=== PATIENT | male | born 1945 | race African-American/Black ===

== ENCOUNTER 2019-04-29 16:38 | Emergency (ER) | payer OTHER ==
--- OUTSIDE RECORDS SUMMARY | 2019-04-29 16:41 | XMS REPORT ---
:1945 Author Organization [facility] Address [address] [place] [address] Care Team Providers Name Role Phone Unavailable Unavailable Unavailable Problems This patient has no known problems. Allergies, Adverse Reactions, Alerts This patient has no known allergies or adverse reactions. Medications This patient has no known medications.
[2019-04-29] MEDS ORDERED: METHYLPREDNISOLONE 125 MG INJ ONE (18:37)
[2019-04-29] MEDS ORDERED: LEVALBUTEROL 1.25 MG/3 ML NEB ONE (18:38)
[2019-04-29 18:41] LABS: Absolute Lymphocytes (CBC) 0.5 K/uL (0.7-4.9); Basophils % 4.2 % (0-1.3); Eosinophils % 0.2 % (0-4.4); Hematocrit 36.2 % (39.6-49.0); Lymphocytes % 7.2 % (15.3-44.8); MPV 7.3 fL (7.6-11.3); Monocytes % 8.3 % (3.3-12.3); RBC Red Blood Cell Count 4.08 M/uL (4.33-5.43)
[2019-04-29 18:48] LABS: Protime INR 1.36
[2019-04-29 19:01] LABS: ALT/SGPT 26 U/L (12-78); AST/SGOT 27 U/L (15-37); Albumin 2.4 g/dL (3.4-5.0); Alkaline Phosphatase 89 U/L (45-117); BUN Blood Urea Nitrogen 10 mg/dL (7-18); Bicarbonate 27 mmol/L (21-32); Bilirubin Direct 0.8 mg/dL (0-0.2); Bilirubin Total 1.4 mg/dL (0.2-1.0); Glucose Level 116 mg/dL (74-106); Magnesium 2.4 mg/dL (1.8-2.4); NT PRO-BNP 225 pg/mL (<125); Potassium 3.3 mmol/L (3.5-5.1); Protein, Total 7.8 g/dL (6.4-8.2); Sodium Level 133 mmol/L (136-145); Troponin (Emerg Dept Use Only) < 0.02 ng/mL (0.0-0.045)
--- NOTE | 2019-04-29 19:04 | RAD REPORT ---
EXAM DESCRIPTION: RAD - Chest Single View - 04/29/2019 6:52 pm CLINICAL HISTORY: DYSPNEA Chest pain. COMPARISON: <Comparisons> FINDINGS: Portable technique limits examination quality. Opacification of the inferior aspect of the right hemithorax is noted likely combination of right low er lobe collapse and consolidation. Mild shift of the cardiomediastinal structures to the right is se en. The left lung is emphysematous. Cardiac size is likely normal.CT chest followup is recommended.
[2019-04-29] MEDS ORDERED: NA CHLORIDE 0.9% 2,000 ML ONE (19:20)
[2019-04-29] MEDS ORDERED: Levofloxacin 750mg IV 750 MG/150 ML BAG IV ONE (19:20)
--- NOTE | 2019-04-29 19:47 | RAD REPORT ---
EXAM DESCRIPTION: CT - Thorax W/ Con CLINICAL HISTORY: Chest pain abnormal xray COMPARISON: No comparisons FINDINGS: A large irregular right hilar mass is present with mediastinal invasion measuring approxim ately 6.3 x 6.7 cm. Large bulky masses in the mediastinum are present more superiorly, including the pretracheal space measuring 5.0 x 4.3 cm, AP window region measuring 4.0 x 3.2 cm, anterior prevascul ar space measuring 4.1 x 2.7 cm. There is complete occlusion of the right lower lobe bronchus with ma rked atelectasis and consolidation seen within the right lower lobe. Postobstructive pneumonia findin gs are also present in the right middle lobe and anterior right upper lobe. A pulmonary embolism is n ot present. Small right pleural effusion is present. 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 Irregular low-density mass is seen in the liver abutting the inferior vena cava measuring 2.6 x 2.6 c m, likely metastatic. Mild thickening of both adrenal glands is present. No lytic or blastic bone lesion. All CT scans are performed using dose optimization technique as appropriate and may include automated exposure control or mA/KV adjustment according to patient size. IMPRESSION: A very large right hilar malignant mass is present with mediastinal invasion.There is si gnificant atelectasis/ collapse of the right lower lobe and postobstructive consolidation. Large bulky masses in the mediastinum likely related to metastatic adenopathy. 2.6 cm mass the liver suspected to be metastatic in origin.
[2019-04-29 19:56] LABS: Urine Blood NEGATIVE (NEG); Urine Glucose TRACE (NEG); Urine Protein 3+ (NEG); Urine Specific Gravity 1.025 (1.005-1.030); Urine pH 5.5 (5.0-7.0)
[2019-04-29] MEDS ORDERED: PIPER/TAZO/NS 3.375gm 3.375 GM/100 ML BAG ONE (20:56)
--- NOTE | 2019-04-29 21:33 | EDPHYS ---
Physician Documentation [facility] Name: Uziel Islas Age: 73 yrs Sex: Male : 1945 Arrival Date: 04/29/2019 Time: 16:42 Bed 5 Private MD: Gerald Burt ED Physician Tejinder Eugene HPI: 04/29 19:19 This 73 yrs old Black Male presents to ER via Ambulatory with complaints of Cough, jr8 Weakness. 19:19 The patient or guardian reports cough, that is intermittent, described as mild, with no jr8 sputum. Onset: The symptoms/episode began/occurred gradually, 3 week(s) ago, and became worse and became persistent. Severity of symptoms: At their worst the symptoms were moderate, in the emergency department the symptoms are unchanged. Modifying factors: The symptoms are alleviated by nothing, the symptoms are aggravated by exertion. Associated signs and symptoms: Pertinent positives: diarrhea, general weakness. The patient has not experienced similar symptoms in the past. The patient has not recently seen a physician. Historical: - Allergies: 17:01 No Known Allergies; bp - Home Meds: 17: Unable to obtain [Active]; bp - PMHx: 17:01 Cancer; Glaucoma; bp - Immunization history:: Adult Immunizations up to date. - Social history:: Smoking status: Patient uses tobacco products, smokes two packs cigarettes per day. - Ebola Screening: : No symptoms or risks identified at this time. ROS: 19:19 Eyes: Negative for injury, pain, redness, and discharge, ENT: Negative for injury, jr8 pain, and discharge, Neck: Negative for injury, pain, and swelling, Cardiovascular: Negative for chest pain, palpitations, and edema, Abdomen/GI: Negative for abdominal pain, nausea, vomiting, diarrhea, and constipation, Back: Negative for injury and pain, MS/Extremity: Negative for injury and deformity, Skin: Negative for injury, rash, and discoloration, Neuro: Negative for headache, weakness, numbness, tingling, and seizure. 19:19 Constitutional: Positive for fatigue, malaise. 19:19 Respiratory: Positive for cough, dyspnea on exertion, shortness of breath, Negative for sputum production, wheezing. Exam: 19:19 Eyes: Pupils equal round and reactive to light, extra-ocular motions intact. Lids and jr8 lashes normal. Conjunctiva and sclera are non-icteric and not injected. Cornea within normal limits. Periorbital areas with no swelling, redness, or edema. ENT: Nares patent. No nasal discharge, no septal abnormalities noted. Tympanic membranes are normal and external auditory canals are clear. Oropharynx with no redness, swelling, or masses, exudates, or evidence of obstruction, uvula midline. Mucous membranes moist. Neck: Trachea midline, no thyromegaly or masses palpated, and no cervical lymphadenopathy. Supple, full range of motion without nuchal rigidity, or vertebral point tenderness. No Meningismus. Cardiovascular: Regular rate and rhythm with a normal S1 and S2. No gallops, murmurs, or rubs. Normal PMI, no JVD. No pulse deficits. Abdomen/GI: Soft, non-tender, with normal bowel sounds. No distension or tympany. No guarding or rebound. No evidence of tenderness throughout. Back: No spinal tenderness. No costovertebral tenderness. Full range of motion. Skin: Warm, dry with normal turgor. Normal color with no rashes, no lesions, and no evidence of cellulitis. MS/ Extremity: Pulses equal, no cyanosis. Neurovascular intact. Full, normal range of motion. Neuro: Awake and alert, GCS 15, oriented to person, place, time, and situation. Cranial nerves II-XII grossly intact. Motor strength 5/5 in all extremities. Sensory grossly intact. Cerebellar exam normal. Normal gait. 19:19 Respiratory: the patient does not display signs of respiratory distress, Respirations: normal, symetrical, no use of accessory muscles, no grunting, no evidence of nasal flaring, no prolonged exhalations, no pursed lip breathing, no retractions, no shallow respirations, no splinting, no tachypnea, Breath sounds: decreased breath sounds, that are moderate, are heard in the right posterior middle lobe and right posterior lower lobe, rhonchi, that are mild, are heard diffusely. Vital Signs: 17:01 BP 159 / 64; Pulse 120; Resp 20; Temp 97.9; Pulse Ox 93% on R/A; Weight 58.97 kg; bp Height 5 ft. 4 in. (162.56 cm); 18:20 BP 160 / 77; Pulse 122; Resp 23; Pulse Ox 94% on R/A; tw2 19:15 BP 135 / 69; Pulse 129; Resp 26; Pulse Ox 95% on R/A; lp1 20:15 BP 136 / 63; Pulse 109; Resp 26; Pulse Ox 94% on R/A; lp1 20:40 BP 159 / 79; Pulse 124; Resp 28; Pulse Ox 97% on R/A; Pain 0/10; lp1 21:00 BP 140 / 78; Pulse 108; Resp 23; Pulse Ox 96% on R/A; lp1 21:30 BP 141 / 77; Pulse 122; Resp 21; Temp 98.7(O); Pulse Ox 97% on 2 lpm NC; lp1 17:01 Body Mass Index 22.31 (58.97 kg, 162.56 cm) bp MDM: 18:01 Patient medically screened. jr8 21:31 Data reviewed: vital signs, nurses notes, lab test result(s), EKG, radiologic studies, [facility] CT scan, plain films. Data interpreted: Pulse oximetry: on room air is 97 %. Interpretation: normal. Counseling: I had a detailed discussion with the patient and/or guardian regarding: the historical points, exam findings, and any diagnostic results supporting the discharge/admit diagnosis, lab results, radiology results, the need to transfer to another facility, for higher level of care, [facility] does not immediately have the required specialist. ED course: Dr. Purcell and Ismael consulted and accepted patient to [facility] for ICU management . 04/29 18:17 Order name: Basic Metabolic Panel; Complete Time: 19:15 04/29 18:17 Order name: CBC with Diff; Complete Time: 18:50 04/29 18:17 Order name: LFT's; Complete Time: 19:15 04/29 18:17 Order name: Magnesium; Complete Time: 19:15 04/29 18:17 Order name: NT PRO-BNP; Complete Time: 19:15 04/29 18:17 Order name: PT-INR; Complete Time: 18:53 04/29 18:17 Order name: Troponin (emerg Dept Use Only); Complete Time: 19:15 04/29 18:17 Order name: XRAY Chest (1 view); Complete Time: 19:15 04/29 18:17 Order name: Blood Culture Adult (2) [facility] 04/29 18:17 Order name: Procalcitonin; Complete Time: 19:28 [facility] 04/29 18:39 Order name: Urine Dipstick--Ancillary (enter results); Complete Time: 20:05 bd 04/29 18:45 Order name: Lactate; Complete Time: 19:50 [facility] 04/29 19:14 Order name: CT Chest W/ Con; Complete Time: 19:50 [facility] 04/29 21:55 Order name: Lactate Sepsis 2 HR Follow-up; Complete Time: 21:55 EDMS 04/29 18:17 Order name: EKG; Complete Time: 18:20 [facility] 04/29 18:17 Order name: Cardiac monitoring; Complete Time: 19:24 [facility] 04/29 18:17 Order name: EKG - Nurse/Tech; Complete Time: 19:24 [facility] 04/29 18:17 Order name: IV Saline Lock; Complete Time: 19:24 [facility] 04/29 18:17 Order name: Labs collected and sent; Complete Time: 19:24 04/29 18:17 Order name: O2 Per Protocol; Complete Time: 19:24 04/29 18:17 Order name: O2 Sat Monitoring; Complete Time: 19:24 Administered Medications: 18:32 Drug: Xopenex 1.25 mg Route: Inhalation; 19:03 Drug: SOLU-Medrol 125 mg Route: IVP; Site: right forearm; tw2 19:11 Follow up: Response: No adverse reaction tw2 19:10 Drug: NS 0.9% (30 ml/kg) 30 ml/kg Route: IV; Rate: bolus; Site: right forearm; tw2 21:00 Follow up: IV Status: Completed infusion; IV Intake: 2000ml lp1 19:10 Drug: LevaQUIN 750 mg Volume: 150 ml; Route: IVPB; Infused Over: 90 mins; Site: right tw2 forearm; 20:50 Follow up: IV Status: Completed infusion; IV Intake: 150ml lp1 20:50 Drug: Zosyn 3.375 grams Route: IVPB; Infused Over: 60 mins; Site: right forearm; lp1 21:20 Follow up: IV Status: Completed infusion; IV Intake: 100ml lp1 Disposition: 04/29/19 21:[address] [facility]. Diagnosis are Sepsis, Pneumonia due to other specified bacteria, Abnormal findings on diagnostic imaging of lung, Malignant neoplasm of bronchus and lung. - Reason for transfer: Higher level of care. - Accepting physician is Dr. Purcell. - Condition is Fair. - Problem is new. - Symptoms have improved. Signatures: Dispatcher [employer] EDMS Eleanor Fulton, RN RN Pushpa Bansal RN RN lp1 Tony Rios PA PA jr8 Neema Ortiz RN RN tw2 Lazarus Amin RN RN bp Corrections: (The following items were deleted from the chart) 23:12 21:32 04/29/2019 21:[address] [facility]. Diagnosis is lp1 Sepsis; Pneumonia due to other specified bacteria; Abnormal findings on diagnostic imaging of lung; Malignant neoplasm of bronchus and lung. Reason for transfer: Higher level of care. Accepting physician is Dr. Purcell. Condition is Fair. Problem is new. Symptoms have improved. jr8
--- NOTE | 2019-04-29 21:33 | ER ---
Nurse's Notes [facility] Name: Uziel Islas Age: 73 yrs Sex: Male : 1945 Arrival Date: 04/29/2019 Time: 16:42 Bed 5 Private MD: Gerald Burt Diagnosis: Sepsis;Pneumonia due to other specified bacteria;Abnormal findings on diagnostic imaging of lung;Malignant neoplasm of bronchus and lung Presentation: 04/29 16:59 Presenting complaint: Patient states: COUGH x3 WK. Transition of care: patient was not bp received from another setting of care. Onset of symptoms is unknown. Risk Assessment: Do you want to hurt yourself or someone else? Patient reports no desire to harm self or others. Initial Sepsis Screen: Does the patient meet any 2 criteria? HR > 90 bpm. No. Patient's initial sepsis screen is negative. Does the patient have a suspected source of infection? No. Patient's initial sepsis screen is negative. Care prior to arrival: None. 16:59 Method Of Arrival: Ambulatory bp 16:59 Acuity: SRINIVAS 4 bp 18:20 Acuity: SRINIVAS 2 tw2 Triage Assessment: 17:01 General: Appears in no apparent distress. comfortable, unkempt, Behavior is bp cooperative, appropriate for age, anxious. Pain: Denies pain. GI: No signs and/or symptoms were reported involving the gastrointestinal system. Historical: - Allergies: 17:01 No Known Allergies; bp - Home Meds: 17:01 Unable to obtain [Active]; bp - PMHx: 17:01 Cancer; Glaucoma; bp - Immunization history:: Adult Immunizations up to date. - Social history:: Smoking status: Patient uses tobacco products, smokes two packs cigarettes per day. - Ebola Screening: : No symptoms or risks identified at this time. Screenin:37 Abuse screen: Denies threats or abuse. Nutritional screening: No deficits noted. tw2 Tuberculosis screening: No symptoms or risk factors identified. Fall Risk Secondary diagnosis (15 points) impaired mobility. Assessment: 18:10 General: Appears in no apparent distress. unkempt, Behavior is calm, cooperative, tw2 appropriate for age. Pain: Denies pain. Neuro: Level of Consciousness is awake, alert, obeys commands, Oriented to person, place, time, situation. Cardiovascular: Heart tones S1 S2 Patient's skin is warm and dry. Respiratory: Reports cough that is non-productive. GI: Abdomen is flat, Bowel sounds present X 4 quads. : No signs and/or symptoms were reported regarding the genitourinary system. EENT: No signs and/or symptoms were reported regarding the EENT system. Derm: No signs and/or symptoms reported regarding the dermatologic system. Musculoskeletal: Range of motion: intact in all extremities. 19:23 Reassessment: Patient appears in no apparent distress at this time. Neuro: Level of lp1 Consciousness is awake, obeys commands, Oriented to person, place, situation. Cardiovascular: Patient's skin is warm and dry. Respiratory: Reports cough that is Airway is patent Respiratory effort is even, shallow, Respiratory pattern is symmetrical, Breath sounds are diminished bilaterally. Derm: Skin is fragile, is thin, Skin is dry, Skin is normal. 20:30 Reassessment: Patient appears in no apparent distress at this time. No changes from 1 previously documented assessment. Patient resting, eyes closed, respirations shallow. 20:44 Reassessment: Provider at bedside to discuss results with patient and daughter; Aware [facility] of pending transfer. 21:26 Reassessment: O2 at 90% on RA while sleeping; O2 via NC at 2L applied to patient. lp1 21:58 Reassessment: Report given to MATTY Drew for patient to transfer to [place] [address] [address] Bed 19. Vital Signs: 17:01 BP 159 / 64; Pulse 120; Resp 20; Temp 97.9; Pulse Ox 93% on R/A; Weight 58.97 kg; bp Height 5 ft. 4 in. (162.56 cm); 18:20 BP 160 / 77; Pulse 122; Resp 23; Pulse Ox 94% on R/A; tw2 19:15 BP 135 / 69; Pulse 129; Resp 26; Pulse Ox 95% on R/A; lp1 20:15 BP 136 / 63; Pulse 109; Resp 26; Pulse Ox 94% on R/A; lp1 20:40 BP 159 / 79; Pulse 124; Resp 28; Pulse Ox 97% on R/A; Pain 0/10; lp1 21:00 BP 140 / 78; Pulse 108; Resp 23; Pulse Ox 96% on R/A; lp1 21:30 BP 141 / 77; Pulse 122; Resp 21; Temp 98.7(O); Pulse Ox 97% on 2 lpm NC; lp1 17:01 Body Mass Index 22.31 (58.97 kg, 162.56 cm) bp ED Course: 16:42 Patient arrived in ED. mr 16:43 Gerald Burt is Private Physician. mr 17:00 Triage completed. bp 17:01 Arm band placed on. bp 18:01 Tony Rios PA is PHCP. jr8 18:01 Tejinder Eugene MD is Attending Physician. jr8 18:01 Placed in gown. Bed in low position. Side rails up X2. Adult w/ patient. Cardiac tw2 monitor on. Pulse ox on. NIBP on. 18:02 Neema Ortiz RN is Primary Nurse. tw2 18:32 Missed attempt(s): 20 gauge in right antecubital area. ch 18:36 Missed attempt(s): 22 gauge in left antecubital area. 1st set blood culture and green tw2 top sent to lab.. 18:52 XRAY Chest (1 view) In Process Unspecified. EDMS 19:01 Inserted saline lock: 22 gauge in right forearm, using aseptic technique. Blood ss collected. 19:01 Second set of blood cultures drawn by ct. ss 19:10 Report given to MATTY Barrow. tw2 19:34 Notified Nurse Practitioner and/or Physician Manager [employer] of a critical lab result(s), lp1 Lactate 2.2. 19:38 CT Chest W/ Con In Process Unspecified. EDMS 20:46 No provider procedures requiring assistance completed. lp1 21:00 Inserted saline lock: 22 gauge in left forearm, using aseptic technique. Blood lp1 collected. 22:30 Patient transferred, IV remains in place. lp1 Administered Medications: 18:32 Drug: Xopenex 1.25 mg Route: Inhalation; ch 19:03 Drug: SOLU-Medrol 125 mg Route: IVP; Site: right forearm; tw2 19:11 Follow up: Response: No adverse reaction tw2 19:10 Drug: NS 0.9% (30 ml/kg) 30 ml/kg Route: IV; Rate: bolus; Site: right forearm; tw2 21:00 Follow up: IV Status: Completed infusion; IV Intake: 2000ml lp1 19:10 Drug: LevaQUIN 750 mg Volume: 150 ml; Route: IVPB; Infused Over: 90 mins; Site: right tw2 forearm; 20:50 Follow up: IV Status: Completed infusion; IV Intake: 150ml lp1 20:50 Drug: Zosyn 3.375 grams Route: IVPB; Infused Over: 60 mins; Site: right forearm; lp1 21:20 Follow up: IV Status: Completed infusion; IV Intake: 100ml lp1 Intake: 20:50 IV: 150ml; Total: 150ml. lp1 21:00 IV: 2000ml; Total: 2150ml. lp1 21:20 IV: 100ml; Total: 2250ml. lp1 Outcome: 21:32 ER care complete, transfer ordered by . duran 22:30 [facility]red by [facility] to [facility], Transfer form completed. lp1 X-rays sent w/ patient. 22:30 Condition: stable 22:30 Instructed on the need for transfer. 22:35 Patient left the ED. lp1 Signatures: Dispatcher [employer] EDMS Eleanor Fulton, RN RN Melyssa Barger Shelby, RN RN ss Pushpa Bansal RN RN lp1 Tony Rios PA PA jr8 Neema Ortiz RN RN tw2 Lazarus Amin, RN RN bp Corrections: (The following items were deleted from the chart) 18:20 18:02 Acuity: SRINIVAS 3 tw2 tw2 23:13 23:12 Patient left the ED. lp1 lp1
--- NOTE | 2019-04-30 12:11 | EKG ---
Test Date: 2019-04-29 Test Time: 18:18:46 Outside [employer]: ANTOINETTE MEASUREMENT RESULTS: Intervals: Rate: 122 [place]: 112 QRSD: 122 QT: 324 QTc: 461 [place]: P: 3 [place]: 112 QRS: -52 T: 33 INTERPRETIVE STATEMENTS: Sinus tachycardia Left axis deviation Right bundle branch block Abnormal ECG No previous ECG available for comparison Electronically Signed On 04-30-19 12:10:22 CDT by Kirt Rosario
== END 2019-04-29 23:12 | disposition short-term general hospital (02) ==
LOC: ER 16:38
DX: A41.9 Sepsis, unspecified organism (principal); J15.8 Pneumonia due to other specified bacteria; C34.90 Malignant neoplasm of unspecified part of unspecified bronchus or lung; R91.8 Other nonspecific abnormal finding of lung field; F17.210 Nicotine dependence, cigarettes, uncomplicated
CPT/HCPCS: 96365; 96367; 96368; 93005; 87040 ×2; 85025; 80048; 36415; 83735; 85610; 80076; 83605 ×2; 81003; 84484; 84145; 83880; 71260; 71045; 96375; 99285; Q9967; J2543; J7030; J2930

== ENCOUNTER 2019-07-07 17:04 | Observation (INO) | payer OTHER ==
--- OUTSIDE RECORDS SUMMARY | 2019-07-07 17:07 | XMS REPORT | Clinical Summary ---
:1945 Author Organization [facility] Address [address] [place] [address] Care Team Providers Name Role Phone Pcp, No Primary Care Provider Unavailable Allergies No Known Allergies Medications Medication Sig Dispensed Refills Start Date End Date Status formoterol Take 2 mLs (20 120 mL 0 05/07/2019 Active (PERFOROMIST) 20 mcg total) by mcg/2 mL nebulization 2 nebulizer (two) times solution daily. budesonide Take 2 mLs (0.5 120 mL 0 05/07/2019 Active (PULMICORT) 0.5 mg total) by mg/2 mL nebulizer nebulization 2 solution (two) times daily. folic acid Take 1 tablet (1 30 tablet 0 05/08/2019 Active (FOLVITE) 1 MG mg total) by tablet mouth daily. ipratropium-albut Take 3 mLs by 270 mL 0 05/07/2019 Active daren (DUO-NEB) nebulization 0.5 mg-3 mg(2.5 every 6 (six) mg base)/3 mL hours as needed nebulizer for Wheezing. solution metoprolol Take 0.5 tablets 30 tablet 0 05/07/2019 Active (LOPRESSOR) 25 MG (12.5 mg total) tablet by mouth 2 (two) times daily. tamsulosin Take 1 capsule 90 capsule 0 06/26/2019 Active (FLOMAX) 0.4 mg (0.4 mg total) by Cap 24 hr capsule mouth daily. sodium chloride 1 Take 2 tablets (2 120 tablet 0 06/25/2019 Active gram tablet g total) by mouth 9 2 (two) times daily for 30 days. finasteride Take 1 tablet (5 90 tablet 0 06/25/2019 Active (PROSCAR) 5 mg mg total) by 0 tablet mouth daily. furosemide Take 1 tablet (40 90 tablet 0 06/26/2019 Active (LASIX) 40 MG mg total) by 0 tablet mouth daily. aspirin-sod Take 325 mg by 0 Discontinued bicarb-citric mouth every 6 9 acid (six) hours as (MILO-SELTZER) needed. 324 mg TbEFIndications: dyspepsia allopurinol Take 1 tablet 30 tablet 0 05/08/2019 Discontinued (ZYLOPRIM) 300 MG (300 mg total) by 9 tablet mouth daily. furosemide Take 1 tablet (40 90 tablet 0 06/25/2019 Discontinued (LASIX) 40 MG mg total) by 9 tablet mouth daily. ondansetron Take 1 tablet (4 30 tablet 0 06/25/2019 (ZOFRAN) 4 MG mg total) by 9 tablet mouth 2 (two) times daily as needed for Nausea for up to 7 days. Active Problems Problem Noted Date Acute hyponatremia 06/20/2019 Failure to thrive in adult 06/19/2019 Small cell lung cancer in adult 05/04/2019 Pneumonia 04/30/2019 Encounters Date Type Specialty Care Team Description 06/26/2019 Orders Only Internal Tj Salazar MD Medicine 06/19/2019 - Hospital Oncology Kiran Rees, Failure to thrive in adult (Primary Dx); 06/25/2019 Encounter Non-intractable vomiting with nausea, unspecified vomiting type; Nancy Richter Weakness; PMD Jamila Wheezing; Tj Salazar MD Confusion; Nick Howardophashlie Weight loss; MD Kwadwo Small cell lung cancer in adult (HCC); Liver metastases (HCC); Acute hyponatremia; Urinary retention 06/19/2019 Travel 05/01/2019 Surgery Jarrod Carroll, BRONCHOSCOPY,ENDOBRONC HIAL ULTRASOUND (EBUS) TRANSTRACH/ TRANSBRONCH SAMPLING 05/01/2019 Anesthesia Event Greta Barnes CRNA 04/30/2019 Travel 04/29/2019 - Hospital Oncology Jazzy Persaud, Small cell lung cancer in adult (HCC) (Primary Dx); 05/07/2019 Encounter MD Valente Postobstructive pneumonia; Adriana Dorantes MD Lung mass; Trinity Sorensen Collapse of right lung MD Deirdre 04/29/2019 Telephone Critical Care Jazzy Persaud Transfer Medicine MD Valente 04/29/2019 Telephone Critical Care Jazzy Persaud transfer Medicine MD Valente after 07/06/2018 Immunizations Name Dates Previously Given Next Due Pneumococcal Conjugate (Prevnar) 13-Valent 05/02/2019 Social History Tobacco Use Types Packs/Day Years Used Date Former Smoker Cigarettes 1 12 Quit: 04/23/2019 Smokeless Tobacco: Never Used Sex Assigned at Date Recorded Not on file Job Start Date Occupation Industry Not on file Not on file Not on file Travel History Travel Start Travel End No recent travel history available. Last Filed Vital Signs Vital Sign Reading Time Taken Blood Pressure 136/62 06/25/2019 3:00 PM CDT Pulse 107 06/25/2019 3:00 PM CDT Temperature 36.8 C (98.3 F) 06/25/2019 3:00 PM CDT Respiratory Rate 18 06/25/2019 3:00 PM CDT Oxygen Saturation 98% 06/25/2019 3:00 PM CDT Inhaled Oxygen Concentration - - Weight 56.9 kg (125 lb 8 oz) 06/22/2019 5:00 PM CDT Height 162.6 cm (5' 4") 06/22/2019 5:00 PM CDT Body Mass Index 21.54 06/22/2019 5:00 PM CDT Plan of Treatment Not on file Procedures Procedure Name Priority Date/Time Associated Comments Diagnosis RHYTHM STRIP - SCAN 06/27/2019 11:00 AM CDT BASIC METABOLIC PANEL Routine 06/25/2019 8:16 Results for this (7) AM CDT procedure are in the results section. SODIUM Routine 06/25/2019 12:21 Results for this AM CDT procedure are in the results section. SODIUM Routine 06/24/2019 6:04 Results for this PM CDT procedure are in the results section. CBC W/PLT COUNT & AUTO Routine 06/24/2019 11:12 Results for this DIFFERENTIAL AM CDT procedure are in the results section. CBC W/PLT COUNT & AUTO Routine 06/24/2019 11:12 Results for this DIFFERENTIAL AM CDT procedure are in the results section. COMPREHENSIVE METABOLIC Routine 06/24/2019 11:12 Results for this PANEL AM CDT procedure are in the results section. SODIUM Routine 06/24/2019 6:02 Results for this AM CDT procedure are in the results section. SODIUM Routine 06/24/2019 1:34 Results for this AM CDT procedure are in the results section. SODIUM Routine 2019 6:39 Results for this PM CDT procedure are in the results section. SODIUM Routine 2019 12:28 Results for this PM CDT procedure are in the results section. URIC ACID Routine 2019 5:38 Results for this AM CDT procedure are in the results section. COMPREHENSIVE METABOLIC Routine 2019 5:38 Results for this PANEL AM CDT procedure are in the results section. SODIUM Routine 2019 1:05 Results for this AM CDT procedure are in the results section. MAGNESIUM Routine 06/22/2019 8:44 Results for this PM CDT procedure are in the results section. SODIUM Routine 06/22/2019 8:44 Results for this PM CDT procedure are in the results section. SODIUM Routine 06/22/2019 6:06 Results for this PM CDT procedure are in the results section. SODIUM Routine 06/22/2019 12:21 Results for this PM CDT procedure are in the results section. CBC W/PLT COUNT & AUTO Routine 06/22/2019 5:18 Results for this DIFFERENTIAL AM CDT procedure are in the results section. CBC W/PLT COUNT & AUTO Routine 06/22/2019 5:18 Results for this DIFFERENTIAL AM CDT procedure are in the results section. BASIC METABOLIC PANEL Routine 06/22/2019 5:18 Results for this (7) AM CDT procedure are in the results section. CT ABDOMEN/PELVIS WITH Routine 06/22/2019 3:26 Results for this IV CONTRAST AM CDT procedure are in the results section. CT CHEST WITH IV Routine 06/22/2019 3:26 Results for this CONTRAST AM CDT procedure are in the results section. MR BRAIN WITHOUT & WITH Routine 06/21/2019 9:36 Results for this IV CONTRAST PM CDT procedure are in the results section. SODIUM Timed 06/21/2019 10:30 Results for this AM CDT procedure are in the results section. URIC ACID, RANDOM URINE Routine 06/21/2019 4:00 Results for this AM CDT procedure are in the results section. CBC W/PLT COUNT & AUTO Routine 06/21/2019 3:58 Results for this DIFFERENTIAL AM CDT procedure are in the results section. CORTISOL Timed 06/21/2019 3:58 Results for this AM CDT procedure are in the results section. TSH Routine 06/21/2019 3:58 Results for this AM CDT procedure are in the results section. CBC W/PLT COUNT & AUTO Routine 06/21/2019 3:58 Results for this DIFFERENTIAL AM CDT procedure are in the results section. BASIC METABOLIC PANEL Routine 06/21/2019 3:58 Results for this (7) AM CDT procedure are in the results section. TROPONIN I STAT 06/21/2019 3:58 Results for this AM CDT procedure are in the results section. SODIUM Timed 06/20/2019 9:36 Results for this PM CDT procedure are in the results section. URIC ACID Routine 06/20/2019 9:36 Results for this PM CDT procedure are in the results section. OSMOLALITY, URINE Routine 06/20/2019 2:49 Results for this PM CDT procedure are in the results section. CREATININE, RANDOM URINE Routine 06/20/2019 2:49 Results for this PM CDT procedure are in the results section. POTASSIUM, RANDOM URINE Routine 06/20/2019 2:49 Results for this PM CDT procedure are in the results section. SODIUM, RANDOM URINE Routine 06/20/2019 2:49 Results for this PM CDT procedure are in the results section. BASIC METABOLIC PANEL STAT 06/20/2019 2:30 Results for this (7) PM CDT procedure are in the results section. OSMOLALITY, SERUM Routine 06/20/2019 2:30 Results for this PM CDT procedure are in the results section. TROPONIN I Routine 06/20/2019 2:30 Results for this PM CDT procedure are in the results section. CBC W/PLT COUNT & AUTO Routine 06/20/2019 4:54 Results for this DIFFERENTIAL AM CDT procedure are in the results section. CBC W/PLT COUNT & AUTO Routine 06/20/2019 4:54 Results for this DIFFERENTIAL AM CDT procedure are in the results section. BASIC METABOLIC PANEL Routine 06/20/2019 4:54 Results for this (7) AM CDT procedure are in the results section. TROPONIN I Routine 06/20/2019 4:54 Results for this AM CDT procedure are in the results section. POCT-GLUCOSE METER Routine 06/20/2019 12:16 Results for this AM CDT procedure are in the results section. CBC W/PLT COUNT & AUTO STAT 06/19/2019 8:23 Results for this DIFFERENTIAL PM CDT procedure are in the results section. URINALYSIS MICROSCOPIC Routine 06/19/2019 8:23 Results for this PM CDT procedure are in the results section. URINALYSIS WITH STAT 06/19/2019 8:23 Results for this MICROSCOPIC IF INDICATED PM CDT procedure are in the results section. LIPASE STAT 06/19/2019 8:23 Results for this PM CDT procedure are in the results section. HEPATIC FUNCTION PANEL STAT 06/19/2019 8:23 Results for this PM CDT procedure are in the results section. BASIC METABOLIC PANEL STAT 06/19/2019 8:23 Results for this (7) PM CDT procedure are in the results section. PT/APTT STAT 06/19/2019 8:23 Results for this PM CDT procedure are in the results section. CBC W/PLT COUNT & AUTO STAT 06/19/2019 8:23 Results for this DIFFERENTIAL PM CDT procedure are in the results section. CT BRAIN WITHOUT IV STAT 06/19/2019 7:15 Results for this CONTRAST PM CDT procedure are in the results section. ED ECG INTERPRETATION Routine 06/19/2019 6:44 Results for this PM CDT procedure are in the results section. RHYTHM STRIP - SCAN 05/08/2019 10:33 AM CDT REPORT OF PROCEDURE - 05/08/2019 10:33 ENDOSCOPY SCAN AM CDT BASIC METABOLIC PANEL Routine 05/07/2019 5:07 Results for this (7) AM CDT procedure are in the results section. URIC ACID Routine 05/07/2019 5:07 Results for this AM CDT procedure are in the results section. PHOSPHORUS Routine 05/07/2019 5:07 Results for this AM CDT procedure are in the results section. HEPATIC FUNCTION PANEL Routine 05/07/2019 5:07 Results for this AM CDT procedure are in the results section. MAGNESIUM Routine 05/07/2019 5:07 Results for this AM CDT procedure are in the results section. CBC (HEMOGRAM ONLY) Routine 05/07/2019 5:07 Results for this AM CDT procedure are in the results section. URIC ACID Routine 05/06/2019 10:42 Results for this PM CDT procedure are in the results section. PHOSPHORUS Routine 05/06/2019 10:42 Results for this PM CDT procedure are in the results section. BASIC METABOLIC PANEL Routine 05/06/2019 10:42 Results for this (7) PM CDT procedure are in the results section. XR CHEST 1 VIEW Routine 05/06/2019 1:43 Results for this PORTABLE/BEDSIDE PM CDT procedure are in the results section. BASIC METABOLIC PANEL Routine 05/06/2019 12:45 Results for this (7) PM CDT procedure are in the results section. URIC ACID Routine 05/06/2019 12:45 Results for this PM CDT procedure are in the results section. PHOSPHORUS Routine 05/06/2019 12:45 Results for this PM CDT procedure are in the results section. HEPATIC FUNCTION PANEL Routine 05/06/2019 4:13 Results for this AM CDT procedure are in the results section. MAGNESIUM Routine 05/06/2019 4:13 Results for this AM CDT procedure are in the results section. CBC (HEMOGRAM ONLY) Routine 05/06/2019 4:13 Results for this AM CDT procedure are in the results section. BASIC METABOLIC PANEL Routine 05/06/2019 4:13 Results for this (7) AM CDT procedure are in the results section. URIC ACID Routine 05/06/2019 4:13 Results for this AM CDT procedure are in the results section. PHOSPHORUS Routine 05/06/2019 4:13 Results for this AM CDT procedure are in the results section. BASIC METABOLIC PANEL Routine 05/05/2019 9:32 Results for this (7) PM CDT procedure are in the results section. URIC ACID Routine 05/05/2019 9:32 Results for this PM CDT procedure are in the results section. PHOSPHORUS Routine 05/05/2019 9:32 Results for this PM CDT procedure are in the results section. BASIC METABOLIC PANEL Routine 05/05/2019 1:05 Results for this (7) PM CDT procedure are in the results section. URIC ACID Routine 05/05/2019 1:05 Results for this PM CDT procedure are in the results section. PHOSPHORUS Routine 05/05/2019 1:05 Results for this PM CDT procedure are in the results section. HEPATIC FUNCTION PANEL Routine 05/05/2019 4:24 Results for this AM CDT procedure are in the results section. MAGNESIUM Routine 05/05/2019 4:24 Results for this AM CDT procedure are in the results section. CBC (HEMOGRAM ONLY) Routine 05/05/2019 4:24 Results for this AM CDT procedure are in the results section. BASIC METABOLIC PANEL Routine 05/05/2019 4:24 Results for this (7) AM CDT procedure are in the results section. URIC ACID Routine 05/05/2019 4:24 Results for this AM CDT procedure are in the results section. PHOSPHORUS Routine 05/05/2019 4:24 Results for this AM CDT procedure are in the results section. BASIC METABOLIC PANEL Routine 05/04/2019 5:45 Results for this (7) PM CDT procedure are in the results section. URIC ACID Routine 05/04/2019 5:45 Results for this PM CDT procedure are in the results section. PHOSPHORUS Routine 05/04/2019 5:45 Results for this PM CDT procedure are in the results section. (MANUAL DIFFERENTIAL) Routine 05/04/2019 5:19 Results for this AM CDT procedure are in the results section. HEPATIC FUNCTION PANEL Routine 05/04/2019 5:19 Results for this AM CDT procedure are in the results section. MAGNESIUM Routine 05/04/2019 5:19 Results for this AM CDT procedure are in the results section. BASIC METABOLIC PANEL Routine 05/04/2019 5:19 Results for this (7) AM CDT procedure are in the results section. CBC (HEMOGRAM ONLY) Routine 05/04/2019 5:19 Results for this AM CDT procedure are in the results section. MR BRAIN WITHOUT & WITH KATIA 05/03/2019 9:46 Results for this IV CONTRAST PM CDT procedure are in the results section. NM BONE SCAN WHOLE BODY Routine 05/03/2019 4:15 Results for this PM CDT procedure are in the results section. MAGNESIUM Routine 05/03/2019 5:41 Results for this AM CDT procedure are in the results section. BASIC METABOLIC PANEL Routine 05/03/2019 5:41 Results for this (7) AM CDT procedure are in the results section. CBC (HEMOGRAM ONLY) Routine 05/03/2019 5:41 Results for this AM CDT procedure are in the results section. CT CHEST WITH IV Routine 05/02/2019 9:27 Results for this CONTRAST PM CDT procedure are in the results section. CT ABDOMEN/PELVIS WITH Routine 05/02/2019 9:27 Results for this IV CONTRAST PM CDT procedure are in the results section. TRANSFUSION SERVICE 05/02/2019 6:00 REPORT - SCAN PM CDT MAGNESIUM Routine 05/02/2019 5:35 Results for this AM CDT procedure are in the results section. BASIC METABOLIC PANEL Routine 05/02/2019 5:35 Results for this (7) AM CDT procedure are in the results section. CBC (HEMOGRAM ONLY) Routine 05/02/2019 5:35 Results for this AM CDT procedure are in the results section. PHOSPHORUS Routine 05/02/2019 5:35 Results for this AM CDT procedure are in the results section. REPORT OF PROCEDURE - 05/01/2019 3:48 ENDOSCOPY URL PM CDT FLOW CYTOMETRY Routine 05/01/2019 3:35 Results for this REQUISITION PM CDT procedure are in the results section. FLOW CYTOMETRY Routine 05/01/2019 3:35 Results for this PM CDT procedure are in the results section. EBUS FNA REQUEST Routine 05/01/2019 3:23 Results for this PM CDT procedure are in the results section. FINE NEEDLE ASPIRATE BY AP Routine 05/01/2019 3:23 Results for this EBUS PM CDT procedure are in the results section. EBUS FNA REQUEST Routine 05/01/2019 3:09 Results for this PM CDT procedure are in the results section. FINE NEEDLE ASPIRATE BY AP Routine 05/01/2019 3:09 Results for this EBUS PM CDT procedure are in the results section. AFB CULTURE + SMEAR Routine 05/01/2019 2:58 Results for this PM CDT procedure are in the results section. SURGICALLY OBTAINED Routine 05/01/2019 2:58 Results for this CULTURE + GRAM STAIN PM CDT procedure are in the results section. FUNGUS CULTURE + SMEAR Routine 05/01/2019 2:58 Results for this PM CDT procedure are in the results section. CYTOLOGY REQUEST Routine 05/01/2019 2:58 Results for this PM CDT procedure are in the results section. SPIN/CONCENTRATION Routine 05/01/2019 2:58 Results for this CHARGE PM CDT procedure are in the results section. CYTOLOGY AP Routine 05/01/2019 2:58 Results for this PM CDT procedure are in the results section. EBUS FNA REQUEST Routine 05/01/2019 2:57 Results for this PM CDT procedure are in the results section. EBUS FNA REQUEST Routine 05/01/2019 2:57 Results for this PM CDT procedure are in the results section. FINE NEEDLE ASPIRATE BY AP Routine 05/01/2019 2:57 Results for this EBUS PM CDT procedure are in the results section. FINE NEEDLE ASPIRATE BY AP Routine 05/01/2019 2:57 Results for this EBUS PM CDT procedure are in the results section. BRONCHOSCOPY,ASPIRATION 05/01/2019 2:15 Lung mass TRACHEOBRONCHIAL TREE PM CDT Case Notes 3 HRS Special Needs (RIGID KIT/ JET VENT, CRYO, APC, STENT CART) BRONCHOSCOPY,ENDOBRONCHIAL ULTRASOUND (EBUS) 05/01/2019 2:15 PM CDT Lung mass TRANSTRACH/ TRANSBRONCH SAMPLING Case Notes 3 HRS Special Needs (RIGID KIT/ JET VENT, CRYO, APC, STENT CART) ABORH, MANUAL STAT 05/01/2019 9:04 AM CDT ABORH, MANUAL Routine 05/01/2019 8:20 AM CDT TYPE AND SCREEN, AUTOMATED Routine 05/01/2019 8:20 AM CDT APTT STAT 05/01/2019 8:20 AM CDT MAGNESIUM Routine 05/01/2019 4:59 AM CDT BASIC METABOLIC PANEL (7) Routine 05/01/2019 4:59 AM CDT CBC (HEMOGRAM ONLY) Routine 05/01/2019 4:59 AM CDT PHOSPHORUS Routine 05/01/2019 4:59 AM CDT LACTATE DEHYDROGENASE (LDH) Routine 05/01/2019 4:59 AM CDT PROTHROMBIN TIME/INR Routine 05/01/2019 4:59 AM CDT VITAMIN B12 AND FOLATE Routine 05/01/2019 4:59 AM CDT IRON, TIBC, % SAT. (WITHOUT Routine 05/01/2019 4:59 AM CDT Results for this FERRITIN) procedure are in the results section. FERRITIN Routine 05/01/2019 4:59 AM CDT SPUTUM CULTURE + GRAM STAIN Routine 04/30/2019 3:46 AM CDT BLOOD CULTURE Routine 04/30/2019 3:45 AM CDT (CELLAVISION MANUAL DIFF) Routine 04/30/2019 3:13 AM CDT CBC W/PLT COUNT & AUTO Routine 04/30/2019 3:13 AM CDT Results for this DIFFERENTIAL procedure are in the results section. PROTHROMBIN TIME/INR Routine 04/30/2019 3:13 AM CDT HEMOGLOBIN A1C Routine 04/30/2019 3:13 AM CDT BASIC METABOLIC PANEL (7) Routine 04/30/2019 3:13 AM CDT CBC W/PLT COUNT & AUTO Routine 04/30/2019 3:13 AM CDT Results for this DIFFERENTIAL procedure are in the results section. BLOOD CULTURE Routine 04/30/2019 3:13 AM CDT after 07/06/2018 Results RHYTHM STRIP - SCAN (06/27/2019 11:00 AM CDT)Only the most recent of2 resultswithin the time period is included. Narrative Performed At Basic Metabolic Panel (06/25/2019 8:16 AM CDT)Only the most recent of19 resultswithin the time period is included. Sodium 129 (L) 136 - 145 meq/L [facility] Potassium 4.1 3.5 - 5.1 meq/L [facility] Chloride 96 (L) 98 - 107 meq/L [facility] CO2 26 22 - 29 meq/L [facility] BUN 12 7 - 21 mg/dL [facility] Creatinine 0.73 0.57 - 1.25 mg/dL [facility] Glucose 118 (H) 70 - 105 mg/dL [facility] Calcium 8.8 8.4 - 10.2 mg/dL [facility] EGFR 128Comment: ESTIMATED GFR IS mL/min/1.73 sq m [facility] NOT ACCURATE [facility] CLEARANCE IN PREDICTING GLOMERULAR FILTRATION RATE. ESTIMATED GFR IS NOT APPLICABLE FOR DIALYSIS PATIENTS. Specimen Blood Performing Organization Address City/State/Zipcode Phone Number [facility] [address], [place] [id number] CENTER Sodium (06/25/2019 12:21 AM CDT)Only the most recent of12 resultswithin the time period is included. Sodium 128 (L) 136 - 145 meq/L [facility] Specimen Blood Performing Organization Address City/[facility]/Zipcode Phone Number [address] [phone] [place] CBC with platelet count + automated diff (06/24/2019 11:12 AM CDT)Only the most recent of6 resultswithin the time period is included. WBC 9.6 3.5 - 10.5 K/L [facility] RBC 3.75 (L) 4.63 - 6.08 M/L [facility] Hemoglobin 11.0 (L) 13.7 - 17.5 GM/DL [facility] Hematocrit 32.3 (L) 40.1 - 51.0 % [facility] MCV 86.1 79.0 - 92.2 fL [facility] MCH 29.3 25.7 - 32.2 pg [facility] MCHC 34.1 32.3 - 36.5 GM/DL [facility] RDW 17.4 (H) 11.6 - 14.4 % [facility] Platelets 281 150 - 450 K/CU MM [facility] MPV 8.8 (L) 9.4 - 12.4 fL [facility] nRBC 0 0 - 0 /100 WBC [facility] % Neutros 86 % [facility] % Lymphs 8 % [facility] % Monos 5 % [facility] % Eos 0 % [facility] % Baso 0 % [facility] # Neutros 8.25 (H) 1.78 - 5.38 K/L [facility] # Lymphs 0.76 (L) 1.32 - 3.57 K/L [facility] # Monos 0.46 0.30 - 0.82 K/L [facility] # Eos 0.00 (L) 0.04 - 0.54 K/L [facility] # Baso 0.00 (L) 0.01 - 0.08 K/L [facility] Immature Granulocytes-Relative 1 0 - 1 % [facility] Specimen Blood Performing Organization Address City/State/Zipcode Phone Number [facility] [address] [place] [address] CENTER Comprehensive metabolic panel (06/24/2019 11:12 AM CDT)Only the most recent of2 resultswithin the time period is included. Protein, Total 6.8 6.0 - 8.3 gm/dL [facility] Albumin 3.9 3.5 - 5.0 g/dL [facility] Alkaline Phosphatase 56 40 - 150 U/L [facility] Total Bilirubin 0.5 0.2 - 1.2 mg/dL [facility] Sodium 126 (L) 136 - 145 meq/L [facility] Potassium 3.7 3.5 - 5.1 meq/L [facility] Chloride 92 (L) 98 - 107 meq/L [facility] CO2 26 22 - 29 meq/L [facility] BUN 10 7 - 21 mg/dL [facility] Creatinine 0.79 0.57 - 1.25 mg/dL [facility] Glucose 167 (H) 70 - 105 mg/dL [facility] Calcium 8.7 8.4 - 10.2 mg/dL [facility] AST 16 5 - 34 U/L [facility] ALT 22 6 - 55 U/L [facility] EGFR 117Comment: ESTIMATED mL/min/1.73 sq m [facility] GFR IS NOT ACCURATE [facility] CREATININE CLEARANCE IN PREDICTING GLOMERULAR FILTRATION RATE. ESTIMATED GFR IS NOT APPLICABLE FOR DIALYSIS PATIENTS. Specimen Blood Performing Organization Address City/[facility]/Zipcode Phone Number [address] [phone] [place] Uric acid (2019 5:38 AM CDT)Only the most recent of10 resultswithin the time period is included. Uric Acid 2.0 (L) 2.6 - 7.2 mg/dL [facility] Specimen Blood Performing Organization Address City/[facility] Phone Number [address] [phone] C[facility] Magnesium (06/22/2019 8:44 PM CDT)Only the most recent of8 resultswithin the time period is included. Magnesium 1.8 1.6 - 2.6 mg/dL [facility] Specimen Blood Performing Organization Address [facility] Cent[facility] Phone Number [address] [address] abdomen/pelvis with IV contrast (06/22/2019 3:26 AM CDT)Only the most recent of2 resultswithin the time period is included. Specimen Narrative Performed At FINAL REPORT [facility] CT Chest, abdomen, and pelvis with contrast History: Lung cancer follow-up Comparison: 05/02/2019 Technique: serial axial imaging was performed following up to 100cc of non ionic iodinated intravenous contrast as per departmental protocol.Multiplanar images are reconstructed and reviewed when indicated. This CT examination is performed using one or more of the following dose reduction techniques: Automated exposure control, adjustment of the mA and /or kV according to patient size, and/or use of iterative reconstruction technique. Findings: The previous right hilar mass and extensive right hilar and bilateral mediastinal lymphadenopathy demonstrate a slight decrease in size. The right hilar mass currently measures 6.8 x 4.7 cm, previously 8.3 x 5.7 cm. The largest conglomerate of lymph nodes anterior to the trachea currently measures 4.4 x 4.4 cm, previously 5.2 x 4.8 cm. There is persistent mild mass effect upon the superior vena cava, which appears unchanged. Interval resolution of previous bilateral pleural effusions. There is significant, but improved mass effect upon the bronchus intermedius, with improved aeration of the right middle and lower lobes. There are persistent tree-in-bud densities which probably relate to postobstructive pneumonia. Mild tree-in-bud opacities are scattered within the left upper and lower lobes. Normal size heart.No pericardial effusion. No thoracic aortic aneurysm or dissection.No central pulmonary arterial filling defect. Unremarkable appearance of pancreas and spleen. Previous mass within the right hepatic lobe has increased in size, currently measuring 3.8 x 3.7 cm, previously 2.7 x 2.6 cm. No new hepatic lesion is seen. The gallbladder is unremarkable. Unremarkable appearance of adrenal glands, kidneys, ureters, and urinary bladder. . No small or large bowel obstruction.No apparent bowel wall thickening.No findings to indicate acute appendicitis. No free fluid or lymphadenopathy. No abdominal aortic aneurysm. No aggressive osseous lesion. Impression: 1. Mild interval decrease in size of bilateral bulky mediastinal lymphadenopathy and right hilar mass. 2. Significant but decreased mass effect upon the bronchus intermedius. Improved aeration of the right middle and lower lobes. 3. Persistent tree-in-bud opacities within the right middle and lower lobes probably represent postobstructive changes/pneumonia. 4. Scattered tree-in-bud opacities within the left upper and lower lobes could relate to recent bronchiolitis or aspiration. 5. Interval increase in size of right hepatic lobe mass, suggesting a mixed response to therapy. Signed: Obinna Lees MD Report Verified Date/Time:06/22/2019 11:09:18 Reading Location: [facility] [id number] Ortho Consult Reading Room Procedure Note Interface, External Ris In - 06/22/2019 11:11 AM CDT FINAL REPORT CT Chest, abdomen, and pelvis with contrast History: Lung cancer follow-up Comparison: 05/02/2019 Technique: serial axial imaging was performed following up to 100cc of non ionic iodinated intravenous contrast as per departmental protocol. Multiplanar images are reconstructed and reviewed when indicated. This CT examination is performed using one or more of the following dose reduction techniques: Automated exposure control, adjustment of the mA and /or kV according to patient size, and/or use of iterative reconstruction technique. Findings: The previous right hilar mass and extensive right hilar and bilateral mediastinal lymphadenopathy demonstrate a slight decrease in size. The right hilar mass currently measures 6.8 x 4.7 cm, previously 8.3 x 5.7 cm. The largest conglomerate of lymph nodes anterior to the trachea currently measures 4.4 x 4.4 cm, previously 5.2 x 4.8 cm. There is persistent mild mass effect upon the superior vena cava, which appears unchanged. Interval resolution of previous bilateral pleural effusions. There is significant, but improved mass effect upon the bronchus intermedius, with improved aeration of the right middle and lower lobes. There are persistent tree-in-bud densities which probably relate to postobstructive pneumonia. Mild tree-in-bud opacities are scattered within the left upper and lower lobes. Normal size heart. No pericardial effusion. No thoracic aortic aneurysm or dissection. No central pulmonary arterial filling defect. Unremarkable appearance of pancreas and spleen. Previous mass within the right hepatic lobe has increased in size, currently measuring 3.8 x 3.7 cm, previously 2.7 x 2.6 cm. No new hepatic lesion is seen. The gallbladder is unremarkable. Unremarkable appearance of adrenal glands, kidneys, ureters, and urinary bladder. . No small or large bowel obstruction. No apparent bowel wall thickening. No findings to indicate acute appendicitis. No free fluid or lymphadenopathy. No abdominal aortic aneurysm. No aggressive osseous lesion. Impression: 1. Mild interval decrease in size of bilateral bulky mediastinal lymphadenopathy and right hilar mass. 2. Significant but decreased mass effect upon the bronchus intermedius. Improved aeration of the right middle and lower lobes. 3. Persistent tree-in-bud opacities within the right middle and lower lobes probably represent postobstructive changes/pneumonia. 4. Scattered tree-in-bud opacities within the left upper and lower lobes could relate to recent bronchiolitis or aspiration. 5. Interval increase in size of right hepatic lobe mass, suggesting a mixed response to therapy. Signed: Obinna Lees MD Report Verified Date/Time: 06/22/2019 11:09:18 Reading Location: [facility] B1 [id number] Ortho Consult Reading Room Performing Organization Address City/State/Zipcode Phone Number [facility] [place] chest with IV contrast (06/22/2019 3:26 AM CDT)Only the most recent of2 resultswithin the time period is included. Specimen Narrative Performed At FINAL REPORT [facility] [place] [facility] Chest, abdomen, and pelvis with contrast History: Lung cancer follow-up Comparison: 05/02/2019 Technique: serial axial imaging was performed following up to 100cc of non ionic iodinated intravenous contrast as per departmental protocol.Multiplanar images are reconstructed and reviewed when indicated. This CT examination is performed using one or more of the following dose reduction techniques: Automated exposure control, adjustment of the mA and /or kV according to patient size, and/or use of iterative reconstruction technique. Findings: The previous right hilar mass and extensive right hilar and bilateral mediastinal lymphadenopathy demonstrate a slight decrease in size. The right hilar mass currently measures 6.8 x 4.7 cm, previously 8.3 x 5.7 cm. The largest conglomerate of lymph nodes anterior to the trachea currently measures 4.4 x 4.4 cm, previously 5.2 x 4.8 cm. There is persistent mild mass effect upon the superior vena cava, which appears unchanged. Interval resolution of previous bilateral pleural effusions. There is significant, but improved mass effect upon the bronchus intermedius, with improved aeration of the right middle and lower lobes. There are persistent tree-in-bud densities which probably relate to postobstructive pneumonia. Mild tree-in-bud opacities are scattered within the left upper and lower lobes. Normal size heart.No pericardial effusion. No thoracic aortic aneurysm or dissection.No central pulmonary arterial filling defect. Unremarkable appearance of pancreas and spleen. Previous mass within the right hepatic lobe has increased in size, currently measuring 3.8 x 3.7 cm, previously 2.7 x 2.6 cm. No new hepatic lesion is seen. The gallbladder is unremarkable. Unremarkable appearance of adrenal glands, kidneys, ureters, and urinary bladder. . No small or large bowel obstruction.No apparent bowel wall thickening.No findings to indicate acute appendicitis. No free fluid or lymphadenopathy. No abdominal aortic aneurysm. No aggressive osseous lesion. Impression: 1. Mild interval decrease in size of bilateral bulky mediastinal lymphadenopathy and right hilar mass. 2. Significant but decreased mass effect upon the bronchus intermedius. Improved aeration of the right middle and lower lobes. 3. Persistent tree-in-bud opacities within the right middle and lower lobes probably represent postobstructive changes/pneumonia. 4. Scattered tree-in-bud opacities within the left upper and lower lobes could relate to recent bronchiolitis or aspiration. 5. Interval increase in size of right hepatic lobe mass, suggesting a mixed response to therapy. Signed: Obinna Lees MD Report Verified Date/Time:06/22/2019 11:09:18 Reading Location: [place] [id number] [facility] Consult Reading Room Procedure Note Interface, External Ris In - 06/22/2019 11:11 AM CDT FINAL REPORT CT Chest, abdomen, and pelvis with contrast History: Lung cancer follow-up Comparison: 05/02/2019 Technique: serial axial imaging was performed following up to 100cc of non ionic iodinated intravenous contrast as per departmental protocol. Multiplanar images are reconstructed and reviewed when indicated. This CT examination is performed using one or more of the following dose reduction techniques: Automated exposure control, adjustment of the mA and /or kV according to patient size, and/or use of iterative reconstruction technique. Findings: The previous right hilar mass and extensive right hilar and bilateral mediastinal lymphadenopathy demonstrate a slight decrease in size. The right hilar mass currently measures 6.8 x 4.7 cm, previously 8.3 x 5.7 cm. The largest conglomerate of lymph nodes anterior to the trachea currently measures 4.4 x 4.4 cm, previously 5.2 x 4.8 cm. There is persistent mild mass effect upon the superior vena cava, which appears unchanged. Interval resolution of previous bilateral pleural effusions. There is significant, but improved mass effect upon the bronchus intermedius, with improved aeration of the right middle and lower lobes. There are persistent tree-in-bud densities which probably relate to postobstructive pneumonia. Mild tree-in-bud opacities are scattered within the left upper and lower lobes. Normal size heart. No pericardial effusion. No thoracic aortic aneurysm or dissection. No central pulmonary arterial filling defect. Unremarkable appearance of pancreas and spleen. Previous mass within the right hepatic lobe has increased in size, currently measuring 3.8 x 3.7 cm, previously 2.7 x 2.6 cm. No new hepatic lesion is seen. The gallbladder is unremarkable. Unremarkable appearance of adrenal glands, kidneys, ureters, and urinary bladder. . No small or large bowel obstruction. No apparent bowel wall thickening. No findings to indicate acute appendicitis. No free fluid or lymphadenopathy. No abdominal aortic aneurysm. No aggressive osseous lesion. Impression: 1. Mild interval decrease in size of bilateral bulky mediastinal lymphadenopathy and right hilar mass. 2. Significant but decreased mass effect upon the bronchus intermedius. Improved aeration of the right middle and lower lobes. 3. Persistent tree-in-bud opacities within the right middle and lower lobes probably represent postobstructive changes/pneumonia. 4. Scattered tree-in-bud opacities within the left upper and lower lobes could relate to recent bronchiolitis or aspiration. 5. Interval increase in size of right hepatic lobe mass, suggesting a mixed response to therapy. Signed: Obinna Lees MD Report Verified Date/Time: 06/22/2019 11:09:18 Reading Location: [facility] B1 [id number] [facility] Consult Reading Room Performing Organization Address City/State/Zipcode Phone Number [facility] [place] MR brain without & with IV contrast (06/21/2019 9:36 PM CDT)Only the most recent of2 resultswithin the time period is included. Specimen Narrative Performed At FINAL REPORT [facility] [place] MRI brain with and without contrast Comparison:Brain MRI 05/03/2019. Reason for exam: reevaluate brain mets Technique: Multiplanar MR imaging of the brain was provided [id number] IV gadolinium administration using T1, T2, FLAIR, FFE, diffusion weighted sequences, and ADC map imaging. Findings: There is mild generalized parenchymal atrophy. There is no intracranial mass, mass effect, extra-axial collection, hydrocephalus or herniation.There is no abnormal enhancement. Again seen are multiple punctate FLAIR hyperintensities in the bilateral periventricular and subcortical white matter without mass effect which likely represent white matter microvascular ischemic changes.There is no restricted diffusion to suggest an acute infarct. There is no abnormality on susceptibility sequences to suggest hemorrhage or hemosiderin deposition. The skull base flow-voids are seen in keeping with their patency. The visualized paranasal sinuses and mastoid air cells are clear. There are bilateral lens replacements. The sella and parasellar regions are unremarkable. The craniocervical junction is normal. Impressions: No evidence of intracranial metastases. Signed: Serena Barillas MD Report Verified Date/Time:06/22/2019 03:45:55 Procedure Note Interface, External Ris In - 06/22/2019 3:48 AM CDT FINAL REPORT MRI brain with and without contrast Comparison: Brain MRI 05/03/2019. Reason for exam: reevaluate brain mets Technique: Multiplanar MR imaging of the brain was provided [id number] IV gadolinium administration using T1, T2, FLAIR, FFE, diffusion weighted sequences, and ADC map imaging. Findings: There is mild generalized parenchymal atrophy. There is no intracranial mass, mass effect, extra-axial collection, hydrocephalus or herniation. There is no abnormal enhancement. Again seen are multiple punctate FLAIR hyperintensities in the bilateral periventricular and subcortical white matter without mass effect which likely represent white matter microvascular ischemic changes. There is no restricted diffusion to suggest an acute infarct. There is no abnormality on susceptibility sequences to suggest hemorrhage or hemosiderin deposition. The skull base flow-voids are seen in keeping with their patency. The visualized paranasal sinuses and mastoid air cells are clear. There are bilateral lens replacements. The sella and parasellar regions are unremarkable. The craniocervical junction is normal. Impressions: No evidence of intracranial metastases. Signed: Serena Barillas MD Report Verified Date/Time: 06/22/2019 03:45:55 Performing Organization Address City/[facility] Phone Number [facility] Uric acid, random urine (06/21/2019 4:00 AM CDT) Uric Acid, Urine 11.9 mg/dL [facility] Specimen Urine Narrative Performed At Reference Range: No Normals [facility] Performing Organization Address [facility] Cent[facility]ode Phone Number [address] [address] CENTER Cortisol (06/21/2019 3:58 AM CDT) Cortisol, Total 9.3 3.7 - 19.4 ug/dL [facility] Specimen Blood Performing Organization Address [facility] Phone Number [address] [address] [phone] [place] Troponin I (06/21/2019 3:58 AM CDT)Only the most recent of3 resultswithin the time period is included. Troponin I <0.01 0.00 - 0.03 ng/mL [facility] Specimen Blood Narrative Performed At Troponin I (TnI) levels must be interpreted [facility] in the context of the presenting symptoms and the clinical findings. Elevated TnI levels indicate myocardial damage, but are not specific for ischemic heart disease. Elevated TnI levels are seen in patients with other cardiac conditions (including myocarditis and congestive heart failure), and slight TnI elevations occur in patients with other conditions, including sepsis, renal failure, acidosis, acute neurological disease, and persistent tachyarrhythmia. Performing Organization Address [facility] Phone Number [address] [address] C[place] TSH (06/21/2019 3:58 AM CDT) TSH 1.67 0.35 - 4.94 uIU/mL [facility] Specimen Blood Performing Organization Address City/State/[facility] Phone Number [address] [address] [phone] [place] Sodium, random urine (06/20/2019 2:49 PM CDT) Sodium Urine 188 meq/L [facility] Specimen Urine Narrative Performed At Reference Range: No Normals [facility] Performing Organization Address [facility] Phone Number [address] [address] [place] Potassium, random urine (06/20/2019 2:49 PM CDT) Potassium Urine 44.8 meq/L [facility] Specimen Urine Narrative Performed At Reference Range: No Normals [facility] Performing Organization Address [facility] Phone Number [address] [address] [phone] [place] Osmolality, urine (06/20/2019 2:49 PM CDT) Osmolality, Ur 631 40-1,400 mOsm/kg [facility] Specimen Urine Performing Organization Address [facility] Phone Number [address] [address] [phone] [place] Creatinine, random urine (06/20/2019 2:49 PM CDT) Creatinine, Ur 67.1 mg/dL [facility] Specimen Urine Narrative Performed At Reference Range: No Normals [facility] Performing Organization Address City/[facility] Phone Number [address] [address] CENTER Osmolality, serum (06/20/2019 2:30 PM CDT) Osmolality Serum 255 (L) 275 - 295 mOsm/kg [facility] Specimen Blood Performing Organization Address [facility] Phone Number [address] [place] [address] [phone] [place] POC-Glucose meter (06/20/2019 12:16 AM CDT) POC-Glucose Meter 103Comment: TESTED AT 70 - 110 mg/dL [facility] [address] [place] [id number] Specimen Blood Performing Organization Address [facility] Phone Number [address] [address] [phone] [place] Urinalysis Microscopic Only (06/19/2019 8:23 PM CDT) RBC, UA 0 /HPF [facility] WBC, UA <1 /HPF [facility] Mucus Occasional [facility] Specimen Urine Performing Organization Address [facility] Phone Number [address] [address] [place] Urinalysis with Microscopic If Indicated (06/19/2019 8:23 PM CDT) Color, UA Yellow [facility] Clarity, UA Clear [facility] Specific [place], UA 1.018 1.001 - 1.035 [facility] pH, UA 7.0 5.0 - 8.0 [facility] Protein, UA 10 mg/dL (A) Negative [facility] Glucose, UA Negative Negative [facility] Ketones, UA Negative Negative [facility] Bilirubin, UA Negative Negative [facility] Blood, UA Negative Negative [facility] Nitrite, UA Negative Negative [facility] Leukocytes, UA Negative Negative [facility] Urobilinogen, UA 3.0 (H) 0.2 - 1.0 mg/dL [facility] Specimen Source [facility] Specimen Urine Performing Organization Address City/[facility] Phone Number [address] [address] C[place] PT/aPTT (06/19/2019 8:23 PM CDT) Protime 13.1 11.9 - 14.2 seconds [facility] INR 1.0 <=5.9 [facility] PTT 35.6 22.5 - 36.0 seconds [facility] Specimen Blood Narrative Performed At Effective 04/10/2019: PT Reference Range [facility] Change New: 11.9-14.2Previous: 11.7-14.7 RECOMMENDED COUMADIN/WARFARIN INR THERAPY RANGES STANDARD DOSE: 2.0-3.0Includes: PROPHYLAXIS for venous thrombosis, systemic embolization; TREATMENT for venous thrombosis and/or pulmonary embolus. HIGH RISK: Target INR is 2.5-3.5 for patients wiht mechanical heart valves. Performing Organization Address City/[facility] Phone Number [address] [address] C[place] Lipase (06/19/2019 8:23 PM CDT) Lipase 38 8 - 78 U/L [facility] Specimen Blood Performing Organization Address [facility] Phone Number [address] [address] [place] Hepatic function panel (06/19/2019 8:23 PM CDT)Only the most recent of5 resultswithin the time period is included. Protein, Total 7.2 6.0 - 8.3 gm/dL [facility] Albumin 4.0 3.5 - 5.0 g/dL [facility] Total Bilirubin 0.5 0.2 - 1.2 mg/dL [facility] Bilirubin, Direct 0.2 0.1 - 0.5 mg/dL [facility] Alkaline Phosphatase 75 40 - 150 U/L [facility] AST 21 5 - 34 U/L [facility] ALT 19 6 - 55 U/L [facility] Specimen Blood Performing Organization Address City/State/Zipcode Phone Number [facility] [address] [place] [address] brain without IV contrast (06/19/2019 7:15 PM CDT) Specimen Narrative Performed At FINAL REPORT [employer] [facility] CT, BRAIN, WITHOUT CONTRAST CLINICAL INDICATION:Confusion/delirium, altered LOC, unexplained COMPARISON: None TECHNIQUE:Noncontrast axial CT imaging of the brain and skull. DOSE REDUCTION: Dose modulation, iterative reconstruction, and/or weight-based adjustment of the mA/kV was utilized to reduce the radiation dose to as low as reasonably achievable. FINDINGS: No intracranial hemorrhage, midline shift or mass effect. Midline structures are normally developed. Mild chronic microvascular ischemic changes of the periventricular and subcortical white matter are present. No hydrocephalus. Orbits are within normal limits. No obstructive paranasal sinus disease. IMPRESSION: No acute intracranial findings If there is persistent clinical concern for intracranial pathology, MR examination is recommended for further characterization. Signed: Aminta Montenegro MD Report Verified Date/Time:06/19/2019 20:01:57 Reading Location: [address] Neuro Reading Room Procedure Note Interface, External Ris In - 06/19/2019 8:04 PM CDT FINAL REPORT CT, BRAIN, WITHOUT CONTRAST CLINICAL INDICATION: Confusion/delirium, altered LOC, unexplained COMPARISON: None TECHNIQUE: Noncontrast axial CT imaging of the brain and skull. DOSE REDUCTION: Dose modulation, iterative reconstruction, and/or weight-based adjustment of the mA/kV was utilized to reduce the radiation dose to as low as reasonably achievable. FINDINGS: No intracranial hemorrhage, midline shift or mass effect. Midline structures are normally developed. Mild chronic microvascular ischemic changes of the periventricular and subcortical white matter are present. No hydrocephalus. Orbits are within normal limits. No obstructive paranasal sinus disease. IMPRESSION: No acute intracranial findings If there is persistent clinical concern for intracranial pathology, MR examination is recommended for further characterization. Signed: Aminta Montenegro MD Report Verified Date/Time: 06/19/2019 20:01:57 Reading Location: [facility] C013V Neuro Reading Room Performing Organization Address City/State/Zipcode Phone Number GE RIS ECG/EKG Interpretation (06/19/2019 6:44 PM CDT) Narrative Performed At Kiran Rees MD 06/20/20198:21 AM ECG/EKG Interpretation Date/Time: 06/19/2019 10:00 PM Performed by: Kiran Rees MD Authorized by: Nancy Richter MD The ECG was interpreted by ED physician. The ECG is interpreted as sinus tachycardia. Heart rate is 101 BPM. Patient tolerance: Patient tolerated the procedure well with no immediate complications Comments: Sinus tachycardia on monitor EKG-SCANNED (05/08/2019 10:33 AM CDT) Narrative Performed At CBC (Hemogram only) (05/07/2019 5:07 AM CDT)Only the most recent of7 resultswithin the time period is included. WBC 5.0 3.5 - 10.5 K/L [facility] RBC 3.42 (L) 4.63 - 6.08 M/L [facility] Hemoglobin 9.8 (L) 13.7 - 17.5 GM/DL [facility] Hematocrit 29.8 (L) 40.1 - 51.0 % [facility] MCV 87.1 79.0 - 92.2 fL [facility] MCH 28.7 25.7 - 32.2 pg [facility] MCHC 32.9 32.3 - 36.5 GM/DL [facility] RDW 16.6 (H) 11.6 - 14.4 % [facility] Platelets 559 (H) 150 - 450 K/CU MM [facility] MPV 8.9 (L) 9.4 - 12.4 fL [facility] nRBC 0 0 - 0 /100 WBC [facility] Specimen Blood Performing Organization Address City/State/Zipcode Phone Number [facility] [address], [place] [phone] CENTER Phosphorus (05/07/2019 5:07 AM CDT)Only the most recent of10 resultswithin the time period is included. Phosphorus 3.4 2.3 - 4.7 mg/dL [facility] Specimen Blood Performing Organization Address [facility]/Zipcode Phone Number [address] [phone] CENTER XR chest 1 view portable / bedside (05/06/2019 1:43 PM CDT) Specimen Narrative Performed At FINAL REPORT [employer] CLINICAL HISTORY: sob TECHNIQUE: 1 view of the chest. COMPARISON: None IMPRESSION: There is a large right pleural effusion with underlying lung consolidation. The left lung is free of infiltrates or effusions. The cardiomediastinal silhouette is magnified by technique. Signed: Nehemias Mcclain MD Report Verified Date/Time:05/06/2019 15:04:11 Reading Location: [facility] C0[facility] Consult Reading Room Procedure Note Interface, External Ris In - 05/06/2019 3:06 PM CDT FINAL REPORT CLINICAL HISTORY: sob TECHNIQUE: 1 view of the chest. COMPARISON: None IMPRESSION: There is a large right pleural effusion with underlying lung consolidation. The left lung is free of infiltrates or effusions. The cardiomediastinal silhouette is magnified by technique. Signed: Nehemias Mcclain MD Report Verified Date/Time: 05/06/2019 15:04:11 Reading Location: [facility] C013 Consult Reading Room Performing Organization Address City/State/Zipcode Phone Number GE RIS Manual Differential (05/04/2019 5:19 AM CDT) % Neutros (manual) 80 % [facility] % Lymphs (manual) 8 % [facility] % Monos (manual) 7 % [facility] % Eos (manual) 3 % [facility] % Myelo (manual) 1 (H) 0 - 0 % [facility] % Bands (manual) 1 0 - 10 % [facility] # Neutros (manual) 8.80 (H) 1.80 - 8.00 K/L [facility] # Lymphs (manual) 0.88 (L) 1.48 - 4.50 K/L [facility] # Monos (manual) 0.77 0.00 - 1.30 K/L [facility] # Eos (manual) 0.33 0.00 - 0.50 K/L [facility] # Bands (manual) 0.1 0.0 - 0.8 K/L [facility] # Myelo (manual) 0.11 (H) 0.00 - 0.00 K/L [facility] Total Counted 100 [facility] Bands plus Segmented 8.91 [facility] Neutrophils [facility] WBC Morphology Normal [facility] Platelet Morphology Normal [facility] Polychromasia 1+ few [facility] Specimen Blood Performing Organization Address City/State/Zipcode Phone Number [facility] [address] [place] [address] [phone] CENTER NM bone scan whole body (05/03/2019 4:15 PM CDT) Specimen Narrative Performed At FINAL REPORT GE RIS PROCEDURE: BONE SCAN, WHOLE BODY CPT CODE:24846 INDICATION:Right lung mass PROTOCOL:20.1 mCi of Tc-99m MDP was injected intravenously. Whole body and selected spot images were obtained approximately 3 hours later. FINDINGS: There is mild increase in activity in the shoulders, sternoclavicular joints, right first costosternal junction, right costovertebral junction of T8, wrists, hips, knees, and feet. Distribution within the spine is otherwise mildly irregular. There is mild increase in activity in the right mid thorax posteriorly. IMPRESSION: 1.No evidence of osseous metastatic disease. 2.Findings within the right hemithorax may suggest hyperemia associated with inflammatory/reactive pleural changes. Additional degenerative changes of the spine and peripheral joints. Images for comparison/correlation were chest, abdomen, and pelvis CT from 05/02/2019. Signed: Jarad Galvez MD Report Verified Date/Time:05/03/2019 17:54:51 Reading Location: [address] [employer] Reading Room Procedure Note Interface, External Ris In - 05/03/2019 5:57 PM CDT FINAL REPORT PROCEDURE: BONE SCAN, WHOLE BODY CPT CODE: 18944 INDICATION: Right lung mass PROTOCOL: 20.1 mCi of Tc-99m MDP was injected intravenously. Whole body and selected spot images were obtained approximately 3 hours later. FINDINGS: There is mild increase in activity in the shoulders, sternoclavicular joints, right first costosternal junction, right costovertebral junction of T8, wrists, hips, knees, and feet. Distribution within the spine is otherwise mildly irregular. There is mild increase in activity in the right mid thorax posteriorly. IMPRESSION: 1.No evidence of osseous metastatic disease. 2.Findings within the right hemithorax may suggest hyperemia associated with inflammatory/reactive pleural changes. Additional degenerative changes of the spine and peripheral joints. Images for comparison/correlation were chest, abdomen, and pelvis CT from 05/02/2019. Signed: Jarad Galvez MD Report Verified Date/Time: 05/03/2019 17:54:51 Reading Location: [address] [employer] Reading Room Performing Organization Address City/State/Zipcode Phone Number [facility] TRANSFUSION SERVICE REPORT - SCAN (05/02/2019 6:00 PM CDT) Narrative Performed At REPORT OF PROCEDURE - ENDOSCOPY URL (05/01/2019 3:48 PM CDT) Narrative Performed At Flow Cytometry Requisition (05/01/2019 3:35 PM CDT) Flow Cytometry See Separate Report [facility] Case # [id number] [facility] Specimen EBUS Fine Needle Aspirate Performing Organization Address City/State/Zipcode Phone Number [facility] [address] [place] [address] CENTER Flow Cytometry (05/01/2019 3:35 PM CDT) Case Report Flow Cytometry Report Case: [id number] [facility] Authorizing Provider:Jarrod Carroll MDCollected: 05/01/2019 1535 [facility] Ordering Location: [facility] Received: 05/01/2019 1739 SERVICES Pathologist: Stacey Horowitz MD Specimen:Other Flow Interpretation LYMPH NODE, EBUS FINE NEEDLE ASPIRATION, FLOW CYTOMETRY: [facility] -LIMITED BY REDUCED VIABILITY [facility] -NO MONOTYPIC B CELL POPULATION -NO ABERRANT T CELL POPULATION -SEE COMMENT Flow Interpretation Comment These results require [facility] correlation with the [facility] morphologic and other features for full interpretation. CPT Code(s) 68548 [facility] CLINICAL HISTORY Lung mass with mets [facility] SPECIMEN SOURCE LYMPH NODE, EBUS FINE [facility] NEEDLE ASPIRATION [facility] CELLULAR BIOMARKER ANALYSIS CD8, surface-[place], CD56, [facility] surface-Lambda, CD5, CD19, [facility] CD10, CD3, CD20, CD4, CD45 cKappa, cLambda, CD38, CD138. IMMUNOPHENOTYPIC FINDINGS Specimen Viability: 64.3% Number of Events Acquired: 83293 [facility] The following populations are identified: Lymphocytes: Bright CD45+ lymphocytes comprise 2.1% of total cells. T cells show a CD4:CD8 ratio of 1.9 and normal expression of the perry T cell antigens CD3 and CD5. B cells are polytypic with a kappa:lambda ratio of 1.7 Myeloid/monocytic populations: It is difficult to enumerate granulocytes and monocytes by CD45 and light scatter characteristics, due to nonspecific staining. Plasma cells: Less than 0.1% CD138 positive plasma cells are noted The remaining events analyzed represent nonviable cells, non-hematolymphoid cells, and debris. DISCLAIMER These tests were developed and their performance characteristics determined by [facility]. They have not been cleared or approved by the U.S. Food and Drug Administration. The FDA [facility] has determined that such clearance or approval is not necessary. It should not be regarded as investigational or for research. This laboratory is certified under the Clinical Laboratory Improvement Nella [facility] ndments of 1988 ("CLIA") as qualified to perform high-complexity clinical testing. Specimen Other Performing Organization Address City/[facility]/Zipcode Phone Number [address] [address] [place] EBUS FNA REQUEST (05/01/2019 3:23 PM CDT)Only the most recent of4 resultswithin the time period is included. Cytology See Separate Report [facility] Specimen EBUS Fine Needle Aspirate - Lymph Node, Subcarinal, Station 7 Performing Organization Address City/[facility]/Zipcode Phone Number [address] [address] [place] Fine Needle Aspiration by EBUS (05/01/2019 3:23 PM CDT)Only the most recent of4 resultswithin the time period is included. Case Report Medical Cytology Report Case: [id number] [facility] Authorizing Provider:Jarrod Carroll MDCollected: 05/01/2019 1523 [facility] Ordering Location: [facility] Received: 05/01/2019 1617 SERVICES Pathologist: Onel Kidd MD Specimen:Lymph Node, Subcarinal, Station 7 DIAGNOSIS LYMPH NODE, SUBCARINAL, STATION 7 EBUS FNA BY CLINICIAN (CYTOSPINS AND CELL BLOCK OF ASPIRATE): [facility] - SMALL CELL CARCINOMA [facility] Signing Pathologist Direct Phone Line: [phone] COMMENT Please see case [id number] for [facility] immunophenotypic evaluation. [facility] CPT Code(s) 03292, 80421 [facility] CLINICAL DATA Right hilar mass, [facility] lymphadenopathy, history of [facility] bladder cancer SPECIMEN SOURCE LYMPH NODE, SUBCARINAL, STATION [facility] 7 EBUS FNA [facility] GROSS DESCRIPTION 35 mls in cytorich red; 2 cytospins, cell block [facility] Collected: [id number] [facility] Received: [id number] SPECIAL STUDIES The interpretation of this case included the use of immunohistochemistry or special stains. [facility] Control Slides Examined: In-house known positive controls were evaluated along with the test tissue. These control slides run alongside of the patients sample show appropriate staining. Internal posit ana and negative controls when available are evaluated Immunohistochemistry technical testing was performed at [facility], Pathology Laboratory where it was developed and its performance characteristics were determined. It has not be en cleared or approved by the U.S. Food and Drug Administration. The FDA has determined that such clearance or approval is not necessary. The test is used for clinical purposes. It should not be regarde d as investigational or for research. This laboratory is certified under the Clinical Laboratory Improvement Amendments of 1988 (CLIA-88) as qualified to perform high complexity clinical laboratory testing. Gross assessment was [facility] performed at [place], [facility] Pathology, [address] [place] [address], Technical component was [facility] performed at [place], [facility] Pathology, [address] [place] [address], Professional component [facility] was performed at [place], [facility] Pathology, [address] [place] [address], Specimen EBUS Fine Needle Aspirate - Lymph Node, Subcarinal, Station 7 Narrative Performed At Performing Organization Address City/State/Zipcode Phone Number [address] [address] [phone] CENTER AFB culture + smear (05/01/2019 2:58 PM CDT) Result No acid-fast bacilli isolated in [facility] 42 days CENTER [employer] Smear No acid fast bacilli seen [facility] Specimen Bronch Washing Performing Organization Address City/State/Zipcode Phone Number [address] [address] [place] Surgically obtained culture + gram stain (05/01/2019 2:58 PM CDT) Result 1+ Streptococcus mitis (A) [facility] Gram Stain Result 2+ WBCs [facility] Gram Stain Result No organisms seen [facility] Specimen Bronch Washing Narrative Performed At <1+ Normal respiratory corinne present [facility] Performing Organization Address City/[facility]/Zipcode Phone Number [address] [address] [place] Fungus culture + smear (05/01/2019 2:58 PM CDT) Result No fungus isolated in 28 days [facility] Fungus Smear No fungi seen [facility] Specimen Bronch Washing Performing Organization Address City/State/Zipcode Phone Number [address] [address] [phone] CENTER CYTOLOGY REQUEST (05/01/2019 2:58 PM CDT) Cytology See Separate Report [facility] Specimen Bronch Washing Performing Organization Address City/State/Zipcode Phone Number [address] [address] CENTER SPIN/CONCENTRATION CHARGE (05/01/2019 2:58 PM CDT) Concentration charged Done [facility] Specimen Bronch Washing Performing Organization Address City/State/Zipcode Phone Number [address] [address] [phone] [place] Cytology (05/01/2019 2:58 PM CDT) Case Report Medical Cytology Report Case: [id number] [facility] Authorizing Provider:Jarrod Carroll MDCollected: 05/01/2019 1458 [facility] Ordering Location: [facility] Received: 05/01/2019 1620 SERVICES Pathologist: Onel Kidd MD Specimen:Lung, Right Lower Lobe, bronch washing DIAGNOSIS RIGHT LOWER LOBE LUNG BRONCH WASHING (CYTOSPINS): [facility] - NEGATIVE FOR MALIGNANCY [facility] LIMITED BY OBSCURING ACUTE INFLAMMATION REACTIVE BRONCHIAL EPITHELIAL CELLS PRESENT Signing Pathologist Direct Phone Line: [phone] COMMENT Please see cases [id number], [facility] [id number], [id number], 1544, and [facility] 1545 CPT Code(s) 66872 [facility] CLINICAL DATA Right hilar mass, [facility] lymphadenopathy, history [facility] of bladder cancer SPECIMEN SOURCE RIGHT LOWER LOBE LUNG [facility] BRONCH WASHING [facility] GROSS DESCRIPTION 5 mls cloudy thick white fluid; [address] [facility] Collected: [id number] [facility] Received: [id number] STATEMENT OF ADEQUACY Satisfactory [facility] Gross assessment was [facility] performed at [place], Department of [facility] Pathology, [address] [place] [address], Technical component was [facility] performed at [place], Department of [facility] Pathology, [address] [place] [address], Professional component was [facility] performed at [place], Department of [facility] Pathology, [address] [place] [address], Specimen Bronch Washing Narrative Performed At Performing Organization Address [facility] Centercode Phone Number [address] [address] CENTER [place], manual (05/01/2019 9:04 AM CDT)Only the most recent of2 resultswithin the time period is included. ABO Grouping B [facility] Rh Factor POS [facility] Specimen Blood Performing Organization Address [facility] Centercode Phone Number [address] [phone] Type and screen, automated (05/01/2019 8:20 AM CDT) Ab Scrn NEGATIVE [facility] Specimen Blood Performing Organization Address [facility] Center[facility] Phone Number [address] [address] aPTT (05/01/2019 8:20 AM CDT) PTT 35.2 22.5 - 36.0 seconds [facility] Specimen Blood Performing Organization Address [facility] Centerco[facility] Phone Number [address] [address] CENTER Vitamin B12 and Folate (05/01/2019 4:59 AM CDT) Vitamin B12 >2000 (H) 213 - 816 pg/mL [facility] Folate 2.4 (L) >=7.0 ng/mL [facility] Specimen Blood Performing Organization Address [facility] Centerco[facility] Phone Number [address] [address] [phone] CENTER Iron, TIBC, % sat. (without ferritin) (05/01/2019 4:59 AM CDT) Iron 29.0 (L) 40.0 - 160.0 ug/dL [facility] TIBC 158 (L) 250 - 450 ug/dL [facility] Iron % Saturation 18 (L) 20 - 55 % [facility] Specimen Blood Performing Organization Address [facility] Centercode Phone Number [address] [address] [phone] CENTER Prothrombin time/INR (05/01/2019 4:59 AM CDT)Only the most recent of2 resultswithin the time period is included. Protime 15.1 (H) 11.9 - 14.2 seconds [facility] INR 1.3 <=5.9 [facility] Specimen Blood Narrative Performed At Effective 04/10/2019: PT Reference Range [facility] Change New: 11.9-14.2Previous: 11.7-14.7 RECOMMENDED COUMADIN/WARFARIN INR THERAPY RANGES STANDARD DOSE: 2.0-3.0Includes: PROPHYLAXIS for venous thrombosis, systemic embolization; TREATMENT for venous thrombosis and/or pulmonary embolus. HIGH RISK: Target INR is 2.5-3.5 for patients wiht mechanical heart valves. Performing Organization Address [facility] Center[facility] Phone Number [address] [address] [phone] CENTER Lactate dehydrogenase (LDH) (05/01/2019 4:59 AM CDT) LDH 242 (H) 125 - 220 U/L [facility] Specimen Blood Performing Organization Address City/[facility]/Zipcode Phone Number [address] [address] CENTER Ferritin (05/01/2019 4:59 AM CDT) Ferritin 2,915 (H) 5 - 275 ng/mL [facility] Specimen Blood Performing Organization Address City/[facility]/Zipcode Phone Number [address] [phone] [place] Sputum Culture + Gram Stain (04/30/2019 3:46 AM CDT) Result 4+ Normal respiratory corinne [facility] Gram Stain Result 1+ WBCs [facility] Gram Stain Result 0-5 epithelial cells [facility] Gram Stain Result 3+ gram negative rods [facility] Gram Stain Result 1+ gram positive cocci in [facility] Specimen Sputum - Expectorated Performing Organization Address City/[facility]/Zipcode Phone Number [address] [phone] [place] Blood Culture - Routine (Right Venipuncture) (04/30/2019 3:45 AM CDT)Only the most recent of2 resultswithin the time period is included. Result No growth in 5 days [facility] Specimen Blood Performing Organization Address City/[facility]/Zipcode Phone Number [facility] [address] [place] [address] [phone] [place] Manual Differential (04/30/2019 3:13 AM CDT) % Neutros 89 % [facility] % Lymphs 6 % [facility] % Monos 4 % [facility] % Bands 1 0 - 10 % [facility] # Neutros 5.34 1.78 - 5.38 K/ul [facility] # Lymphs 0.36 (L) 1.32 - 3.57 K/ul [facility] # Monos 0.24 (L) 0.30 - 0.82 K/uL [facility] # Bands 0.06 0.00 - 0.80 K/uL [facility] Total Counted 100 [facility] WBC Morphology Normal [facility] Clumped Platelet Present [facility] Giant Platelet Present [facility] Polychromasia 1+ few [facility] Anisocytosis 1+ few [facility] Macrocytes 1+ few [facility] Schistocytes 1+ few [facility] Jay Cells 1+ few [facility] Platelet Conc Adequate [facility] Specimen Blood Narrative Performed At Received comment: [facility] User comments: Slide comments: Performing Organization Address City/State/Zipcode Phone Number [facility] [address] [place] [address] CENTER Hemoglobin A1c (04/30/2019 3:13 AM CDT) Hemoglobin A1C 5.9 4.3 - 6.1 % [facility] Specimen Blood Performing Organization Address City/State/Zipcode Phone Number [facility] [address] [place] [address] [phone] CENTER after 07/06/2018 Insurance Payer Benefit Plan / Group Subscriber ID Type Phone Address [employer] - MEDICARE UNITED MED[employer]ARE HMO xxxxxxxxx MGD CARE [address] ([place]) [address] [place] [phone] Advance Directives For more information, please contact:[address] [phone] Code Status Date Activated Date Inactivated Comments Full Code 06/19/2019 9:59 PM 06/25/2019 8:11 PM This code status was determined by: Patient Full Code 04/30/2019 12:40 AM 05/07/2019 7:30 PM This code status was determined by: Patient
--- OUTSIDE RECORDS SUMMARY | 2019-07-07 17:09 | XMS REPORT ---
:1945 [facility] Address [address] [place] [address] Care Team Providers Name Role Phone RIKI SEE Unavailable Unavailable FRANCISCA DONOVAN Unavailable Unavailable Payers Payer Name Policy Type Policy Number Effective Date Expiration Date Problems This patient has no known problems. Allergies, Adverse Reactions, Alerts Allergy Allergy Status Severity Reaction(s) Onset Inactive Treating Comments Name Type Date Date Clinician No Known DA Active U 2019-05 00:00:0 0 Medications This patient has no known medications. Encounters Start End Encounter Admission Attending Care Care Encounter Date/Time Date/Time Type Type Clinicians Facility Department ID 2019-06-06 2019-06-06 Outpatient [facility] 13:27:00 13:27:00 Results Test Description Test Time Test Comments Text Results Atomic Results Result Comments BASIC METABOLIC PANEL 2019-06-25 09:25:00 Test Item Value Reference Range Comments SODIUM (BEAKER) (test 129 meq/L 136-145 qfjy=859) POTASSIUM (BEAKER) (test 4.1 meq/L 3.5-5.1 ndcv=526) CHLORIDE (BEAKER) (test 96 meq/L 98-107 obxq=234) CO2 (BEAKER) (test 26 meq/L 22-29 nkrn=956) BLOOD UREA NITROGEN 12 mg/dL 7-21 (BEAKER) (test zvmp=787) CREATININE (BEAKER) (test 0.73 mg/dL 0.57-1.25 blqb=382) GLUCOSE RANDOM (BEAKER) 118 mg/dL 70-105 (test shvp=454) CALCIUM (BEAKER) (test 8.8 mg/dL 8.4-10.2 dpmy=668) EGFR (BEAKER) (test 128 mL/min/1.73 sq m ESTIMATED GFR IS NOT hfcv=5249) ACCURATE CREATININE CLEARANCE IN PREDICTING GLOMERULAR FILTRATION RATE. ESTIMATED GFR IS NOT APPLICABLE FOR DIALYSIS PATIENTS. [id number] 00:43:00 Test Item Value Reference Range Comments SODIUM (BEAKER) (test ubsg=103) 128 meq/L 136-145 [id number] 18:29:00 Test Item Value Reference Range Comments SODIUM (BEAKER) (test mgog=588) 128 meq/L 136-145 COMPREHENSIVE METABOLIC [id number] 12:40:00 Test Item Value Reference Range Comments TOTAL PROTEIN (BEAKER) 6.8 gm/dL 6.0-8.3 (test dlhj=129) ALBUMIN (BEAKER) (test 3.9 g/dL 3.5-5.0 gaph=1676) ALKALINE PHOSPHATASE 56 U/L 40-150 (BEAKER) (test odus=224) BILIRUBIN TOTAL (BEAKER) 0.5 mg/dL 0.2-1.2 (test wkas=537) SODIUM (BEAKER) (test 126 meq/L 136-145 fhnz=674) POTASSIUM (BEAKER) (test 3.7 meq/L 3.5-5.1 chiy=190) CHLORIDE (BEAKER) (test 92 meq/L 98-107 bvua=010) CO2 (BEAKER) (test 26 meq/L 22-29 qjjf=439) BLOOD UREA NITROGEN 10 mg/dL 7-21 (BEAKER) (test kbde=316) CREATININE (BEAKER) (test 0.79 mg/dL 0.57-1.25 mcfi=170) GLUCOSE RANDOM (BEAKER) 167 mg/dL 70-105 (test ruor=878) CALCIUM (BEAKER) (test 8.7 mg/dL 8.4-10.2 jytp=350) AST (SGOT) (BEAKER) (test 16 U/L 5-34 spsk=797) ALT (SGPT) (BEAKER) (test 22 U/L 6-55 sjds=248) EGFR (BEAKER) (test 117 mL/min/1.73 sq ESTIMATED GFR IS NOT gqid=0045) m ACCURATE CREATININE CLEARANCE IN PREDICTING GLOMERULAR FILTRATION RATE. ESTIMATED GFR IS NOT APPLICABLE FOR DIALYSIS PATIENTS. CBC W/PLT COUNT & AUTO [id number] 12:21:00 Test Item Value Reference Range Comments WHITE BLOOD CELL COUNT (BEAKER) (test xkxu=827) 9.6 K/ L 3.5-10.5 RED BLOOD CELL COUNT (BEAKER) (test lwvc=502) 3.75 M/ L 4.63-6.08 HEMOGLOBIN (BEAKER) (test zfzi=256) 11.0 GM/DL 13.7-17.5 HEMATOCRIT (BEAKER) (test cpcm=731) 32.3 % 40.1-51.0 MEAN CORPUSCULAR VOLUME (BEAKER) (test tdrp=107) 86.1 fL 79.0-92.2 MEAN CORPUSCULAR HEMOGLOBIN (BEAKER) (test 29.3 pg 25.7-32.2 cyzc=645) MEAN CORPUSCULAR HEMOGLOBIN CONC (BEAKER) (test 34.1 GM/DL 32.3-36.5 ktmi=226) RED CELL DISTRIBUTION WIDTH (BEAKER) (test 17.4 % 11.6-14.4 uurw=334) PLATELET COUNT (BEAKER) (test dpig=389) 281 K/CU MM 150-450 MEAN PLATELET VOLUME (BEAKER) (test vzjh=096) 8.8 fL 9.4-12.4 NUCLEATED RED BLOOD CELLS (BEAKER) (test 0 /100 WBC 0-0 ochv=480) NEUTROPHILS RELATIVE PERCENT (BEAKER) (test 86 % ubkz=916) LYMPHOCYTES RELATIVE PERCENT (BEAKER) (test 8 % ebks=458) MONOCYTES RELATIVE PERCENT (BEAKER) (test 5 % xhcc=790) EOSINOPHILS RELATIVE PERCENT (BEAKER) (test 0 % qjzb=743) BASOPHILS RELATIVE PERCENT (BEAKER) (test 0 % wddg=207) NEUTROPHILS ABSOLUTE COUNT (BEAKER) (test 8.25 K/ L 1.78-5.38 tdpx=373) LYMPHOCYTES ABSOLUTE COUNT (BEAKER) (test 0.76 K/ L 1.32-3.57 bfbh=455) MONOCYTES ABSOLUTE COUNT (BEAKER) (test 0.46 K/ L 0.30-0.82 djvo=389) EOSINOPHILS ABSOLUTE COUNT (BEAKER) (test 0.00 K/ L 0.04-0.54 dwkk=233) BASOPHILS ABSOLUTE COUNT (BEAKER) (test 0.00 K/ L 0.01-0.08 jqub=179) IMMATURE GRANULOCYTES-RELATIVE PERCENT (BEAKER) 1 % 0-1 (test jnbu=6848) [id number] 07:29:00 Test Item Value Reference Range Comments SODIUM (BEAKER) (test bepj=757) 128 meq/L 136-145 [id number] 01:59:00 Test Item Value Reference Range Comments SODIUM (BEAKER) (test vumj=922) 123 meq/L 136-145 [id number] 18:55:00 Test Item Value Reference Range Comments SODIUM (BEAKER) (test llcv=840) 125 meq/L 136-145 [id number] 12:56:00 Test Item Value Reference Range Comments SODIUM (BEAKER) (test rnva=171) 124 meq/L 136-145 URIC [id number] 07:14:00 Test Item Value Reference Range Comments URIC ACID (BEAKER) (test khia=984) 2.0 mg/dL 2.6-7.2 COMPREHENSIVE METABOLIC [id number] 07:14:00 Test Item Value Reference Range Comments TOTAL PROTEIN (BEAKER) 6.8 gm/dL 6.0-8.3 (test xuku=553) ALBUMIN (BEAKER) (test 3.8 g/dL 3.5-5.0 xzpm=4524) ALKALINE PHOSPHATASE 57 U/L 40-150 (BEAKER) (test fhie=490) BILIRUBIN TOTAL (BEAKER) 0.4 mg/dL 0.2-1.2 (test hqwl=075) SODIUM (BEAKER) (test 121 meq/L 136-145 tybj=930) POTASSIUM (BEAKER) (test 4.3 meq/L 3.5-5.1 lqcz=648) CHLORIDE (BEAKER) (test 93 meq/L 98-107 uhqh=727) CO2 (BEAKER) (test 20 meq/L 22-29 qbwd=747) BLOOD UREA NITROGEN 6 mg/dL 7-21 (BEAKER) (test xvvs=305) CREATININE (BEAKER) (test 0.73 mg/dL 0.57-1.25 mdyo=373) GLUCOSE RANDOM (BEAKER) 138 mg/dL 70-105 (test ylmb=656) CALCIUM (BEAKER) (test 8.7 mg/dL 8.4-10.2 mnxh=991) AST (SGOT) (BEAKER) (test 22 U/L 5-34 ktqv=098) ALT (SGPT) (BEAKER) (test 20 U/L 6-55 tqvi=586) EGFR (BEAKER) (test 128 mL/min/1.73 sq ESTIMATED GFR IS NOT njav=1957) m ACCURATE CREATININE CLEARANCE IN PREDICTING GLOMERULAR FILTRATION RATE. ESTIMATED GFR IS NOT APPLICABLE FOR DIALYSIS PATIENTS. [id number] 01:25:00 Test Item Value Reference Range Comments SODIUM (BEAKER) (test xvyv=377) 121 meq/L 136-145 [id number] 21:13:00 Test Item Value Reference Range Comments MAGNESIUM (BEAKER) (test gskd=151) 1.8 mg/dL 1.6-2.6 [id number] 21:13:00 Test Item Value Reference Range Comments SODIUM (BEAKER) (test gzmq=101) 122 meq/L 136-145 [id number] 18:27:00 Test Item Value Reference Range Comments SODIUM (BEAKER) (test lrlr=134) 121 meq/L 136-145 [id number] 13:03:00 Test Item Value Reference Range Comments SODIUM (BEAKER) (test vwwo=569) 120 meq/L 136-145 CT, CHEST, WITH [id number] 11:09:00FINAL REPORT CT Chest, abdomen, and pelvis with contrast History: Lung cancerfollow-up Comparison: 05/02/2019 Technique: serial axial imaging was [...] size, and/or use of iterative reconstruction technique. Findings:The previous right hilar mass and extensive right [...] bilateral pleural effusions. There is significant, but improvedmass effect upon the bronchus intermedius, with improved aeration of the right middle and lower lobes. There are persistent tree-in-bud densities which probably relate to postobstructive pneumonia. Mild tree-in-bud opacities are scattered within the left upper and lower lobes. Normal size heart. Nopericardial effusion. No thoracic aortic aneurysm or dissection. [...] bilateral bulky mediastinal lymphadenopathy and right hilar mass.2. Significant but decreased mass effect upon the bronchus intermedius. Improved aeration of the right middle and lower lobes.3. Persistent tree-in-bud opacities within the right middle and lower lobes probably represent postobstructive changes/pneumonia.4. Scattered tree-in-bud opacities within the left upper and lower lobes could relate to recent bronchiolitis or aspiration.5. Interval increase in size of right hepatic lobe mass, suggesting a mixed response to therapy. Signed: Obinna Lees MDReport Verified Date/Time: 06/22/2019 11:09:18 Reading Location: [facility] C0X [facility] Consult Reading Room CT, [id number] 11:09:00FINAL REPORT CT Chest, abdomen, and pelvis with contrast History: Lung cancerfollow-up Comparison: 05/02/2019 Technique: serial axial imaging was [...] size, and/or use of iterative reconstruction technique. Findings:The previous right hilar mass and extensive right [...] bilateral pleural effusions. There is significant, but improvedmass effect upon the bronchus intermedius, with improved aeration of the right middle and lower lobes. There are persistent tree -in-bud densities which probably relate to postobstructive pneumonia. Mild tree- in-bud opacities are scattered within the left upper and lower lobes. Normal size heart. Nopericardial effusion. No thoracic aortic aneurysm or dissection. [...] bilateral bulky mediastinal lymphadenopathy and right hilar mass.2. Significant but decreased mass effect upon the bronchus intermedius. Improved aeration of the right middle and lower lobes.3. Persistent tree-in-bud opacities within the right middle and lower lobes probably represent postobstructive changes/pneumonia.4. Scattered tree-in-bud opacities within the left upper and lower lobes could relate to recent bronchiolitis or aspiration.5. Interval increase in size of right hepatic lobe mass, suggesting a mixed response to therapy. Signed: [facility] Verified Date/Time: 06/22/2019 11:09:18 Reading Location: [facility] B1 [id number] Ortho Consult Reading Room BASIC METABOLIC [id number] 08:37 :00 Test Item Value Reference Range Comments SODIUM (BEAKER) (test 118 meq/L 136-145 wxio=808) POTASSIUM (BEAKER) (test 4.2 meq/L 3.5-5.1 wcjq=892) CHLORIDE (BEAKER) (test 90 meq/L 98-107 zvwc=015) CO2 (BEAKER) (test 22 meq/L 22-29 jwlf=039) BLOOD UREA NITROGEN 6 mg/dL 7-21 (BEAKER) (test jidk=851) CREATININE (BEAKER) (test 0.62 mg/dL 0.57-1.25 kdma=683) GLUCOSE RANDOM (BEAKER) 94 mg/dL 70-105 (test eeja=279) CALCIUM (BEAKER) (test 8.6 mg/dL 8.4-10.2 owrc=879) EGFR (BEAKER) (test 155 mL/min/1.73 sq m ESTIMATED GFR IS NOT bhhe=2393) ACCURATE CREATININE CLEARANCE IN PREDICTING GLOMERULAR FILTRATION RATE. ESTIMATED GFR IS NOT APPLICABLE FOR DIALYSIS PATIENTS. CBC W/PLT COUNT & AUTO [id number] 05:50:00 Test Item Value Reference Range Comments WHITE BLOOD CELL COUNT (BEAKER) (test usra=023) 7.1 K/ L 3.5-10.5 RED BLOOD CELL COUNT (BEAKER) (test vnin=167) 3.77 M/ L 4.63-6.08 HEMOGLOBIN (BEAKER) (test bryr=984) 11.0 GM/DL 13.7-17.5 HEMATOCRIT (BEAKER) (test mmqj=852) 31.3 % 40.1-51.0 MEAN CORPUSCULAR VOLUME (BEAKER) (test vvrm=471) 83.0 fL 79.0-92.2 MEAN CORPUSCULAR HEMOGLOBIN (BEAKER) (test 29.2 pg 25.7-32.2 abma=221) MEAN CORPUSCULAR HEMOGLOBIN CONC (BEAKER) (test 35.1 GM/DL 32.3-36.5 zyku=082) RED CELL DISTRIBUTION WIDTH (BEAKER) (test 17.1 % 11.6-14.4 aajv=872) PLATELET COUNT (BEAKER) (test shux=152) 254 K/CU MM 150-450 MEAN PLATELET VOLUME (BEAKER) (test ivvp=651) 8.4 fL 9.4-12.4 NUCLEATED RED BLOOD CELLS (BEAKER) (test 0 /100 WBC 0-0 ksun=521) NEUTROPHILS RELATIVE PERCENT (BEAKER) (test 51 % gcki=989) LYMPHOCYTES RELATIVE PERCENT (BEAKER) (test 30 % augu=677) MONOCYTES RELATIVE PERCENT (BEAKER) (test 12 % lyhv=983) EOSINOPHILS RELATIVE PERCENT (BEAKER) (test 5 % cvur=254) BASOPHILS RELATIVE PERCENT (BEAKER) (test 1 % cvxu=459) NEUTROPHILS ABSOLUTE COUNT (BEAKER) (test 3.66 K/ L 1.78-5.38 ekqj=525) LYMPHOCYTES ABSOLUTE COUNT (BEAKER) (test 2.11 K/ L 1.32-3.57 xofs=534) MONOCYTES ABSOLUTE COUNT (BEAKER) (test 0.87 K/ L 0.30-0.82 rarm=233) EOSINOPHILS ABSOLUTE COUNT (BEAKER) (test 0.36 K/ L 0.04-0.54 itnn=083) BASOPHILS ABSOLUTE COUNT (BEAKER) (test 0.06 K/ L 0.01-0.08 pdgo=190) IMMATURE GRANULOCYTES-RELATIVE PERCENT (BEAKER) 1 % 0-1 (test jnpx=4607) MR, BRAIN, [id number] 03:45:00FINAL REPORT MRI brain with and without contrast Comparison: Brain MRI 05/03/2019. Reason for exam: reevaluate brain mets Technique: Multiplanar MR imaging of the brain was provided [id number] IV gadolinium administration using T1, T2, FLAIR, FFE, diffusion weighted sequences,and ADC map imaging. Findings:There is mild generalized parenchymal atrophy. There is no intracranial mass, mass effect, extra-axial collection, hydrocephalus or herniation. There is no abnormal enhancement. Again seen are multiple punctate FLAIR hyperintensities in the bilateral periventricular and subcortical white matter without mass effect which likely represent white matter microvascular ischemic changes. There is no restricted diffusion to suggest an acute infarct. There is no abnormality onsusceptibility sequences to suggest hemorrhage or hemosiderin deposition. The skull base flow-voids are seen in keeping with their patency. The visualized paranasal sinuses and mastoid air cells are clear. There are bilateral lens replacements. The sella and parasellar regions are unremarkable. Thecraniocervical junction is normal. Impressions: No evidence of intracranial metastases. Signed: Serena Barillas MDReport Verified Date/Time: 06/22/2019 03:45 :55 [id number] 10:48:00 Test Item Value Reference Range Comments SODIUM (BEAKER) (test vphc=791) 121 meq/L 136-145 URIC ACID, RANDOM [id number] 07:30:00 Test Item Value Reference Range Comments URIC ACID, URINE (BEAKER) (test opuh=8201) 11.9 mg/dL Reference Range: No [id number] 05:02:00 Test Item Value Reference Range Comments CORTISOL, TOTAL (BEAKER) (test vupb=4470) 9.3 ug/dL 3.7-19.4 [id number] 05:01:00 Test Item Value Reference Range Comments THYROID STIMULATING HORMONE (BEAKER) (test 1.67 uIU/mL 0.35-4.94 ypnm=520) BASIC METABOLIC [id number] 04:51:00 Test Item Value Reference Range Comments SODIUM (BEAKER) (test 119 meq/L 136-145 aiqs=428) POTASSIUM (BEAKER) (test 4.5 meq/L 3.5-5.1 Specimen slightly guek=675) hemolyzed CHLORIDE (BEAKER) (test 92 meq/L 98-107 gygq=879) CO2 (BEAKER) (test 22 meq/L 22-29 fwnl=781) BLOOD UREA NITROGEN 7 mg/dL 7-21 (BEAKER) (test qpro=609) CREATININE (BEAKER) (test 0.64 mg/dL 0.57-1.25 Specimen slightly wgyv=688) hemolyzed GLUCOSE RANDOM (BEAKER) 96 mg/dL 70-105 (test jtug=865) CALCIUM (BEAKER) (test 8.3 mg/dL 8.4-10.2 bwyu=977) EGFR (BEAKER) (test 149 mL/min/1.73 sq m ESTIMATED GFR IS NOT ooss=9364) ACCURATE CREATININE CLEARANCE IN PREDICTING GLOMERULAR FILTRATION RATE. ESTIMATED GFR IS NOT APPLICABLE FOR DIALYSIS PATIENTS. TROPONIN [id number] 04:47:00 Test Item Value Reference Range Comments TROPONIN I (BEAKER) (test zuhw=868) < ng/mL 0.00-0.03 Troponin I (TnI) levels must be interpreted in the context of the presenting symptoms and the clinical findings. Elevated TnI levels indicate myocardial damage, but are not specific for ischemic heart disease. Elevated TnI levels are seen in patients with other cardiac conditions (including myocarditis and congestive heart failure), and slight TnI elevations occur in patients with other conditions, including sepsis, renal failure, acidosis, acute neurological disease, and persistent tachyarrhythmia.CBC W/PLT COUNT & AUTO [id number] 04:14:00 Test Item Value Reference Range Comments WHITE BLOOD CELL COUNT (BEAKER) (test mvrf=704) 7.8 K/ L 3.5-10.5 RED BLOOD CELL COUNT (BEAKER) (test gpbl=136) 3.64 M/ L 4.63-6.08 HEMOGLOBIN (BEAKER) (test ygvj=305) 10.6 GM/DL 13.7-17.5 HEMATOCRIT (BEAKER) (test zbdz=128) 30.7 % 40.1-51.0 MEAN CORPUSCULAR VOLUME (BEAKER) (test moys=232) 84.3 fL 79.0-92.2 MEAN CORPUSCULAR HEMOGLOBIN (BEAKER) (test 29.1 pg 25.7-32.2 tkkx=695) MEAN CORPUSCULAR HEMOGLOBIN CONC (BEAKER) (test 34.5 GM/DL 32.3-36.5 vcdo=261) RED CELL DISTRIBUTION WIDTH (BEAKER) (test 17.0 % 11.6-14.4 dssn=773) PLATELET COUNT (BEAKER) (test rzke=743) 254 K/CU MM 150-450 MEAN PLATELET VOLUME (BEAKER) (test lail=637) 8.3 fL 9.4-12.4 NUCLEATED RED BLOOD CELLS (BEAKER) (test 0 /100 WBC 0-0 yjrx=336) NEUTROPHILS RELATIVE PERCENT (BEAKER) (test 49 % gpfd=794) LYMPHOCYTES RELATIVE PERCENT (BEAKER) (test 30 % zjmq=116) MONOCYTES RELATIVE PERCENT (BEAKER) (test 13 % yswe=202) EOSINOPHILS RELATIVE PERCENT (BEAKER) (test 6 % bwxc=024) BASOPHILS RELATIVE PERCENT (BEAKER) (test 1 % dgmw=346) NEUTROPHILS ABSOLUTE COUNT (BEAKER) (test 3.85 K/ L 1.78-5.38 bvwc=376) LYMPHOCYTES ABSOLUTE COUNT (BEAKER) (test 2.34 K/ L 1.32-3.57 fcai=945) MONOCYTES ABSOLUTE COUNT (BEAKER) (test 0.99 K/ L 0.30-0.82 dspi=490) EOSINOPHILS ABSOLUTE COUNT (BEAKER) (test 0.47 K/ L 0.04-0.54 vywg=366) BASOPHILS ABSOLUTE COUNT (BEAKER) (test 0.08 K/ L 0.01-0.08 emcr=085) IMMATURE GRANULOCYTES-RELATIVE PERCENT (BEAKER) 1 % 0-1 (test sybv=4313) [id number] 22:30:00 Test Item Value Reference Range Comments SODIUM (BEAKER) (test xpoi=207) 118 meq/L 136-145 URIC [id number] 22:30:00 Test Item Value Reference Range Comments URIC ACID (BEAKER) (test ejws=805) 1.7 mg/dL 2.6-7.2 CREATININE, RANDOM [id number] 19:14:00 Test Item Value Reference Range Comments CREATININE URINE (BEAKER) (test zjkq=724) 67.1 mg/dL Reference Range: No NormalsPOTASSIUM, RANDOM [id number] 19:14:00 Test Item Value Reference Range Comments POTASSIUM URINE (BEAKER) (test leoq=121) 44.8 meq/L Reference Range: No NormalsSODIUM, RANDOM [id number] 19:14:00 Test Item Value Reference Range Comments SODIUM URINE (BEAKER) (test lqhd=487) 188 meq/L Reference Range: No NormalsOSMOLALITY, [id number] 15:23:00 Test Item Value Reference Range Comments OSMOLALITY URINE (BEAKER) (test fysv=541) 631 mOsm/kg 40-1,400 OSMOLALITY, [id number] 15:23:00 Test Item Value Reference Range Comments OSMOLALITY, SERUM (BEAKER) (test pmgx=559) 255 mOsm/kg 275-295 BASIC METABOLIC [id number] 15:17:00 Test Item Value Reference Range Comments SODIUM (BEAKER) (test 123 meq/L 136-145 ehoq=947) POTASSIUM (BEAKER) (test 4.4 meq/L 3.5-5.1 klpr=110) CHLORIDE (BEAKER) (test 94 meq/L 98-107 vskj=144) CO2 (BEAKER) (test 23 meq/L 22-29 ccby=488) BLOOD UREA NITROGEN 9 mg/dL 7-21 (BEAKER) (test kptc=363) CREATININE (BEAKER) (test 0.72 mg/dL 0.57-1.25 ftuy=250) GLUCOSE RANDOM (BEAKER) 106 mg/dL 70-105 (test zlqq=884) CALCIUM (BEAKER) (test 8.3 mg/dL 8.4-10.2 mnam=175) EGFR (BEAKER) (test 130 mL/min/1.73 sq m ESTIMATED GFR IS NOT wcbt=3569) ACCURATE CREATININE CLEARANCE IN PREDICTING GLOMERULAR FILTRATION RATE. ESTIMATED GFR IS NOT APPLICABLE FOR DIALYSIS PATIENTS. TROPONIN [id number] 15:07:00 Test Item Value Reference Range Comments TROPONIN I (BEAKER) (test bdqa=322) < ng/mL 0.00-0.03 Troponin I (TnI) levels must be interpreted in the context of the presenting symptoms and the clinical findings. Elevated TnI levels indicate myocardial damage, but are not specific for ischemic heart disease. Elevated TnI levels are seen in patients with other cardiac conditions (including myocarditis and congestive heart failure), and slight TnI elevations occur in patients with other conditions, including sepsis, renal failure, acidosis, acute neurological disease, and persistent tachyarrhythmia.BASIC METABOLIC [id number] 07:18:00 Test Item Value Reference Range Comments SODIUM (BEAKER) (test 123 meq/L 136-145 ttkk=888) POTASSIUM (BEAKER) (test 5.0 meq/L 3.5-5.1 tjqv=816) CHLORIDE (BEAKER) (test 94 meq/L 98-107 fbam=417) CO2 (BEAKER) (test 24 meq/L 22-29 lezu=280) BLOOD UREA NITROGEN 9 mg/dL 7-21 (BEAKER) (test narx=205) CREATININE (BEAKER) (test 0.70 mg/dL 0.57-1.25 sfuh=495) GLUCOSE RANDOM (BEAKER) 94 mg/dL 70-105 (test xeec=455) CALCIUM (BEAKER) (test 8.4 mg/dL 8.4-10.2 yvhx=178) EGFR (BEAKER) (test 134 mL/min/1.73 sq m ESTIMATED GFR IS NOT bpgv=4947) ACCURATE CREATININE CLEARANCE IN PREDICTING GLOMERULAR FILTRATION RATE. ESTIMATED GFR IS NOT APPLICABLE FOR DIALYSIS PATIENTS. CBC W/PLT COUNT & AUTO [id number] 06:29:00 Test Item Value Reference Range Comments WHITE BLOOD CELL COUNT (BEAKER) (test mzeh=515) 6.3 K/ L 3.5-10.5 RED BLOOD CELL COUNT (BEAKER) (test cmht=267) 3.69 M/ L 4.63-6.08 HEMOGLOBIN (BEAKER) (test zsjm=715) 10.8 GM/DL 13.7-17.5 HEMATOCRIT (BEAKER) (test iggl=801) 31.6 % 40.1-51.0 MEAN CORPUSCULAR VOLUME (BEAKER) (test cmum=710) 85.6 fL 79.0-92.2 MEAN CORPUSCULAR HEMOGLOBIN (BEAKER) (test 29.3 pg 25.7-32.2 wkzj=262) MEAN CORPUSCULAR HEMOGLOBIN CONC (BEAKER) (test 34.2 GM/DL 32.3-36.5 wccm=412) RED CELL DISTRIBUTION WIDTH (BEAKER) (test 17.7 % 11.6-14.4 ljvo=636) PLATELET COUNT (BEAKER) (test nosj=358) 276 K/CU MM 150-450 MEAN PLATELET VOLUME (BEAKER) (test hqgz=574) 8.6 fL 9.4-12.4 NUCLEATED RED BLOOD CELLS (BEAKER) (test 0 /100 WBC 0-0 ouyz=175) NEUTROPHILS RELATIVE PERCENT (BEAKER) (test 48 % lnhm=911) LYMPHOCYTES RELATIVE PERCENT (BEAKER) (test 29 % oobj=781) MONOCYTES RELATIVE PERCENT (BEAKER) (test 16 % bvfq=978) EOSINOPHILS RELATIVE PERCENT (BEAKER) (test 5 % txhf=149) BASOPHILS RELATIVE PERCENT (BEAKER) (test 1 % nqtf=810) NEUTROPHILS ABSOLUTE COUNT (BEAKER) (test 3.04 K/ L 1.78-5.38 sldy=799) LYMPHOCYTES ABSOLUTE COUNT (BEAKER) (test 1.84 K/ L 1.32-3.57 qqbm=020) MONOCYTES ABSOLUTE COUNT (BEAKER) (test 1.00 K/ L 0.30-0.82 pwkc=728) EOSINOPHILS ABSOLUTE COUNT (BEAKER) (test 0.32 K/ L 0.04-0.54 ayjf=501) BASOPHILS ABSOLUTE COUNT (BEAKER) (test 0.06 K/ L 0.01-0.08 yjam=035) IMMATURE GRANULOCYTES-RELATIVE PERCENT (BEAKER) 1 % 0-1 (test tqtn=5200) TROPONIN [id number] 06:16:00 Test Item Value Reference Range Comments TROPONIN I (BEAKER) (test egfp=630) < ng/mL 0.00-0.03 Troponin I (TnI) levels must be interpreted in the context of the presenting symptoms and the clinical findings. Elevated TnI levels indicate myocardial damage, but are not specific for ischemic heart disease. Elevated TnI levels are seen in patients with other cardiac conditions (including myocarditis and congestive heart failure), and slight TnI elevations occur in patients with other conditions, including sepsis, renal failure, acidosis, acute neurological disease, and persistent tachyarrhythmia.POCT-GLUCOSE [id number] 00:24:00 Test Item Value Reference Range Comments POC-GLUCOSE METER (BEAKER) 103 mg/dL 70-110 TESTED AT [facility] [address] [place] [address] (test bdep=0409) [facility] [address] [id number] 21:16:00 Test Item Value Reference Range Comments LIPASE (BEAKER) (test rpec=531) 38 U/L 8-78 BASIC METABOLIC [id number] 21:16:00 Test Item Value Reference Range Comments SODIUM (BEAKER) (test 121 meq/L 136-145 fpmc=199) POTASSIUM (BEAKER) (test 4.5 meq/L 3.5-5.1 sgho=361) CHLORIDE (BEAKER) (test 90 meq/L 98-107 whcd=407) CO2 (BEAKER) (test 24 meq/L 22-29 qnff=228) BLOOD UREA NITROGEN 11 mg/dL 7-21 (BEAKER) (test tmfk=951) CREATININE (BEAKER) (test 0.72 mg/dL 0.57-1.25 cqvd=066) GLUCOSE RANDOM (BEAKER) 99 mg/dL 70-105 (test njwn=664) CALCIUM (BEAKER) (test 9.1 mg/dL 8.4-10.2 atny=245) EGFR (BEAKER) (test 130 mL/min/1.73 sq m ESTIMATED GFR IS NOT omdy=3813) ACCURATE CREATININE CLEARANCE IN PREDICTING GLOMERULAR FILTRATION RATE. ESTIMATED GFR IS NOT APPLICABLE FOR DIALYSIS PATIENTS. HEPATIC FUNCTION [id number] 21:16:00 Test Item Value Reference Range Comments TOTAL PROTEIN (BEAKER) (test bfgk=402) 7.2 gm/dL 6.0-8.3 ALBUMIN (BEAKER) (test yexe=0788) 4.0 g/dL 3.5-5.0 BILIRUBIN TOTAL (BEAKER) (test zede=509) 0.5 mg/dL 0.2-1.2 BILIRUBIN DIRECT (BEAKER) (test dadx=062) 0.2 mg/dL 0.1-0.5 ALKALINE PHOSPHATASE (BEAKER) (test urym=374) 75 U/L 40-150 AST (SGOT) (BEAKER) (test obru=216) 21 U/L 5-34 ALT (SGPT) (BEAKER) (test cswd=009) 19 U/L 6-55 [id number] 21:13:00 Test Item Value Reference Range Comments PROTIME (BEAKER) (test bgjl=076) 13.1 seconds 11.9-14.2 INR (BEAKER) (test gunf=370) 1.0 <=5.9 PARTIAL THROMBOPLASTIN TIME (BEAKER) (test 35.6 seconds 22.5-36.0 ctsy=116) Effective 04/10/2019: PT Reference Range ChangeNew: 11.9-14.2 Previous: 11.7- 14.7RECOMMENDED COUMADIN/WARFARIN INR THERAPY RANGESSTANDARD DOSE: 2.0-3.0 Includes: PROPHYLAXIS for venous thrombosis, systemic embolization; TREATMENT for venous thrombosis and/or pulmonary embolus.HIGH RISK: Target INR is2.5-3.5 for patients wiht mechanical heart valves.URINALYSIS [id number] 21:07 :00 Test Item Value Reference Range Comments RBC UA (BEAKER) (test fimw=083) 0 /HPF WBC UA (BEAKER) (test mgte=180) < /HPF MUCUS (BEAKER) (test qqvv=6638) Occasional URINALYSIS WITH MICROSCOPIC IF [id number] 21:07:00 Test Item Value Reference Range Comments COLOR (BEAKER) (test zrzy=100) Yellow CLARITY (BEAKER) (test igdp=684) Clear SPECIFIC GRAVITY UA (BEAKER) (test oicb=621) 1.018 1.001-1.035 PH UA (BEAKER) (test iuot=316) 7.0 5.0-8.0 PROTEIN UA (BEAKER) (test zauv=399) 10 mg/dL Negative GLUCOSE UA (BEAKER) (test xwag=861) Negative Negative KETONES UA (BEAKER) (test lyqx=865) Negative Negative BILIRUBIN UA (BEAKER) (test xpqm=046) Negative Negative BLOOD UA (BEAKER) (test engu=227) Negative Negative NITRITE UA (BEAKER) (test jzpc=546) Negative Negative LEUKOCYTE ESTERASE UA (BEAKER) (test bqvw=720) Negative Negative UROBILINOGEN UA (BEAKER) (test nzro=774) 3.0 mg/dL 0.2-1.0 SOURCE(BEAKER) (test lsuu=1265) CBC W/PLT COUNT & AUTO [id number] 20:54:00 Test Item Value Reference Range Comments WHITE BLOOD CELL COUNT (BEAKER) (test fpvm=502) 7.8 K/ L 3.5-10.5 RED BLOOD CELL COUNT (BEAKER) (test ehlo=204) 3.99 M/ L 4.63-6.08 HEMOGLOBIN (BEAKER) (test lqsg=183) 11.7 GM/DL 13.7-17.5 HEMATOCRIT (BEAKER) (test bncx=348) 34.2 % 40.1-51.0 MEAN CORPUSCULAR VOLUME (BEAKER) (test xstl=013) 85.7 fL 79.0-92.2 MEAN CORPUSCULAR HEMOGLOBIN (BEAKER) (test 29.3 pg 25.7-32.2 pyrp=697) MEAN CORPUSCULAR HEMOGLOBIN CONC (BEAKER) (test 34.2 GM/DL 32.3-36.5 yqgq=705) RED CELL DISTRIBUTION WIDTH (BEAKER) (test 17.6 % 11.6-14.4 ujez=233) PLATELET COUNT (BEAKER) (test dfqt=778) 270 K/CU MM 150-450 MEAN PLATELET VOLUME (BEAKER) (test odvw=348) 8.7 fL 9.4-12.4 NUCLEATED RED BLOOD CELLS (BEAKER) (test 0 /100 WBC 0-0 zqbo=779) NEUTROPHILS RELATIVE PERCENT (BEAKER) (test 51 % polc=950) LYMPHOCYTES RELATIVE PERCENT (BEAKER) (test 28 % uaxq=191) MONOCYTES RELATIVE PERCENT (BEAKER) (test 14 % wuvi=783) EOSINOPHILS RELATIVE PERCENT (BEAKER) (test 5 % wfma=026) BASOPHILS RELATIVE PERCENT (BEAKER) (test 1 % poeq=274) NEUTROPHILS ABSOLUTE COUNT (BEAKER) (test 3.99 K/ L 1.78-5.38 zltp=303) LYMPHOCYTES ABSOLUTE COUNT (BEAKER) (test 2.20 K/ L 1.32-3.57 glus=966) MONOCYTES ABSOLUTE COUNT (BEAKER) (test 1.08 K/ L 0.30-0.82 haop=758) EOSINOPHILS ABSOLUTE COUNT (BEAKER) (test 0.36 K/ L 0.04-0.54 wbwt=930) BASOPHILS ABSOLUTE COUNT (BEAKER) (test 0.08 K/ L 0.01-0.08 njdi=627) IMMATURE GRANULOCYTES-RELATIVE PERCENT (BEAKER) 1 % 0-1 (test xqfc=9902) CT, BRAIN, WITHOUT [id number] 20:01:00FINAL REPORT CT, BRAIN, WITHOUT CONTRAST CLINICAL INDICATION: Confusion/delirium, altered LOC, unexplained COMPARISON: None TECHNIQUE: Noncontrast axial CT imaging of the brainand skull. DOSE REDUCTION: Dose modulation, iterative reconstruction, and/or weight-based adjustment of the mA/kV was utilized to reduce the radiation dose to as low as reasonably achievable. FINDINGS:No intracranial hemorrhage, midline shift or mass effect. Midline structures are normally developed.Mild chronic microvascular ischemic changes of the periventricular and subcortical white matter are present. No hydrocephalus. Orbits are within normal limits. No obstructive paranasal sinus disease. IMPRESSION: No acute intracranial findings If there is persistent clinical concern for intracranial pathology, MR examination is recommended for further characterization. Signed: Aminta Montenegro MDReport Verified Date/Time: 2018 20:01:57 Reading Location: [facility] C013 Neuro Reading Room AFB CULTURE + [id number] 09:12:00 Test Item Value Reference Range Comments CULTURE (BEAKER) (test No acid-fast bacilli isolated rpqa=2044) in 42 days AFB SMEAR (BEAKER) (test No acid fast bacilli seen rugq=476) - SP FLUORO GUID CTRL ACC [id number] 11:31:00 Name: TIRSO CA [facility] L[facility]aro : 1945 Age/S: 73 / M [address] Unit #: [id number] Loc: [place] [address] Phys: Cathy Sellers MD Acct: [id number] Dis Date: Status : REG [facility] PHONE #: [phone] Exam Date: 06/06/2019 1100 FAX #: Reason: PORT PLACEMENT EXAMS: CPT: [id number] SP FLUORO GUID CTRL ACC DEV 20501 Fluoro Time: 0:45 DAP (Gy m2): 0.27 Air Kerma ( mGy): 1 EXAMINATION: PORT CATHETER PLACEMENT. LOCATION: S 17. HISTORY: Lung cancer. SEDATION: Under physician supervision, Versed and Fentanyl were administered intravenously for moderate sedation. Pulse oximetry, heart rate, and BP were continuously monitored by an independent trained observerpresent. The physician spent 30 minutes of face to face sedation time with the patient. RADIATION DOSE: Total reference air kerma 1.0 mGy. ANTIBIOTICS: None. Not indicated. CONTRAST: None. TECHNIQUE: The risks, benefits, and alternatives were discussed and informed consent was obtained. Prior to beginning the procedure, Concord Protocol was used to confirm the patient's identity and planned procedure. Maximum sterile barriers including cap, mask, hand hygiene, sterile gloves, sterile gown, large sterile drape and cutaneous antisepsis were used. The skin over the right internal jugularvein was sterilely prepped, draped, and infiltrated with lidocaine. Prior to theprocedure, the target vessel was evaluated by ultrasound. An image of the patent vessel was recorded and saved to PACS. After sterile prep, this vessel was accessed with a micropuncture needle using real-time ultrasound guidance. A guidewire and catheter were then passed centrally using fluoroscopic guidance. The intravascular length from the access site to the right atrium was assessed. After infiltrating the skin in the subclavicular region with lidocaine, a short transverse incision was made and the pocket for the port reservoir was formed by blunt dissection. The catheter was tunneled to the access site , cut to the appropriate length, and inserted through a peel-away sheath. The catheter was flushed and the access needle was removed. The deep tissues were approximated using 4-0 Monocryl and the superficial incision closed using Dermabond. The incision in the PAGE 1 Signed Report (CONTINUED) Name: TIRSO CA [place] : 1945 Age/S: 73 / M [address] Unit #: [id number] Loc: [place] [address] Phys: Tatiana Sellers Acct: [id number] Dis Date: Status: REG [facility] PHONE #: [phone] Exam Date: 06/06/2019 1100 FAX #: Reason: PORT PLACEMENT EXAMS: CPT: [id number] SP FLUORO GUID CTRL ACC DEV 97235 Fluoro Time: 0:45 DAP (Gy m2): 0.27 Air Kerma (mGy): 1 <Continued> lower neck was closed in a similar fashion. ESTIMATED BLOOD LOSS: Less than 30 milliliters. COMPLICATIONS: None. DISCHARGEDTO: Outpatient recovery then home. FINDINGS: Ultrasound demonstrates a patent right internal jugular vein. The final fluoroscopic image demonstrates the catheter with its tip at the cavoatrial junction. No complications are seen. IMPRESSION: Successful chest wall port catheter placement. PLAN: The catheter is ready for immediate use. When treatment is completed, removal can be scheduled by calling Interventional Radiology. at 1131 Reported and signed by: Raoul Moran M.D. CC: Raoul Moran MD;Cathy Sellers MD; Gerald Burt MD PAGE 2 Signed Report Name:TIRSO CA [place] : 1945 Age/S: 73 / M [address] Unit #: [id number] Loc: [place] [address] Phys: Cathy Sellers MD Acct: [id number] Dis Date: Status: REG [facility] PHONE #: [phone] Exam Date: 06/06/2019 1100 FAX #: Reason: PORT PLACEMENT EXAMS: CPT: [id number] SP FLUORO GUID CTRL ACC DEV 73151 Fluoro Time: 0:45 DAP(Gy m2): 0.27 Air Kerma (mGy): 1 <Continued> Technologist: Manav Flores, RT(R) Trnscb Date/Time: 06/06/2019 (1131) [id number] Orig Print D/T: S: 06/06/2019 (7987) PAGE 3 Signed Report- SP FLUORO GUID CTRL ACC [id number] 11:31:00 Name: TIRSO CA : 1945 Age/S: 73 / M [address] Unit #: [id number] Loc: [place] [address] Phys: Cathy Sellers MD Acct: [id number] Dis Date: Status: REG [facility] PHONE #: [phone] Exam Date: 06/06/2019 1100 FAX #: Reason: PORT PLACEMENT EXAMS: CPT: [id number] SP FLUORO GUID CTRL ACC DEV 34343 Fluoro Time: 0:45 DAP (Gy m2): 0.27 Air Kerma (mGy): 1 EXAMINATION: PORT CATHETER PLACEMENT. LOCATION: S 17. HISTORY: Lung cancer. SEDATION: Under physician supervision, Versed and Fentanyl were administered intravenously for moderate sedation. Pulse oximetry, heart rate, and BP were continuously monitored by an independent trained observerpresent. The physician spent 30 minutes of face to face sedation time with the patient. RADIATION DOSE: Total reference air kerma 1.0 mGy. ANTIBIOTICS: None. Not indicated. CONTRAST: None. TECHNIQUE: The risks, benefits, and alternatives were discussed and informed consent was obtained. Prior to beginning the procedure, Concord Protocol was used to confirm the patient's identity and planned procedure. Maximum sterile barriers including cap, mask, hand hygiene, sterile gloves, sterile gown, large sterile drape and cutaneous antisepsis were used. The skin over the right internal jugularvein was sterilely prepped, draped, and infiltrated with lidocaine. Prior to theprocedure, the target vessel was evaluated by ultrasound. An image of the patent vessel was recorded and saved to PACS. After sterile prep, this vessel was accessed with a micropuncture needle using real-time ultrasound guidance. A guidewire and catheter were then passed centrally using fluoroscopic guidance. The intravascular length from the access site to the right atrium was assessed. After infiltrating the skin in the subclavicular region with lidocaine, a short transverse incision was made and the pocket for the port reservoir was formed by blunt dissection. The catheter was tunneled to the access site, cut to the appropriate length, and inserted through a peel-away sheath. The catheter was flushed and the access needle was removed. The deep tissues were approximated using 4-0 Monocryl and the superficial incision closed using Dermabond. The incision in the PAGE 1 Signed Report (CONTINUED) Name: TIRSO CA : 1945 Age/S: 73 / M [address] [facility] Unit #: [id number] Loc: [place] [address] Phys: Tatiana Sellers Acct: [id number] Dis Date: Status: REG [facility] PHONE # : [phone] Exam Date: 06/06/2019 1100 FAX #: Reason: PORT PLACEMENT EXAMS: CPT: [id number] SP FLUORO GUID CTRL ACC DEV 98337 Fluoro Time: 0:45 DAP (Gy m2): 0.27 Air Kerma (mGy) : 1 <Continued> lower neck was closed in a similar fashion. ESTIMATED BLOOD LOSS: Less than 30 milliliters. COMPLICATIONS: None. DISCHARGEDTO: Outpatient recovery then home. FINDINGS: Ultrasound demonstrates a patent right internal jugular vein. The final fluoroscopic image demonstrates the catheter with its tip at the cavoatrial junction. No complications are seen. IMPRESSION: Successful chest wall port catheter placement. PLAN: The catheter is ready for immediate use. When treatment is completed, removal can be scheduled by calling Interventional Radiology. at 1131 Reported and signed by: Raoul Moran M.D. CC: Raoul Moran MD;Cathy Sellers MD; Gerald Burt MD PAGE 2 Signed Report Name:TIRSO CA [place] : 1945 Age/S: 73 / M [address] Unit #: [id number] Loc: [place] [address] Phys: Cathy Slelers MD Acct: [id number] Dis Date: Status: REG [facility] PHONE #: [phone] Exam Date: 06/06/2019 1100 FAX #: Reason: PORT PLACEMENT EXAMS: CPT: [id number] SP FLUORO GUID CTRL ACC DEV 53031 Fluoro Time: 0:45 DAP(Gy m2): 0.27 Air Kerma (mGy): 1 <Continued&gt ; Technologist: Manav Flores, RT(R) Trnscb Date/Time : 06/06/2019 (1131) t.PR7 Orig Print D/T: S: 2018 (113) PAGE 3 Signed Report- SP FLUORO GUID CTRL ACC [id number] 11:31:00 Name: TIRSO CA [place] : 1945 Age/S: 73 / M [address] Unit #: [id number] Loc: [place] [address] Phys: Cathy Sellers MD Acct: [id number] Dis Date: Status: REG [facility] PHONE #: [phone] Exam Date: 06/06/2019 1100 FAX #: Reason: PORT PLACEMENT EXAMS: CPT: [id number] SP FLUORO GUID CTRL ACC DEV 35300 Fluoro Time: 0:45 DAP (Gy m2): 0.27 Air Kerma ( mGy): 1 EXAMINATION: PORT CATHETER PLACEMENT. LOCATION: S 17. HISTORY: Lung cancer. SEDATION: Under physician supervision, Versed and Fentanyl were administered intravenously for moderate sedation. Pulse oximetry, heart rate, and BP were continuously monitored by an independent trained observerpresent. The physician spent 30 minutes of face to face sedation time with the patient. RADIATION DOSE: Total reference air kerma 1.0 mGy. ANTIBIOTICS: None. Not indicated. CONTRAST: None. TECHNIQUE: The risks, benefits, and alternatives were discussed and informed consent was obtained. Prior to beginning the procedure, Concord Protocol was used to confirm the patient's identity and planned procedure. Maximum sterile barriers including cap, mask, hand hygiene, sterile gloves, sterile gown, large sterile drape and cutaneous antisepsis were used. The skin over the right internal jugularvein was sterilely prepped, draped, and infiltrated with lidocaine. Prior to theprocedure, the target vessel was evaluated by ultrasound. An image of the patent vessel was recorded and saved to PACS. After sterile prep, this vessel was accessed with a micropuncture needle using real-time ultrasound guidance. A guidewire and catheter were then passed centrally using fluoroscopic guidance. The intravascular length from the access site to the right atrium was assessed. After infiltrating the skin in the subclavicular region with lidocaine, a short transverse incision was made and the pocket for the port reservoir was formed by blunt dissection. The catheter was tunneled to the access site , cut to the appropriate length, and inserted through a peel-away sheath. The catheter was flushed and the access needle was removed. The deep tissues were approximated using 4-0 Monocryl and the superficial incision closed using Dermabond. The incision in the PAGE 1 Signed Report (CONTINUED) Name: TIRSO CA [facility] : 1945 Age/S: 73 / M [address] Unit #: [id number] Loc: [place] [address] Phys: MarloTatiana Acct: [id number] Dis Date: Status: [facility] PHONE #: [phone] Exam Date: 06/06/2019 1100 FAX #: Reason: PORT PLACEMENT EXAMS: CPT: [id number] SP FLUORO GUID CTRL ACC DEV 45284 Fluoro Time: 0:45 DAP (Gy m2): 0.27 Air Kerma (mGy): 1 <Continued> lower neck was closed in a similar fashion. ESTIMATED BLOOD LOSS: Less than 30 milliliters. COMPLICATIONS: None. DISCHARGEDTO: Outpatient recovery then home. FINDINGS: Ultrasound demonstrates a patent right internal jugular vein. The final fluoroscopic image demonstrates the catheter with its tip at the cavoatrial junction. No complications are seen. IMPRESSION: Successful chest wall port catheter placement. PLAN: The catheter is ready for immediate use. When treatment is completed, removal can be scheduled by calling Interventional Radiology. at 1131 Reported and signed by: Raoul Moran M.D. CC: Raoul Moran MD;Cathy Sellers MD; Gerald Burt MD PAGE 2 Signed Report Name:TIRSO CA : 1945 Age/S: 73 / M [address] [address] Unit #: [id number] Loc: [place] [address] Phys: Cathy Sellers MD Acct: [id number] Dis Date: Status: REG SD PHONE #: [phone] Exam Date: 06/06/2019 1100 FAX #: Reason: PORT PLACEMENT EXAMS: CPT: [id number] SP FLUORO GUID CTRL ACC DEV 95297 Fluoro Time: 0:45 DAP(Gy m2): 0.27 Air Kerma (mGy): 1 <Continued> Technologist: Manav Flores RT(R) Trnscb Date/Time: 06/06/2019 (1131) [email or web address].[email or web address] Orig Print D/T: S: 06/06/2019 (1135) PAGE 3 Signed ReportCBC W/AUTO [id number] 10:15:00 Test Item Value Reference Range Comments WHITE BLOOD CELL (test 7.9 K/mm3 3.5-11.0 code=WBC) RED BLOOD CELL (test code=RBC) 4.31 M/mm3 4.70-6.10 HEMOGLOBIN (test code=HGB) 12.4 G/DL 12.3-15.9 HEMATOCRIT (test code=HCT) 37.5 % 35.8-46.7 MEAN CELL VOLUME (test 87.0 Fl 86.3-98.9 code=MCV) MEAN CELL HGB (test code=MCH) 28.8 pg 28.9-34.4 MEAN CELL HGB CONCETRATION 33.1 G/DL 32.1-34.5 (test code=MCHC) RED CELL DISTRIBUTION WIDTH 18.2 SD 11.5-14.5 (test code=RDW) PLATELET COUNT (test code=PLT) 354.0 K/mm3 150-450 MEAN PLATELET VOLUME (test 8.10 fL 7.0-9.6 code=MPV) NEUTROPHIL % (test code=NT%) 55.6 % 40-76 LYMPHOCYTE % (test code=LY%) 32.4 % 20.5-51.1 MONOCYTE % (test code=MO%) 9.7 % 1.7-9.3 EOSINOPHIL % (test code=EO%) 1.7 % 0.0-6.0 BASOPHIL % (test code=BA%) 0.6 % 0.0-2.0 NEUTROPHIL # (test code=NT#) 4.37 K/mm3 1.8-7.6 LYMPHOCYTE # (test code=LY#) 2.5 K/mm3 0.6-3.0 MONOCYTE # (test code=MO#) 0.8 K/mm3 0.2-1.5 EOSINOPHIL # (test code=EO#) 0.1 K/mm3 0.0-0.4 BASOPHIL # (test code=BA#) 0.1 K/mm3 0.0-0.2 MANUAL DIFF REQUIRED (test NO DIFF/SCN CRITERIA SLIDE REVIEW CONSISTANT code=MDIFF) WITH AUTO DIFFERENTIAL. PROTHROMBIN [id number] 09:27:00 Test Item Value Reference Range Comments PT PATIENT (test code=PTP) 11.9 SECONDS 9.3-12.9 INTERNATIONAL NORMAL RATIO (test code=INR) 1.03 INR Unit 0.8-1.2 THROMBOPLASTIN TIME [id number] 09:27:00 Test Item Value Reference Range Comments THROMBOPLASTIN TIME PARTIAL (test code=PTT) 33.2 SECONDS 26-35 CBC W/AUTO [id number] 09:20:00 Test Item Value Reference Range Comments WHITE BLOOD CELL (test code=WBC) 7.9 K/mm3 3.5-11.0 RED BLOOD CELL (test code=RBC) 4.31 M/mm3 4.70-6.10 HEMOGLOBIN (test code=HGB) 12.4 G/DL 12.3-15.9 HEMATOCRIT (test code=HCT) 37.5 % 35.8-46.7 MEAN CELL VOLUME (test code=MCV) 87.0 Fl 86.3-98.9 MEAN CELL HGB (test code=MCH) 28.8 pg 28.9-34.4 MEAN CELL HGB CONCETRATION (test code=MCHC) 33.1 G/DL 32.1-34.5 RED CELL DISTRIBUTION WIDTH (test code=RDW) 18.2 SD 11.5-14.5 PLATELET COUNT (test code=PLT) 354.0 K/mm3 150-450 MEAN PLATELET VOLUME (test code=MPV) 8.10 fL 7.0-9.6 NEUTROPHIL % (test code=NT%) % 40-76 LYMPHOCYTE % (test code=LY%) % 20.5-51.1 MONOCYTE % (test code=MO%) % 1.7-9.3 EOSINOPHIL % (test code=EO%) % 0.0-6.0 BASOPHIL % (test code=BA%) % 0.0-2.0 NEUTROPHIL # (test code=NT#) K/mm3 1.8-7.6 LYMPHOCYTE # (test code=LY#) K/mm3 0.6-3.0 MONOCYTE # (test code=MO#) K/mm3 0.2-1.5 EOSINOPHIL # (test code=EO#) K/mm3 0.0-0.4 BASOPHIL # (test code=BA#) K/mm3 0.0-0.2 MANUAL DIFF REQUIRED (test code=MDIFF) DIFF/SCN CRITERIA FUNGUS CULTURE + [id number] 16:11:00 Test Item Value Reference Range Comments CULTURE (BEAKER) (test No fungus isolated in 28 days yfpq=4383) FUNGUS SMEAR (BEAKER) (test No fungi seen dvtw=0674) URIC [id number] 07:08:00 Test Item Value Reference Range Comments URIC ACID (BEAKER) (test cyyl=689) 1.4 mg/dL 2.6-7.2 [id number] 06:48:00 Test Item Value Reference Range Comments MAGNESIUM (BEAKER) (test gdcd=250) 1.8 mg/dL 1.6-2.6 [id number] 06:48:00 Test Item Value Reference Range Comments PHOSPHORUS (BEAKER) (test lyhc=784) 3.4 mg/dL 2.3-4.7 BASIC METABOLIC [id number] 06:48:00 Test Item Value Reference Range Comments SODIUM (BEAKER) (test 135 meq/L 136-145 fkxl=239) POTASSIUM (BEAKER) (test 4.7 meq/L 3.5-5.1 hreb=825) CHLORIDE (BEAKER) (test 105 meq/L 98-107 tsme=560) CO2 (BEAKER) (test 24 meq/L 22-29 uyoh=592) BLOOD UREA NITROGEN 9 mg/dL 7-21 (BEAKER) (test pzkf=947) CREATININE (BEAKER) (test 0.61 mg/dL 0.57-1.25 yljr=165) GLUCOSE RANDOM (BEAKER) 100 mg/dL 70-105 (test gask=286) CALCIUM (BEAKER) (test 8.3 mg/dL 8.4-10.2 vtan=458) EGFR (BEAKER) (test 157 mL/min/1.73 sq m ESTIMATED GFR IS NOT ypwi=2858) ACCURATE CREATININE CLEARANCE IN PREDICTING GLOMERULAR FILTRATION RATE. ESTIMATED GFR IS NOT APPLICABLE FOR DIALYSIS PATIENTS. HEPATIC FUNCTION [id number] 06:48:00 Test Item Value Reference Range Comments TOTAL PROTEIN (BEAKER) (test xlxc=772) 5.6 gm/dL 6.0-8.3 ALBUMIN (BEAKER) (test hhlv=0483) 3.0 g/dL 3.5-5.0 BILIRUBIN TOTAL (BEAKER) (test piaw=378) 0.5 mg/dL 0.2-1.2 BILIRUBIN DIRECT (BEAKER) (test yplm=608) 0.3 mg/dL 0.1-0.5 ALKALINE PHOSPHATASE (BEAKER) (test mhmu=035) 54 U/L 40-150 AST (SGOT) (BEAKER) (test xxid=488) 31 U/L 5-34 ALT (SGPT) (BEAKER) (test hqzz=838) 50 U/L 6-55 CBC (HEMOGRAM ONLY)[id number] 06:05:00 Test Item Value Reference Range Comments WHITE BLOOD CELL COUNT (BEAKER) (test assb=879) 5.0 K/ L 3.5-10.5 RED BLOOD CELL COUNT (BEAKER) (test jnxh=897) 3.42 M/ L 4.63-6.08 HEMOGLOBIN (BEAKER) (test xchy=804) 9.8 GM/DL 13.7-17.5 HEMATOCRIT (BEAKER) (test coaw=140) 29.8 % 40.1-51.0 MEAN CORPUSCULAR VOLUME (BEAKER) (test prdz=228) 87.1 fL 79.0-92.2 MEAN CORPUSCULAR HEMOGLOBIN (BEAKER) (test 28.7 pg 25.7-32.2 edxg=396) MEAN CORPUSCULAR HEMOGLOBIN CONC (BEAKER) (test 32.9 GM/DL 32.3-36.5 mydq=222) RED CELL DISTRIBUTION WIDTH (BEAKER) (test 16.6 % 11.6-14.4 hqsb=132) PLATELET COUNT (BEAKER) (test rhmu=371) 559 K/CU MM 150-450 MEAN PLATELET VOLUME (BEAKER) (test dips=651) 8.9 fL 9.4-12.4 NUCLEATED RED BLOOD CELLS (BEAKER) (test 0 /100 WBC 0-0 tkfd=497) URIC [id number] 03:27:00 Test Item Value Reference Range Comments URIC ACID (BEAKER) (test 1.2 mg/dL 2.6-7.2 Specimen slightly hemolyzed oigq=217) [id number] 03:19:00 Test Item Value Reference Range Comments PHOSPHORUS (BEAKER) (test 3.0 mg/dL 2.3-4.7 Specimen slightly hemolyzed djfv=636) BASIC METABOLIC [id number] 03:19:00 Test Item Value Reference Range Comments SODIUM (BEAKER) (test 133 meq/L 136-145 tpvm=390) POTASSIUM (BEAKER) (test 5.0 meq/L 3.5-5.1 Specimen slightly wlou=586) hemolyzed CHLORIDE (BEAKER) (test 104 meq/L 98-107 vbhk=146) CO2 (BEAKER) (test 21 meq/L 22-29 swqj=800) BLOOD UREA NITROGEN 10 mg/dL 7-21 (BEAKER) (test fbcv=813) CREATININE (BEAKER) (test 0.65 mg/dL 0.57-1.25 Specimen slightly jqyq=349) hemolyzed GLUCOSE RANDOM (BEAKER) 126 mg/dL 70-105 (test ptwn=040) CALCIUM (BEAKER) (test 8.0 mg/dL 8.4-10.2 piyi=341) EGFR (BEAKER) (test 146 mL/min/1.73 sq m ESTIMATED GFR IS NOT mpvq=9653) ACCURATE CREATININE CLEARANCE IN PREDICTING GLOMERULAR FILTRATION RATE. ESTIMATED GFR IS NOT APPLICABLE FOR DIALYSIS PATIENTS. RAD, CHEST, 1 VIEW, NON [id number] 15:04:00Reason for exam:->sobShould this be performed at the bedside?->YesFINAL REPORT CLINICAL HISTORY: sob TECHNIQUE: 1 view of the chest. COMPARISON: None IMPRESSION: There is a large right pleural effusion with underlying lung consolidation. The left lung is free of infiltrates or effusions. The cardiomediastinal silhouette is magnified by technique. Signed: Nehemias Mcclain MDReport Verified Date/Time: 05/06/2019 15:04:11 Reading Location: [address] Consult Reading Room Electronically signed by: NEHEMIAS MCCLAIN M.D. on 03:04 PMURIC [id number] 13:52:00 Test Item Value Reference Range Comments URIC ACID (BEAKER) (test jgog=970) 1.2 mg/dL 2.6-7.2 [id number] 13:30:00 Test Item Value Reference Range Comments PHOSPHORUS (BEAKER) (test mbjf=786) 2.4 mg/dL 2.3-4.7 BASIC METABOLIC [id number] 13:30:00 Test Item Value Reference Range Comments SODIUM (BEAKER) (test 131 meq/L 136-145 jdqj=308) POTASSIUM (BEAKER) (test 4.3 meq/L 3.5-5.1 yzoq=444) CHLORIDE (BEAKER) (test 101 meq/L 98-107 blan=447) CO2 (BEAKER) (test 23 meq/L 22-29 sapn=507) BLOOD UREA NITROGEN 8 mg/dL 7-21 (BEAKER) (test htqy=864) CREATININE (BEAKER) (test 0.61 mg/dL 0.57-1.25 imsp=532) GLUCOSE RANDOM (BEAKER) 102 mg/dL 70-105 (test cgyh=999) CALCIUM (BEAKER) (test 8.1 mg/dL 8.4-10.2 pczp=617) EGFR (BEAKER) (test 157 mL/min/1.73 sq m ESTIMATED GFR IS NOT spfo=3919) ACCURATE CREATININE CLEARANCE IN PREDICTING GLOMERULAR FILTRATION RATE. ESTIMATED GFR IS NOT APPLICABLE FOR DIALYSIS PATIENTS. CBC (HEMOGRAM ONLY)2019-05-06 06:31:00 Test Item Value Reference Range Comments WHITE BLOOD CELL COUNT (BEAKER) (test irix=333) 9.1 K/ L 3.5-10.5 RED BLOOD CELL COUNT (BEAKER) (test nvhr=901) 3.54 M/ L 4.63-6.08 HEMOGLOBIN (BEAKER) (test ynzl=730) 10.2 GM/DL 13.7-17.5 HEMATOCRIT (BEAKER) (test ypvu=829) 31.2 % 40.1-51.0 MEAN CORPUSCULAR VOLUME (BEAKER) (test imaj=145) 88.1 fL 79.0-92.2 MEAN CORPUSCULAR HEMOGLOBIN (BEAKER) (test 28.8 pg 25.7-32.2 albz=932) MEAN CORPUSCULAR HEMOGLOBIN CONC (BEAKER) (test 32.7 GM/DL 32.3-36.5 fflo=768) RED CELL DISTRIBUTION WIDTH (BEAKER) (test 16.9 % 11.6-14.4 hjas=384) PLATELET COUNT (BEAKER) (test bfjl=594) 587 K/CU MM 150-450 MEAN PLATELET VOLUME (BEAKER) (test pdci=921) 8.8 fL 9.4-12.4 NUCLEATED RED BLOOD CELLS (BEAKER) (test 0 /100 WBC 0-0 ulii=171) URIC [id number] 05:51:00 Test Item Value Reference Range Comments URIC ACID (BEAKER) (test ifox=157) 1.3 mg/dL 2.6-7.2 [id number] 05:50:00 Test Item Value Reference Range Comments MAGNESIUM (BEAKER) (test pxob=660) 1.8 mg/dL 1.6-2.6 [id number] 05:50:00 Test Item Value Reference Range Comments PHOSPHORUS (BEAKER) (test chgt=374) 2.7 mg/dL 2.3-4.7 BASIC METABOLIC [id number] 05:50:00 Test Item Value Reference Range Comments SODIUM (BEAKER) (test 132 meq/L 136-145 zxht=973) POTASSIUM (BEAKER) (test 4.7 meq/L 3.5-5.1 dmez=836) CHLORIDE (BEAKER) (test 102 meq/L 98-107 losu=139) CO2 (BEAKER) (test 23 meq/L 22-29 qzfc=544) BLOOD UREA NITROGEN 8 mg/dL 7-21 (BEAKER) (test klhh=791) CREATININE (BEAKER) (test 0.62 mg/dL 0.57-1.25 mckd=377) GLUCOSE RANDOM (BEAKER) 115 mg/dL 70-105 (test vfnf=443) CALCIUM (BEAKER) (test 8.2 mg/dL 8.4-10.2 inla=375) EGFR (BEAKER) (test 155 mL/min/1.73 sq m ESTIMATED GFR IS NOT vfyf=0136) ACCURATE CREATININE CLEARANCE IN PREDICTING GLOMERULAR FILTRATION RATE. ESTIMATED GFR IS NOT APPLICABLE FOR DIALYSIS PATIENTS. HEPATIC FUNCTION [id number] 05:50:00 Test Item Value Reference Range Comments TOTAL PROTEIN (BEAKER) (test elam=832) 6.1 gm/dL 6.0-8.3 ALBUMIN (BEAKER) (test gboh=7316) 3.1 g/dL 3.5-5.0 BILIRUBIN TOTAL (BEAKER) (test rifj=440) 0.5 mg/dL 0.2-1.2 BILIRUBIN DIRECT (BEAKER) (test qspc=703) 0.2 mg/dL 0.1-0.5 ALKALINE PHOSPHATASE (BEAKER) (test tapt=440) 59 U/L 40-150 AST (SGOT) (BEAKER) (test afbr=730) 23 U/L 5-34 ALT (SGPT) (BEAKER) (test uamz=138) 42 U/L 6-55 URIC [id number] 22:30:00 Test Item Value Reference Range Comments URIC ACID (BEAKER) (test 1.2 mg/dL 2.6-7.2 Specimen slightly hemolyzed yuze=199) BASIC METABOLIC [id number] 22:30:00 Test Item Value Reference Range Comments SODIUM (BEAKER) (test 131 meq/L 136-145 sozl=525) POTASSIUM (BEAKER) (test 4.4 meq/L 3.5-5.1 Specimen slightly xmih=660) hemolyzed CHLORIDE (BEAKER) (test 101 meq/L 98-107 klfa=903) CO2 (BEAKER) (test 21 meq/L 22-29 hhro=139) BLOOD UREA NITROGEN 9 mg/dL 7-21 (BEAKER) (test sxdl=742) CREATININE (BEAKER) (test 0.64 mg/dL 0.57-1.25 Specimen slightly verd=976) hemolyzed GLUCOSE RANDOM (BEAKER) 140 mg/dL 70-105 (test kisv=552) CALCIUM (BEAKER) (test 7.9 mg/dL 8.4-10.2 mfgl=137) EGFR (BEAKER) (test 149 mL/min/1.73 sq m ESTIMATED GFR IS NOT erve=2116) ACCURATE CREATININE CLEARANCE IN PREDICTING GLOMERULAR FILTRATION RATE. ESTIMATED GFR IS NOT APPLICABLE FOR DIALYSIS PATIENTS. [id number] 22:29:00 Test Item Value Reference Range Comments PHOSPHORUS (BEAKER) (test 2.2 mg/dL 2.3-4.7 Specimen slightly hemolyzed awqi=788) URIC [id number] 13:53:00 Test Item Value Reference Range Comments URIC ACID (BEAKER) (test hwvz=545) 1.3 mg/dL 2.6-7.2 [id number] 13:43:00 Test Item Value Reference Range Comments PHOSPHORUS (BEAKER) (test dqmg=697) 2.1 mg/dL 2.3-4.7 BASIC METABOLIC [id number] 13:43:00 Test Item Value Reference Range Comments SODIUM (BEAKER) (test 136 meq/L 136-145 cyrx=622) POTASSIUM (BEAKER) (test 4.5 meq/L 3.5-5.1 coeg=337) CHLORIDE (BEAKER) (test 103 meq/L 98-107 dnkx=210) CO2 (BEAKER) (test 23 meq/L 22-29 fepl=403) BLOOD UREA NITROGEN 9 mg/dL 7-21 (BEAKER) (test xdja=598) CREATININE (BEAKER) (test 0.66 mg/dL 0.57-1.25 cwhg=115) GLUCOSE RANDOM (BEAKER) 132 mg/dL 70-105 (test ddkp=083) CALCIUM (BEAKER) (test 8.8 mg/dL 8.4-10.2 igfl=817) EGFR (BEAKER) (test 144 mL/min/1.73 sq m ESTIMATED GFR IS NOT hpti=2723) ACCURATE CREATININE CLEARANCE IN PREDICTING GLOMERULAR FILTRATION RATE. ESTIMATED GFR IS NOT APPLICABLE FOR DIALYSIS PATIENTS. SURGICALLY OBTAINED CULTURE + GRAM [id number] 13:00:00 Test Item Value Reference Range Comments CULTURE (BEAKER) (test 1+ Streptococcus mitis hkxr=1904) GRAM STAIN RESULT (BEAKER) 2+ WBCs (test jepe=1146) GRAM STAIN RESULT (BEAKER) No organisms seen (test ftpn=367283) <1+ Normal respiratory corinne presentBLOOD [id number] 08:00:00 Test Item Value Reference Range Comments CULTURE (BEAKER) (test pzfr=1257) No growth in 5 days BLOOD [id number] 08:00:00 Test Item Value Reference Range Comments CULTURE (BEAKER) (test wjiz=1486) No growth in 5 days URIC [id number] 05:58:00 Test Item Value Reference Range Comments URIC ACID (BEAKER) (test iqwi=356) 1.4 mg/dL 2.6-7.2 [id number] 05:44:00 Test Item Value Reference Range Comments MAGNESIUM (BEAKER) (test esua=667) 1.8 mg/dL 1.6-2.6 [id number] 05:44:00 Test Item Value Reference Range Comments PHOSPHORUS (BEAKER) (test diwc=909) 3.0 mg/dL 2.3-4.7 BASIC METABOLIC [id number] 05:44:00 Test Item Value Reference Range Comments SODIUM (BEAKER) (test 134 meq/L 136-145 yrwx=662) POTASSIUM (BEAKER) (test 4.5 meq/L 3.5-5.1 ypzh=082) CHLORIDE (BEAKER) (test 103 meq/L 98-107 uulz=511) CO2 (BEAKER) (test 23 meq/L 22-29 hboz=566) BLOOD UREA NITROGEN 6 mg/dL 7-21 (BEAKER) (test iqtn=907) CREATININE (BEAKER) (test 0.59 mg/dL 0.57-1.25 wlog=167) GLUCOSE RANDOM (BEAKER) 125 mg/dL 70-105 (test ooag=945) CALCIUM (BEAKER) (test 8.2 mg/dL 8.4-10.2 ihsr=565) EGFR (BEAKER) (test 164 mL/min/1.73 sq m ESTIMATED GFR IS NOT wmon=0756) ACCURATE CREATININE CLEARANCE IN PREDICTING GLOMERULAR FILTRATION RATE. ESTIMATED GFR IS NOT APPLICABLE FOR DIALYSIS PATIENTS. HEPATIC FUNCTION [id number] 05:44:00 Test Item Value Reference Range Comments TOTAL PROTEIN (BEAKER) (test lbdm=580) 6.0 gm/dL 6.0-8.3 ALBUMIN (BEAKER) (test ewsw=0692) 2.9 g/dL 3.5-5.0 BILIRUBIN TOTAL (BEAKER) (test xuym=935) 0.5 mg/dL 0.2-1.2 BILIRUBIN DIRECT (BEAKER) (test gumx=364) 0.3 mg/dL 0.1-0.5 ALKALINE PHOSPHATASE (BEAKER) (test olqy=204) 63 U/L 40-150 AST (SGOT) (BEAKER) (test kybc=302) 22 U/L 5-34 ALT (SGPT) (BEAKER) (test bwls=300) 43 U/L 6-55 CBC (HEMOGRAM ONLY)2019-05-05 05:16:00 Test Item Value Reference Range Comments WHITE BLOOD CELL COUNT (BEAKER) (test vlfc=093) 10.4 K/ L 3.5-10.5 RED BLOOD CELL COUNT (BEAKER) (test timn=480) 3.56 M/ L 4.63-6.08 HEMOGLOBIN (BEAKER) (test vtyz=494) 10.3 GM/DL 13.7-17.5 HEMATOCRIT (BEAKER) (test ufrs=111) 30.8 % 40.1-51.0 MEAN CORPUSCULAR VOLUME (BEAKER) (test ujpf=584) 86.5 fL 79.0-92.2 MEAN CORPUSCULAR HEMOGLOBIN (BEAKER) (test 28.9 pg 25.7-32.2 duzx=298) MEAN CORPUSCULAR HEMOGLOBIN CONC (BEAKER) (test 33.4 GM/DL 32.3-36.5 skhi=056) RED CELL DISTRIBUTION WIDTH (BEAKER) (test 16.5 % 11.6-14.4 hidj=351) PLATELET COUNT (BEAKER) (test ldqh=112) 546 K/CU MM 150-450 MEAN PLATELET VOLUME (BEAKER) (test sefd=980) 8.9 fL 9.4-12.4 NUCLEATED RED BLOOD CELLS (BEAKER) (test 0 /100 WBC 0-0 muas=553) URIC [id number] 18:20:00 Test Item Value Reference Range Comments URIC ACID (BEAKER) (test 1.2 mg/dL 2.6-7.2 Specimen slightly hemolyzed pfgd=133) [id number] 18:18:00 Test Item Value Reference Range Comments PHOSPHORUS (BEAKER) (test 2.4 mg/dL 2.3-4.7 Specimen slightly hemolyzed eqlv=610) BASIC METABOLIC [id number] 18:18:00 Test Item Value Reference Range Comments SODIUM (BEAKER) (test 130 meq/L 136-145 nbwo=255) POTASSIUM (BEAKER) (test 3.4 meq/L 3.5-5.1 Specimen slightly ohis=034) hemolyzed CHLORIDE (BEAKER) (test 99 meq/L 98-107 kggi=415) CO2 (BEAKER) (test 23 meq/L 22-29 xnlu=014) BLOOD UREA NITROGEN 5 mg/dL 7-21 (BEAKER) (test dqag=081) CREATININE (BEAKER) (test 0.62 mg/dL 0.57-1.25 Specimen slightly fewd=570) hemolyzed GLUCOSE RANDOM (BEAKER) 139 mg/dL 70-105 (test dbrg=820) CALCIUM (BEAKER) (test 8.1 mg/dL 8.4-10.2 xsky=636) EGFR (BEAKER) (test 155 mL/min/1.73 sq m ESTIMATED GFR IS NOT ipff=7421) ACCURATE CREATININE CLEARANCE IN PREDICTING GLOMERULAR FILTRATION RATE. ESTIMATED GFR IS NOT APPLICABLE FOR DIALYSIS PATIENTS. (MANUAL DIFFERENTIAL)2019-05-04 13:32:00 Test Item Value Reference Range Comments NEUTROPHILS - REL (DIFF) (BEAKER) (test zfrg=5717) 80 % LYMPHOCYTES - REL (DIFF) (BEAKER) (test ejpl=0324) 8 % MONOCYTES - REL (DIFF) (BEAKER) (test tvuj=9849) 7 % EOSINOPHILS - REL (DIFF) (BEAKER) (test fdys=9877) 3 % MYELOCYTES-REL (DIFF) (BEAKER) (test htfq=3708) 1 % 0-0 BANDS - REL (DIFF) (BEAKER) (test bcaa=0213) 1 % 0-10 NEUTROPHILS - ABS (DIFF) (BEAKER) (test fzfc=6092) 8.80 K/ L 1.80-8.00 LYMPHOCYTES - ABS (DIFF) (BEAKER) (test bgsz=4218) 0.88 K/ L 1.48-4.50 MONOCYTES - ABS (DIFF) (BEAKER) (test exlb=4057) 0.77 K/ L 0.00-1.30 EOSINOPHILS - ABS (DIFF) (BEAKER) (test wgnn=9900) 0.33 K/ L 0.00-0.50 BANDS-ABS (DIFF) (BEAKER) (test pzzn=4736) 0.1 K/ L 0.0-0.8 MYELOCYTES-ABS (DIFF) (BEAKER) (test jktp=6488) 0.11 K/ L 0.00-0.00 TOTAL COUNTED (BEAKER) (test cxcn=5633) 100 BANDS + SEGMENTED NEUTROPHILS (BEAKER) (test 8.91 gasy=3312) WBC MORPHOLOGY (BEAKER) (test kpmo=448) Normal PLT MORPHOLOGY (BEAKER) (test nqxl=124) Normal POLYCHROMATOPHILLIC RBCS(BEAKER) (test qbaf=267) 1+ few [id number] 06:58:00 Test Item Value Reference Range Comments MAGNESIUM (BEAKER) (test wiaa=106) 1.9 mg/dL 1.6-2.6 BASIC METABOLIC [id number] 06:58:00 Test Item Value Reference Range Comments SODIUM (BEAKER) (test 137 meq/L 136-145 sbku=663) POTASSIUM (BEAKER) (test 4.1 meq/L 3.5-5.1 slnw=677) CHLORIDE (BEAKER) (test 102 meq/L 98-107 eznj=795) CO2 (BEAKER) (test 28 meq/L 22-29 bslk=178) BLOOD UREA NITROGEN 5 mg/dL 7-21 (BEAKER) (test tmwe=993) CREATININE (BEAKER) (test 0.62 mg/dL 0.57-1.25 vric=823) GLUCOSE RANDOM (BEAKER) 82 mg/dL 70-105 (test ljjf=669) CALCIUM (BEAKER) (test 8.6 mg/dL 8.4-10.2 yclt=332) EGFR (BEAKER) (test 155 mL/min/1.73 sq m ESTIMATED GFR IS NOT jqdr=3734) ACCURATE CREATININE CLEARANCE IN PREDICTING GLOMERULAR FILTRATION RATE. ESTIMATED GFR IS NOT APPLICABLE FOR DIALYSIS PATIENTS. HEPATIC FUNCTION [id number] 06:58:00 Test Item Value Reference Range Comments TOTAL PROTEIN (BEAKER) (test durr=854) 6.1 gm/dL 6.0-8.3 ALBUMIN (BEAKER) (test ydzy=4545) 2.9 g/dL 3.5-5.0 BILIRUBIN TOTAL (BEAKER) (test huyz=337) 0.4 mg/dL 0.2-1.2 BILIRUBIN DIRECT (BEAKER) (test lbkj=555) 0.3 mg/dL 0.1-0.5 ALKALINE PHOSPHATASE (BEAKER) (test yrty=283) 67 U/L 40-150 AST (SGOT) (BEAKER) (test omuw=625) 32 U/L 5-34 ALT (SGPT) (BEAKER) (test ayml=250) 53 U/L 6-55 CBC (HEMOGRAM ONLY)2019-05-04 06:47:00 Test Item Value Reference Range Comments WHITE BLOOD CELL COUNT (BEAKER) (test lchi=004) 11.0 K/ L 3.5-10.5 RED BLOOD CELL COUNT (BEAKER) (test scdu=263) 3.74 M/ L 4.63-6.08 HEMOGLOBIN (BEAKER) (test jzok=695) 10.9 GM/DL 13.7-17.5 HEMATOCRIT (BEAKER) (test mioo=503) 33.4 % 40.1-51.0 MEAN CORPUSCULAR VOLUME (BEAKER) (test yfhc=143) 89.3 fL 79.0-92.2 MEAN CORPUSCULAR HEMOGLOBIN (BEAKER) (test 29.1 pg 25.7-32.2 cfdd=203) MEAN CORPUSCULAR HEMOGLOBIN CONC (BEAKER) (test 32.6 GM/DL 32.3-36.5 abcj=151) RED CELL DISTRIBUTION WIDTH (BEAKER) (test 16.8 % 11.6-14.4 szsr=503) PLATELET COUNT (BEAKER) (test fueq=859) 566 K/CU MM 150-450 MEAN PLATELET VOLUME (BEAKER) (test obvv=236) 8.9 fL 9.4-12.4 NUCLEATED RED BLOOD CELLS (BEAKER) (test 1 /100 WBC 0-0 zlve=015) MR, BRAIN, [id number] 00:59:00FINAL REPORT MRI Brain with and without contrast Clinical History: Neoplasm: chest, lung, recurrence, 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 Comparisons: None Findings:There is no evidence of acute infarct or hemorrhage. Multiple bilateral T2 and FLAIRhyperintense white matter foci likely represent chronic white matter microvascular disease. Mild generalized parenchymal volume loss with commensurate enlargement of CSF spaces and ventricles. No midline shift or mass effect. There is no abnormal intracranial enhancement or mass. There are no extra-axial fluid collections. The craniocervical junction is preserved. The major intracranial flow- voidsappear patent. Polypoid mucosal thickening in the left maxillary sinus. Middle ears and mastoid aircells are clear. Intraorbital contents are unremarkable. No aggressive osseous or soft tissue lesions identified. IMPRESSION: No evidence of acute infarct, hemorrhage, hydrocephalus, or mass. No abnormal intracranial enhancement. Signed: Oleg Izaguirre Verified Date/Time: 05/04/2019 00:59:51 BONE AND/OR JOINT IMAGING, WHOLE [id number] 17:54:00FINAL REPORT PROCEDURE: BONE SCAN, WHOLE BODY CPT CODE: 75920 INDICATION: Right lung mass PROTOCOL: 20.1 mCi of Tc-99m MDP was injected intravenously. Wholebody and selected spot images were obtained approximately 3 hours later. FINDINGS: There is mild increase in activity in the shoulders, sternoclavicular joints, right first costosternal junction, rightcostovertebral junction of T8, wrists, hips, knees, and feet. Distribution within the spine is otherwise mildly irregular. There is mild increase in activity in the right mid thorax posteriorly. IMPRESSION: 1.No evidence of osseous metastatic disease.2.Findings within the right hemithorax may suggest hyperemia associated with inflammatory/reactive pleural changes.Additional degenerative changes ofthe spine and peripheral joints. Images for comparison/correlation were chest, abdomen, and pelvisCT from 05/02/2019. Signed: Jarad Galvez Verified Date/Time: 05/03/2019 17:54:51 Reading Location: [address] [address] [facility] Reading Room FINE NEEDLE ASPIRATE BY [id number] 14:55:00Medical Cytology Report Case: [id number] Authorizing Provider: Jarrod Carroll MD Collected: 05/01/2019 1523 Ordering Location: [facility] Received: 1617 SERVICES Pathologist: Onel Kidd MD Specimen: Lymph Node, Subcarinal, Station 7 LYMPH NODE, SUBCARINAL, STATION 7 EBUS FNA BY CLINICIAN (CYTOSPINS AND CELL BLOCK OF ASPIRATE): - SMALL CELL CARCINOMA Signing Pathologist Direct Phone Line: [phone] signed by Onel Kidd MD on 05/03/2019 at 2:55 PMPlease see case [id number] for immunophenotypic evaluation. 68452, 56249Eqpiq hilar mass, lymphadenopathy, history of bladder cancerLYMPH NODE, SUBCARINAL, STATION 7 EBUS FNA35 mls in cytorich red; 2 cytospins, cell blockCollected: [id number]: [id number] interpretation of this case included the use of immunohistochemistry or special stains.Control Slides Examined: In-house known positive controls were evaluated along with the test tissue. These control slides run alongside of the patients sample show appropriate staining. Internal positive and negative controls when available are evaluated Immunohistochemistry technical testing was performed at [facility], Pathology Laboratory where it was developed and its performance characteristics were determined. It has not been cleared or approved by the U.S. Food and Drug Administration. The FDA has determined that such clearance or approval is not necessary. The test is used for clinical purposes. It shouldnot be regarded as investigational or for research. This laboratory is certified under the Clinical Laboratory Improvement Amendments of 1988 (CLIA-88 ) as qualified to perform high complexity clinical laboratory testing.[facility], Department of Pathology, [address] [place] [address], [facility], [facility] of [facility], [address] [place] [address], [place] [address], [facility], [facility] of [facility], [address] [place] [address], EUMQ NEEDLE ASPIRATE BY [id number] 14:45: 00Medical Cytology Report Case: [id number] Authorizing Provider: Jarrod Carroll MD Collected : 05/01/2019 1457 Ordering Location: [facility] Received: 05/01/2019 1501 SERVICES Pathologist: Onel Kidd MD Specimen: Lymph Node, Lower Paratracheal, Left, Station 4L LYMPH NODE, LOWERPARATRACHEAL, LEFT, STATION 4L EBUS FNA BY CLINICIAN (DIRECT SMEARS AND CELL BLOCK OF ASPIRATE): - SMALL CELL CARCINOMA (SEE COMMENT) Signing Pathologist Direct Phone Line : [phone] signed by Onel Kidd MD on 05/03/2019 at 2:45 PMPlease see case [id number] for immunophenotypic evaluation. 27877, 92874, 15622Ntrka hilar mass, lymphadenopathy, history of bladder cancerLYMPH NODE, LOWER PARATRACHEAL, LEFT, STATION 4L EBUS FNA35 mls in cytorich red; 2 direct smear slides, cell blockCollected: [id number]: [id number] TUMOR SUSPICIOUS FOR SMALL CELL CARCINOMA (3:16PM, NS)The interpretation of this case included the use of immunohistochemistry or special stains.Control Slides Examined: In-house known positive controls were evaluated along with the test tissue. These control slides run alongside of the patients sample show appropriate staining. Internal positive and negative controls when available are evaluated Immunohistochemistry technical testing was performed at [facility], Pathology Laboratory where it was developed and its performance characteristics were determined. It has not been cleared or approved by the U.S. Food and Drug Administration. The FDA has determined that such clearance or approval is not necessary. The test is used for clinical purposes. It should not be regarded as investigational or for research. This laboratory is certified under the Clinical Laboratory Improvement Amendments of 1988 (CLIA-88) as qualified to perform high complexity clinical laboratory testing.[facility], Department of Pathology, [address] [place] [address], [facility]Ar[facility], [facility] of [facility], [address] [place] [address], Tel RAr[facility], Department of Pathology, [address] [place] [address], ORKT NEEDLE ASPIRATE BY [id number] 14:44:00Medical Cytology Report Case: [id number] Authorizing Provider: Jarrod Carroll MD Collected: 05/01/2019 1457 Ordering Location: [facility] Received: 05/01/2019 1501 SERVICES Pathologist: Onel Kidd MD Specimen: Lymph Node, Lower Paratracheal, Right, Station 4R LYMPH NODE, LOWERPARATRACHEAL, RIGHT, STATION 4R EBUS FNA BY CLINICIAN (DIRECT SMEARS AND CELL BLOCK OF ASPIRATE):- SMALL CELL CARCINOMA (SEE COMMENT) Signing Pathologist Direct Phone Line: [phone] signed by Onel Kidd MD on 05/03/2019 at 2:44 PMPreliminary result electronically signed byOnel Kidd MD on 05/03/2019 at 8: 27 AMSmears show tumor cells with abundant necrosis. The tumor cells show scant cytoplasm, powdery chromatin, abundant apoptotic bodies, and scattered mitotic figures. Immunostains performed on cell block sections show tumor cells to be positive for CAM5.2, synaptophysin, CD56, and TTF1, while predominantly negative for chromogranin, CD45 and p40. Ki67 labeling index is approximately 60 -70%. Taken together, the findings are most supportive of a diagnosis of small cell carcinoma. Please see cases [id number], [id number], 1543, 1544, and 1545 for further evaluation.97443,56124, 63189, 27387, 61003 X 6, 83323Hdncw hilar mass, lymphadenopathy, history of bladder cancerLYMPH NODE, LOWER PARATRACHEAL, RIGHT , STATION 4R EBUS FNA40 mls in cytorich red; 6 direct smear slides,cell blockCollected: [id number]: [id number] TUMOR SUSPICIOUS FOR SMALL CELL CARCINOMA (3:16PM, NS)The interpretation of this case included the use of immunohistochemistry or special stains.Please see the immunohistochemistry results in the COMMENT section. Control Slides Examined: In-house known positive controls were evaluated along with the test tissue. These control slides run alongside of the patients sample show appropriate staining. Internal positive and negative controls when available are evaluated Immunohistochemistry technical testing was performed at [facility], Pathology Laboratory where it was developed and its performance characteristics were determined. It has not been cleared or approved by the U.S. Food and Drug Administration. The FDA has determined that such clearance or approval is not necessary. The test is used for clinical purposes. It should not be regarded as investigational or for research. This laboratory is certified under the ClinicalLaboratory Improvement Amendments of 1988 (CLIA-88) as qualified to perform high complexity clinicallaboratory testing.[facility], Department of Pathology, [address] [place] [address], [facility]wq[facility], Department of Pathology, [address] [place] [address], [facility]npwnwArrowhead [facility], Department of Pathology, [address] [place] [address], GWLZHO CULTURE + GRAM [id number] 12:08:00 Test Item Value Reference Range Comments CULTURE (BEAKER) (test 4+ Normal respiratory corinne ugmh=3495) present GRAM STAIN RESULT (BEAKER) 1+ WBCs (test ascr=6643) GRAM STAIN RESULT (BEAKER) 0-5 epithelial cells (test vcch=59195) GRAM STAIN RESULT (BEAKER) 3+ gram negative rods (test fflw=82530) GRAM STAIN RESULT (BEAKER) 1+ gram positive cocci in pairs (test rhjy=056165) FINE NEEDLE ASPIRATE BY [id number] 10:07:00Medical Cytology Report Case: [id number] Authorizing Provider: Jarrod Carroll MD Collected: 05/01/2019 9968 Ordering Location: [facility] Received: 1619 SERVICES Pathologist: Onel Kidd MD Specimen: Lymph Node, Interlobar, Left, Station 11L LYMPH NODE, INTERLOBAR, LEFT, STATION 11L EBUS FNA BY CLINICIAN (CYTOSPINS AND CELL BLOCK OF ASPIRATE): - SATISFACTORY FOR EVALUATION - NEGATIVE FOR METASTATIC MALIGNANT CELLS - EVIDENCE OF LYMPH NODE SAMPLING (MACROPHAGES WITH ANTHRACOTIC PIGMENTS AND SCANT LYMPHOID TISSUE PRESENT) Signing Pathologist Direct Phone Line: [phone] signed by Onel Kidd MD on 05/03/2019 at 10:07 AMPlease see cases [id number], [id number], 1541, 1543, and [id number], 61481Fckvl hilar mass, lymphadenopathy, history of bladder cancerLYMPH NODE, INTERLOBAR, LEFT, STATION 11L EBUS FNA35 mls in cytorich red; 2 cytospins, cell blockCollected: [id number]: [id number] interpretation of this case included the use of immunohistochemistry or special stains.Control Slides Examined: In-house known positive controls were evaluated along with the test tissue. These control slides run alongside of the patients sample show appropriate staining. Internal positive and negative controls when available are evaluated Immunohistochemistry technical testing was performed at [facility], Pathology Laboratory where it was developed and its performance characteristics were determined. It has not been cleared or approved by the U.S. Food and Drug Administration. The FDA has determined that such clearance or approval is not necessary. The test is used for clinical purposes. It should not be regarded as investigational or for research. This laboratory is certified under the Clinical Laboratory ImprovementAmendments of 1988 (CLIA-88) as qualified to perform high complexity clinical laboratory testing.[facility], Department of Pathology, [address] [place] [address], [facility]qsajsArrowhead [facility], Department of Pathology, [address] [place] [address], Tel IAr[facility], Department of Pathology, [address] [place] [address], [id number] 10:03:00Medical Cytology Report Case: [id number] Authorizing Provider: Jarrod Carroll MD Collected: 05/01/2019 8678 Ordering Location: [facility] Received: 05/01/2019 1620 SERVICES Pathologist: Onel Kidd MD Specimen: Lung, Right Lower Lobe, bronch washing RIGHT LOWER LOBE LUNG BRONCH WASHING (CYTOSPINS): - NEGATIVE FOR MALIGNANCY LIMITED BY OBSCURING ACUTE INFLAMMATION REACTIVE BRONCHIAL EPITHELIAL CELLS PRESENT Signing Pathologist Direct Phone Line: Please see cases [id number], [id number], [id number], 1544, and [id number] hilar mass, lymphadenopathy, history of bladder cancerRIGHT LOWER LOBE LUNG BRONCH WASHING5 mls cloudy thick white fluid; 4 cytospinsCollected: [id number]: [id number] [facility], Department of Pathology, [address] [place] [id number], [facility], Department of Pathology, [address] [place] [id number] , [facility], Department of Pathology, [address] [place] [id number], [id number] 06: 54:00 Test Item Value Reference Range Comments MAGNESIUM (BEAKER) (test mcxq=839) 1.9 mg/dL 1.6-2.6 BASIC METABOLIC [id number] 06:54:00 Test Item Value Reference Range Comments SODIUM (BEAKER) (test 135 meq/L 136-145 xyps=060) POTASSIUM (BEAKER) (test 3.5 meq/L 3.5-5.1 yudl=580) CHLORIDE (BEAKER) (test 101 meq/L 98-107 rzmz=752) CO2 (BEAKER) (test 26 meq/L 22-29 grkx=859) BLOOD UREA NITROGEN 5 mg/dL 7-21 (BEAKER) (test shil=987) CREATININE (BEAKER) (test 0.62 mg/dL 0.57-1.25 dkpz=158) GLUCOSE RANDOM (BEAKER) 87 mg/dL 70-105 (test umqh=587) CALCIUM (BEAKER) (test 8.5 mg/dL 8.4-10.2 fxkl=450) EGFR (BEAKER) (test 155 mL/min/1.73 sq m ESTIMATED GFR IS NOT gwur=7063) ACCURATE CREATININE CLEARANCE IN PREDICTING GLOMERULAR FILTRATION RATE. ESTIMATED GFR IS NOT APPLICABLE FOR DIALYSIS PATIENTS. CBC (HEMOGRAM ONLY)2019-05-03 06:38:00 Test Item Value Reference Range Comments WHITE BLOOD CELL COUNT (BEAKER) (test dsze=381) 12.1 K/ L 3.5-10.5 RED BLOOD CELL COUNT (BEAKER) (test xjxh=945) 3.49 M/ L 4.63-6.08 HEMOGLOBIN (BEAKER) (test eyxs=014) 10.1 GM/DL 13.7-17.5 HEMATOCRIT (BEAKER) (test rvmy=499) 30.5 % 40.1-51.0 MEAN CORPUSCULAR VOLUME (BEAKER) (test ysmb=432) 87.4 fL 79.0-92.2 MEAN CORPUSCULAR HEMOGLOBIN (BEAKER) (test 28.9 pg 25.7-32.2 myov=452) MEAN CORPUSCULAR HEMOGLOBIN CONC (BEAKER) (test 33.1 GM/DL 32.3-36.5 yonv=665) RED CELL DISTRIBUTION WIDTH (BEAKER) (test 16.5 % 11.6-14.4 drmb=662) PLATELET COUNT (BEAKER) (test avzs=104) 510 K/CU MM 150-450 MEAN PLATELET VOLUME (BEAKER) (test vdya=076) 8.8 fL 9.4-12.4 NUCLEATED RED BLOOD CELLS (BEAKER) (test 0 /100 WBC 0-0 gofw=103) CT, [id number] 22:44:00FINAL REPORT CT of the Chest, abdomen and pelvis dated 05/02/2019 COMPARISON:April 29, 2019 Clinical information: Neoplasm: abdomen, metastatic, recurrence, 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 This exam was performed according to our departmental dose-optimization program, which includes automated exposure control, adjustment of the mA and/or kV according to patient size and/or use of interactive reconstruction technique. Adenopathy is seen in the bilateral supraclavicular region. The largest supraclavicular lymph node measures 2.4 x 3.1 cm. Extensive adenopathy is seen in the prevascular, paratracheal, AP window, and subcarinal mediastinum. The largest mediastinal mass/adenopathy measures approximately 5.6 x 8.2 cm in the right perihilar region extending to the subcarinal mediastinum. There is partial encasement of the superior vena cava, right main pulmonary artery, right pulmonary veins, esophagus, trachea and bilateral mainstem bronchi by the mediastinal mass. There is complete obstruction of the right main, upper, mid, and lower lobe bronchi. Heart is normal in size. There is minimal pericardial effusion. Great vessels are unremarkable. Trachea and mainstem bronchi are patent. Consolidation is seen in the right mid and lower lobes. Reticulonodular pulmonary parenchymal disease is seen in the right upper and mid lobe suggestive of post obstructive pneumonia. There is trace left pleural effusion and small to moderate right pleural effusion. Liver and spleen are normal in size. A 2.6 x 2.7 cm hypodense mass is seen in the segment 4 of the liver. Gallbladder is contracted. No gallstone or biliary dilatation is noted. Pancreas and adrenals are unremarkable. Both kidneys are normal in size and functioning with bilateral excretion. No hydronephrosis, hydroureter, or urolithiasis is noted. The opacified small and large bowel are unremarkable. Appendix is normal in caliber. Atherosclerotic calcification is seen in the abdominal aortaand bilateral iliac arteries. Prostate is normal in size. The urinary bladder is contracted. Impression: 1. Extensive adenopathy in the subcutaneous supraclavicular, mediastinum, and right perihilar region.2. Large mass in the right perihilar region extending to the subcarinal mediastinum may represent primary bronchogenic carcinoma or adenopathy.3. Complete obstruction of the right main, upper, mid,and lower lobe bronchi.4. Consolidation in the right mid and lower lobes with reticulonodular disease in the peripheral of the right upper and middle lobe suggestive of pneumonia.5. Hypodense mass in the segment 4 of the liver suspicious for metastatic disease. Signed: Hakeem Genao MDReport Verified Date/Time: 05/02/2019 22:44:33 Reading Location: [facility] [id number] Consult Reading Room Electronicallysigned by: HAKEEM GENAO M.D. on 05/02/2019 10:44 PMCT, CHEST, WITH [id number] 22:44:00FINAL REPORT CT of the Chest, abdomen and pelvis dated 05/02/2019 COMPARISON:April 29, 2019 Clinical information: Neoplasm: abdomen, metastatic, recurrence, suspected/known Comment: Axial images of the chest, abdomen, and pelvis were obtained from thoracic inlet to the pubic symphysis with GI and intravenous contrast. This exam was performed according to our departmental dose-optimization program, which includes automated exposure control, adjustment of the mA and/or kV according to patient size and/or use of interactive reconstruction technique. Adenopathy is seen in the bilateral supraclavicular region. The largest supraclavicular lymph node measures 2.4 x 3.1 cm. Extensive adenopathy is seen in the prevascular, paratracheal, AP window , and subcarinal mediastinum. The largest mediastinal mass/adenopathy measures approximately 5.6 x 8.2 cm in the right perihilar region extending to the subcarinal mediastinum. There is partial encasement of the superior vena cava, right main pulmonary artery, right pulmonary veins, esophagus, trachea and bilateral mainstem bronchi by the mediastinal mass. There is complete obstruction of the right main, upper, mid, and lower lobe bronchi. Heart is normal in size. There is minimal pericardial effusion. Great vessels are unremarkable. Trachea and mainstem bronchi are patent. Consolidation is seen in the right mid and lower lobes. Reticulonodular pulmonary parenchymal disease is seen in the right upper and mid lobe suggestive of post obstructive pneumonia. There is trace left pleural effusion and small to moderate right pleural effusion. Liver and spleen are normal in size. A 2.6 x 2.7 cm hypodense mass is seen in the segment 4 of the liver. Gallbladder is contracted. No gallstone or biliary dilatation is noted. Pancreas and adrenals are unremarkable. Both kidneys are normal in size and functioning with bilateral excretion. No hydronephrosis, hydroureter, or urolithiasis is noted. The opacified small and large bowel are unremarkable. Appendix is normal in caliber. Atherosclerotic calcification is seen in the abdominal aortaand bilateral iliac arteries. Prostate is normal in size. The urinary bladder is contracted. Impression: 1. Extensive adenopathy in the subcutaneous supraclavicular, mediastinum, and right perihilar region.2. Large mass in the right perihilar region extending to the subcarinal mediastinum may represent primary bronchogenic carcinoma or adenopathy.3. Complete obstruction of the right main, upper, mid,and lower lobe bronchi.4. Consolidation in the right mid and lower lobes with reticulonodular disease in the peripheral of the right upper and middle lobe suggestive of pneumonia.5. Hypodense mass in the segment 4 of the liver suspicious for metastatic disease. Signed: Hakeem Genao MDReport Verified Date/Time: 05/02/2019 22:44:33 Reading Location: [facility] [id number] Consult Reading Room Electronicallysigned by: HAKEEM GENAO M.D. on 05/02/2019 10: 44 PMFLOW CYTOMETRY [id number] 18:32:00 Test Item Value Reference Range Comments FLOW CYTOMETRY RESULT POINTER (BEAKER) See Separate Report (test jjzw=3841) FLOW CYTOMETRY AP CASE # (BEAKER) (test [id number] albo=4812) SPIN/CONCENTRATION [id number] 10:42:00 Test Item Value Reference Range Comments CONCENTRATION CHARGED (BEAKER) (test elur=2354) Done FLOW [id number] 10:08:00Flow Cytometry Report Case: [id number] Authorizing Provider: Jarrod Carroll MD Collected: 05/01/2019 1535 Ordering Location: [facility] PER[facility] Received: 2018 1739 SERVICES Pathologist: Stacey Horowitz MD Specimen: Other LYMPH NODE, EBUS FINE NEEDLE ASPIRATION, FLOW CYTOMETRY:-LIMITED BY REDUCED VIABILITY-NO MONOTYPIC B CELL POPULATION-NO ABERRANT T CELL POPULATION-SEE COMMENT These results require correlation with the morphologic and other features for full interpretation. 35159Zine mass with metsLYMPH NODE, EBUS FINE NEEDLE ASPIRATIONCD8, surface- [place], CD56,surface-Lambda, CD5, CD19, CD10, CD3, CD20, CD4, CD45 cKappa, cLambda, CD38, CD138.Specimen Viability: 64.3% Number of Events Acquired: 00151 The following populations are identified: Lymphocytes: Bright [...] analyzed represent nonviable cells, non-hematolymphoid cells, and debris.These tests were developed and their performance characteristics determined by [facility]. They have not been cleared or approved by the U.S. Food andDrug Administration. The FDA has determined that such clearance or approval is not necessary. It should not be regarded as investigational or for research. This laboratory is certified under the Clinical Laboratory Improvement Amendments of 1988 ("CLIA") as qualified to perform high-complexity clinical testing.BASIC METABOLIC [id number] 06:59:00 Test Item Value Reference Range Comments SODIUM (BEAKER) (test 138 meq/L 136-145 sxgf=237) POTASSIUM (BEAKER) (test 3.2 meq/L 3.5-5.1 qdva=931) CHLORIDE (BEAKER) (test 107 meq/L 98-107 axqh=264) CO2 (BEAKER) (test 22 meq/L 22-29 vflm=447) BLOOD UREA NITROGEN 10 mg/dL 7-21 (BEAKER) (test xsxx=720) CREATININE (BEAKER) (test 0.61 mg/dL 0.57-1.25 ffxp=410) GLUCOSE RANDOM (BEAKER) 119 mg/dL 70-105 (test bjav=325) CALCIUM (BEAKER) (test 7.7 mg/dL 8.4-10.2 sset=669) EGFR (BEAKER) (test 157 mL/min/1.73 sq m ESTIMATED GFR IS NOT iwqj=1966) ACCURATE CREATININE CLEARANCE IN PREDICTING GLOMERULAR FILTRATION RATE. ESTIMATED GFR IS NOT APPLICABLE FOR DIALYSIS PATIENTS. [id number] 06:26:00 Test Item Value Reference Range Comments PHOSPHORUS (BEAKER) (test uxye=619) 2.4 mg/dL 2.3-4.7 [id number] 06:26:00 Test Item Value Reference Range Comments MAGNESIUM (BEAKER) (test wbye=006) 1.9 mg/dL 1.6-2.6 CBC (HEMOGRAM ONLY)2019-05-02 06:00:00 Test Item Value Reference Range Comments WHITE BLOOD CELL COUNT (BEAKER) (test imgv=217) 10.9 K/ L 3.5-10.5 RED BLOOD CELL COUNT (BEAKER) (test ivuz=064) 3.17 M/ L 4.63-6.08 HEMOGLOBIN (BEAKER) (test pqfk=739) 9.2 GM/DL 13.7-17.5 HEMATOCRIT (BEAKER) (test xixi=451) 27.7 % 40.1-51.0 MEAN CORPUSCULAR VOLUME (BEAKER) (test hqvm=687) 87.4 fL 79.0-92.2 MEAN CORPUSCULAR HEMOGLOBIN (BEAKER) (test 29.0 pg 25.7-32.2 uifx=975) MEAN CORPUSCULAR HEMOGLOBIN CONC (BEAKER) (test 33.2 GM/DL 32.3-36.5 redp=749) RED CELL DISTRIBUTION WIDTH (BEAKER) (test 16.3 % 11.6-14.4 ioaj=078) PLATELET COUNT (BEAKER) (test rfjo=645) 429 K/CU MM 150-450 MEAN PLATELET VOLUME (BEAKER) (test sxje=926) 9.0 fL 9.4-12.4 NUCLEATED RED BLOOD CELLS (BEAKER) (test 0 /100 WBC 0-0 olho=810) EBUS FNA [id number] 18:00:00 Test Item Value Reference Range Comments CYTOLOGY RESULT POINTER (BEAKER) (test See Separate Report nwmb=0147) EBUS FNA [id number] 18:00:00 Test Item Value Reference Range Comments CYTOLOGY RESULT POINTER (BEAKER) (test See Separate Report mbym=9581) CYTOLOGY [id number] 18:00:00 Test Item Value Reference Range Comments CYTOLOGY RESULT POINTER (BEAKER) (test See Separate Report vvta=3613) EBUS FNA [id number] 17:01:00 Test Item Value Reference Range Comments CYTOLOGY RESULT POINTER (BEAKER) (test See Separate Report xgqt=6506) EBUS FNA [id number] 17:01:00 Test Item Value Reference Range Comments CYTOLOGY RESULT POINTER (BEAKER) (test See Separate Report gidg=2152) [id number] 08:43:00 Test Item Value Reference Range Comments PARTIAL THROMBOPLASTIN TIME (BEAKER) (test 35.2 seconds 22.5-36.0 mocb=411) VITAMIN B12 AND [id number] 06:30:00 Test Item Value Reference Range Comments VITAMIN B12 (BEAKER) (test ntay=893) > pg/mL 213-816 FOLATE (BEAKER) (test avkq=937) 2.4 ng/mL >=7.0 [id number] 06:24:00 Test Item Value Reference Range Comments FERRITIN (BEAKER) (test rjtq=726) 2915 ng/mL 5-275 [id number] 05:48:00 Test Item Value Reference Range Comments PHOSPHORUS (BEAKER) (test ovrn=050) 3.0 mg/dL 2.3-4.7 [id number] 05:48:00 Test Item Value Reference Range Comments MAGNESIUM (BEAKER) (test dqkj=098) 2.1 mg/dL 1.6-2.6 BASIC METABOLIC [id number] 05:48:00 Test Item Value Reference Range Comments SODIUM (BEAKER) (test 135 meq/L 136-145 psuo=572) POTASSIUM (BEAKER) (test 3.6 meq/L 3.5-5.1 hvqt=592) CHLORIDE (BEAKER) (test 99 meq/L 98-107 cbsq=647) CO2 (BEAKER) (test 25 meq/L 22-29 omtr=189) BLOOD UREA NITROGEN 12 mg/dL 7-21 (BEAKER) (test jaba=060) CREATININE (BEAKER) (test 0.69 mg/dL 0.57-1.25 vhuz=001) GLUCOSE RANDOM (BEAKER) 112 mg/dL 70-105 (test crpq=873) CALCIUM (BEAKER) (test 8.8 mg/dL 8.4-10.2 kgsp=493) EGFR (BEAKER) (test 137 mL/min/1.73 sq m ESTIMATED GFR IS NOT isnj=5945) ACCURATE CREATININE CLEARANCE IN PREDICTING GLOMERULAR FILTRATION RATE. ESTIMATED GFR IS NOT APPLICABLE FOR DIALYSIS PATIENTS. LACTATE DEHYDROGENASE (LDH)2019-05-01 05:48:00 Test Item Value Reference Range Comments LACTATE DEHYDROGENASE (BEAKER) (test wcgl=207) 242 U/L 125-220 IRON, TIBC, % SAT. (WITHOUT FERRITIN)2019-05-01 05:30:00 Test Item Value Reference Range Comments IRON (BEAKER) (test xcwk=462) 29.0 ug/dL 40.0-160.0 TOTAL IRON BINDING CAPACITY (BEAKER) (test 158 ug/dL 250-450 xyme=734) IRON % SATURATION (2) (BEAKER) (test lvyc=2830) 18 % 20-55 PROTHROMBIN [id number] 05:24:00 Test Item Value Reference Range Comments PROTIME (BEAKER) (test tiss=127) 15.1 seconds 11.9-14.2 INR (BEAKER) (test tblj=993) 1.3 <=5.9 Effective 04/10/2019: PT Reference Range ChangeNew: 11.9-14.2 Previous: 11.7- 14.7RECOMMENDED COUMADIN/WARFARIN INR THERAPY RANGESSTANDARD DOSE: 2.0-3.0 Includes: PROPHYLAXIS for venous thrombosis, systemic embolization; TREATMENT for venous thrombosis and/or pulmonary embolus.HIGH RISK: Target INR is2.5-3.5 for patients wiht mechanical heart valves.CBC (HEMOGRAM ONLY)2019-05-01 05:16:00 Test Item Value Reference Range Comments WHITE BLOOD CELL COUNT (BEAKER) (test tkju=961) 11.6 K/ L 3.5-10.5 RED BLOOD CELL COUNT (BEAKER) (test dfgx=402) 3.72 M/ L 4.63-6.08 HEMOGLOBIN (BEAKER) (test ssbn=495) 10.7 GM/DL 13.7-17.5 HEMATOCRIT (BEAKER) (test purk=579) 32.5 % 40.1-51.0 MEAN CORPUSCULAR VOLUME (BEAKER) (test hojm=253) 87.4 fL 79.0-92.2 MEAN CORPUSCULAR HEMOGLOBIN (BEAKER) (test 28.8 pg 25.7-32.2 zhij=075) MEAN CORPUSCULAR HEMOGLOBIN CONC (BEAKER) (test 32.9 GM/DL 32.3-36.5 ghuh=441) RED CELL DISTRIBUTION WIDTH (BEAKER) (test 15.9 % 11.6-14.4 hlty=614) PLATELET COUNT (BEAKER) (test uhra=174) 438 K/CU MM 150-450 MEAN PLATELET VOLUME (BEAKER) (test xmmo=659) 9.0 fL 9.4-12.4 NUCLEATED RED BLOOD CELLS (BEAKER) (test 0 /100 WBC 0-0 wejv=899) HEMOGLOBIN [id number] 13:16:00 Test Item Value Reference Range Comments HEMOGLOBIN A1C (BEAKER) (test kfwl=812) 5.9 % 4.3-6.1 CBC W/PLT COUNT & AUTO [id number] 08:54:00 Test Item Value Reference Range Comments WHITE BLOOD CELL COUNT (BEAKER) (test wcob=796) 6.0 K/ L 3.5-10.5 RED BLOOD CELL COUNT (BEAKER) (test lqqo=283) 3.54 M/ L 4.63-6.08 HEMOGLOBIN (BEAKER) (test xxrc=942) 10.2 GM/DL 13.7-17.5 HEMATOCRIT (BEAKER) (test jauu=399) 30.6 % 40.1-51.0 MEAN CORPUSCULAR VOLUME (BEAKER) (test lxos=321) 86.4 fL 79.0-92.2 MEAN CORPUSCULAR HEMOGLOBIN (BEAKER) (test 28.8 pg 25.7-32.2 skfr=788) MEAN CORPUSCULAR HEMOGLOBIN CONC (BEAKER) (test 33.3 GM/DL 32.3-36.5 vcvh=370) RED CELL DISTRIBUTION WIDTH (BEAKER) (test 15.7 % 11.6-14.4 adfw=328) PLATELET COUNT (BEAKER) (test mgdj=360) 370 K/CU MM 150-450 MEAN PLATELET VOLUME (BEAKER) (test gmfh=627) 9.0 fL 9.4-12.4 NUCLEATED RED BLOOD CELLS (BEAKER) (test 0 /100 WBC 0-0 cfmv=072) (CELLAVISION MANUAL DIFF)2019-04-30 08:54:00 Test Item Value Reference Range Comments NEUTROPHILS - REL (CELLAVISION)(BEAKER) (test 89 % kfyd=5835) LYMPHOCYTES - REL (CELLAVISION)(BEAKER) (test 6 % izzi=9426) MONOCYTES - REL (CELLAVISION)(BEAKER) (test 4 % jljo=5476) BANDS - REL (CELLAVISION)(BEAKER) (test zmzf=2395) 1 % 0-10 NEUTROPHILS - ABS (CELLAVISION)(BEAKER) (test 5.34 K/ul 1.78-5.38 tvrz=0104) LYMPHOCYTES - ABS (CELLAVISION)(BEAKER) (test 0.36 K/ul 1.32-3.57 opeb=4066) MONOCYTES - ABS (CELLAVISION)(BEAKER) (test 0.24 K/uL 0.30-0.82 clbk=0665) BANDS - ABS (CELLAVISION)(BEAKER) (test kdnn=8314) 0.06 K/uL 0.00-0.80 TOTAL COUNTED (BEAKER) (test zbau=4646) 100 WBC MORPHOLOGY (BEAKER) (test vlah=155) Normal CLUMPED PLATELETS (BEAKER) (test kwgb=731) Present GIANT PLATELETS (BEAKER) (test pfzy=694) Present POLYCHROMATOPHILLIC RBCS(BEAKER) (test pkcy=668) 1+ few ANISOCYTOSIS (BEAKER) (test snqs=238) 1+ few MACROCYTES (BEAKER) (test srru=910) 1+ few SCHISTOCYTES (BEAKER) (test hdlq=500) 1+ few FENG CELLS (BEAKER) (test uouh=332) 1+ few PLATELET CONCENTRATION (CELLAVISION)(BEAKER) (test Adequate piar=7855) Received comment: User comments: Slide comments:BASIC METABOLIC [id number] 04:43:00 Test Item Value Reference Range Comments SODIUM (BEAKER) (test 134 meq/L 136-145 qmfp=643) POTASSIUM (BEAKER) (test 3.6 meq/L 3.5-5.1 ykcj=864) CHLORIDE (BEAKER) (test 100 meq/L 98-107 brxm=199) CO2 (BEAKER) (test 24 meq/L 22-29 xvtf=130) BLOOD UREA NITROGEN 7 mg/dL 7-21 (BEAKER) (test yxnw=790) CREATININE (BEAKER) (test 0.67 mg/dL 0.57-1.25 yrym=011) GLUCOSE RANDOM (BEAKER) 147 mg/dL 70-105 (test syhw=832) CALCIUM (BEAKER) (test 8.7 mg/dL 8.4-10.2 zfiz=649) EGFR (BEAKER) (test 141 mL/min/1.73 sq m ESTIMATED GFR IS NOT ynsa=8865) ACCURATE CREATININE CLEARANCE IN PREDICTING GLOMERULAR FILTRATION RATE. ESTIMATED GFR IS NOT APPLICABLE FOR DIALYSIS PATIENTS. PROTHROMBIN [id number] 04:28:00 Test Item Value Reference Range Comments PROTIME (JONOAKER) (test doca=442) 17.7 seconds 11.9-14.2 INR (JONOAKER) (test huli=086) 1.5 <=5.9 Effective 04/10/2019: PT Reference Range ChangeNew: 11.9-14.2 Previous: 11.7- 14.7RECOMMENDED COUMADIN/WARFARIN INR THERAPY RANGESSTANDARD DOSE: 2.0-3.0 Includes: PROPHYLAXIS for venous thrombosis, systemic embolization; TREATMENT for venous thrombosis and/or pulmonary embolus.HIGH RISK: Target INR is2.5-3.5 for patients wiht mechanical heart valves.
--- OUTSIDE RECORDS SUMMARY | 2019-07-07 17:09 | XMS REPORT | Summary of Care ---
:1945 Author Organization [facility] - [facility] Address [address] [place] [address] Care Team Providers Name Role Phone Tom Lynn MD Primary Care Provider Reason for Referral MRI/CAT Scan (Routine) Status Reason Specialty Diagnoses / Referred By Referred To Procedures Contact Contact New Request Diagnostic Diagnoses Lower abdominal pain Logan Moreno, Radiology Procedures CT ABDOMEN PELVIS W CONTRAST DO [address] [place] [address] [place] [id number] MRI/CAT Scan (Routine) Status Reason Specialty Diagnoses / Referred By Referred To Procedures Contact Contact New Request Diagnostic Diagnoses Lower abdominal pain Logan Moreno, Radiology Procedures CT ABDOMEN PELVIS W CONTRAST DO [address] [place] [address] [address] [place] [address] Reason for Visit Reason Comments Abdominal Pain Auth/Cert Status Reason Specialty Diagnoses / Referred By Referred To Procedures Contact Contact Emergency Medicine [facility] [address] [place] [address] [place] [address] Encounter Details Date Type Department Care Team Description 06/17/2019 Emergency [facility]-Emergency Logan Moreno DO Lower abdominal pain (Primary Dx); Department [address] [place] [address]. History of bladder cancer [address] [place] [address] [address] [place] [address] [place], [place] [id number] Allergies No Known Allergiesdocumented as of this encounter (statuses as of 06/17/2019) Medications Medication Sig Dispensed Refills Start Date End Date Status ondansetron (ZOFRAN) 4 Take 1 tablet by 12 tablet 0 05/30/2019 Active mg tabletIndications: mouth every 8 Non-intractable (eight) hours as vomiting with nausea, needed for unspecified vomiting Nausea and type Vomiting (N/V). traMADol (ULTRAM) 50 Take 1 tablet by 30 tablet 0 06/17/2019 06/27/2019 Active mg tabletIndications: mouth every 6 Lower abdominal pain (six) hours as needed for Pain (scale 7-10) for up to 10 days. ondansetron 4 mg Take 1 tablet by 20 tablet 0 06/17/2019 Active disintegrating mouth every 8 tabletIndications: (eight) hours as Lower abdominal pain needed for Nausea and Vomiting (N/V). documented as of this encounter (statuses as of 06/17/2019) Active Problems Problem Noted Date Surgery, elective 02/20/2018 Bladder tumor 02/02/2018 Overview: Added automatically from request for surgery [id number] documented as of this encounter (statuses as of 06/17/2019) Social History Tobacco Use Types Packs/Day Years Used Date Current Every Day Smoker Sex Assigned at Date Recorded Not on file Job Start Date Occupation Industry Not on file Not on file Not on file Travel History Travel Start Travel End No recent travel history available. documented as of this encounter Last Filed Vital Signs Vital Sign Reading Time Taken Comments Blood Pressure 163/83 06/17/2019 6:00 AM CDT Pulse 90 06/17/2019 6:00 AM CDT Temperature 35.9 C (96.6 F) 06/17/2019 4:10 AM CDT Respiratory Rate 16 06/17/2019 6:00 AM CDT Oxygen Saturation 97% 06/17/2019 6:00 AM CDT Inhaled Oxygen Concentration - - Weight 56.7 kg (125 lb) 06/17/2019 4:10 AM CDT Height 162.6 cm (5' 4") 06/17/2019 4:10 AM CDT Body Mass Index 21.46 06/17/2019 4:10 AM CDT documented in this encounter Discharge Instructions Logan Brock DO - 06/17/2019 DIAGNOSIS Diagnoses that have been ruled out: None Diagnoses that are still under consideration: None Final diagnoses: History of bladder cancer Lower abdominal pain NO LIFE-THREATENING FINDINGS ON TODAY'S EXAM. PROCEDURES IN THE ER TODAY: Orders Placed This Encounter Procedures CT ABDOMEN PELVIS W CONTRAST CBC WITH DIFF COMP. METABOLIC PANEL (79062) LIPASE URINALYSIS CBC WITH DIFFERENTIAL MEDICATIONS ADMINISTERED IN THE ER TODAY AND DISCHARGE MEDICATIONS: Orders Placed This Encounter Medications DISCONTD: dicyclomine (BENTYL) capsule 10 mg ondansetron (ZOFRAN (PF)) injection 4 mg NaCl 0.9% (NS) bolus infusion 500 mL dicyclomine (BENTYL) capsule 10 mg iohexol (OMNIPAQUE 350 BULK-100 mL) injection 120 mL ipratropium-albuterol (DUONEB) 0.5 mg-3 mg(2.5 mg base)/3 mL nebulizer solution 3 mL FOLLOW-UP RECOMMENDATIONS: RECOMMEND FOLLOW-UP WITH A PRIMARY CARE PROVIDER OR SPECIALIST IN 2-5 DAYS, ESPECIALLY IF NO IMPROVEMENT IN SYMPTOMS. MAY FOLLOW-UP WITH A PROVIDER OF YOUR CHOICE, SUCH : 1. A PHYSICIAN OF YOUR CHOICE 2. [facility], . LOCATIONS IN [facility] 3. [facility], [address] [place] [address]; [phone] OR, IF YOU WISH TO FOLLOW-UP WITHIN THE [facility], MAY TRY THESE OPTIONS (CLINIC APPOINTMENTS AVAILABLE ON [id number] BASIS): 1. SCHEDULE AN APPOINTMENT ONLINE AT WWW.[facility] 2. OR CALL THE [facility] ACCESS CENTER AT OR 3. OR CALL YOUR [facility] PHYSICIAN'S OFFICE DIRECTLY IF YOU ARE ALREADY AN ESTABLISHED [facility] PATIENT. RETURN TO ER FOR WORSENING OF SYMPTOMS. AttachmentsThe following attachments cannot be sent through Care Everywhere.Abdominal Pain, Adult (Tajik)documented in this encounter Plan of Treatment Name Type Priority Associated Diagnoses Date/Time CT ABDOMEN PELVIS W IMAGING Routine Lower abdominal pain 06/17/2019 4:53 AM CDT CONTRAST Health Maintenance Due Date Last Done Comments HEPATITIS C (HCV) SCREEN 1945 DTaP,Tdap,and Td Vaccines (1 - Tdap) 1965 COLONOSCOPY 1996 Zoster Recombinant Vaccine (SHINGRIX) (1 of 2) 1996 LUNG CANCER SCREEN: Recommended for age 55-80 with 30 + 2001 pack year history Medicare Wellness Visit 2011 PNEUMOCOCCAL VACCINES 65+ (1 of 2 - PCV13) 2011 INFLUENZA VACCINE 07/14/2019 documented as of this encounter Implants Implanted Type Area Slot Tag Inserter Device Shelf Model / Identifier Expiration Serial / Lot Date Stent Ureteral 4.8fr Shanthi 24cml Ascerta #[id number] - S0 Right: [place] 12/25/2019 [id number] / Implanted: Qty: 1 on 02/20/2018 by Daniel Frank MD at [facility] [employer] 0 / [id number] documented as of this encounter Procedures Procedure Name Priority Date/Time Associated Diagnosis Comments CT ABDOMEN PELVIS W Routine 06/17/2019 4:53 AM CDT Lower abdominal pain CONTRAST Procedure Note - [facility], Radiant Results Inft User - 06/17/2019 5:35 AM CDT * * * * * * * * ORIGINAL REPORT * * * * * * * * EXAM: CT ABDOMEN AND PELVIS WITH CONTRAST HISTORY: Abd pain, acute, generalized COMPARISON: 10/05/2018 DOSE: 163 mGy-cm TECHNIQUE AND FINDINGS: Contiguous axial imaging from the level of the lung bases through the pubic symphysis was performed after the uncomplicated administration of 120 cc of intravenous Omnipaque contrast. Coronal and sagittal reconstructions were obtained. Auto mA and/or iterative reconstruction were used to reduce radiation dose. FINDINGS: LOWER THORAX: Right lower lung bronchiectasis with multifocal nodular opacities and associated ddmb-gl-zche pattern. LIVER: A heterogeneous, predominantly hypoattenuated observation is noted within hepatic segment 8, measuring 3.5 (CC) x 3.4 (TRV) x 3.3 (AP) cm (2:14 and 4:45). GALLBLADDER AND BILIARY TREE: No biliary ductal dilation. No gallbladder wall thickening. PANCREAS: No ductal dilation or masses. SPLEEN: No splenomegaly. ADRENAL GLANDS: No adrenal nodules. KIDNEYS: No hydronephrosis, stones, or masses. PERITONEUM AND RETROPERITONEUM: No free air or fluid. LYMPH NODES: No lymphadenopathy. VESSELS: Multifocal calcified/noncalcified plaques are identified throughout the abdominal aorta and its branches. GI TRACT: No dilation or wall thickening. The appendix is not visualized. PELVIS/BLADDER: Unremarkable. BONES AND SOFT TISSUES: No acute osseous finding. IMPRESSION Heterogeneous, predominantly hypoattenuated observation within hepatic segment 8 measuring 3.5 x 3.4 x 3.3 cm. Differential includes neoplastic versus infectious/inflammatory process. Right lower lung bronchiectasis with multifocal nodular opacities. Infectious etiology is primary concern. CBC WITH DIFFERENTIAL STAT 06/17/2019 4:27 AM Lower abdominal Results for this CDT pain procedure are in the results section. URINALYSIS STAT 06/17/2019 4:27 AM Lower abdominal Results for this CDT pain procedure are in the results section. CBC WITH DIFF Routine 06/17/2019 4:27 AM Lower abdominal Results for this CDT pain procedure are in the results section. COMP. METABOLIC PANEL STAT 06/17/2019 4:26 AM Lower abdominal Results for this (31150) CDT pain procedure are in the results section. LIPASE STAT 06/17/2019 4:26 AM Lower abdominal Results for this CDT pain procedure are in the results section. CONSENT/REFUSAL FOR Routine 06/17/2019 3:59 AM DIAGNOSIS AND CDT TREATMENT documented in this encounter Results CBC WITH DIFFERENTIAL (06/17/2019 4:27 AM CDT) WBC 8.88 4.20 - 10.70 [facility] 10*3/L [facility] RBC 4.15 (L) 4.26 - 5.52 [facility] 10*6/L [facility]ITAL [facility] HGB 12.2 12.2 - 16.4 [facility] g/dL [facility] HCT 35.8 (L) 38.4 - 49.3 % [facility] MCV 86.3 81.7 - 95.6 fL [facility] MCH 29.4 26.1 - 32.7 pg [facility] MCHC 34.1 31.2 - 35.0 [facility] g/dL H[facility]PITAL [facility] RDW-SD 55.4 (H) 38.5 - 51.6 fL [facility] RDW-CV 17.6 (H) 12.1 - 15.4 % [facility] PLT 318 150 - 328 [facility] 10*3/L H[facility]ITAL [facility] MPV 8.9 (L) 9.8 - 13.0 fL [facility] NRBC/100 WBC 0.0 0.0 - 10.0 /100 [facility] NRBC x10^3 <0.01 10*3/L [facility] GRAN MAT (NEUT) % 40.5 % [facility] IMM GRAN % 1.40 % [facility] LYMPH % 40.2 % [facility] MONO % 10.9 % [facility] EOS % 6.0 % [facility] BASO % 1.0 % [facility] GRAN MAT x10^3(ANC) 3.60 1.99 - 6.95 [facility] 10*3/uL [facility]ITAL [facility] IMM GRAN x10^3 0.12 (H) 0.00 - 0.06 [facility] 10*3/uL [facility] LYMPH x10^3 3.57 (H) 1.09 - 3.23 [facility] 10*3/uL [facility]ITAL [facility] MONO x10^3 0.97 0.36 - 1.02 [facility] 10*3/uL H[facility]ITAL [facility] EOS x10^3 0.53 0.06 - 0.53 [facility] 10*3/uL [facility]ITAL [facility] BASO x10^3 0.09 0.01 - 0.09 [facility] 10*3/uL HOSPITAL [facility] Specimen Blood - ARM, RIGHT Performing Organization Address City/State/Zipcode Phone Number [facility] CLIA: [id number], [address] [place] [address] URINALYSIS (06/17/2019 4:27 AM CDT) APPEARANCE Clear Clear [facility] COLOR Yellow Yellow [facility] PH 6.5 4.8 - 8.0 [facility] SP GRAVITY 1.010 1.003 - 1.030 [facility] GLU U QUAL Negative Negative [facility] BLOOD Negative Negative [facility] KETONES Negative Negative [facility] PROTEIN Negative Negative [facility] UROBILIN 0.2 mg/dL 0-1.0 mg/dL [facility] BILIRUBIN Negative Negative [facility] NITRITE Negative Negative [facility] LEUK DOTTY Negative Negative [facility] RBC/HPF 0 0 - 3 HPF [facility] WBC/HPF 0 0 - 5 HPF [facility] BACTERIA Negative Negative [facility] SQ EPITH 1 HPF [facility] Specimen Urine - URINE, CLEAN CATCH Performing Organization Address [facility]/Zipcode Phone Number [facility] CLIA: [id number], [address] [place] [address] LIPASE (06/17/2019 4:26 AM CDT) LIPASE 226 (H) 0 - 220 U/L [facility] Specimen Blood - ARM, RIGHT Performing Organization Address [facility] Phone Number [facility] CLIA: [id number], [address] [place] [address] COMP. METABOLIC PANEL (27919) (06/17/2019 4:26 AM CDT) NA 128 (L) 135 - 145 [facility] mmol/L [facility] K 5.0 3.5 - 5.0 [facility] mmol/L [facility] CL 90 (L) 98 - 108 mmol/L [facility] CO2 TOTAL 24 23 - 31 mmol/L [facility] AGAP 14 2 - 16 [facility] BUN 9 7 - 23 mg/dL [facility] GLUCOSE 135 (H) 70 - 110 mg/dL [facility] CREATININE 0.66 0.60 - 1.25 [facility] mg/dL [facility] TOTAL BILI 0.8 0.1 - 1.1 mg/dL [facility] CALCIUM 9.0 8.6 - 10.6 [facility] mg/dL [facility] T PROTEIN 8.4 (H) 6.3 - 8.2 g/dL [facility] ALBUMIN 4.6 3.5 - 5.0 g/dL [facility] ALK PHOS 79 34 - 122 U/L [facility] ALT(SGPT) 22 9 - 51 U/L [facility] AST(SGOT) 41 (H) 13 - 40 U/L [facility] eGFR Calculation 118.6 mL/min/1.73m2 [facility] (Non-[facility] LAB[facility]ATORY Turk[place]) eGFR Calculation 143.8 mL/min/1.73m2 [facility] LABORATORY Specimen Blood - ARM, RIGHT Narrative Performed At Association of Glomerular Filtration Rate (GFR) [facility] and Staging of Kidney Disease* + + +- + | GFR (mL/min/1.73 m2)| With Kidney Damage|Without Kidney Damage + + +- + |>90| Stage one| Normal + + +- + |60-89|S tage two| Decreased GFR + + +- + |30-59|S tage three| Stage three + + +- + |15-29|S tage four | Stage four + + +- + |<15 (or dialysis)|Stage five | Stage five + + +- + *Each stage assumes the associated GFR level has been in effect for at least three months.Stages 1 to 5, with or without kidney disease, indicate chronic kidney disease. Notes: Determination of stages one and two (with eGFR >59mL/min/1.73 m2) requires estimation of kidney damage for at least three months as defined by structural or functional abnormalities of the kidney, manifested by either: Pathological abnormalities or Markers of kidney damage (including abnormalities in the composition of the blood or urine or abnormalities in imaging tests). Performing Organization Address City/State/Zipcode Phone Number [facility] CLIA: [id number], [address] [place] [address] documented in this encounter Visit Diagnoses Diagnosis Lower abdominal pain - Primary Abdominal pain, other specified site History of bladder cancer Personal history of malignant neoplasm of bladder documented in this encounter Administered Medications Medication Order MAR Action Action Date Dose Rate Site dicyclomine (BENTYL) capsule 10 mg Given 06/17/2019 4:33 AM CDT 10 mg 10 mg, Oral, ONCE, 1 dose, Mon06/17/19 at 0545, Routine dicyclomine (BENTYL) capsule 20 mg Given 06/17/2019 6:04 AM CDT 20 mg 20 mg, Oral, ONCE, 1 dose, Mon06/17/19 at 0700, Routine iohexol (OMNIPAQUE 350 BULK-100 mL) Given 06/17/2019 4:46 AM CDT 120 mL injection 120 mL 120 mL, Intravenous, ONCE, 1 dose, Mon06/17/19 at 0500, Routine ipratropium-albuterol (DUONEB) 0.5 mg-3 mg(2.5 Given 06/17/2019 5:04 AM CDT 3 mL mg base)/3 mL nebulizer solution 3 mL 3 mL, Inhalation, ONCE, 1 dose, Mon06/17/19 at 0600, Routine NaCl 0.9% (NS) bolus infusion 500 New Bag 06/17/2019 4:32 AM CDT 500 mL 999 mL/hr mL at 999 mL/hr, 500 mL, IV Infusion, ONCE, 1 dose, Mon06/17/19 at 0430, STAT ondansetron (ZOFRAN (PF)) injection 4 mg Given 06/17/2019 4:32 AM CDT 4 mg 4 mg, Slow IV Push, ONCE, 1 dose, Mon06/17/19 at 0530, Routine documented in this encounter Insurance Payer Benefit Plan / Subscriber ID Effective Phone Address Type Group Dates [employer] MEDICARE [id number] 2018-Prese Medicare Adv HEALTHCARE COMPLETE nt PPO MEDICARE CHOICE ADVANTAGE documented as of this encounter Advance Directives Name Relationship Healthcare Agent Communication Relationship Noel Mccormick Child Primary healthcare agent
--- OUTSIDE RECORDS SUMMARY | 2019-07-07 17:09 | XMS REPORT | Summary of Care ---
:1945 Author Organization [facility] - [facility] Address [address] [place] [address] Care Team Providers Name Role Phone Tom Lynn MD Primary Care Provider Reason for Visit Reason Comments Abdominal Pain Auth/Cert Status Reason Specialty Diagnoses / Referred By Referred To Procedures Contact Contact Emergency Medicine [facility] [address] [place] [address] Encounter Details Date Type Department Care Team Description 06/18/2019 Emergency [facility]-Emergency Department Kim Chacon, DO [address] [facility] [address] [place] [id number] [place] [id number] Allergies No Known Allergiesdocumented as of this encounter (statuses as of 06/18/2019) Medications Medication Sig Dispensed Refills Start Date [...] as of this encounter (statuses as of 06/18/2019) Active Problems Problem Noted Date Surgery, elective 02/20/2018 Bladder tumor 02/02/2018 Overview: Added automatically from request for surgery [id number] documented as of this encounter (statuses as of 06/18/2019) Social History Tobacco Use Types Packs/Day Years Used Date Current Every Day Smoker Sex Assigned at Date Recorded Not on file Job Start Date Occupation Industry Not on file Not on file Not on file Travel History Travel Start Travel End No recent travel history available. documented as of this encounter Last Filed Vital Signs Vital Sign Reading Time Taken Comments Blood Pressure 137/92 06/18/2019 8:33 AM CDT Pulse 90 06/18/2019 8:33 AM CDT Temperature 36.7 C (98 F) 06/18/2019 8:33 AM CDT Respiratory Rate 14 06/18/2019 8:33 AM CDT Oxygen Saturation 98% 06/18/2019 8:33 AM CDT Inhaled Oxygen Concentration - - Weight 56.7 kg (125 lb) 06/18/2019 8:33 AM CDT Height - - Body Mass Index 21.46 06/17/2019 4:10 AM CDT documented in this encounter Discharge Instructions Kim Robles DO - 06/18/2019DIAGNOSIS 1. Abdominal Pain NO LIFE-THREATENING FINDINGS ON TODAY'S EXAM. PROCEDURES IN THE ER TODAY: None MEDICATIONS ADMINISTERED IN THE ER TODAY: [place] YOUR PRESCRIPTIONS AND [id number] MEDICATION RECOMMENDATIONS: None SPECIAL CARE INSTRUCTIONS: None FOLLOW-UP RECOMMENDATIONS: RECOMMEND FOLLOW-UP WITH A PRIMARY CARE PROVIDER OR SPECIALIST IN 2-5 DAYS, ESPECIALLY IF NO IMPROVEMENT IN SYMPTOMS. TO FOLLOW-UP WITHIN THE [facility] HEALTHCARE SYSTEM, TRY THESE OPTIONS (CLINIC APPOINTMENTS AVAILABLE ON [id number] BASIS): 1. SCHEDULE AN APPOINTMENT ONLINE AT WWW[facility] 2. OR CALL THE [facility] ACCESS CENTER AT OR 3. OR CALL YOUR [facility] PHYSICIAN'S OFFICE DIRECTLY IF YOU ARE ALREADY AN ESTABLISHED [facility] PATIENT. OR, YOU MAY FOLLOW-UP WITH A PROVIDER OF YOUR CHOICE, SUCH : 1. A PHYSICIAN OF YOUR CHOICE 2. [facility], . LOCATIONS IN [facility] 3. [facility], [address], [place]; RETURN TO ER FOR WORSENING OF SYMPTOMS. AttachmentsThe following attachments cannot be sent through Care Everywhere.Bladder Cancer,Understanding (Andorran)documented in this encounter Plan of Treatment Health Maintenance Due Date Last Done Comments [...] of this encounter Implants Implanted Type Area Wood Sawyer Device Shelf Model / Identifier Expiration Serial / Lot Date Stent Ureteral 4.8fr Shanthi 24cml Ascerta #[id number] - [id number] Right: Leonardo 12/25/2019 [id number] / Implanted: Qty: 1 on 02/20/2018 by Daniel Frank MD at [facility] [employer] 0 / [id number] documented as of this encounter Procedures Procedure Name Priority Date/Time Associated Diagnosis Comments NOTICE OF PRIVACY Routine 06/18/2019 8:12 AM CDT PRACTICES CONSENT/REFUSAL FOR Routine 06/18/2019 8:12 AM CDT DIAGNOSIS AND TREATMENT documented in this encounter Results Not on filedocumented in this encounter Administered Medications Medication Order MAR Action Action Date Dose Rate Site HYDROcodone-acetaminophen Given 06/18/2019 8:38 AM CDT 1 tablet (NORCO 5) 5-325 mg tablet 1 tablet 1 tablet, Oral, ONCE, 1 dose, 06/18/19 at 0945, KATIA documented in this encounter Insurance Payer Benefit Plan / Subscriber ID Effective Phone Address Type Group Dates [facility] MEDICARE [id number] 2018-Prese Medicare Adv HEALTHCARE COMPLETE nt PPO MEDICARE CHOICE ADVANTAGE documented as of this encounter Advance Directives Name Relationship Healthcare Agent Communication Relationship Noel Mccormick Child Primary healthcare agent
--- NOTE | 2019-07-07 17:49 | RAD REPORT ---
EXAM DESCRIPTION: RAD - Chest Single View - 07/07/2019 5:39 pm CLINICAL HISTORY: syncope Chest pain. COMPARISON: Chest Single View dated 04/29/2019; Chest Pa And Lat (2 Views) dated 11/03/2017 FINDINGS: Portable technique limits examination quality. The lungs are grossly clear. The heart is normal in size. No displaced fractures. Right-sided venous catheter its tip in the SVC. IMPRESSION: No acute intrathoracic process suspected.
[2019-07-07] MEDS ORDERED: NA CHLORIDE 0.9% 1,000 ML ONE (18:06)
--- NOTE | 2019-07-07 18:08 | RAD REPORT ---
EXAM DESCRIPTION: CT - Head Brain Wo Cont - 07/07/2019 5:59 pm CLINICAL HISTORY: SYNCOPE Headache, drowsiness COMPARISON: No comparisons TECHNIQUE: All CT scans are performed using dose optimization technique as appropriate and may inclu de automated exposure control or mA/KV adjustment according to patient size. FINDINGS: No intracranial hemorrhage, hydrocephalus or extra-axial fluid collection.No areas of brai n edema or evidence of midline shift. The paranasal sinuses and mastoids are clear. The calvarium is intact. IMPRESSION: No acute intracranial abnormality.
[2019-07-07 18:09] LABS: Absolute Lymphocytes (CBC) 1.6 K/uL (0.7-4.9); Basophils % 1.3 % (0-1.3); Hematocrit 35.6 % (39.6-49.0); Lymphocytes % 67.6 % (15.3-44.8); MPV 7.4 fL (7.6-11.3); RBC Red Blood Cell Count 3.96 M/uL (4.33-5.43)
[2019-07-07 18:12] LABS: Protime INR 1.11
[2019-07-07 18:21] LABS: ALT/SGPT 29 U/L (12-78); AST/SGOT 11 U/L (15-37); Albumin 3.5 g/dL (3.4-5.0); Alkaline Phosphatase 72 U/L (45-117); BUN Blood Urea Nitrogen 16 mg/dL (7-18); Bicarbonate 30 mmol/L (21-32); Bilirubin Direct < 0.1 mg/dL (0-0.2); Bilirubin Total 0.4 mg/dL (0.2-1.0); Glucose Level 147 mg/dL (74-106); Magnesium 2.1 mg/dL (1.8-2.4); NT PRO-BNP 66 pg/mL (<125); Potassium 3.1 mmol/L (3.5-5.1); Protein, Total 8.2 g/dL (6.4-8.2); Sodium Level 139 mmol/L (136-145); Troponin (Emerg Dept Use Only) < 0.02 ng/mL (0.0-0.045)
--- NOTE | 2019-07-07 19:03 | RAD REPORT ---
EXAM DESCRIPTION: CT - Chest For Pe Angio - 07/07/2019 6:51 pm CLINICAL HISTORY: Chest pain. syncope COMPARISON: Thorax W/ Con dated 04/29/2019 TECHNIQUE: CT angiogram of the pulmonary arteries was performed with MIP. All CT scans are performed using dose optimization technique as appropriate and may include automated exposure control or mA/KV adjustment according to patient size. FINDINGS: No evidence of pulmonary thromboembolism. No acute aortic finding demonstrated. Aberrant right subclavian artery again noted. There has been significant improvement in the previously noted large mass lesion in the right hilar l ocation with adenopathy in the mediastinum. Mild adenopathy persists in the mediastinum. For example, pretracheal adenopathy previously measured 5.0 x 4.3 cm, currently measures 2.4 x 2.6 cm. Lungs appear clear. No nodule is seen. No infiltrate evident. No significant pericardial or pleural fluid. No concerning bony finding. IMPRESSION: No evidence of pulmonary thromboembolism. 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
[2019-07-07 19:52] LABS: Urine Bacteria 20-50 /HPF (NONE SEEN); Urine Culture Reflex Order REFLEXED; Urine RBC <5 /HPF (NONE SEEN)
[2019-07-07 20:15] LABS: Urine Blood 1+ (NEG); Urine Glucose NEGATIVE (NEG); Urine Protein 1+ (NEG); Urine Specific Gravity 1.015 (1.005-1.030); Urine pH 7.5 (5.0-7.0)
[2019-07-07 20:47] LABS: Anisocytosis 1+; Blood Morphology Comment NOTED (NOT SEEN); Platelet Estimate ADEQ
--- NOTE | 2019-07-07 21:05 | EDPHYS ---
Physician Documentation [facility] Name: Uziel Islas Age: 74 yrs Sex: Male : 1945 Arrival Date: 07/07/2019 Time: 17:04 Bed 23 Private MD: ED Physician Moris Christianson HPI: 07/07 17:38 This 74 yrs old Black Male presents to ER via Wheelchair with complaints of Passed Out jmm Prior To Arrival. 17:38 The patient has experienced syncope. Onset: The symptoms/episode began/occurred jmm acutely, 1 hour(s) ago. Duration: This was a single episode. Associated injury: The patient did not suffer any apparent associated injury. Associated signs and symptoms: Pertinent negatives: chest pain, shortness of breath. This is a 74 year old male with a history of lung ca, that presents to the ED after a syncope episode which occurred 1 hour prior to arrival. Patient denies chest pain, shortness of breath. Family states the patient has complained of urinary pain over the past week. Denies abdominal pain, denies vomiting. . Historical: - Allergies: 17:13 No Known Allergies; bp - PMHx: 17:13 Cancer; Glaucoma; bp - Immunization history:: Adult Immunizations. - Social history:: Smoking status: Patient/guardian denies using tobacco. - Ebola Screening: : No symptoms or risks identified at this time. ROS: 17:38 Constitutional: Negative for fever, chills, and weight loss, Cardiovascular: Negative jmm for chest pain, palpitations, and edema, Respiratory: Negative for shortness of breath, cough, wheezing, and pleuritic chest pain, Abdomen/GI: Negative for abdominal pain, nausea, vomiting, diarrhea, and constipation, Back: Negative for injury and pain. 17:38 : Positive for urinary symptoms. 17:38 Neuro: Positive for 17:38 Neuro: Positive for syncope. Exam: 17:38 Constitutional: This is a well developed, well nourished patient who is awake, alert, jmm and in no acute distress. Head/Face: atraumatic. Eyes: EOMI, no conjunctival erythema appreciated ENT: Moist Mucus Membranes Neck: Trachea midline, Supple Chest/axilla: Normal chest wall appearance and motion. 17:38 Abdomen/GI: Non distended, soft Back: Normal ROM Skin: General appearance color normal MS/ Extremity: Moves all extremities, no obvious deformities appreciated, no edema noted to the lower extremities Neuro: Awake and alert, normal gait Psych: Behavior is normal, Mood is normal, Patient is cooperative and pleasant 17:38 Cardiovascular: Rate: tachycardic, Rhythm: regular, Pulses: no pulse deficits are appreciated. Vital Signs: 17:13 BP 123 / 75; Pulse 116; Resp 14; Temp 97.8; Pulse Ox 100% ; Weight 57.61 kg; bp 19:10 BP 133 / 76; Pulse 89; Resp 15; Pulse Ox 100% on R/A; tr5 20:00 BP 132 / 80; Pulse 96; Resp 14; Pulse Ox 100% on R/A; tr5 21:00 BP 124 / 70; Pulse 101; Resp 17; Pulse Ox 100% on R/A; tr5 22:00 BP 130 / 63; Pulse 102; Temp 97.9(TE); Pulse Ox 100% on R/A; tr5 MDM: 17:24 Patient medically screened. [facility] 21:02 Data reviewed: vital signs, nurses notes. Counseling: I had a detailed discussion with [facility] the patient and/or guardian regarding: the historical points, exam findings, and any diagnostic results supporting the discharge/admit diagnosis, lab results, the need for further work-up and treatment in the hospital. ED course: I discussed the patient with Dr. Pandya whom accepted admission. . 07/07 17:24 Order name: Basic Metabolic Panel; Complete Time: 18:22 [facility] 07/07 17:24 Order name: CBC with Diff; Complete Time: 21:02 [facility] 07/07 17:24 Order name: LFT's; Complete Time: 18:22 [facility] 07/07 17:24 Order name: Magnesium; Complete Time: 18:22 [facility] 07/07 17:24 Order name: NT PRO-BNP; Complete Time: 18:22 [facility] 07/07 17:24 Order name: PT-INR; Complete Time: 18:22 [facility] 07/07 17:24 Order name: Troponin (emerg Dept Use Only); Complete Time: 18:22 [facility] 07/07 17:33 Order name: Blood Culture Adult (2) [facility] 07/07 17:33 Order name: Lactate; Complete Time: 18:40 [facility] 07/07 17:33 Order name: Procalcitonin; Complete Time: 18:36 [facility] 07/07 17:34 Order name: Urine Culture [facility] 07/07 17:35 Order name: Urine Microscopic Only; Complete Time: 20:03 [facility] 07/07 19:33 Order name: Urine Dipstick--Ancillary (enter results); Complete Time: 20:21 [facility] 07/07 20:47 Order name: Manual Differential; Complete Time: 21:02 [facility] 07/07 17:24 Order name: XRAY Chest (1 view); Complete Time: 18:13 [facility] 07/07 17:35 Order name: CT Head Brain wo Cont; Complete Time: 18:18 [facility] 07/07 18:23 Order name: CT Chest For PE Angio; Complete Time: 19:06 [facility] 07/07 21:41 Order name: Thyroid Stimulating Hormone [facility] 07/07 21:41 Order name: Basic Metabolic Panel [facility] 07/07 21:41 Order name: Basic Metabolic Panel [facility] 07/07 21:41 Order name: CBC with Automated Diff [facility] 07/07 21:42 Order name: CBC with Automated Diff [facility] 07/07 21:42 Order name: Magnesium [facility] 07/07 21:42 Order name: Magnesium [facility] 07/07 21:42 Order name: Troponin I [facility] 07/07 21:42 Order name: Troponin I [facility] 07/07 21:42 Order name: Troponin I [facility] 07/07 21:42 Order name: Troponin I [facility] 07/07 21:44 Order name: Urinalysis [facility] 07/07 22:35 Order name: Lactate Sepsis 2 HR Follow-up [facility] 07/07 17:24 Order name: EKG; Complete Time: 17:25 [facility] 07/07 17:24 Order name: Cardiac monitoring; Complete Time: 17:31 [facility] 07/07 17:24 Order name: EKG - Nurse/Tech; Complete Time: 17:31 [facility] 07/07 17:24 Order name: IV Saline Lock; Complete Time: 17:46 [facility] 07/07 17:24 Order name: Labs collected and sent; Complete Time: 17:46 [facility] 07/07 17:24 Order name: O2 Per Protocol; Complete Time: 17:31 [facility] 07/07 17:24 Order name: O2 Sat Monitoring; Complete Time: 17:31 [facility] 07/07 17:24 Order name: Urine Dipstick-Ancillary (obtain specimen); Complete Time: 20:24 [facility] 07/07 21:32 Order name: Social Service Consult [facility] 07/07 21:41 Order name: Physical Therapy Consult [facility] 07/07 21:41 Order name: Heart Healthy [facility] 07/07 21:41 Order name: Echo with Doppler [facility] 07/07 21:45 Order name: Carotid Artery Bilateral [facility] Administered Medications: 18:10 Drug: NS 0.9% 1000 ml Route: IV; Rate: 1 bolus; Site: right antecubital; tr5 22:30 Follow up: Response: No adverse reaction; IV Status: Completed infusion; IV Intake: tr5 1000ml Disposition: 07/07/19 21:04 Hospitalization ordered by Carter Pandya for Observation. Preliminary diagnosis are Syncope and collapse, Urinary tract infection, site not specified, Tachycardia, unspecified, Hypokalemia. - Bed requested for Telemetry/MedSurg (observation). - Status is Observation. tr5 - Condition is Stable. - Problem is new. - Symptoms have improved. UTI on Admission? Yes Addendum: 07/09/2019 08:42 Co-signature as Attending Physician, Moris Christianson MD I agree with the assessment and c rodríguez plan of care. Signatures: Dispatcher [employer] [facility] Moris Christianson MD MD cha Mickail, Joel, PA PA Gail Mar, RN RN Lazarus Worthington, Micah Myers RN, RN RN tr5 Corrections: (The following items were deleted from the chart) 07/07 22:07 21:04 Hospitalization Ordered by Carter Pandya for Observation. Preliminary diagnosis cg is Syncope and collapse; Urinary tract infection, site not specified; Tachycardia, unspecified; Hypokalemia. Bed requested for Telemetry/MedSurg (observation). Status is Observation. Condition is Stable. Problem is new. Symptoms have improved. UTI on Admission? Yes. [facility] 23:02 22:07 07/07/2019 21:04 Hospitalization Ordered by Carter Pandya for Observation. tr5 Preliminary diagnosis is Syncope and collapse; Urinary tract infection, site not specified; Tachycardia, unspecified; Hypokalemia. Bed requested for Telemetry/MedSurg (observation). Status is Observation. Condition is Stable. Problem is new. Symptoms have improved. UTI on Admission? Yes. cg
--- NOTE | 2019-07-07 21:05 | ER ---
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 Transition of care: patient was bp not received from another setting of care. Onset of symptoms was July 07, 2019 at 16:00. Risk Assessment: Do you want to hurt yourself or someone else? Patient reports no desire to harm self or others. Initial Sepsis Screen: Does the patient meet any 2 criteria? HR > 90 bpm. No. Patient's initial sepsis screen is negative. Does the patient have a suspected source of infection? No. Patient's initial sepsis screen is negative. Care prior to arrival: None. 17:12 Method Of Arrival: Wheelchair bp 17:12 Acuity: SRINIVAS 2 bp Triage Assessment: 22:59 General: Behavior is calm. tr5 Historical: - Allergies: 17:13 No Known Allergies; bp - PMHx: 17:13 Cancer; Glaucoma; bp - Immunization history:: Adult Immunizations. - Social history:: Smoking status: Patient/guardian denies using tobacco. - Ebola Screening: : No symptoms or risks identified at this time. Screenin:15 Abuse screen: Denies threats or abuse. Nutritional screening: No deficits noted. tr5 Tuberculosis screening: No symptoms or risk factors identified. Fall Risk None identified. Assessment: 17:15 General: Appears uncomfortable. Pain: Denies pain. Neuro: Level of Consciousness is tr5 awake, alert, Oriented to person, place, time, Marketing Clerk are equal bilaterally Moves all extremities. Neuro: Reports dizziness. Cardiovascular: Heart tones present Capillary refill < 3 seconds. Respiratory: Airway is patent Respiratory effort is even, unlabored, Respiratory pattern is regular, symmetrical. GI: No signs and/or symptoms were reported involving the gastrointestinal system. : Millan in place. EENT: No signs and/or symptoms were reported regarding the EENT system. Derm: Skin is intact, Skin is dry, Skin is normal, Skin temperature is warm. Musculoskeletal: Capillary refill < 3 seconds, Range of motion: intact in all extremities. 18:00 Reassessment: Patient and/or family updated on plan of care and expected duration. Pain tr5 level reassessed. Patient is alert, oriented x 3, equal unlabored respirations, skin warm/dry/pink. 19:00 Reassessment: Patient appears in no apparent distress at this time. No changes from tr5 previously documented assessment. 20:00 Reassessment: Pt laying in bed. Family at bedside. Pt AAOX4. Pt appears to be resting tr5 quietly. 21:00 Reassessment: No changes from previously documented assessment. Patient and/or family tr5 updated on plan of care and expected duration. Pain level reassessed. Patient is alert, oriented x 3, equal unlabored respirations, skin warm/dry/pink. 22:00 Reassessment: Patient and/or family updated on plan of care and expected duration. Pain tr5 level reassessed. Patient is alert, oriented x 3, equal unlabored respirations, skin warm/dry/pink. Vital Signs: 17:13 BP 123 / 75; Pulse 116; Resp 14; Temp 97.8; Pulse Ox 100% ; Weight 57.61 kg; bp 19:10 BP 133 / 76; Pulse 89; Resp 15; Pulse Ox 100% on R/A; tr5 20:00 BP 132 / 80; Pulse 96; Resp 14; Pulse Ox 100% on R/A; tr5 21:00 BP 124 / 70; Pulse 101; Resp 17; Pulse Ox 100% on R/A; tr5 22:00 BP 130 / 63; Pulse 102; Temp 97.9(TE); Pulse Ox 100% on R/A; tr5 ED Course: 17:04 Patient arrived in ED. as 17:13 Triage completed. bp 17:14 Arm band placed on. bp 17:24 Amador Khoury PA is PHCP. macario 17:24 Moris Christianson MD is Attending Physician. jmm 17:30 Micah Taylor, MATTY is Primary Nurse. tr5 17:30 EKG done, by ED staff. tr5 17:34 Placed in gown. Bed in low position. Call light in reach. Side rails up X 1. Side rails jp3 up X2. Warm blanket given. Pillow given. Verbal reassurance given. property assessment monitor on. Pulse ox on. NIBP on. 17:35 Patient maintains SpO2 saturation greater than 95% on room air. jp3 17:40 XRAY Chest (1 view) In Process Unspecified. EDMS 17:40 Inserted saline lock: 20 gauge in right antecubital area, using aseptic technique. tr5 17:40 First set of blood cultures drawn by ED staff. jp3 18:00 CT Head Brain wo Cont In Process Unspecified. EDMS 18:19 Second set of blood cultures drawn by me. jp3 18:48 CT completed. Patient tolerated procedure well. Patient moved back from CT. bq 18:51 CT Chest For PE Angio In Process Unspecified. EDMS 21:03 Carter Pandya is Hospitalizing Provider. macario 22:56 No provider procedures requiring assistance completed. Patient admitted, IV remains in tr5 place. Administered Medications: 18:10 Drug: NS 0.9% 1000 ml Route: IV; Rate: 1 bolus; Site: right antecubital; tr5 22:30 Follow up: Response: No adverse reaction; IV Status: Completed infusion; IV Intake: tr5 1000ml Intake: 22:30 IV: 1000ml; Total: 1000ml. tr5 Outcome: 21:04 Decision to Hospitalize by Provider. macario 22:56 Admitted to Med/surg accompanied by nurse, via stretcher, with chart, Report called to tr5 Reji STARR 22:56 Condition: stable 22:56 Instructed on the need for admit. 23:02 Patient left the ED. tr5 Signatures: Dispatcher [employer] EDMS Amador Khoury PA PA jmm Quilty, Betty bq Martinez, Amelia as Peltier, Brian, RN RN Anirudh Deras jp3 Micah Taylor, RN RN tr5 Corrections: (The following items were deleted from the chart) 19:28 19:10 BP 140 / 90; Pulse 107bpm; Resp 19bpm; Pulse Ox 99% RA; tr5 tr5
--- NOTE | 2019-07-07 21:20 | P.HP ---
Certification for Inpatient Patient admitted to: Observation With expected LOS: <2 Midnights Patient will require the following post-hospital care: Home Health Services Practitioner: I am a practitioner with admitting privileges, knowledge of patient current condition, hospital course, and medical plan of care. Services: Services provided to patient in accordance with Admission requirements found in Title 42 Section 412.3 of the Code of Federal Regulations Patient History Date of Service: 07/08/19 Reason for admission: Syncope History of Present Illness: 74-year-old male with a history of lung cancer, BPH, hyponatremia was brought to the emergency department due to syncopal episode which occurred today. Patient is reported to have passed out and became unresponsive momentarily for a few seconds. Son supported him from falling. The patient reports lightheadedness prior to passing out. He was recently hospitalized for dehydration, reduced oral intake about 2 weeks ago and had a Millan catheter placed and retained for urinary retention. Patient reports suprapubic pain since the catheter was inserted. His last chemotherapy was about 2 weeks ago. In the ED, EKG demonstrates right bundle branch block and non diagnostic for ischemia. Troponin is negative. CTA thorax negative for pulmonary emboli and shows decrease in size of lung mass. BMP unremarkable except hypokalemia. UA suggest the presence of UTI. Patient is placed under observation for further syncopal workup. Allergies No Known Allergies Allergy (Verified 07/07/19 23:08) Home medications list reviewed: Yes - Past Medical/Surgical History Diabetic: No -: Fluid retention -: BPH -: Lung cancer Past Surgical History: Reviewed- Non-Contributory - Family History Family History: Reviewed- Non-Contributory - Family History Mother Notes: glaucoma - Social History Smoking Status: Former smoker Alcohol use: No CD- Drugs: No Place of Residence: Home Review of Systems Other: General: No fever, no malaise. Eyes: No eye discharge, Respiratory: No cough, no shortness of breath. CVS: No chest pain, no palpitation. GI: No abdominal pain, no nausea no vomit, no constipation, no diarrhea. Genitourinary: No hematuria. Musculoskeletal: No joint pains, or joint swelling, no gait instability. Neurology: No headache, no limb weakness, no problem with swallowing. Except as documented, all other systems reviewed and negative. Physical Examination - Physical Exam General: Alert, In no apparent distress, Oriented x3 HEENT: Atraumatic, Normocephalic, PERRLA, Mucous membr. moist/pink Neck: Supple, 2+ carotid pulse no bruit, JVD not distended Respiratory: Clear to auscultation bilaterally, Normal air movement Cardiovascular: No edema, Normal pulses, Regular rate/rhythm, Normal S1 S2, No murmurs Capillary refill: <2 Seconds Gastrointestinal: Normal bowel sounds, Soft and benign, Non-distended, No tenderness Musculoskeletal: No clubbing, No swelling, No erythema, No tenderness Integumentary: No rashes, No erythema, No cyanosis Neurological: Normal strength at 5/5 x4 extr, Cranial nerves 3-12 intact, Normal affect Lymphatics: No axilla or inguinal lymphadenopathy Urinary: Millan catheter - Studies Laboratory Data (last 24 hrs) 07/07/19 17:45: PT 13.0 H, INR 1.11 07/07/19 17:45: WBC 2.3 L, Hgb 11.8 L, Hct 35.6 L, Plt Count 210 07/07/19 17:45: Sodium 139, Potassium 3.1 L, BUN 16, Creatinine 1.05, Glucose 147 H, Magnesium 2.1, Total Bilirubin 0.4, AST 11 L, ALT 29, Alkaline Phosphatase 72 Assessment and Plan - Problems (Diagnosis) (1) Syncope and collapse Current Visit: Yes Status: Acute (2) UTI (urinary tract infection) Current Visit: Yes Status: Acute Qualifiers: Urinary tract infection type: catheter-associated UTI Indwelling urinary catheter type: indwelling urethral catheter Encounter type: initial encounter Qualified Code(s): T83.511A - Infection and inflammatory reaction due to indwelling urethral catheter, initial encounter; N39.0 - Urinary tract infection , site not specified (3) BPH (benign prostatic hyperplasia) Current Visit: Yes Status: Acute (4) Lung cancer Current Visit: Yes Status: Acute - Plan Place under observation in telemetry Syncopal workup with echocardiogram and carotid Doppler. Hold Lasix Start IV hydration with normal saline IV Rocephin for UTI. Follow urine culture Voiding trial during the hospital stay. Continue Flomax and finasteride Monitor BMP and CBC PT and OT Discharge Plan: Home - Advance Directives Does patient have a Living Will: No Does patient have a Durable POA for Healthcare: No - Code Status/Comfort Care Code Status Assessed: Yes Code Status: Full Code
[2019-07-07] MEDS ORDERED: ALBUTEROL 2.5 MG/3 ML NEB SOL NEB PRN (21:34)
[2019-07-07] MEDS ORDERED: ACETAMINOPHEN 500 MG TAB PO PRN (21:34)
[2019-07-07] MEDS ORDERED: ONDANSETRON 4 MG/2 ML VIAL IV PRN (21:34)
[2019-07-07] MEDS ORDERED: POTASSIUM CL SA 10 MEQ TAB PO ONE (21:40)
[2019-07-08] MEDS: NA CHLORIDE 0.9% 1,000 ML IV SCH ×3 (00:23→14:38)
[2019-07-08] MEDS: CEFTRIAXONE/SWI 1gm 1 GM/10 ML SYR IV SCH ×2 (00:24→22:33)
[2019-07-08 04:19] LABS: Absolute Lymphocytes (CBC) 1.3 K/uL (0.7-4.9); Basophils % 1.2 % (0-1.3); Hematocrit 28.6 % (39.6-49.0); Lymphocytes % 65.1 % (15.3-44.8); MPV 6.9 fL (7.6-11.3); RBC Red Blood Cell Count 3.21 M/uL (4.33-5.43)
[2019-07-08 04:32] LABS: BUN Blood Urea Nitrogen 14 mg/dL (7-18); Bicarbonate 29 mmol/L (21-32); Glucose Level 109 mg/dL (74-106); Potassium 4.4 mmol/L (3.5-5.1); Sodium Level 142 mmol/L (136-145)
--- NOTE | 2019-07-08 07:47 | EKG ---
Test Date: 2019-07-07 Test Time: 17:23:51 Credit Collector: FREDDY MEASUREMENT RESULTS: Intervals: Rate: 114 AL: 98 QRSD: 120 QT: 344 QTc: 474 [place]: P: 64 AL: 98 QRS: 64 T: 65 INTERPRETIVE STATEMENTS: Sinus tachycardia with short AL Right bundle branch block Abnormal ECG Compared to ECG 04/29/2019 18:18:46 Short AL interval now present Left-axis deviation no longer present Electronically Signed On 07-08-19 07:46:54 CDT by Kwadwo Carney
[2019-07-08] MEDS ORDERED: ENOXAPARIN 40 MG/0.4 ML SQ SCH (09:00)
--- NOTE | 2019-07-08 11:27 | RAD REPORT ---
EXAM DESCRIPTION: - CP - 07/08/2019 11:16 am CLINICAL HISTORY: Syncope COMPARISON: None. TECHNIQUE: Real-time sonographic evaluation of both carotid systems was performed. Crisostomo scale and Do ppler interrogation were performed with waveform tracing bilaterally. FINDINGS: Normal high resistance waveforms are noted in both external carotid arteries. The common c arotid arteries and internal carotid arteries show normal low resistance waveforms. Right common carotid artery intimal thickening changes are present. Calcified and noncalcified plaqui ng changes are present at the right carotid bulb and near the origin of the internal and external car otid arteries. Left common carotid artery also shows intimal thickening that results in significant l uminal narrowing and elevation of the velocities. Plaquing changes are significant extending into the left ICA. Left carotid bulb plaquing changes are present. Right common carotid peak velocity was 126 cm/second with the maximum ICA velocity of 158 cm/second. A 1.3 ICA/CCA ratio falls within normal range. Left ICA/ CCA ratio is 0.9 which is normal range. However, this is due to an elevated common carotid velocity of 218 cm/second. ICA velocity reached 205 cm/second. Vertebral artery assessment was limited. Velocity values and ratios were recorded and are retained in the patient's imaging records. IMPRESSION: Significant atherosclerotic plaquing and intimal thickening changes are present resultin g in hemodynamically significant stenoses of the left common carotid artery and left internal carotid artery. Right-sided plaquing changes are present but do not cause significant stenosis. No evidence of a hemodynamically significant stenosis.
--- NOTE | 2019-07-08 15:13 | ECHO ---
HEIGHT: 5 ft 4 in WEIGHT: 119 lb 6.4 oz DATE OF STUDY: 07/08/[address]: summer haynes 2-DIMENSIONAL: YES M.MODE: YES DOPPLER: YES COLOR FLOW: YES TDS: YES PORTABLE: NO DEFINITY: NO BUBBLE STUDY: NO DIAGNOSIS: SYNCOPE CARDIAC HISTORY: CATHERIZATION: NO SURGERY: NO PROSTHETIC VALVE: NO PACEMAKER: NO MEASUREMENTS (cm) DIASTOLIC (NORMALS) SYSTOLIC (NORMALS) IVSd 0.7 (0.6-1.2) LA Diam (1.9-4.0) LVEF 65% LVIDd 3.2 (3.5-5.7) LVIDs 2.1 (2.0-3.5) %FS 35% LVPWd 0.6 (0.6-1.2) Ao Diam 2.4 (2.0-3.7) 2 DIMENSIONAL ASSESSMENT: RIGHT ATRIUM: NORMAL LEFT ATRIUM: NORMAL RIGHT VENTRICLE: NORMAL LEFT VENTRICLE: NORMAL TRICUSPID VALVE: NORMAL MITRAL VALVE: NORMAL PULMONIC VALVE: NORMAL AORTIC VALVE: NORMAL PERICARDIAL EFFUSION: NONE AORTIC ROOT: NORMAL LEFT VENTRICULAR WALL MOTION: NORMAL. DOPPLER/COLOR FLOW: IMPAIRED LEFT VENTRICULAR RELAXATION. COMMENTS: NORMAL 2D ECHO. IMPAIRED LEFT VENTRICULAR RELAXATION. TECHNOLOGIST: ANSON DIAZ
--- NOTE | 2019-07-08 15:35 | RAD REPORT ---
EXAM DESCRIPTION: CT - Neck Angio - 07/08/2019 3:18 pm CLINICAL HISTORY: left carotid stenosisabnormal carotid ultrasound study TECHNIQUE: During dynamic enhancement using nonionic IV contrast, axial 2 mm thick images of the nec k were obtained. Sagittal and axial reconstruction images were generated using MIP technique and revi ewed. All CT scans are performed using dose optimization technique as appropriate and may include automated exposure control or mA/KV adjustment according to patient size. COMPARISON: Carotid ultrasound July 08 FINDINGS: No aneurysm or vascular malformation identified. No carotid or vertebral dissection. No aortic arch or great vessel origin abnormality seen. Vertebral artery origins unremarkable as well . No stenosis, vasculitis or other significant vertebral artery finding. Right-sided carotid vasculat ure shows no significant finding. Mid common carotid artery on the left shows approximately 50- 60% s tenosis. This matches the intimal thickening pattern seen at sonography. Internal carotid stenosis is less pronounced on CT angiography compared to ultrasound. Left internal carotid artery stenosis is l ess than 50%. IMPRESSION: Approximately 50-60% stenosis in the midportion left common carotid artery matching the intimal thickening pattern seed on sonography. The left internal carotid artery stenosis seen at sonography is much less evident on CT imaging. CT s tenosis does not exceed 50%.
--- NOTE | 2019-07-09 13:28 | DS ---
Date of service: 07/08/2019 Admitting Diagnoses: 1. Syncope and collapse. 2. Urinary tract infections. 3. Benign prostatic hyperplasia. 4. Lung cancer. Discharge Diagnoses: 1. Syncope and collapse. 2. Urinary tract infection. 3. Benign prostatic hyperplasia. 4. Lung cancer. 5. Left carotid artery disease. Hospital Course: Patient is a 74-year-old male, who was recently discharged from [facility] with hyponatremia and BPH, had a Millan catheter placed for past 2-1/2 weeks, comes in with syncopal episode, which was witnessed. This was thought to be due to dehydration as the patient was on a fluid restriction as well as orthostatic hypotension. The patient's Millan catheter was discontinued on admission. He will undergo a voiding trial. Patient's orthostatic vital signs were positive. Patient did have recent chemotherapy and is neutropenic. Patient's workup for his syncope including carotid artery ultrasound showed left common carotid and internal carotid disease, therefore curbside evaluation by neurologist, Dr. Bernal, I recommended 4-vessel angiogram and possible intervention, therefore transfer work was initiated to [facility]. I spoke with Dr. Ruggiero, with Cardiothoracic Surgery, who accepted the patient to be admitted under hospitalist service at [facility]. I spoke with the hospitalist, who also accepted the patient. patient will be transferred to [facility] pending bed availability for now we will continue treatment for his UTI. Cultures are pending. Physical Examination: General: Awake, alert, oriented, elderly male, in some mild distress. CV: S1, S2. Respiratory: Moving air well bilaterally. Abdomen: Abdomen is soft, nontender, nondistended. Positive bowel sounds. Extremities: No clubbing, cyanosis, or edema. Neurologic: Nonfocal. Total time spent transferring the patient was 41 minutes. SA/MODTereza Voice ID: [id number] Report ID: [id number]
== END 2019-07-08 23:45 | disposition short-term general hospital (02) ==
LOC: ER 17:04 → ERHOLD 21:46 → 2ND 22:35
PROVIDERS: ADMIT Internal Medicine; ATTEND Internal Medicine
DX: R55 Syncope and collapse (principal); I77.89 Other specified disorders of arteries and arterioles; E87.6 Hypokalemia; T83.511A Infection and inflammatory reaction due to indwelling urethral catheter, initial encounter; N39.0 Urinary tract infection, site not specified; N40.0 Benign prostatic hyperplasia without lower urinary tract symptoms; C34.90 Malignant neoplasm of unspecified part of unspecified bronchus or lung; I45.10 Unspecified right bundle-branch block
CPT/HCPCS: 96361; 93005; 93306; 87040 ×2; 87088; 85025 ×2; 87086; 80048 ×2; 36415 ×2; 83735 ×2; 85610; 80076; 83605 ×3; 84443; 87077; 87186; 84484 ×4; 84145; 83880; 70450; 71275; 70498; 71045; 93880; 97112; 97116; 97161; 94640; 94760 ×3; 96360; 99285; Q9967 ×2; J1650; J0696 ×2; J7030 ×3; G0378 ×2; 81003; 81015

== ENCOUNTER 2019-07-31 09:28 | Emergency (ER) | payer OTHER ==
--- OUTSIDE RECORDS SUMMARY | 2019-07-31 09:31 | XMS REPORT | Clinical Summary ---
:1945 Author Organization [facility] Address [address] [place] [address] Care Team Providers Name Role Phone Pcp, [...] by Cap 24 hr capsule mouth daily. finasteride Take 1 tablet (5 90 tablet [...] mg total) by 9 tablet mouth daily. sodium chloride 1 Take 2 tablets (2 120 tablet 0 06/25/2019 Discontinued gram tablet g total) by mouth 9 2 (two) times daily for 30 days. ondansetron Take 1 tablet (4 30 tablet 0 06/25/2019 (ZOFRAN) 4 MG mg total) by 9 tablet mouth 2 (two) times daily as needed for Nausea for up to 7 days. furosemide Take 1 tablet (40 90 tablet 0 06/26/2019 Discontinued (LASIX) 40 MG mg total) by 9 tablet mouth daily. Active Problems Problem Noted Date Syncope and collapse 07/09/2019 Syncope, non cardiac 07/09/2019 Acute hyponatremia 06/20/2019 Failure to thrive in adult 06/19/2019 Small cell lung cancer in adult 05/04/2019 Pneumonia 04/30/2019 Encounters Date Type Specialty Care Team Description 07/09/2019 [facility] Erica Grimm, Syncope, non cardiac - Encounter 07/10/2019 Nancy Richter MD 07/08/2019 Telephone Internal Medicine Erica Grimm, transfer 06/26/2019 Orders Only Internal Medicine Tj Salazar MD 06/19/2019 Hospital Oncology Kiran Rees, Failure to thrive in adult (Primary Dx); - Encounter Non-intractable vomiting with nausea, unspecified vomiting type; 06/25/2019 Nancy Richter Weakness; PMD Jamila Wheezing; Tj Salazar MD Confusion; Nick Howardophashlie Weight loss; MD Kwadwo Small cell lung cancer in adult (HCC); Liver metastases (HCC); Acute hyponatremia; Urinary retention 06/19/2019 Travel 05/01/2019 Surgery Jarrod Carroll, BRONCHOSCOPY,ENDOBRONC MD HIAL ULTRASOUND (EBUS) TRANSTRACH/ TRANSBRONCH SAMPLING 05/01/2019 Anesthesia Event Cameron Gretalorenzo Orellana, APOLLO 04/30/2019 Travel 04/29/2019 Hospital Oncology Jazzy Persaud, Small cell lung cancer in adult (HCC) (Primary Dx); - Encounter MD Valente Postobstructive pneumonia; 05/07/2019 Adriana Dorantes MD Lung mass; Trinity Sorensen Collapse of right lung MD Deirdre 04/29/2019 Telephone Critical Care Jazzy Persaud Transfer Medicine MD Valente 04/29/2019 Telephone Critical Care Jazzy Persaud, transfer Medicine MD Valente after 07/30/2018 Immunizations Name Dates Previously Given Next Due [...] Vital Sign Reading Time Taken Blood Pressure 131/59 07/10/2019 8:00 AM CDT Pulse 97 07/10/2019 8:00 AM CDT Temperature 36.1 C (97 F) 07/10/2019 8:00 AM CDT Respiratory Rate 18 07/10/2019 8:00 AM CDT Oxygen Saturation 100% 07/10/2019 8:00 AM CDT Inhaled Oxygen Concentration - - Weight 56.2 kg (124 lb) 07/09/2019 1:02 AM CDT Height 162.6 cm (5' 4") 06/22/2019 5:00 PM CDT Body Mass Index 21.28 07/09/2019 1:02 AM CDT Plan of Treatment Not on file Procedures Procedure Name Priority Date/Time Associated Comments Diagnosis REPORT OF PROCEDURE 07/11/2019 2:00 PM - ENDOSCOPY SCAN CDT RHYTHM STRIP - SCAN 07/11/2019 2:00 PM CDT PERIPHERAL VASCULAR 07/09/2019 9:22 PM REPORT - SCAN CDT CAROTID DOPPLER Routine 07/09/2019 2:23 PM Results for this BILATERAL CDT procedure are in the results section. ECG 12-LEAD Routine 07/09/2019 12:26 PM CDT Procedure Note - Interface, External Ris In - 07/09/2019 12:34 PM CDT Ventricular Rate 78 BPM Atrial Rate 78 BPM P-R Interval 124 ms QRS Duration 122 ms Q-T Interval 374 ms QTC Calculation(Bazett) 426 ms P [place] 68 degrees R [place] 16 degrees T [place] 45 degrees Normal sinus rhythm Right bundle branch block Abnormal ECG No previous ECGs available ECG 12-LEAD Routine 07/09/2019 12:26 PM Results for this CDT procedure are in the results section. URINALYSIS WITH Routine 07/09/2019 11:33 AM Results for this MICROSCOPIC IF INDICATED CDT procedure are in the results section. BASIC METABOLIC PANEL (7) KATIA 07/09/2019 9:25 AM Results for this CDT procedure are in the results section. (CELLAVISION MANUAL DIFF) Routine 07/09/2019 2:12 AM Results for this CDT procedure are in the results section. CBC W/PLT COUNT & AUTO Routine 07/09/2019 2:12 AM Results for this DIFFERENTIAL CDT procedure are in the results section. COMPREHENSIVE METABOLIC Routine 07/09/2019 2:12 AM Results for this PANEL CDT procedure are in the results section. CBC W/PLT COUNT & AUTO Routine 07/09/2019 2:12 AM Results for this DIFFERENTIAL CDT procedure are in the results section. RHYTHM STRIP - SCAN 06/27/2019 11:00 AM CDT BASIC METABOLIC PANEL (7) Routine 06/25/2019 8:16 AM Results for this CDT procedure are in the results section. SODIUM Routine 06/25/2019 12:21 AM Results for this CDT procedure are in the results section. SODIUM Routine 06/24/2019 6:04 PM Results for this CDT procedure are in the results section. CBC W/PLT COUNT & AUTO Routine 06/24/2019 11:12 AM Results for this DIFFERENTIAL CDT procedure are in the results section. CBC W/PLT COUNT & AUTO Routine 06/24/2019 11:12 AM Results for this DIFFERENTIAL CDT procedure are in the results section. COMPREHENSIVE METABOLIC Routine 06/24/2019 11:12 AM Results for this PANEL CDT procedure are in the results section. SODIUM Routine 06/24/2019 6:02 AM Results for this CDT procedure are in the results section. SODIUM Routine 06/24/2019 1:34 AM Results for this CDT procedure are in the results section. SODIUM Routine 2019 6:39 PM Results for this CDT procedure are in the results section. SODIUM Routine 2019 12:28 PM Results for this CDT procedure are in the results section. URIC ACID Routine 2019 5:38 AM Results for this CDT procedure are in the results section. COMPREHENSIVE METABOLIC Routine 2019 5:38 AM Results for this PANEL CDT procedure are in the results section. SODIUM Routine 2019 1:05 AM Results for this CDT procedure are in the results section. MAGNESIUM Routine 06/22/2019 8:44 PM Results for this CDT procedure are in the results section. SODIUM Routine 06/22/2019 8:44 PM Results for this CDT procedure are in the results section. SODIUM Routine 06/22/2019 6:06 PM Results for this CDT procedure are in the results section. SODIUM Routine 06/22/2019 12:21 PM Results for this CDT procedure are in the results section. CBC W/PLT COUNT & AUTO Routine 06/22/2019 5:18 AM Results for this DIFFERENTIAL CDT procedure are in the results section. CBC W/PLT COUNT & AUTO Routine 06/22/2019 5:18 AM Results for this DIFFERENTIAL CDT procedure are in the results section. BASIC METABOLIC PANEL (7) Routine 06/22/2019 5:18 AM Results for this CDT procedure are in the results section. CT ABDOMEN/PELVIS WITH IV Routine 06/22/2019 3:26 AM Results for this CONTRAST CDT procedure are in the results section. CT CHEST WITH IV CONTRAST Routine 06/22/2019 3:26 AM Results for this CDT procedure are in the results section. MR BRAIN WITH & WITHOUT IV Routine 06/21/2019 9:36 PM Results for this CONTRAST CDT procedure are in the results section. SODIUM Timed 06/21/2019 10:30 AM Results for this CDT procedure are in the results section. URIC ACID, RANDOM URINE Routine 06/21/2019 4:00 AM Results for this CDT procedure are in the results section. CBC W/PLT COUNT & AUTO Routine 06/21/2019 3:58 AM Results for this DIFFERENTIAL CDT procedure are in the results section. CORTISOL Timed 06/21/2019 3:58 AM Results for this CDT procedure are in the results section. TSH Routine 06/21/2019 3:58 AM Results for this CDT procedure are in the results section. CBC W/PLT COUNT & AUTO Routine 06/21/2019 3:58 AM Results for this DIFFERENTIAL CDT procedure are in the results section. BASIC METABOLIC PANEL (7) Routine 06/21/2019 3:58 AM Results for this CDT procedure are in the results section. TROPONIN I STAT 06/21/2019 3:58 AM Results for this CDT procedure are in the results section. SODIUM Timed 06/20/2019 9:36 PM Results for this CDT procedure are in the results section. URIC ACID Routine 06/20/2019 9:36 PM Results for this CDT procedure are in the results section. OSMOLALITY, URINE Routine 06/20/2019 2:49 PM Results for this CDT procedure are in the results section. CREATININE, RANDOM URINE Routine 06/20/2019 2:49 PM Results for this CDT procedure are in the results section. POTASSIUM, RANDOM URINE Routine 06/20/2019 2:49 PM Results for this CDT procedure are in the results section. SODIUM, RANDOM URINE Routine 06/20/2019 2:49 PM Results for this CDT procedure are in the results section. BASIC METABOLIC PANEL (7) STAT 06/20/2019 2:30 PM Results for this CDT procedure are in the results section. OSMOLALITY, SERUM Routine 06/20/2019 2:30 PM Results for this CDT procedure are in the results section. TROPONIN I Routine 06/20/2019 2:30 PM Results for this CDT procedure are in the results section. CBC W/PLT COUNT & AUTO Routine 06/20/2019 4:54 AM Results for this DIFFERENTIAL CDT procedure are in the results section. CBC W/PLT COUNT & AUTO Routine 06/20/2019 4:54 AM Results for this DIFFERENTIAL CDT procedure are in the results section. BASIC METABOLIC PANEL (7) Routine 06/20/2019 4:54 AM Results for this CDT procedure are in the results section. TROPONIN I Routine 06/20/2019 4:54 AM Results for this CDT procedure are in the results section. POCT-GLUCOSE METER Routine 06/20/2019 12:16 AM Results for this CDT procedure are in the results section. CBC W/PLT COUNT & AUTO STAT 06/19/2019 8:23 PM Results for this DIFFERENTIAL CDT procedure are in the results section. URINALYSIS MICROSCOPIC Routine 06/19/2019 8:23 PM Results for this CDT procedure are in the results section. URINALYSIS WITH STAT 06/19/2019 8:23 PM Results for this MICROSCOPIC IF INDICATED CDT procedure are in the results section. LIPASE STAT 06/19/2019 8:23 PM Results for this CDT procedure are in the results section. HEPATIC FUNCTION PANEL STAT 06/19/2019 8:23 PM Results for this CDT procedure are in the results section. BASIC METABOLIC PANEL (7) STAT 06/19/2019 8:23 PM Results for this CDT procedure are in the results section. PT/APTT STAT 06/19/2019 8:23 PM Results for this CDT procedure are in the results section. CBC W/PLT COUNT & AUTO STAT 06/19/2019 8:23 PM Results for this DIFFERENTIAL CDT procedure are in the results section. CT BRAIN WITHOUT IV STAT 06/19/2019 7:15 PM Results for this CONTRAST CDT procedure are in the results section. ED ECG INTERPRETATION Routine 06/19/2019 6:44 PM Results for this CDT procedure are in the results section. RHYTHM STRIP - SCAN 05/08/2019 10:33 AM CDT REPORT OF PROCEDURE - 05/08/2019 10:33 AM ENDOSCOPY SCAN CDT BASIC METABOLIC PANEL (7) Routine 05/07/2019 5:07 AM Results for this CDT procedure are in the results section. URIC ACID Routine 05/07/2019 5:07 AM Results for this CDT procedure are in the results section. PHOSPHORUS Routine 05/07/2019 5:07 AM Results for this CDT procedure are in the results section. HEPATIC FUNCTION PANEL Routine 05/07/2019 5:07 AM Results for this CDT procedure are in the results section. MAGNESIUM Routine 05/07/2019 5:07 AM Results for this CDT procedure are in the results section. CBC (HEMOGRAM ONLY) Routine 05/07/2019 5:07 AM Results for this CDT procedure are in the results section. URIC ACID Routine 05/06/2019 10:42 PM Results for this CDT procedure are in the results section. PHOSPHORUS Routine 05/06/2019 10:42 PM Results for this CDT procedure are in the results section. BASIC METABOLIC PANEL (7) Routine 05/06/2019 10:42 PM Results for this CDT procedure are in the results section. XR CHEST 1 VIEW Routine 05/06/2019 1:43 PM Results for this PORTABLE/BEDSIDE CDT procedure are in the results section. BASIC METABOLIC PANEL (7) Routine 05/06/2019 12:45 PM Results for this CDT procedure are in the results section. URIC ACID Routine 05/06/2019 12:45 PM Results for this CDT procedure are in the results section. PHOSPHORUS Routine 05/06/2019 12:45 PM Results for this CDT procedure are in the results section. HEPATIC FUNCTION PANEL Routine 05/06/2019 4:13 AM Results for this CDT procedure are in the results section. MAGNESIUM Routine 05/06/2019 4:13 AM Results for this CDT procedure are in the results section. CBC (HEMOGRAM ONLY) Routine 05/06/2019 4:13 AM Results for this CDT procedure are in the results section. BASIC METABOLIC PANEL (7) Routine 05/06/2019 4:13 AM Results for this CDT procedure are in the results section. URIC ACID Routine 05/06/2019 4:13 AM Results for this CDT procedure are in the results section. PHOSPHORUS Routine 05/06/2019 4:13 AM Results for this CDT procedure are in the results section. BASIC METABOLIC PANEL (7) Routine 05/05/2019 9:32 PM Results for this CDT procedure are in the results section. URIC ACID Routine 05/05/2019 9:32 PM Results for this CDT procedure are in the results section. PHOSPHORUS Routine 05/05/2019 9:32 PM Results for this CDT procedure are in the results section. BASIC METABOLIC PANEL (7) Routine 05/05/2019 1:05 PM Results for this CDT procedure are in the results section. URIC ACID Routine 05/05/2019 1:05 PM Results for this CDT procedure are in the results section. PHOSPHORUS Routine 05/05/2019 1:05 PM Results for this CDT procedure are in the results section. HEPATIC FUNCTION PANEL Routine 05/05/2019 4:24 AM Results for this CDT procedure are in the results section. MAGNESIUM Routine 05/05/2019 4:24 AM Results for this CDT procedure are in the results section. CBC (HEMOGRAM ONLY) Routine 05/05/2019 4:24 AM Results for this CDT procedure are in the results section. BASIC METABOLIC PANEL (7) Routine 05/05/2019 4:24 AM Results for this CDT procedure are in the results section. URIC ACID Routine 05/05/2019 4:24 AM Results for this CDT procedure are in the results section. PHOSPHORUS Routine 05/05/2019 4:24 AM Results for this CDT procedure are in the results section. BASIC METABOLIC PANEL (7) Routine 05/04/2019 5:45 PM Results for this CDT procedure are in the results section. URIC ACID Routine 05/04/2019 5:45 PM Results for this CDT procedure are in the results section. PHOSPHORUS Routine 05/04/2019 5:45 PM Results for this CDT procedure are in the results section. (MANUAL DIFFERENTIAL) Routine 05/04/2019 5:19 AM Results for this CDT procedure are in the results section. HEPATIC FUNCTION PANEL Routine 05/04/2019 5:19 AM Results for this CDT procedure are in the results section. MAGNESIUM Routine 05/04/2019 5:19 AM Results for this CDT procedure are in the results section. BASIC METABOLIC PANEL (7) Routine 05/04/2019 5:19 AM Results for this CDT procedure are in the results section. CBC (HEMOGRAM ONLY) Routine 05/04/2019 5:19 AM Results for this CDT procedure are in the results section. MR BRAIN WITH & WITHOUT IV KATIA 05/03/2019 9:46 PM Results for this CONTRAST CDT procedure are in the results section. NM BONE SCAN WHOLE BODY Routine 05/03/2019 4:15 PM Results for this CDT procedure are in the results section. MAGNESIUM Routine 05/03/2019 5:41 AM Results for this CDT procedure are in the results section. BASIC METABOLIC PANEL (7) Routine 05/03/2019 5:41 AM Results for this CDT procedure are in the results section. CBC (HEMOGRAM ONLY) Routine 05/03/2019 5:41 AM Results for this CDT procedure are in the results section. CT CHEST WITH IV CONTRAST Routine 05/02/2019 9:27 PM Results for this CDT procedure are in the results section. CT ABDOMEN/PELVIS WITH IV Routine 05/02/2019 9:27 PM Results for this CONTRAST CDT procedure are in the results section. TRANSFUSION SERVICE REPORT 05/02/2019 6:00 PM - SCAN CDT MAGNESIUM Routine 05/02/2019 5:35 AM Results for this CDT procedure are in the results section. BASIC METABOLIC PANEL (7) Routine 05/02/2019 5:35 AM Results for this CDT procedure are in the results section. CBC (HEMOGRAM ONLY) Routine 05/02/2019 5:35 AM Results for this CDT procedure are in the results section. PHOSPHORUS Routine 05/02/2019 5:35 AM Results for this CDT procedure are in the results section. REPORT OF PROCEDURE - 05/01/2019 3:48 PM ENDOSCOPY URL CDT FLOW CYTOMETRY REQUISITION Routine 05/01/2019 3:35 PM Results for this CDT procedure are in the results section. FLOW CYTOMETRY Routine 05/01/2019 3:35 PM Results for this CDT procedure are in the results section. EBUS FNA REQUEST Routine 05/01/2019 3:23 PM Results for this CDT procedure are in the results section. FINE NEEDLE ASPIRATE BY AP Routine 05/01/2019 3:23 PM Results for this EBUS CDT procedure are in the results section. EBUS FNA REQUEST Routine 05/01/2019 3:09 PM Results for this CDT procedure are in the results section. FINE NEEDLE ASPIRATE BY AP Routine 05/01/2019 3:09 PM Results for this EBUS CDT procedure are in the results section. AFB CULTURE + SMEAR Routine 05/01/2019 2:58 PM Results for this CDT procedure are in the results section. SURGICALLY OBTAINED Routine 05/01/2019 2:58 PM Results for this CULTURE + GRAM STAIN CDT procedure are in the results section. FUNGUS CULTURE + SMEAR Routine 05/01/2019 2:58 PM Results for this CDT procedure are in the results section. CYTOLOGY REQUEST Routine 05/01/2019 2:58 PM Results for this CDT procedure are in the results section. SPIN/CONCENTRATION CHARGE Routine 05/01/2019 2:58 PM Results for this CDT procedure are in the results section. CYTOLOGY AP Routine 05/01/2019 2:58 PM Results for this CDT procedure are in the results section. EBUS FNA REQUEST Routine 05/01/2019 2:57 PM Results for this CDT procedure are in the results section. EBUS FNA REQUEST Routine 05/01/2019 2:57 PM Results for this CDT procedure are in the results section. FINE NEEDLE ASPIRATE BY AP Routine 05/01/2019 2:57 PM Results for this EBUS CDT procedure are in the results section. FINE NEEDLE ASPIRATE BY AP Routine 05/01/2019 2:57 PM Results for this EBUS CDT procedure are in the results section. BRONCHOSCOPY,ASPIRATION 05/01/2019 2:15 PM Lung mass TRACHEOBRONCHIAL TREE CDT Case Notes 3 HRS Special Needs [...] CULTURE Routine 04/30/2019 3:13 AM CDT after 07/30/2018 Results EKG-SCANNED (07/11/2019 2:00 PM CDT)Only the most recent of2 resultswithin the time period is included. Narrative Performed At RHYTHM STRIP - SCAN (07/11/2019 2:00 PM CDT)Only the most recent of3 resultswithin the time period is included. Narrative Performed At PERIPHERAL VASCULAR REPORT - SCAN (07/09/2019 9:22 PM CDT) Narrative Performed At Carotid Doppler Bilateral (07/09/2019 2:23 PM CDT) Ejection Fraction [facility] Specimen Impressions Performed At Right Impression [facility] 1. There is <50% diameter reduction (approximately 28% by 2-D measurement) in the internal carotid artery with a peak velocity of 123 cm/sec and heterogeneous plaque. 2. There is non-occluding plaque in the external carotid artery. 3. There is non-occluding plaque in the common carotid artery. 4. The vertebral artery flow is antegrade and normal. 5. The subclavian artery is within normal limits where visualized. Left Impression 1. There is <50% diameter reduction (approximately 28% by 2-D measurement) in the internal carotid artery with a peak velocity of 108 cm/sec and heterogeneous plaque. 2. There is non-occluding plaque in the external carotid artery. 3. There is non-occluding plaque in the common carotid artery and an elevated velocity at mid of 226 cm/sec. 4. The vertebral artery flow is antegrade and normal. 5. The subclavian artery is within normal limits where visualized. Conclusions Summary Carotid duplex scanning and color flow imaging were performed bilaterally. The arteries were adequately visualized. The bilateral internal carotid arteries had <50% hemodynamically insignificant stenosis (approximately 28% by 2-D measurement on the right, approximately 28% by 2-D measurement on the left) with heterogeneous plaque. There was an elevated velocity in the mid common carotid artery. The vertebral artery flow was antegrade and normal bilaterally. The subclavian arteries were patent with normal flow bilaterally where visualized. Signature Velocities are measured in cm/s ; Diameters are measured in cm Carotid Right Measurements + +----+----+-----+ +---- + + !Location !PSV !EDV !Angle!%Stenosis 2D!%Stenosis Doppler!Tortuosity ! + +----+----+-----+ +---- + + !Prox CCA !125 !19.9!60 !! ! ! + +----+----+-----+ +---- + + !Dist CCA !133 !29.5!60 !! ! ! + +----+----+-----+ +---- + + !Prox ICA !121 !12.1!60 !! ! ! + +----+----+-----+ +---- + + !Dist ICA !123 !28.6!60 !! ! ! + +----+----+-----+ +---- + + !Prox ECA !133 !14.7!60 !! ! ! + +----+----+-----+ +---- + + !Vertebral!98.8!25.1!60 !! ! ! + +----+----+-----+ +---- + + !Prox Subclavian!149 !0 !60 !! ! ! + +----+----+-----+ +---- + + - There is antegrade vertebral flow noted on the right side. - Additional Measurements:ICAPSV/CCAPSV 0.92.ICAEDV/CCAEDV 1.44. Carotid Left Measurements + +----+----+-----+ +---- + + !Location !PSV !EDV !Angle!%Stenosis 2D!%Stenosis Doppler!Tortuosity ! + +----+----+-----+ +---- + + !Prox CCA !133 !25.2!60 !! ! ! + +----+----+-----+ +---- + + !Mid CCA!226 !49.4!60 !! ! ! + +----+----+-----+ +---- + + !Dist CCA !167 !27.4!60 !! ! ! + +----+----+-----+ +---- + + !Prox ICA !108 !19.4!60 !! ! ! + +----+----+-----+ +---- + + !Dist ICA !105 !32!60 !! ! ! + +----+----+-----+ +---- + + !Prox ECA !112 !0 !60 !! ! ! + +----+----+-----+ +---- + + !Vertebral!53.4!18.6!60 !! ! ! + +----+----+-----+ +---- + + !Prox Subclavian!137 !0 !60 !! ! ! + +----+----+-----+ +---- + + - There is antegrade vertebral flow noted on the left side. - Additional Measurements:ICAPSV/CCAPSV 0.65.ICAEDV/CCAEDV 1.27. Narrative Performed At [facility] - Carotid Duplex Study [facility] Demographics Patient NameGreg ISLAS of Study 07/09/2019 HAKEEM Age 74 Visit [id number] GenderMale Date of 1945 Referring Nancy Richter,Room Number 1118 Physician Landfill [employer] Technician Viv Unger [facility] Jill Kumar Physician Procedure Type of Study: Cerebral: Carotid, CAROTID DOPPLER, BILATERAL. Indications for Study:Evaluate for carotid stenosis . Patient Status:TODAY. Study Location:Vascular Lab. Technical Quality:Adequate visualization. Risk Factors History of Disease + +----+ + !Diagnosis !Date!Comments ! + +----+ + !History/Risk Factors: !!lung cancer, syncope, htn ! 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 Indications for Study:Evaluate for carotid stenosis . Patient Status:TODAY. Study Location:Vascular Lab. Technical Quality:Adequate visualization. Risk Factors History of Disease + +----+ + !Diagnosis !Date!Comments ! + +----+ + !History/Risk Factors: ! !lung cancer, syncope, htn ! + +----+ + Impressions Right Impression 1. There is <50% diameter reduction (approximately 28% by 2-D measurement) in the internal carotid artery with a peak velocity of 123 cm/sec and heterogeneous plaque. 2. There is non-occluding plaque in the external carotid artery. 3. There is non-occluding plaque in the common carotid artery. 4. The vertebral artery flow is antegrade and normal. 5. The subclavian artery is within normal limits where visualized. Left Impression 1. There is <50% diameter reduction (approximately 28% by 2-D measurement) in the internal carotid artery with a peak velocity of 108 cm/sec and heterogeneous plaque. 2. There is non-occluding plaque in the external carotid artery. 3. There is non-occluding plaque in the common carotid artery and an elevated velocity at mid of 226 cm/sec. 4. The vertebral artery flow is antegrade and normal. 5. The subclavian artery is within normal limits where visualized. Conclusions Summary Carotid duplex scanning and color flow imaging were performed bilaterally. The arteries were adequately visualized. The bilateral internal carotid arteries had <50% hemodynamically insignificant stenosis (approximately 28% by 2-D measurement on the right, approximately 28% by 2-D measurement on the left) with heterogeneous plaque. There was an elevated velocity in the mid common carotid artery. The vertebral artery flow was antegrade and normal bilaterally. The subclavian arteries were patent with normal flow bilaterally where visualized. Signature Velocities are measured in cm/s ; Diameters are measured in cm Carotid Right Measurements + +----+----+-----+ + + + !Location !PSV !EDV !Angle!%Stenosis 2D!%Stenosis Doppler!Tortuosity ! + +----+----+-----+ + + + !Prox CCA !125 !19.9!60 ! ! ! ! + +----+----+-----+ + + + !Dist CCA !133 !29.5!60 ! ! ! ! + +----+----+-----+ + + + !Prox ICA !121 !12.1!60 ! ! ! ! + +----+----+-----+ + + + !Dist ICA !123 !28.6!60 ! ! ! ! + +----+----+-----+ + + + !Prox ECA !133 !14.7!60 ! ! ! ! + +----+----+-----+ + + + !Vertebral !98.8!25.1!60 ! ! ! ! + +----+----+-----+ + + + !Prox Subclavian!149 !0 !60 ! ! ! ! + +----+----+-----+ + + + - There is antegrade vertebral flow noted on the right side. - Additional Measurements:ICAPSV/CCAPSV 0.92.ICAEDV/CCAEDV 1.44. Carotid Left Measurements + +----+----+-----+ + + + !Location !PSV !EDV !Angle!%Stenosis 2D!%Stenosis Doppler!Tortuosity ! + +----+----+-----+ + + + !Prox CCA !133 !25.2!60 ! ! ! ! + +----+----+-----+ + + + !Mid CCA !226 !49.4!60 ! ! ! ! + +----+----+-----+ + + + !Dist CCA !167 !27.4!60 ! ! ! ! + +----+----+-----+ + + + !Prox ICA !108 !19.4!60 ! ! ! ! + +----+----+-----+ + + + !Dist ICA !105 !32 !60 ! ! ! ! + +----+----+-----+ + + + !Prox ECA !112 !0 !60 ! ! ! ! + +----+----+-----+ + + + !Vertebral !53.4!18.6!60 ! ! ! ! + +----+----+-----+ + + + !Prox Subclavian!137 !0 !60 ! ! ! ! + +----+----+-----+ + + + - There is antegrade vertebral flow noted on the left side. - Additional Measurements:ICAPSV/CCAPSV 0.65.ICAEDV/CCAEDV 1.27. Performing Organization Address City/[facility] CenterNovihum Technologiesri Phone Number [facility] MKCKESSON CPACS ECG 12 lead (07/09/2019 12:26 PM CDT) Specimen Narrative Performed At Ventricular Rate 78 BPM GE MUSE Atrial Rate 78 BPM P-R Interval 124 ms QRS Duration 122 ms Q-T Interval 374 ms QTC Calculation(Bazett) 426 ms P [place] 68 degrees R [place] 16 degrees T [place] 45 degrees Normal sinus rhythm Right bundle branch block Abnormal ECG No previous ECGs available Confirmed by MD ALEX, IFEOMA ([id number]) on 07/09/2019 1:13:13 PM Procedure Note Interface, External Ris In - 07/09/2019 1:13 PM CDT Ventricular Rate 78 BPM Atrial Rate 78 BPM P-R Interval 124 ms QRS Duration 122 ms Q-T Interval 374 ms QTC Calculation(Bazett) 426 ms P [place] 68 degrees R [place] 16 degrees T [place] 45 degrees Normal sinus rhythm Right bundle branch block Abnormal ECG No previous ECGs available Confirmed by MD JOHNSON YOCHAI ([id number]) on 07/09/2019 1:13:13 PM Performing Organization Address City/[facility] Phone Number [employer] MUSE Urinalysis with Microscopic If Indicated (07/09/2019 11:33 AM CDT)Only the most recent of2 resultswithin the time period is included. Color, UA Light Yellow [facility] Clarity, UA Clear [facility] Specific [place], UA 1.013 1.001 - 1.035 [facility] pH, UA 7.5 5.0 - 8.0 [facility] Protein, UA Negative Negative [facility] Glucose, UA Negative Negative [facility] Ketones, UA Negative Negative [facility] Bilirubin, UA Negative Negative [facility] Blood, UA Negative Negative [facility] Nitrite, UA Negative Negative [facility] Leukocytes, UA Negative Negative [facility] Urobilinogen, UA 0.2 0.2 - 1.0 mg/dL [facility] Specimen Source [facility] Specimen Urine Performing Organization Address City/State/Zipcode Phone Number [facility] [address] [place] [address] [phone] CENTER Basic Metabolic Panel (07/09/2019 9:25 AM CDT)Only the most recent of20 resultswithin the time period is included. Sodium 136 136 - 145 meq/L [facility] Potassium 3.9 3.5 - 5.1 meq/L [facility] Chloride 106 98 - 107 meq/L [facility] CO2 24 22 - 29 meq/L [facility] BUN 8 7 - 21 mg/dL [facility] Creatinine 0.69 0.57 - 1.25 mg/dL [facility] Glucose 106 (H) 70 - 105 mg/dL [facility] Calcium 8.6 8.4 - 10.2 mg/dL [facility] EGFR 136Comment: ESTIMATED GFR IS mL/min/1.[address] [facility] BCM NOT ACCURATE [facility] CLEARANCE IN PREDICTING GLOMERULAR FILTRATION RATE. ESTIMATED GFR IS NOT APPLICABLE FOR DIALYSIS PATIENTS. Specimen Blood Performing Organization Address City/State/Zipcode Phone Number [facility] [address] [place] [address] CENTER Manual Differential (07/09/2019 2:12 AM CDT)Only the most recent of2 resultswithin the time period is included. % Neutros 10 % [facility] % Lymphs 73 % [facility] % Monos 13 % [facility] % Eos 1 % [facility] % Baso 3 % [facility] # Neutros 0.22 (L) 1.78 - 5.38 K/ul [facility] # Lymphs 1.61 1.32 - 3.57 K/ul [facility] # Monos 0.29 (L) 0.30 - 0.82 K/uL [facility] # Eos 0.02 (L) 0.04 - 0.54 K/uL [facility] # Baso 0.07 0.01 - 0.08 K/uL [facility] Total Counted 100 [facility] nRBC (manual) 1 (H) 0 - 0 /100 WBC [facility] Smudge Cells Present [facility] Giant Platelet Present [facility] Schistocytes 1+ few [facility] Artifact Present [facility] Platelet Conc Adequate [facility] Specimen Blood Narrative Performed At Received comment: [facility] User comments: Slide comments: Performing Organization Address City/[facility]/Zipcode Phone Number [facility] [address] [place] [phone] CENTER CBC with platelet count + automated diff (07/09/2019 2:12 AM CDT)Only the most recent of7 resultswithin the time period is included. WBC 2.2 (L) 3.5 - 10.5 K/L [facility] RBC 3.32 (L) 4.63 - 6.08 M/L [facility] Hemoglobin 9.7 (L) 13.7 - 17.5 GM/DL [facility] Hematocrit 30.4 (L) 40.1 - 51.0 % [facility] MCV 91.6 79.0 - 92.2 fL [facility] MCH 29.2 25.7 - 32.2 pg [facility] MCHC 31.9 (L) 32.3 - 36.5 GM/DL [facility] RDW 17.0 (H) 11.6 - 14.4 % [facility] Platelets 205 150 - 450 K/CU MM [facility] MPV 8.6 (L) 9.4 - 12.4 fL [facility] nRBC 0 0 - 0 /100 WBC [facility] Specimen Blood Performing Organization Address City/State/Zipcode Phone Number [facility] [address] [place] [address] CENTER Comprehensive metabolic panel (07/09/2019 2:12 AM CDT)Only the most recent of3 resultswithin the time period is included. Protein, Total 6.3 6.0 - 8.3 gm/dL [facility] Albumin 3.4 (L) 3.5 - 5.0 g/dL [facility] Alkaline Phosphatase 61 40 - 150 U/L [facility] Total Bilirubin 0.2 0.2 - 1.2 mg/dL [facility] Sodium 137 136 - 145 meq/L [facility] Potassium 4.0 3.5 - 5.1 meq/L [facility] Chloride 106 98 - 107 meq/L [facility] CO2 24 22 - 29 meq/L [facility] BUN 10 7 - 21 mg/dL [facility] Creatinine 0.70 0.57 - 1.25 mg/dL [facility] Glucose 108 (H) 70 - 105 mg/dL [facility] Calcium 8.9 8.4 - 10.2 mg/dL [facility] AST 19 5 - 34 U/L [facility] ALT 22 6 - 55 U/L [facility] EGFR 134Comment: ESTIMATED mL/min/1.73 sq m [facility] GFR IS NOT ACCURATE [facility] CREATININE CLEARANCE IN PREDICTING GLOMERULAR FILTRATION RATE. ESTIMATED GFR IS NOT APPLICABLE FOR DIALYSIS PATIENTS. Specimen Blood Performing Organization Address City/[facility]/Zipcode Phone Number [address] [address] CENTER Sodium (06/25/2019 12:21 AM CDT)Only the most recent of12 resultswithin the time period is included. Sodium 128 (L) 136 - 145 meq/L [facility] Specimen Blood Performing Organization Address City/[facility]/Zipcode Phone Number [address] [address] [phone] CENTER Uric acid (2019 5:38 AM CDT)Only the most recent of10 resultswithin the time period is included. Uric Acid 2.0 (L) 2.6 - 7.2 mg/dL [facility] Specimen Blood Performing Organization Address [facility]/Zipcode Phone Number [address] [address] [phone] CENTER Magnesium (06/22/2019 8:44 PM CDT)Only the most recent of8 resultswithin the time period is included. Magnesium 1.8 1.6 - 2.6 mg/dL [facility] Specimen Blood Performing Organization Address City/State/Zipcode Phone Number [facility] [address] [place] [address] [phone] abdomen/pelvis with IV contrast (06/22/2019 3:26 AM CDT)Only the most recent of2 resultswithin the time period is included. Specimen Narrative Performed At FINAL REPORT [facility] CT Chest, abdomen, and pelvis with contrast [...] MD Report Verified Date/Time:06/22/2019 11:09:18 Reading Location: [facility] C013X Ortho Consult Reading Room Procedure Note [...] Report Verified Date/Time: 06/22/2019 11:09:18 Reading Location: [facility] C[address] [facility] Consult Reading Room Performing Organization Address City/State/Zipcode Phone Number [facility] CT chest with IV contrast (06/22/2019 3:26 AM CDT)Only the most recent of2 resultswithin the time period is included. Specimen Narrative Performed At FINAL REPORT [facility] CT Chest, abdomen, and pelvis with contrast [...] MD Report Verified Date/Time:06/22/2019 11:09:18 Reading Location: [facility] C[address] [facility] Consult Reading Room Procedure Note Interface, External [...] Report Verified Date/Time: 06/22/2019 11:09:18 Reading Location: [facility] C013X Ortho Consult Reading Room Performing Organization Address City/State/Zipcode Phone Number [phone] MR brain without & with IV contrast (06/21/2019 9:36 PM CDT)Only the most recent of2 resultswithin the time period is included. Specimen Narrative Performed At FINAL REPORT [facility] MRI brain with and without contrast Comparison:Brain MRI 05/03/2019. Reason for exam: reevaluate brain mets Technique: Multiplanar MR imaging of the brain was provided [id number] IV gadolinium administration using T1, T2, FLAIR, [...] MR imaging of the brain was provided [id number] IV gadolinium administration using T1, T2, FLAIR, [...] Verified Date/Time: 06/22/2019 03:45:55 Performing Organization Address City/[facility] Phone Number [facility] Uric acid, random urine (06/21/2019 4:00 AM CDT) Uric Acid, Urine 11.9 mg/dL [facility] Specimen Urine Narrative Performed At Reference Range: No Normals [facility] Performing Organization Address City/[facility] Cent[facility]ori Phone Number [address] [address] CENTER Cortisol (06/21/2019 3:58 AM CDT) Cortisol, Total 9.3 3.7 - 19.4 ug/dL [facility] Specimen Blood Performing Organization Address [facility] Phone Number [address] [address] CENTER Troponin I (06/21/2019 3:58 AM CDT)Only the most recent of3 resultswithin the time period is included. Troponin I <0.01 0.00 - 0.03 ng/mL [facility] Specimen Blood Narrative Performed At Troponin I (TnI) levels must be interpreted [facility] in the context of the presenting symptoms [...] disease, and persistent tachyarrhythmia. Performing Organization Address [facility] [place] [address] CENTER TSH (06/21/2019 3:58 AM CDT) TSH 1.67 0.35 - 4.94 uIU/mL [facility] Specimen Blood Performing Organization Address [facility] [address] [place] Sodium, random urine (06/20/2019 2:49 PM CDT) Sodium Urine 188 meq/L [facility] Specimen Urine Narrative Performed At Reference Range: No Normals [facility] Performing Organization Address [facility] [place] [address] [place] Potassium, random urine (06/20/2019 2:49 PM CDT) Potassium Urine 44.8 meq/L [facility] Specimen Urine Narrative Performed At Reference Range: No Normals [facility] Performing Organization Address [facility] Phone Number [address] [address] [place] Osmolality, urine (06/20/2019 2:49 PM CDT) Osmolality, Ur 631 40-1,400 mOsm/kg [facility] Specimen Urine Performing Organization Address [facility] Phone Number [address] [phone] [place] Creatinine, random urine (06/20/2019 2:49 PM CDT) Creatinine, Ur 67.1 mg/dL [facility] Specimen Urine Narrative Performed At Reference Range: No Normals [facility] Performing Organization Address [facility] Centercode Phone Number [address] [address] [place] Osmolality, serum (06/20/2019 2:30 PM CDT) Osmolality Serum 255 (L) 275 - 295 mOsm/kg [facility] Specimen Blood Performing Organization Address [facility]ori Phone Number [address] [address] [phone] [place] POC-Glucose meter (06/20/2019 12:16 AM CDT) POC-Glucose Meter 103Comment: TESTED AT 70 - 110 mg/dL [facility] [address] [place] [phone] Specimen Blood Performing Organization Address [facility] [place] [address] [place] Urinalysis Microscopic Only (06/19/2019 8:23 PM CDT) RBC, UA 0 /HPF [facility] WBC, UA <1 /HPF [facility] Mucus Occasional [facility] Specimen Urine Performing Organization Address [facility] Phone Number [address] [address] [place] PT/aPTT (06/19/2019 8:23 PM CDT) Protime 13.1 11.9 - 14.2 seconds [facility] INR 1.0 <=5.9 [facility] PTT 35.6 22.5 - 36.0 seconds [facility] Specimen Blood Narrative Performed At Effective 04/10/2019: PT Reference Range [facility] Change New: 11.9-14.2Previous: 11.7-14.7 RECOMMENDED COUMADIN/WARFARIN INR THERAPY RANGES STANDARD DOSE: 2.0-3.0Includes: PROPHYLAXIS for venous thrombosis, systemic embolization; TREATMENT for venous thrombosis and/or pulmonary embolus. HIGH RISK: Target INR is 2.5-3.5 for patients wiht mechanical heart valves. Performing Organization Address [facility] Cent[facility]ori Phone Number [address] [address] [phone] CENTER Lipase (06/19/2019 8:23 PM CDT) Lipase 38 8 - 78 U/L [facility] Specimen Blood Performing Organization Address [facility] Phone Number [address] [address] [place] Hepatic function panel (06/19/2019 8:23 PM CDT)Only the most recent of5 resultswithin the time period is included. Protein, Total 7.2 6.0 - 8.3 gm/dL [facility] Albumin 4.0 3.5 - 5.0 g/dL [facility] Total Bilirubin 0.5 0.2 - 1.2 mg/dL [facility] Bilirubin, Direct 0.2 0.1 - 0.5 mg/dL [facility] Alkaline Phosphatase 75 40 - 150 U/L [facility] AST 21 5 - 34 U/L [facility] ALT 19 6 - 55 U/L [facility] Specimen Blood Performing Organization Address [facility]ori Phone Number [address] brain without IV contrast (06/19/2019 7:15 PM CDT) Specimen Narrative Performed At FINAL REPORT [facility] CT, BRAIN, WITHOUT CONTRAST CLINICAL INDICATION:Confusion/delirium, [...] MD Report Verified Date/Time:06/19/2019 20:01:57 Reading Location: [address] Neuro Reading Room Procedure Note Interface, [...] Report Verified Date/Time: 06/19/2019 20:01:57 Reading Location: [address] Neuro Reading Room Performing Organization Address City/State/Zipcode Phone Number [facility] ECG/EKG Interpretation (06/19/2019 6:44 PM CDT) Narrative [...] immediate complications Comments: Sinus tachycardia on monitor CBC (Hemogram only) (05/07/2019 5:07 AM CDT)Only the most recent of7 resultswithin the time period is included. WBC 5.0 3.5 - 10.5 K/L [facility] RBC 3.42 (L) 4.63 - 6.08 M/L [facility] Hemoglobin 9.8 (L) 13.7 - 17.5 GM/DL [facility] Hematocrit 29.8 (L) 40.1 - 51.0 % [facility] MCV 87.1 79.0 - 92.2 fL [facility] MCH 28.7 25.7 - 32.2 pg [facility] MCHC 32.9 32.3 - 36.5 GM/DL [facility] RDW 16.6 (H) 11.6 - 14.4 % [facility] Platelets 559 (H) 150 - 450 K/CU MM [facility] MPV 8.9 (L) 9.4 - 12.4 fL [facility] nRBC 0 0 - 0 /100 WBC [facility] Specimen Blood Performing Organization Address City/[facility]/Zipcode Phone Number [address] [address] CENTER Phosphorus (05/07/2019 5:07 AM CDT)Only the most recent of10 resultswithin the time period is included. Phosphorus 3.4 2.3 - 4.7 mg/dL [facility] Specimen Blood Performing Organization Address City/[facility]/Zipcode Phone Number [address] [place] [address] CENTER XR chest 1 view portable / bedside (05/06/2019 1:43 PM CDT) Specimen Narrative Performed At FINAL REPORT GE RIS CLINICAL HISTORY: sob TECHNIQUE: 1 view of the chest. COMPARISON: None IMPRESSION: There is a large right pleural effusion with underlying lung consolidation. The left lung is free of infiltrates or effusions. The cardiomediastinal silhouette is magnified by technique. Signed: Nehemias Mcclain MD Report Verified Date/Time:05/06/2019 15:04:11 Reading Location: [address] Consult Reading Room Procedure Note Interface, External [...] Report Verified Date/Time: 05/06/2019 15:04:11 Reading Location: [facility] C013 Consult Reading Room Performing Organization Address City/State/Zipcode Phone Number GE RIS Manual Differential (05/04/2019 5:19 AM CDT) % Neutros (manual) 80 % [facility] % Lymphs (manual) 8 % [facility] % Monos (manual) 7 % [facility] % Eos (manual) 3 % [facility] % Myelo (manual) 1 (H) 0 - 0 % [facility] % Bands (manual) 1 0 - 10 % [facility] # Neutros (manual) 8.80 (H) 1.80 - 8.00 K/L [facility] # Lymphs (manual) 0.88 (L) 1.48 - 4.50 K/L [facility] # Monos (manual) 0.77 0.00 - 1.30 K/L [facility] # Eos (manual) 0.33 0.00 - 0.50 K/L [facility] # Bands (manual) 0.1 0.0 - 0.8 K/L [facility] # Myelo (manual) 0.11 (H) 0.00 - 0.00 K/L [facility] Total Counted 100 [facility] Bands plus Segmented 8.91 [facility] Neutrophils [facility] WBC Morphology Normal [facility] Platelet Morphology Normal [facility] Polychromasia 1+ few [facility] Specimen Blood Performing Organization Address City/State/Zipcode Phone Number [facility] [address] [place] [address] CENTER MA bone scan whole body (05/03/2019 4:15 PM CDT) Specimen Narrative Performed At FINAL REPORT [facility] PROCEDURE: BONE SCAN, WHOLE BODY CPT CODE:[id number] INDICATION:Right lung mass PROTOCOL:20.1 mCi of Tc-99m [...] MD Report Verified Date/Time:05/03/2019 17:54:51 Reading Location: [place] [address] [place] [address] Reading Room Procedure Note Interface, External Ris In - 05/03/2019 5:57 PM CDT FINAL REPORT PROCEDURE: BONE SCAN, WHOLE BODY CPT CODE: [id number] INDICATION: Right lung mass PROTOCOL: 20.1 mCi [...] Report Verified Date/Time: 05/03/2019 17:54:51 Reading Location: [address] [place] [address] Reading Room Performing Organization Address City/State/Zipcode Phone Number [facility] TRANSFUSION SERVICE REPORT - SCAN (05/02/2019 6:00 PM CDT) Narrative Performed At REPORT OF PROCEDURE - ENDOSCOPY URL (05/01/2019 3:48 PM CDT) Narrative Performed At Flow Cytometry Requisition (05/01/2019 3:35 PM CDT) Flow Cytometry See Separate Report [facility] Case # [id number] [facility] Specimen EBUS Fine Needle Aspirate Performing Organization Address City/State/Zipcode Phone Number [address] [address] [phone] CENTER Flow Cytometry (05/01/2019 3:35 PM CDT) Case Report Flow Cytometry Report Case: [id number] [facility] Authorizing Provider:Jarrod Carroll MDCollected: 05/01/2019 1535 [facility] Ordering Location: [facility] PERIOPERATIVE Received: 05/01/2019 1739 SERVICES Pathologist: Stacey Horowitz MD Specimen:Other Flow Interpretation LYMPH NODE, EBUS FINE NEEDLE ASPIRATION, FLOW CYTOMETRY: [facility] -LIMITED BY REDUCED VIABILITY [facility] -NO MONOTYPIC B CELL POPULATION -NO ABERRANT T CELL POPULATION -SEE COMMENT Flow Interpretation Comment These results require [facility] correlation with the [facility] morphologic and other features for full interpretation. CPT Code(s) 87506 [facility] CLINICAL HISTORY Lung mass with mets [facility] SPECIMEN SOURCE LYMPH NODE, EBUS FINE [facility] NEEDLE ASPIRATION [facility] CELLULAR BIOMARKER ANALYSIS CD8, surface-Gotham, CD56, [facility] surface-Lambda, CD5, CD19, [facility] CD10, CD3, CD20, CD4, CD45 cKappa, cLambda, CD38, CD138. IMMUNOPHENOTYPIC FINDINGS Specimen Viability: 64.3% Number of Events Acquired: [id number] [facility] The following populations are identified: Lymphocytes: Bright [...] developed and their performance characteristics determined by [facility]. They have not been cleared or approved by the U.S. Food and Drug Administration. The FDA [facility] has determined that such clearance or approval is not necessary. It should not be regarded as investigational or for research. This laboratory is certified under the Clinical Laboratory Improvement Nella [facility] ndments of 1988 ("CLIA") as qualified to perform high-complexity clinical testing. Specimen Other Performing Organization Address City/State/Zipcode Phone Number [facility] [address] [place] [address] [place] EBUS FNA REQUEST (05/01/2019 3:23 PM CDT)Only the most recent of4 resultswithin the time period is included. Cytology See Separate Report [facility] Specimen EBUS Fine Needle Aspirate - Lymph Node, Subcarinal, Station 7 Performing Organization Address City/State/Zipcode Phone Number [facility] [address] [place] [address] [phone] [place] Fine Needle Aspiration by EBUS (05/01/2019 3:23 PM CDT)Only the most recent of4 resultswithin the time period is included. Case Report Medical Cytology Report Case: [id number] [facility] Authorizing Provider:Jarrod Carroll MDCollected: 05/01/2019 [facility]3 [facility] Ordering Location: [facility] PERI[facility] Received: 05/01/2019 1617 SERVICES Pathologist: Onel Kidd MD Specimen:Lymph Node, Subcarinal, Station 7 DIAGNOSIS LYMPH NODE, SUBCARINAL, STATION 7 EBUS FNA BY CLINICIAN (CYTOSPINS AND CELL BLOCK OF ASPIRATE): [facility] - SMALL CELL CARCINOMA [facility] Signing Pathologist Direct Phone Line: [phone] COMMENT Please see case [id number] for [facility] immunophenotypic evaluation. [facility] CPT Code(s) 19886, 69007 [facility] CLINICAL DATA Right hilar mass, [facility] lymphadenopathy, history of [facility] bladder cancer SPECIMEN SOURCE LYMPH NODE, SUBCARINAL, STATION [facility] 7 EBUS FNA [facility] GROSS DESCRIPTION 35 mls in cytorich red; 2 cytospins, cell block [facility] Collected: [id number] [facility] Received: [id number] SPECIAL STUDIES The interpretation of this case included the use of immunohistochemistry or special stains. [facility] Control Slides Examined: In-house known positive controls were evaluated along with the test tissue. These control slides run alongside of the patients sample show appropriate staining. Internal posit ana and negative controls when available are evaluated Immunohistochemistry technical testing was performed at [facility], Pathology Laboratory where it was developed and [...] complexity clinical laboratory testing. Gross assessment was [facility] performed at [place], [facility] Pathology, [address] [place] [address], Technical component was [facility] performed at [place], Department of [facility] Pathology, [address] [place] [address], Professional component [facility] was performed at [place], Department [facility] Pathology, [address] [place] [id number], Specimen EBUS Fine Needle Aspirate - Lymph Node, Subcarinal, Station 7 Narrative Performed At Performing Organization Address City/[facility]/Zipcode Phone Number [address] [phone] [place] [employer] culture + smear (05/01/2019 2:58 PM CDT) Result No acid-fast bacilli isolated in [facility] 42 days [employer] Smear No acid fast bacilli seen [facility] Specimen Bronch Washing Performing Organization Address City/[facility]/Zipcode Phone Number [address] [address] [phone] [place] Surgically obtained culture + gram stain (05/01/2019 2:58 PM CDT) Result 1+ Streptococcus mitis (A) [facility] Gram Stain Result 2+ WBCs [facility] Gram Stain Result No organisms seen [facility] Specimen Bronch Washing Narrative Performed At <1+ Normal respiratory corinne present [facility] Performing Organization Address [facility] Cent[facility] Phone Number [address] [address] [phone] [place] Fungus culture + smear (05/01/2019 2:58 PM CDT) Result No fungus isolated in 28 days [facility] Fungus Smear No fungi seen [facility] Specimen Bronch Washing Performing Organization Address [facility] Centercode Phone Number [address] [address] [phone] [place] CYTOLOGY REQUEST (05/01/2019 2:58 PM CDT) Cytology See Separate Report [facility] Specimen Bronch Washing Performing Organization Address [facility] Cent[facility] Phone Number [address] [phone] [place] SPIN/CONCENTRATION CHARGE (05/01/2019 2:58 PM CDT) Concentration charged Done [facility] Specimen Bronch Washing Performing Organization Address [facility] Cent[facility]ori Phone Number [address] [phone] [place] Cytology (05/01/2019 2:58 PM CDT) Case Report Medical Cytology Report Case: [id number] [facility] Authorizing Provider:Jarrod Carroll MDCollected: 05/01/2019 1458 [facility] Ordering Location: [facility] PERIOPER[facility]IVE Received: 05/01/2019 1620 SERVICES Pathologist: Onel Kidd MD Specimen:Lung, Right Lower Lobe, bronch washing DIAGNOSIS RIGHT LOWER LOBE LUNG BRONCH WASHING (CYTOSPINS): [facility] - NEGATIVE FOR MALIGNANCY [facility] LIMITED BY OBSCURING ACUTE INFLAMMATION REACTIVE BRONCHIAL EPITHELIAL CELLS PRESENT Signing Pathologist Direct Phone Line: [phone] COMMENT Please see cases [id number], [facility] [id number], [id number], [id number], and [facility] 1545 CPT Code(s) 73349 [facility] CLINICAL DATA Right hilar mass, [facility] lymphadenopathy, history [facility] of bladder cancer SPECIMEN SOURCE RIGHT LOWER LOBE LUNG [facility] BRONCH WASHING [facility] GROSS DESCRIPTION 5 mls cloudy thick white fluid; 4 cytospins [facility] Collected: [id number] [facility] Received: [id number] STATEMENT OF ADEQUACY Satisfactory [facility] Gross assessment was [facility] performed at [place], Department of [facility] Pathology, [address] [place] [address], Technical component was [facility] performed at [place], Department of [facility] Pathology, [address] [place] [address], Professional component was [facility] performed at [place], Department of [facility] Pathology, [address] [place] [address], Specimen Bronch Washing Narrative Performed At Performing Organization Address City/[facility] Centercode Phone Number [address] [phone] CENTER [place]H, manual (05/01/2019 9:04 AM CDT)Only the most recent of2 resultswithin the time period is included. ABO Grouping B [facility] Rh Factor POS [facility] Specimen Blood Performing Organization Address City/[facility]/Zipcode Phone Number [address] [phone] Type and screen, automated (05/01/2019 8:20 AM CDT) Ab Scrn NEGATIVE [facility] Specimen Blood Performing Organization Address [facility] Phone Number [address] [phone] aPTT (05/01/2019 8:20 AM CDT) PTT 35.2 22.5 - 36.0 seconds [facility] Specimen Blood Performing Organization Address [facility] Phone Number [address] [address] CENTER Vitamin B12 and Folate (05/01/2019 4:59 AM CDT) Vitamin B12 >2000 (H) 213 - 816 pg/mL [facility] Folate 2.4 (L) >=7.0 ng/mL [facility] Specimen Blood Performing Organization Address [facility]ori Phone Number [address] [address] [phone] CENTER Iron, TIBC, % sat. (without ferritin) (05/01/2019 4:59 AM CDT) Iron 29.0 (L) 40.0 - 160.0 ug/dL [facility] TIBC 158 (L) 250 - 450 ug/dL [facility] Iron % Saturation 18 (L) 20 - 55 % [facility] Specimen Blood Performing Organization Address [facility]ori Phone Number [address] [address] CENTER Prothrombin time/INR (05/01/2019 4:59 AM CDT)Only the most recent of2 resultswithin the time period is included. Protime 15.1 (H) 11.9 - 14.2 seconds [facility] INR 1.3 <=5.9 [facility] Specimen Blood Narrative Performed At Effective 04/10/2019: PT Reference Range [facility] Change New: 11.9-14.2Previous: 11.7-14.7 RECOMMENDED COUMADIN/WARFARIN INR THERAPY RANGES STANDARD DOSE: 2.0-3.0Includes: PROPHYLAXIS for venous thrombosis, systemic embolization; TREATMENT for venous thrombosis and/or pulmonary embolus. HIGH RISK: Target INR is 2.5-3.5 for patients wiht mechanical heart valves. Performing Organization Address City/[facility] Phone Number [address] [address] [phone] CENTER Lactate dehydrogenase (LDH) (05/01/2019 4:59 AM CDT) LDH 242 (H) 125 - 220 U/L [facility] Specimen Blood Performing Organization Address [facility] Phone Number [address] [phone] CENTER Ferritin (05/01/2019 4:59 AM CDT) Ferritin 2,915 (H) 5 - 275 ng/mL [facility] Specimen Blood Performing Organization Address [facility] Phone Number [address] [phone] [place] Sputum Culture + Gram Stain (04/30/2019 3:46 AM CDT) Result 4+ Normal respiratory corinne [facility] Gram Stain Result 1+ WBCs [facility] Gram Stain Result 0-5 epithelial cells [facility] Gram Stain Result 3+ gram negative rods [facility] Gram Stain Result 1+ gram positive cocci in [facility] Specimen Sputum - Expectorated Performing Organization Address [facility]ori Phone Number [address] [address] [phone] CENTER Blood Culture - Routine (Right Venipuncture) (04/30/2019 3:45 AM CDT)Only the most recent of2 resultswithin the time period is included. Result No growth in 5 days [facility] Specimen Blood Performing Organization Address City/State/Zipcode Phone Number [facility] [address] [place] [address] [phone] CENTER Hemoglobin A1c (04/30/2019 3:13 AM CDT) Hemoglobin A1C 5.9 4.3 - 6.1 % [facility] Specimen Blood Performing Organization Address City/State/Zipcode Phone Number [facility] [address] [place] [address] CENTER after 07/30/2018 Insurance Payer Benefit Plan / Group Subscriber ID Type Phone Address [employer] - MEDICARE UNITED [employer] HMO xxxxxxxxx MGD CARE [address] [place] ([place]) [address] [phone] Advance Directives For more information, please contact:[address] [phone] Code Status Date Activated Date Inactivated Comments Full Code 07/09/2019 1:37 AM 07/10/2019 1:13 PM This code status was determined by: Patient Full Code 06/19/2019 9:59 PM 06/25/2019 8:11 PM This code status was determined by: Patient Full Code 04/30/2019 12:40 AM 05/07/2019 7:30 PM This code status was determined by: Patient
--- OUTSIDE RECORDS SUMMARY | 2019-07-31 09:33 | XMS REPORT ---
:1945 [facility] Address [address] [place] [address] Care Team Providers Name Role Phone SHARON MONTANEZ Unavailable Unavailable RIKI SEE Unavailable Unavailable FRANCISCA DONOVAN Unavailable [...] Clinicians Facility Department ID 2019-06-06 2019-06-06 Outpatient [facility] 13:27:00 13:27:00 Results Test Description Test Time Test Comments Text Results Atomic Results Result Comments URINALYSIS WITH MICROSCOPIC IF INDICATED 2019-07-09 13:13:00 Test Item Value Reference Range Comments COLOR (BEAKER) (test uyim=479) Light Yellow CLARITY (BEAKER) (test cejh=713) Clear SPECIFIC GRAVITY UA (BEAKER) (test ijyj=507) 1.013 1.001-1.035 PH UA (BEAKER) (test amtp=887) 7.5 5.0-8.0 PROTEIN UA (BEAKER) (test cjgc=202) Negative Negative GLUCOSE UA (BEAKER) (test cimh=484) Negative Negative KETONES UA (BEAKER) (test frbi=416) Negative Negative BILIRUBIN UA (BEAKER) (test eukd=035) Negative Negative BLOOD UA (BEAKER) (test wqqk=359) Negative Negative NITRITE UA (BEAKER) (test ugev=533) Negative Negative LEUKOCYTE ESTERASE UA (BEAKER) (test rqla=584) Negative Negative UROBILINOGEN UA (BEAKER) (test qxtx=052) 0.2 mg/dL 0.2-1.0 SOURCE(BEAKER) (test vvgm=1196) BASIC METABOLIC [id number] 10:08:00 Test Item Value Reference Range Comments SODIUM (BEAKER) (test 136 meq/L 136-145 rhgz=715) POTASSIUM (BEAKER) (test 3.9 meq/L 3.5-5.1 fcpf=992) CHLORIDE (BEAKER) (test 106 meq/L 98-107 flis=647) CO2 (BEAKER) (test 24 meq/L 22-29 pazu=114) BLOOD UREA NITROGEN 8 mg/dL 7-21 (BEAKER) (test emjd=600) CREATININE (BEAKER) (test 0.69 mg/dL 0.57-1.25 cvzh=410) GLUCOSE RANDOM (BEAKER) 106 mg/dL 70-105 (test agro=539) CALCIUM (BEAKER) (test 8.6 mg/dL 8.4-10.2 rsqf=004) EGFR (BEAKER) (test 136 mL/min/1.73 sq m ESTIMATED GFR IS NOT lcwi=2828) ACCURATE CREATININE CLEARANCE IN PREDICTING GLOMERULAR FILTRATION RATE. ESTIMATED GFR IS NOT APPLICABLE FOR DIALYSIS PATIENTS. CBC W/PLT COUNT & AUTO [id number] 07:05:00 Test Item Value Reference Range Comments WHITE BLOOD CELL COUNT (BEAKER) (test xakj=543) 2.2 K/ L 3.5-10.5 RED BLOOD CELL COUNT (BEAKER) (test egtc=262) 3.32 M/ L 4.63-6.08 HEMOGLOBIN (BEAKER) (test clgo=753) 9.7 GM/DL 13.7-17.5 HEMATOCRIT (BEAKER) (test silc=178) 30.4 % 40.1-51.0 MEAN CORPUSCULAR VOLUME (BEAKER) (test dqnk=044) 91.6 fL 79.0-92.2 MEAN CORPUSCULAR HEMOGLOBIN (BEAKER) (test 29.2 pg 25.7-32.2 eomn=250) MEAN CORPUSCULAR HEMOGLOBIN CONC (BEAKER) (test 31.9 GM/DL 32.3-36.5 yfku=605) RED CELL DISTRIBUTION WIDTH (BEAKER) (test 17.0 % 11.6-14.4 iegy=119) PLATELET COUNT (BEAKER) (test igbz=887) 205 K/CU MM 150-450 MEAN PLATELET VOLUME (BEAKER) (test rspp=889) 8.6 fL 9.4-12.4 NUCLEATED RED BLOOD CELLS (BEAKER) (test 0 /100 WBC 0-0 cjbp=437) (CELLAVISION MANUAL DIFF)2019-07-09 07:05:00 Test Item Value Reference Range Comments NEUTROPHILS - REL (CELLAVISION)(BEAKER) (test 10 % qtgg=4099) LYMPHOCYTES - REL (CELLAVISION)(BEAKER) (test 73 % okue=5557) MONOCYTES - REL (CELLAVISION)(BEAKER) (test 13 % gxsb=5520) EOSINOPHILS - REL (CELLAVISION)(BEAKER) (test 1 % qphv=0957) BASOPHILS - REL (CELLAVISION)(BEAKER) (test 3 % aeqf=4219) NEUTROPHILS - ABS (CELLAVISION)(BEAKER) (test 0.22 K/ul 1.78-5.38 hefc=8090) LYMPHOCYTES - ABS (CELLAVISION)(BEAKER) (test 1.61 K/ul 1.32-3.57 qrjj=2406) MONOCYTES - ABS (CELLAVISION)(BEAKER) (test 0.29 K/uL 0.30-0.82 jftk=1113) EOSINOPHILS - ABS (CELLAVISION)(BEAKER) (test 0.02 K/uL 0.04-0.54 oscm=1556) BASOPHILS - ABS (CELLAVISION)(BEAKER) (test 0.07 K/uL 0.01-0.08 kxhx=4101) TOTAL COUNTED (BEAKER) (test olwf=3524) 100 MANUAL NRBC PER 100 CELLS (BEAKER) (test 1 /100 WBC 0-0 slax=6101) SMUDGE CELLS (BEAKER) (test upco=5157) Present GIANT PLATELETS (BEAKER) (test weja=884) Present SCHISTOCYTES (BEAKER) (test vcpp=187) 1+ few ARTIFACT (CELLAVISION)(BEAKER) (test rxof=3960) Present PLATELET CONCENTRATION (CELLAVISION)(BEAKER) Adequate (test iwaf=4370) Received comment: User comments: Slide comments:COMPREHENSIVE METABOLIC [id number] 02:59:00 Test Item Value Reference Range Comments TOTAL PROTEIN (BEAKER) 6.3 gm/dL 6.0-8.3 (test rtpu=478) ALBUMIN (BEAKER) (test 3.4 g/dL 3.5-5.0 eqvk=8187) ALKALINE PHOSPHATASE 61 U/L 40-150 (BEAKER) (test amjv=661) BILIRUBIN TOTAL (BEAKER) 0.2 mg/dL 0.2-1.2 (test wgsl=139) SODIUM (BEAKER) (test 137 meq/L 136-145 shqn=208) POTASSIUM (BEAKER) (test 4.0 meq/L 3.5-5.1 vdjd=654) CHLORIDE (BEAKER) (test 106 meq/L 98-107 pzkw=043) CO2 (BEAKER) (test 24 meq/L 22-29 fubz=999) BLOOD UREA NITROGEN 10 mg/dL 7-21 (BEAKER) (test rnnd=997) CREATININE (BEAKER) (test 0.70 mg/dL 0.57-1.25 zops=743) GLUCOSE RANDOM (BEAKER) 108 mg/dL 70-105 (test kuvr=649) CALCIUM (BEAKER) (test 8.9 mg/dL 8.4-10.2 hqcn=960) AST (SGOT) (BEAKER) (test 19 U/L 5-34 qyxw=449) ALT (SGPT) (BEAKER) (test 22 U/L 6-55 xwsw=206) EGFR (BEAKER) (test 134 mL/min/1.73 sq ESTIMATED GFR IS NOT tvbu=3424) m ACCURATE CREATININE CLEARANCE IN PREDICTING GLOMERULAR FILTRATION RATE. ESTIMATED GFR IS NOT APPLICABLE FOR DIALYSIS PATIENTS. BASIC METABOLIC [id number] 09:25:00 Test Item Value Reference Range Comments SODIUM (BEAKER) (test 129 meq/L 136-145 irqu=778) POTASSIUM (BEAKER) (test 4.1 meq/L 3.5-5.1 gblk=214) CHLORIDE (BEAKER) (test 96 meq/L 98-107 tphm=487) CO2 (BEAKER) (test 26 meq/L 22-29 yofg=849) BLOOD UREA NITROGEN 12 mg/dL 7-21 (BEAKER) (test ltgq=556) CREATININE (BEAKER) (test 0.73 mg/dL 0.57-1.25 dvjz=753) GLUCOSE RANDOM (BEAKER) 118 mg/dL 70-105 (test xppo=369) CALCIUM (BEAKER) (test 8.8 mg/dL 8.4-10.2 pkyd=281) EGFR (BEAKER) (test 128 mL/min/1.73 sq m ESTIMATED GFR IS NOT bnwc=0042) ACCURATE CREATININE CLEARANCE IN PREDICTING GLOMERULAR FILTRATION RATE. ESTIMATED GFR IS NOT APPLICABLE FOR DIALYSIS PATIENTS. [id number] 00:43:00 Test Item Value Reference Range Comments SODIUM (BEAKER) (test yqcy=347) 128 meq/L 136-145 [id number] 18:29:00 Test Item Value Reference Range Comments SODIUM (BEAKER) (test mtqx=208) 128 meq/L 136-145 COMPREHENSIVE METABOLIC [id number] 12:40:00 Test Item Value Reference Range Comments TOTAL PROTEIN (BEAKER) 6.8 gm/dL 6.0-8.3 (test cbbh=598) ALBUMIN (BEAKER) (test 3.9 g/dL 3.5-5.0 lqav=2622) ALKALINE PHOSPHATASE 56 U/L 40-150 (BEAKER) (test ddic=658) BILIRUBIN TOTAL (BEAKER) 0.5 mg/dL 0.2-1.2 (test oxku=929) SODIUM (BEAKER) (test 126 meq/L 136-145 dmjd=890) POTASSIUM (BEAKER) (test 3.7 meq/L 3.5-5.1 begp=280) CHLORIDE (BEAKER) (test 92 meq/L 98-107 lfzw=640) CO2 (BEAKER) (test 26 meq/L 22-29 xqno=987) BLOOD UREA NITROGEN 10 mg/dL 7-21 (BEAKER) (test eneu=081) CREATININE (BEAKER) (test 0.79 mg/dL 0.57-1.25 ahsk=024) GLUCOSE RANDOM (BEAKER) 167 mg/dL 70-105 (test ozfx=261) CALCIUM (BEAKER) (test 8.7 mg/dL 8.4-10.2 duvu=482) AST (SGOT) (BEAKER) (test 16 U/L 5-34 heyv=038) ALT (SGPT) (BEAKER) (test 22 U/L 6-55 sqnb=264) EGFR (BEAKER) (test 117 mL/min/1.73 sq ESTIMATED GFR IS NOT ruov=2746) m ACCURATE CREATININE CLEARANCE IN PREDICTING GLOMERULAR FILTRATION RATE. ESTIMATED GFR IS NOT APPLICABLE FOR DIALYSIS PATIENTS. CBC W/PLT COUNT & AUTO [id number] 12:21:00 Test Item Value Reference Range Comments WHITE BLOOD CELL COUNT (BEAKER) (test jyeo=604) 9.6 K/ L 3.5-10.5 RED BLOOD CELL COUNT (BEAKER) (test exxv=416) 3.75 M/ L 4.63-6.08 HEMOGLOBIN (BEAKER) (test rgqm=669) 11.0 GM/DL 13.7-17.5 HEMATOCRIT (BEAKER) (test fdfz=266) 32.3 % 40.1-51.0 MEAN CORPUSCULAR VOLUME (BEAKER) (test swes=700) 86.1 fL 79.0-92.2 MEAN CORPUSCULAR HEMOGLOBIN (BEAKER) (test 29.3 pg 25.7-32.2 dzmq=728) MEAN CORPUSCULAR HEMOGLOBIN CONC (BEAKER) (test 34.1 GM/DL 32.3-36.5 fzwl=256) RED CELL DISTRIBUTION WIDTH (BEAKER) (test 17.4 % 11.6-14.4 lqsc=284) PLATELET COUNT (BEAKER) (test xyct=535) 281 K/CU MM 150-450 MEAN PLATELET VOLUME (BEAKER) (test qyps=162) 8.8 fL 9.4-12.4 NUCLEATED RED BLOOD CELLS (BEAKER) (test 0 /100 WBC 0-0 ocse=856) NEUTROPHILS RELATIVE PERCENT (BEAKER) (test 86 % jmpe=157) LYMPHOCYTES RELATIVE PERCENT (BEAKER) (test 8 % zxgj=583) MONOCYTES RELATIVE PERCENT (BEAKER) (test 5 % mzof=234) EOSINOPHILS RELATIVE PERCENT (BEAKER) (test 0 % bfnq=007) BASOPHILS RELATIVE PERCENT (BEAKER) (test 0 % olcg=077) NEUTROPHILS ABSOLUTE COUNT (BEAKER) (test 8.25 K/ L 1.78-5.38 tria=564) LYMPHOCYTES ABSOLUTE COUNT (BEAKER) (test 0.76 K/ L 1.32-3.57 ogom=088) MONOCYTES ABSOLUTE COUNT (BEAKER) (test 0.46 K/ L 0.30-0.82 ttdw=115) EOSINOPHILS ABSOLUTE COUNT (BEAKER) (test 0.00 K/ L 0.04-0.54 wyqs=940) BASOPHILS ABSOLUTE COUNT (BEAKER) (test 0.00 K/ L 0.01-0.08 vwlu=226) IMMATURE GRANULOCYTES-RELATIVE PERCENT (BEAKER) 1 % 0-1 (test qmvo=4100) [id number] 07:29:00 Test Item Value Reference Range Comments SODIUM (BEAKER) (test aiya=642) 128 meq/L 136-145 [id number] 01:59:00 Test Item Value Reference Range Comments SODIUM (BEAKER) (test rlks=722) 123 meq/L 136-145 [id number] 18:55:00 Test Item Value Reference Range Comments SODIUM (BEAKER) (test jzjc=268) 125 meq/L 136-145 [id number] 12:56:00 Test Item Value Reference Range Comments SODIUM (BEAKER) (test ghiu=170) 124 meq/L 136-145 URIC [id number] 07:14:00 Test Item Value Reference Range Comments URIC ACID (BEAKER) (test fxhb=964) 2.0 mg/dL 2.6-7.2 COMPREHENSIVE METABOLIC [id number] 07:14:00 Test Item Value Reference Range Comments TOTAL PROTEIN (BEAKER) 6.8 gm/dL 6.0-8.3 (test nide=896) ALBUMIN (BEAKER) (test 3.8 g/dL 3.5-5.0 evdi=9066) ALKALINE PHOSPHATASE 57 U/L 40-150 (BEAKER) (test sihs=474) BILIRUBIN TOTAL (BEAKER) 0.4 mg/dL 0.2-1.2 (test rvll=919) SODIUM (BEAKER) (test 121 meq/L 136-145 lerz=586) POTASSIUM (BEAKER) (test 4.3 meq/L 3.5-5.1 zjcx=748) CHLORIDE (BEAKER) (test 93 meq/L 98-107 cbzi=597) CO2 (BEAKER) (test 20 meq/L 22-29 snus=814) BLOOD UREA NITROGEN 6 mg/dL 7-21 (BEAKER) (test zmsm=450) CREATININE (BEAKER) (test 0.73 mg/dL 0.57-1.25 uukz=008) GLUCOSE RANDOM (BEAKER) 138 mg/dL 70-105 (test turk=690) CALCIUM (BEAKER) (test 8.7 mg/dL 8.4-10.2 chnz=144) AST (SGOT) (BEAKER) (test 22 U/L 5-34 kugv=555) ALT (SGPT) (BEAKER) (test 20 U/L 6-55 ucwo=687) EGFR (BEAKER) (test 128 mL/min/1.73 sq ESTIMATED GFR IS NOT jppa=3317) m ACCURATE CREATININE CLEARANCE IN PREDICTING GLOMERULAR FILTRATION RATE. ESTIMATED GFR IS NOT APPLICABLE FOR DIALYSIS PATIENTS. [id number] 01:25:00 Test Item Value Reference Range Comments SODIUM (BEAKER) (test jcqz=975) 121 meq/L 136-145 [id number] 21:13:00 Test Item Value Reference Range Comments MAGNESIUM (BEAKER) (test mvpy=541) 1.8 mg/dL 1.6-2.6 [id number] 21:13:00 Test Item Value Reference Range Comments SODIUM (BEAKER) (test rmje=215) 122 meq/L 136-145 [id number] 18:27:00 Test Item Value Reference Range Comments SODIUM (BEAKER) (test szxl=877) 121 meq/L 136-145 [id number] 13:03:00 Test Item Value Reference Range Comments SODIUM (BEAKER) (test jatf=228) 120 meq/L 136-145 CT, CHEST, WITH [id number] 11:09:00FINAL REPORT CT Chest, abdomen, and pelvis [...] MDReport Verified Date/Time: 06/22/2019 11:09:18 Reading Location: [facility] B1 [id number] Ortho Consult Reading Room [facility], [id number] 11:09:00FINAL REPORT CT Chest, abdomen, and pelvis [...] MDReport Verified Date/Time: 06/22/2019 11:09:18 Reading Location: [address] Ortho Consult Reading Room BASIC METABOLIC [id number] 08:37 :00 Test Item Value Reference Range Comments SODIUM (BEAKER) (test 118 meq/L 136-145 jwbo=179) POTASSIUM (BEAKER) (test 4.2 meq/L 3.5-5.1 lkqy=607) CHLORIDE (BEAKER) (test 90 meq/L 98-107 ssvf=528) CO2 (BEAKER) (test 22 meq/L 22-29 vhpi=457) BLOOD UREA NITROGEN 6 mg/dL 7-21 (BEAKER) (test blvk=676) CREATININE (BEAKER) (test 0.62 mg/dL 0.57-1.25 trhm=743) GLUCOSE RANDOM (BEAKER) 94 mg/dL 70-105 (test eifn=500) CALCIUM (BEAKER) (test 8.6 mg/dL 8.4-10.2 tegi=721) EGFR (BEAKER) (test 155 mL/min/1.73 sq m ESTIMATED GFR IS NOT qimn=1474) ACCURATE CREATININE CLEARANCE IN PREDICTING GLOMERULAR FILTRATION RATE. ESTIMATED GFR IS NOT APPLICABLE FOR DIALYSIS PATIENTS. CBC W/PLT COUNT & AUTO [id number] 05:50:00 Test Item Value Reference Range Comments WHITE BLOOD CELL COUNT (BEAKER) (test dtzm=002) 7.1 K/ L 3.5-10.5 RED BLOOD CELL COUNT (BEAKER) (test hbmg=446) 3.77 M/ L 4.63-6.08 HEMOGLOBIN (BEAKER) (test awgn=978) 11.0 GM/DL 13.7-17.5 HEMATOCRIT (BEAKER) (test zquf=414) 31.3 % 40.1-51.0 MEAN CORPUSCULAR VOLUME (BEAKER) (test ghde=488) 83.0 fL 79.0-92.2 MEAN CORPUSCULAR HEMOGLOBIN (BEAKER) (test 29.2 pg 25.7-32.2 pqds=830) MEAN CORPUSCULAR HEMOGLOBIN CONC (BEAKER) (test 35.1 GM/DL 32.3-36.5 nogf=538) RED CELL DISTRIBUTION WIDTH (BEAKER) (test 17.1 % 11.6-14.4 dsnl=055) PLATELET COUNT (BEAKER) (test zqgj=528) 254 K/CU MM 150-450 MEAN PLATELET VOLUME (BEAKER) (test qbcl=687) 8.4 fL 9.4-12.4 NUCLEATED RED BLOOD CELLS (BEAKER) (test 0 /100 WBC 0-0 vmph=414) NEUTROPHILS RELATIVE PERCENT (BEAKER) (test 51 % ddnd=782) LYMPHOCYTES RELATIVE PERCENT (BEAKER) (test 30 % wkrr=572) MONOCYTES RELATIVE PERCENT (BEAKER) (test 12 % xxrt=195) EOSINOPHILS RELATIVE PERCENT (BEAKER) (test 5 % hwrs=531) BASOPHILS RELATIVE PERCENT (BEAKER) (test 1 % nutj=198) NEUTROPHILS ABSOLUTE COUNT (BEAKER) (test 3.66 K/ L 1.78-5.38 pwnp=040) LYMPHOCYTES ABSOLUTE COUNT (BEAKER) (test 2.11 K/ L 1.32-3.57 zkna=937) MONOCYTES ABSOLUTE COUNT (BEAKER) (test 0.87 K/ L 0.30-0.82 wtho=430) EOSINOPHILS ABSOLUTE COUNT (BEAKER) (test 0.36 K/ L 0.04-0.54 btsn=810) BASOPHILS ABSOLUTE COUNT (BEAKER) (test 0.06 K/ L 0.01-0.08 ogdf=122) IMMATURE GRANULOCYTES-RELATIVE PERCENT (BEAKER) 1 % 0-1 (test pclp=8741) MR, BRAIN, [id number] 03:45:00FINAL REPORT MRI brain with and without contrast Comparison: Brain MRI 05/03/2019. Reason for exam: reevaluate brain mets Technique: Multiplanar MR imaging of the brain was provided xkt-gem-zawn IV gadolinium administration using T1, T2, FLAIR, [...] [place] MDReport Verified Date/Time: 06/22/2019 03:45 :55 [id number] 10:48:00 Test Item Value Reference Range Comments SODIUM (BEAKER) (test psla=196) 121 meq/L 136-145 URIC ACID, RANDOM [id number] 07:30:00 Test Item Value Reference Range Comments URIC ACID, URINE (BEAKER) (test jjwb=3467) 11.9 mg/dL Reference Range: No [id number] 05:02:00 Test Item Value Reference Range Comments CORTISOL, TOTAL (BEAKER) (test gyqz=2952) 9.3 ug/dL 3.7-19.4 [id number] 05:01:00 Test Item Value Reference Range Comments THYROID STIMULATING HORMONE (BEAKER) (test 1.67 uIU/mL 0.35-4.94 zcys=622) BASIC METABOLIC [id number] 04:51:00 Test Item Value Reference Range Comments SODIUM (BEAKER) (test 119 meq/L 136-145 ydjo=923) POTASSIUM (BEAKER) (test 4.5 meq/L 3.5-5.1 Specimen slightly zjlt=392) hemolyzed CHLORIDE (BEAKER) (test 92 meq/L 98-107 bqcr=336) CO2 (BEAKER) (test 22 meq/L 22-29 ygdl=385) BLOOD UREA NITROGEN 7 mg/dL 7-21 (BEAKER) (test lkvu=935) CREATININE (BEAKER) (test 0.64 mg/dL 0.57-1.25 Specimen slightly unvq=829) hemolyzed GLUCOSE RANDOM (BEAKER) 96 mg/dL 70-105 (test kjmj=742) CALCIUM (BEAKER) (test 8.3 mg/dL 8.4-10.2 acyn=332) EGFR (BEAKER) (test 149 mL/min/1.73 sq m ESTIMATED GFR IS NOT frdr=4772) ACCURATE CREATININE CLEARANCE IN PREDICTING GLOMERULAR FILTRATION RATE. ESTIMATED GFR IS NOT APPLICABLE FOR DIALYSIS PATIENTS. TROPONIN [id number] 04:47:00 Test Item Value Reference Range Comments TROPONIN I (BEAKER) (test bwyv=984) < ng/mL 0.00-0.03 Troponin I (TnI) levels [...] and persistent tachyarrhythmia.CBC W/PLT COUNT & AUTO [id number] 04:14:00 Test Item Value Reference Range Comments WHITE BLOOD CELL COUNT (BEAKER) (test rdte=401) 7.8 K/ L 3.5-10.5 RED BLOOD CELL COUNT (BEAKER) (test tnhi=055) 3.64 M/ L 4.63-6.08 HEMOGLOBIN (BEAKER) (test jqmj=354) 10.6 GM/DL 13.7-17.5 HEMATOCRIT (BEAKER) (test kczz=149) 30.7 % 40.1-51.0 MEAN CORPUSCULAR VOLUME (BEAKER) (test iwsw=907) 84.3 fL 79.0-92.2 MEAN CORPUSCULAR HEMOGLOBIN (BEAKER) (test 29.1 pg 25.7-32.2 nlra=969) MEAN CORPUSCULAR HEMOGLOBIN CONC (BEAKER) (test 34.5 GM/DL 32.3-36.5 xsju=342) RED CELL DISTRIBUTION WIDTH (BEAKER) (test 17.0 % 11.6-14.4 lyrg=277) PLATELET COUNT (BEAKER) (test gusq=106) 254 K/CU MM 150-450 MEAN PLATELET VOLUME (BEAKER) (test voph=655) 8.3 fL 9.4-12.4 NUCLEATED RED BLOOD CELLS (BEAKER) (test 0 /100 WBC 0-0 takf=643) NEUTROPHILS RELATIVE PERCENT (BEAKER) (test 49 % nzlw=968) LYMPHOCYTES RELATIVE PERCENT (BEAKER) (test 30 % qvkl=873) MONOCYTES RELATIVE PERCENT (BEAKER) (test 13 % vjqm=104) EOSINOPHILS RELATIVE PERCENT (BEAKER) (test 6 % vexo=742) BASOPHILS RELATIVE PERCENT (BEAKER) (test 1 % phdy=538) NEUTROPHILS ABSOLUTE COUNT (BEAKER) (test 3.85 K/ L 1.78-5.38 nzja=663) LYMPHOCYTES ABSOLUTE COUNT (BEAKER) (test 2.34 K/ L 1.32-3.57 whcn=671) MONOCYTES ABSOLUTE COUNT (BEAKER) (test 0.99 K/ L 0.30-0.82 cjbn=572) EOSINOPHILS ABSOLUTE COUNT (BEAKER) (test 0.47 K/ L 0.04-0.54 yzwh=277) BASOPHILS ABSOLUTE COUNT (BEAKER) (test 0.08 K/ L 0.01-0.08 tski=938) IMMATURE GRANULOCYTES-RELATIVE PERCENT (BEAKER) 1 % 0-1 (test vlut=9864) [id number] 22:30:00 Test Item Value Reference Range Comments SODIUM (BEAKER) (test jwkd=097) 118 meq/L 136-145 URIC [id number] 22:30:00 Test Item Value Reference Range Comments URIC ACID (BEAKER) (test kazj=389) 1.7 mg/dL 2.6-7.2 CREATININE, RANDOM [id number] 19:14:00 Test Item Value Reference Range Comments CREATININE URINE (BEAKER) (test vzdp=387) 67.1 mg/dL Reference Range: No NormalsPOTASSIUM, RANDOM [id number] 19:14:00 Test Item Value Reference Range Comments POTASSIUM URINE (BEAKER) (test tuwg=018) 44.8 meq/L Reference Range: No NormalsSODIUM, RANDOM [id number] 19:14:00 Test Item Value Reference Range Comments SODIUM URINE (BEAKER) (test phoa=251) 188 meq/L Reference Range: No NormalsOSMOLALITY, [id number] 15:23:00 Test Item Value Reference Range Comments OSMOLALITY URINE (BEAKER) (test xmta=636) 631 mOsm/kg 40-1,400 OSMOLALITY, [id number] 15:23:00 Test Item Value Reference Range Comments OSMOLALITY, SERUM (BEAKER) (test sxbt=917) 255 mOsm/kg 275-295 BASIC METABOLIC [id number] 15:17:00 Test Item Value Reference Range Comments SODIUM (BEAKER) (test 123 meq/L 136-145 rxcs=964) POTASSIUM (BEAKER) (test 4.4 meq/L 3.5-5.1 ncut=521) CHLORIDE (BEAKER) (test 94 meq/L 98-107 yowa=872) CO2 (BEAKER) (test 23 meq/L 22-29 czza=909) BLOOD UREA NITROGEN 9 mg/dL 7-21 (BEAKER) (test dhbz=566) CREATININE (BEAKER) (test 0.72 mg/dL 0.57-1.25 ntvn=357) GLUCOSE RANDOM (BEAKER) 106 mg/dL 70-105 (test kxhn=907) CALCIUM (BEAKER) (test 8.3 mg/dL 8.4-10.2 uajd=720) EGFR (BEAKER) (test 130 mL/min/1.73 sq m ESTIMATED GFR IS NOT gdng=2650) ACCURATE CREATININE CLEARANCE IN PREDICTING GLOMERULAR FILTRATION RATE. ESTIMATED GFR IS NOT APPLICABLE FOR DIALYSIS PATIENTS. TROPONIN [id number] 15:07:00 Test Item Value Reference Range Comments TROPONIN I (BEAKER) (test xhyf=459) < ng/mL 0.00-0.03 Troponin I (TnI) levels [...] acute neurological disease, and persistent tachyarrhythmia.BASIC METABOLIC [id number] 07:18:00 Test Item Value Reference Range Comments SODIUM (BEAKER) (test 123 meq/L 136-145 aeis=761) POTASSIUM (BEAKER) (test 5.0 meq/L 3.5-5.1 roti=284) CHLORIDE (BEAKER) (test 94 meq/L 98-107 yyhg=587) CO2 (BEAKER) (test 24 meq/L 22-29 gqjj=821) BLOOD UREA NITROGEN 9 mg/dL 7-21 (BEAKER) (test xlqb=787) CREATININE (BEAKER) (test 0.70 mg/dL 0.57-1.25 zdlr=584) GLUCOSE RANDOM (BEAKER) 94 mg/dL 70-105 (test oddc=012) CALCIUM (BEAKER) (test 8.4 mg/dL 8.4-10.2 vnoa=418) EGFR (BEAKER) (test 134 mL/min/1.73 sq m ESTIMATED GFR IS NOT phdq=3051) ACCURATE CREATININE CLEARANCE IN PREDICTING GLOMERULAR FILTRATION RATE. ESTIMATED GFR IS NOT APPLICABLE FOR DIALYSIS PATIENTS. CBC W/PLT COUNT & AUTO [id number] 06:29:00 Test Item Value Reference Range Comments WHITE BLOOD CELL COUNT (BEAKER) (test unya=007) 6.3 K/ L 3.5-10.5 RED BLOOD CELL COUNT (BEAKER) (test uwzi=399) 3.69 M/ L 4.63-6.08 HEMOGLOBIN (BEAKER) (test iify=834) 10.8 GM/DL 13.7-17.5 HEMATOCRIT (BEAKER) (test xtco=663) 31.6 % 40.1-51.0 MEAN CORPUSCULAR VOLUME (BEAKER) (test pveu=533) 85.6 fL 79.0-92.2 MEAN CORPUSCULAR HEMOGLOBIN (BEAKER) (test 29.3 pg 25.7-32.2 oeet=190) MEAN CORPUSCULAR HEMOGLOBIN CONC (BEAKER) (test 34.2 GM/DL 32.3-36.5 xpex=991) RED CELL DISTRIBUTION WIDTH (BEAKER) (test 17.7 % 11.6-14.4 mlkw=382) PLATELET COUNT (BEAKER) (test qvtm=740) 276 K/CU MM 150-450 MEAN PLATELET VOLUME (BEAKER) (test txzv=577) 8.6 fL 9.4-12.4 NUCLEATED RED BLOOD CELLS (BEAKER) (test 0 /100 WBC 0-0 jaxg=605) NEUTROPHILS RELATIVE PERCENT (BEAKER) (test 48 % khlj=568) LYMPHOCYTES RELATIVE PERCENT (BEAKER) (test 29 % latv=764) MONOCYTES RELATIVE PERCENT (BEAKER) (test 16 % yddn=510) EOSINOPHILS RELATIVE PERCENT (BEAKER) (test 5 % ghfg=109) BASOPHILS RELATIVE PERCENT (BEAKER) (test 1 % yatq=039) NEUTROPHILS ABSOLUTE COUNT (BEAKER) (test 3.04 K/ L 1.78-5.38 kuwp=014) LYMPHOCYTES ABSOLUTE COUNT (BEAKER) (test 1.84 K/ L 1.32-3.57 xnlz=896) MONOCYTES ABSOLUTE COUNT (BEAKER) (test 1.00 K/ L 0.30-0.82 mvon=231) EOSINOPHILS ABSOLUTE COUNT (BEAKER) (test 0.32 K/ L 0.04-0.54 rnzp=201) BASOPHILS ABSOLUTE COUNT (BEAKER) (test 0.06 K/ L 0.01-0.08 gfwb=400) IMMATURE GRANULOCYTES-RELATIVE PERCENT (BEAKER) 1 % 0-1 (test hiky=2805) TROPONIN [id number] 06:16:00 Test Item Value Reference Range Comments TROPONIN I (BEAKER) (test zjub=733) < ng/mL 0.00-0.03 Troponin I (TnI) levels [...] acidosis, acute neurological disease, and persistent tachyarrhythmia.POCT-GLUCOSE [id number] 00:24:00 Test Item Value Reference Range Comments POC-GLUCOSE METER (BEAKER) 103 mg/dL 70-[address] [facility] [address] (test sokv=9105) [facility] [address] [id number] 21:16:00 Test Item Value Reference Range Comments LIPASE (BEAKER) (test ukai=003) 38 U/L 8-78 BASIC METABOLIC [id number] 21:16:00 Test Item Value Reference Range Comments SODIUM (BEAKER) (test 121 meq/L 136-145 nknl=124) POTASSIUM (BEAKER) (test 4.5 meq/L 3.5-5.1 qxoe=776) CHLORIDE (BEAKER) (test 90 meq/L 98-107 qwxz=464) CO2 (BEAKER) (test 24 meq/L 22-29 suqu=228) BLOOD UREA NITROGEN 11 mg/dL 7-21 (BEAKER) (test gldu=748) CREATININE (BEAKER) (test 0.72 mg/dL 0.57-1.25 gaui=330) GLUCOSE RANDOM (BEAKER) 99 mg/dL 70-105 (test pmnf=685) CALCIUM (BEAKER) (test 9.1 mg/dL 8.4-10.2 zpcp=992) EGFR (BEAKER) (test 130 mL/min/1.73 sq m ESTIMATED GFR IS NOT oubz=6215) ACCURATE CREATININE CLEARANCE IN PREDICTING GLOMERULAR FILTRATION RATE. ESTIMATED GFR IS NOT APPLICABLE FOR DIALYSIS PATIENTS. HEPATIC FUNCTION [id number] 21:16:00 Test Item Value Reference Range Comments TOTAL PROTEIN (BEAKER) (test hvfz=425) 7.2 gm/dL 6.0-8.3 ALBUMIN (BEAKER) (test lezl=9678) 4.0 g/dL 3.5-5.0 BILIRUBIN TOTAL (BEAKER) (test bgzf=102) 0.5 mg/dL 0.2-1.2 BILIRUBIN DIRECT (BEAKER) (test jihu=289) 0.2 mg/dL 0.1-0.5 ALKALINE PHOSPHATASE (BEAKER) (test logg=165) 75 U/L 40-150 AST (SGOT) (BEAKER) (test tzbq=565) 21 U/L 5-34 ALT (SGPT) (BEAKER) (test ycrt=782) 19 U/L 6-55 [id number] 21:13:00 Test Item Value Reference Range Comments PROTIME (BEAKER) (test kfqk=780) 13.1 seconds 11.9-14.2 INR (BEAKER) (test lofb=351) 1.0 <=5.9 PARTIAL THROMBOPLASTIN TIME (BEAKER) (test 35.6 seconds 22.5-36.0 hbcd=786) Effective 04/10/2019: PT Reference Range ChangeNew: 11.9-14.2 Previous: 11.7- 14.7RECOMMENDED COUMADIN/WARFARIN INR THERAPY RANGESSTANDARD DOSE: 2.0-3.0 Includes: PROPHYLAXIS for venous thrombosis, systemic embolization; TREATMENT for venous thrombosis and/or pulmonary embolus.HIGH RISK: Target INR is2.5-3.5 for patients wiht mechanical heart valves.URINALYSIS [id number] 21:07 :00 Test Item Value Reference Range Comments RBC UA (BEAKER) (test tjxo=283) 0 /HPF WBC UA (BEAKER) (test cpoo=854) < /HPF MUCUS (BEAKER) (test phio=7159) Occasional URINALYSIS WITH MICROSCOPIC IF [id number] 21:07:00 Test Item Value Reference Range Comments COLOR (BEAKER) (test hlec=553) Yellow CLARITY (BEAKER) (test vrfs=246) Clear SPECIFIC GRAVITY UA (BEAKER) (test ovlm=967) 1.018 1.001-1.035 PH UA (BEAKER) (test godp=281) 7.0 5.0-8.0 PROTEIN UA (BEAKER) (test kscs=501) 10 mg/dL Negative GLUCOSE UA (BEAKER) (test eisx=238) Negative Negative KETONES UA (BEAKER) (test sbha=927) Negative Negative BILIRUBIN UA (BEAKER) (test dwdd=389) Negative Negative BLOOD UA (BEAKER) (test tzgd=404) Negative Negative NITRITE UA (BEAKER) (test npru=883) Negative Negative LEUKOCYTE ESTERASE UA (BEAKER) (test dzzw=521) Negative Negative UROBILINOGEN UA (BEAKER) (test kchc=289) 3.0 mg/dL 0.2-1.0 SOURCE(BEAKER) (test eiau=5151) CBC W/PLT COUNT & AUTO [id number] 20:54:00 Test Item Value Reference Range Comments WHITE BLOOD CELL COUNT (BEAKER) (test xxau=689) 7.8 K/ L 3.5-10.5 RED BLOOD CELL COUNT (BEAKER) (test pakh=335) 3.99 M/ L 4.63-6.08 HEMOGLOBIN (BEAKER) (test ghcx=596) 11.7 GM/DL 13.7-17.5 HEMATOCRIT (BEAKER) (test jaee=008) 34.2 % 40.1-51.0 MEAN CORPUSCULAR VOLUME (BEAKER) (test dwyb=037) 85.7 fL 79.0-92.2 MEAN CORPUSCULAR HEMOGLOBIN (BEAKER) (test 29.3 pg 25.7-32.2 pesq=223) MEAN CORPUSCULAR HEMOGLOBIN CONC (BEAKER) (test 34.2 GM/DL 32.3-36.5 xqfr=821) RED CELL DISTRIBUTION WIDTH (BEAKER) (test 17.6 % 11.6-14.4 rvod=144) PLATELET COUNT (BEAKER) (test nuse=978) 270 K/CU MM 150-450 MEAN PLATELET VOLUME (BEAKER) (test oity=723) 8.7 fL 9.4-12.4 NUCLEATED RED BLOOD CELLS (BEAKER) (test 0 /100 WBC 0-0 acnd=783) NEUTROPHILS RELATIVE PERCENT (BEAKER) (test 51 % ybnf=418) LYMPHOCYTES RELATIVE PERCENT (BEAKER) (test 28 % ejvz=941) MONOCYTES RELATIVE PERCENT (BEAKER) (test 14 % wvur=378) EOSINOPHILS RELATIVE PERCENT (BEAKER) (test 5 % efdb=604) BASOPHILS RELATIVE PERCENT (BEAKER) (test 1 % mdok=779) NEUTROPHILS ABSOLUTE COUNT (BEAKER) (test 3.99 K/ L 1.78-5.38 sfuh=208) LYMPHOCYTES ABSOLUTE COUNT (BEAKER) (test 2.20 K/ L 1.32-3.57 bkxm=257) MONOCYTES ABSOLUTE COUNT (BEAKER) (test 1.08 K/ L 0.30-0.82 plpl=771) EOSINOPHILS ABSOLUTE COUNT (BEAKER) (test 0.36 K/ L 0.04-0.54 uxsu=543) BASOPHILS ABSOLUTE COUNT (BEAKER) (test 0.08 K/ L 0.01-0.08 wxaq=031) IMMATURE GRANULOCYTES-RELATIVE PERCENT (BEAKER) 1 % 0-1 (test omtr=8467) CT, BRAIN, WITHOUT [id number] 20:01:00FINAL REPORT CT, BRAIN, WITHOUT CONTRAST CLINICAL [...] MDReport Verified Date/Time: 2018 20:01:57 Reading Location: [facility] C0[facility] Neuro Reading Room AFB CULTURE + [id number] 09:12:00 Test Item Value Reference Range Comments CULTURE (BEAKER) (test No acid-fast bacilli isolated kvjl=4728) in 42 days AFB SMEAR (BEAKER) (test No acid fast bacilli seen jtdg=473) - SP FLUORO GUID CTRL ACC [id number] 11:31:00 Name: [facility] [place] [facility] : 1945 Age/S: 73 / M [address] Unit #: [id number] Loc: [place] [address] Phys: Cathy Sellers MD Acct: [id number] Dis Date: [place] : [facility] [place] [place]: [phone] Exam Date: 06/06/2019 1100 FAX #: Reason: PORT PLACEMENT EXAMS: CPT: [id number] SP FLUORO GUID CTRL ACC DEV 17548 Fluoro Time: 0:45 DAP (Gy m2): 0.27 [...] was obtained. Prior to beginning the procedure, Amelia Protocol was used to confirm the patient's [...] 1 Signed Report (CONTINUED) Name: [facility] : 1945 Age/S: 73 / M [address] Unit #: [id number] Loc: [place] [address] Phys: MarloTatiana Acct: [id number] Dis Date: Status: [facility] PHONE #: [phone] Exam Date: 06/06/2019 1100 FAX #: Reason: PORT PLACEMENT EXAMS: CPT: [id number] SP FLUORO GUID CTRL ACC DEV 06514 Fluoro Time: 0:45 DAP (Gy m2): 0.27 [...] [place] : 1945 Age/S: 73 / M [address] Unit #: [id number] Loc: [place] [address] Phys: Cathy Sellers MD Acct: [id number] Dis Date: [place] [facility] [place] #: [phone] Exam Date: 06/06/2019 1100 FAX #: Reason: PORT PLACEMENT EXAMS: CPT: [id number] SP FLUORO GUID CTRL ACC DEV 28401 Fluoro Time: 0:45 DAP(Gy m2): 0.27 Air Kerma (mGy): 1 <Continued> Technologist: Manav Flores RT(R) Trnscb Date/Time: 06/06/2019 (1131) [email or web address] Orig Print D/T: S: 06/06/2019 (113) PAGE 3 Signed Report- SP FLUORO GUID CTRL ACC [id number] 11:31:00 Name: [facility] : 1945 Age/S: 73 / M [address] Unit #: [id number] Loc: [place] [address] Phys: Cathy Sellers MD Acct: [id number] Dis Date: [place] [facility] [place] #: [phone] Exam Date: 06/06/2019 1100 FAX #: Reason: PORT PLACEMENT EXAMS: CPT: [id number] SP FLUORO GUID CTRL ACC DEV 75126 Fluoro Time: 0:45 DAP (Gy m2): 0.27 [...] was obtained. Prior to beginning the procedure, Amelia Protocol was used to confirm the patient's [...] 1 Signed Report (CONTINUED) Name: [facility] : 1945 Age/S: 73 / M [id number] Unit #: [id number] Loc: [place] [address] Phys: Tino SellersTiffany Acct: [id number] Dis Date: Status: [facility] PHONE # : [phone] Exam Date: 06/06/2019 1100 FAX #: Reason: PORT PLACEMENT EXAMS: CPT: [id number] SP FLUORO GUID CTRL ACC DEV 92618 Fluoro Time: 0:45 DAP (Gy m2): 0.27 [...] Burt MD PAGE 2 Signed Report Name:[place] : 1945 Age/S: 73 / M [address] [address] Unit #: [id number] Loc: [place] [address] Phys: Cathy Sellers MD Acct: [id number] Dis Date: [place] [facility] [place] #: [phone] Exam Date: 06/06/2019 1100 FAX #: Reason: PORT PLACEMENT EXAMS: CPT: [id number] SP FLUORO GUID CTRL ACC DEV 70366 Fluoro Time: 0:45 DAP(Gy m2): 0.27 Air Kerma (mGy): 1 <Continued&gt ; Technologist: RT Bruna(R) Trnwib Date/Time : 06/06/2019 (1131) [email or web address] Orig Print D/T: S: 2018 (1134) PAGE 3 Signed Report- SP FLUORO GUID CTRL ACC [id number] 11:31:00 Name: [facility] : 1945 Age/S: 73 / M [address] Unit #: [id number] Loc: [place] [address] Phys: Cathy Sellers MD Acct: [id number] Dis Date: [place] [facility] [place] #: [phone] Exam Date: 06/06/2019 1100 FAX #: Reason: PORT PLACEMENT EXAMS: CPT: [id number] SP FLUORO GUID CTRL ACC DEV 53390 Fluoro Time: 0:45 DAP (Gy m2): 0.27 [...] was obtained. Prior to beginning the procedure, Amelia Protocol was used to confirm the patient's [...] 1 Signed Report (CONTINUED) Name: [facility] : 1945 Age/S: 73 / M [address] [facility] Unit #: [id number] Loc: [place] [address] Phys: Tatiana Sellers Acct: [id number] Dis Date: [place] [facility] [place] #: [phone] Exam Date: 06/06/2019 1100 FAX #: Reason: PORT PLACEMENT EXAMS: CPT: [id number] SP FLUORO GUID CTRL ACC DEV 34693 Fluoro Time: 0:45 DAP (Gy m2): 0.27 [...] [place] : 1945 Age/S: 73 / M [address] Unit #: [id number] Loc: [place] [address] Phys: Cathy Sellers MD Acct: [id number] Dis Date: [place] [facility] [place] #: [phone] Exam Date: 06/06/2019 1100 FAX #: Reason: PORT PLACEMENT EXAMS: CPT: [id number] SP FLUORO GUID CTRL ACC DEV 63287 Fluoro Time: 0:45 DAP(Gy m2): 0.27 Air Kerma (mGy): 1 <Continued> Technologist: Manav Flores RT(R) Trnscb Date/Time: 06/06/2019 (1131) [email or web address] Orig Print D/T: S: 06/06/2019 (5290) PAGE 3 Signed ReportCBC W/AUTO [id number] 10:15:00 Test Item Value Reference Range Comments [...] REVIEW CONSISTANT code=MDIFF) WITH AUTO DIFFERENTIAL. PROTHROMBIN [id number] 09:27:00 Test Item Value Reference Range Comments PT PATIENT (test code=PTP) 11.9 SECONDS 9.3-12.9 INTERNATIONAL NORMAL RATIO (test code=INR) 1.03 INR Unit 0.8-1.2 THROMBOPLASTIN TIME [id number] 09:27:00 Test Item Value Reference Range Comments THROMBOPLASTIN TIME PARTIAL (test code=PTT) 33.2 SECONDS 26-35 CBC W/AUTO [id number] 09:20:00 Test Item Value Reference Range Comments [...] (test code=MDIFF) DIFF/SCN CRITERIA FUNGUS CULTURE + [id number] 16:11:00 Test Item Value Reference Range Comments CULTURE (BEAKER) (test No fungus isolated in 28 days ozcn=5019) FUNGUS SMEAR (BEAKER) (test No fungi seen pasu=3738) URIC [id number] 07:08:00 Test Item Value Reference Range Comments URIC ACID (BEAKER) (test tcpm=870) 1.4 mg/dL 2.6-7.2 [id number] 06:48:00 Test Item Value Reference Range Comments MAGNESIUM (BEAKER) (test czqx=157) 1.8 mg/dL 1.6-2.6 [id number] 06:48:00 Test Item Value Reference Range Comments PHOSPHORUS (BEAKER) (test fzff=294) 3.4 mg/dL 2.3-4.7 BASIC METABOLIC [id number] 06:48:00 Test Item Value Reference Range Comments SODIUM (BEAKER) (test 135 meq/L 136-145 mxlx=068) POTASSIUM (BEAKER) (test 4.7 meq/L 3.5-5.1 uetl=272) CHLORIDE (BEAKER) (test 105 meq/L 98-107 ypcc=066) CO2 (BEAKER) (test 24 meq/L 22-29 nbmf=779) BLOOD UREA NITROGEN 9 mg/dL 7-21 (BEAKER) (test gmej=019) CREATININE (BEAKER) (test 0.61 mg/dL 0.57-1.25 kcqk=269) GLUCOSE RANDOM (BEAKER) 100 mg/dL 70-105 (test jkvl=056) CALCIUM (BEAKER) (test 8.3 mg/dL 8.4-10.2 hzii=058) EGFR (BEAKER) (test 157 mL/min/1.73 sq m ESTIMATED GFR IS NOT iuie=2307) ACCURATE CREATININE CLEARANCE IN PREDICTING GLOMERULAR FILTRATION RATE. ESTIMATED GFR IS NOT APPLICABLE FOR DIALYSIS PATIENTS. HEPATIC FUNCTION [id number] 06:48:00 Test Item Value Reference Range Comments TOTAL PROTEIN (BEAKER) (test mdhn=125) 5.6 gm/dL 6.0-8.3 ALBUMIN (BEAKER) (test pewj=6871) 3.0 g/dL 3.5-5.0 BILIRUBIN TOTAL (BEAKER) (test fphg=383) 0.5 mg/dL 0.2-1.2 BILIRUBIN DIRECT (BEAKER) (test cyvd=183) 0.3 mg/dL 0.1-0.5 ALKALINE PHOSPHATASE (BEAKER) (test qkza=133) 54 U/L 40-150 AST (SGOT) (BEAKER) (test zmyp=779) 31 U/L 5-34 ALT (SGPT) (BEAKER) (test edfz=471) 50 U/L 6-55 CBC (HEMOGRAM ONLY)2019-05-07 06:05:00 Test Item Value Reference Range Comments WHITE BLOOD CELL COUNT (BEAKER) (test luap=805) 5.0 K/ L 3.5-10.5 RED BLOOD CELL COUNT (BEAKER) (test snfb=487) 3.42 M/ L 4.63-6.08 HEMOGLOBIN (BEAKER) (test zxnt=176) 9.8 GM/DL 13.7-17.5 HEMATOCRIT (BEAKER) (test mevu=679) 29.8 % 40.1-51.0 MEAN CORPUSCULAR VOLUME (BEAKER) (test rxsc=252) 87.1 fL 79.0-92.2 MEAN CORPUSCULAR HEMOGLOBIN (BEAKER) (test 28.7 pg 25.7-32.2 bazz=713) MEAN CORPUSCULAR HEMOGLOBIN CONC (BEAKER) (test 32.9 GM/DL 32.3-36.5 kzis=836) RED CELL DISTRIBUTION WIDTH (BEAKER) (test 16.6 % 11.6-14.4 lqbh=603) PLATELET COUNT (BEAKER) (test wvkt=095) 559 K/CU MM 150-450 MEAN PLATELET VOLUME (BEAKER) (test dytq=237) 8.9 fL 9.4-12.4 NUCLEATED RED BLOOD CELLS (BEAKER) (test 0 /100 WBC 0-0 duhb=184) URIC [id number] 03:27:00 Test Item Value Reference Range Comments URIC ACID (BEAKER) (test 1.2 mg/dL 2.6-7.2 Specimen slightly hemolyzed zdna=517) [id number] 03:19:00 Test Item Value Reference Range Comments PHOSPHORUS (BEAKER) (test 3.0 mg/dL 2.3-4.7 Specimen slightly hemolyzed ttsv=171) BASIC METABOLIC [id number] 03:19:00 Test Item Value Reference Range Comments SODIUM (BEAKER) (test 133 meq/L 136-145 evtu=316) POTASSIUM (BEAKER) (test 5.0 meq/L 3.5-5.1 Specimen slightly meoy=288) hemolyzed CHLORIDE (BEAKER) (test 104 meq/L 98-107 ysdc=598) CO2 (BEAKER) (test 21 meq/L 22-29 qiyt=503) BLOOD UREA NITROGEN 10 mg/dL 7-21 (BEAKER) (test dqlc=087) CREATININE (BEAKER) (test 0.65 mg/dL 0.57-1.25 Specimen slightly wuuf=997) hemolyzed GLUCOSE RANDOM (BEAKER) 126 mg/dL 70-105 (test svnn=700) CALCIUM (BEAKER) (test 8.0 mg/dL 8.4-10.2 tfvt=352) EGFR (BEAKER) (test 146 mL/min/1.73 sq m ESTIMATED GFR IS NOT nlif=2905) ACCURATE CREATININE CLEARANCE IN PREDICTING GLOMERULAR FILTRATION RATE. ESTIMATED GFR IS NOT APPLICABLE FOR DIALYSIS PATIENTS. RAD, CHEST, 1 VIEW, NON [id number] 15:04:00Reason for exam:->sobShould this be performed at the bedside?->YesFINAL REPORT CLINICAL HISTORY: sob TECHNIQUE: 1 view of the chest. COMPARISON: None IMPRESSION: There is a large right pleural effusion with underlying lung consolidation. The left lung is free of infiltrates or effusions. The cardiomediastinal silhouette is magnified by technique. Signed: Nehemias Mcclain MDReport Verified Date/Time: 05/06/2019 15:04:11 Reading Location: [facility] [id number] Consult Reading Room Electronically signed by: NEHEMIAS MCCLAIN M.D. on 03:04 PMURIC [id number] 13:52:00 Test Item Value Reference Range Comments URIC ACID (BEAKER) (test ftun=216) 1.2 mg/dL 2.6-7.2 [id number] 13:30:00 Test Item Value Reference Range Comments PHOSPHORUS (BEAKER) (test ccia=067) 2.4 mg/dL 2.3-4.7 BASIC METABOLIC [id number] 13:30:00 Test Item Value Reference Range Comments SODIUM (BEAKER) (test 131 meq/L 136-145 lpww=582) POTASSIUM (BEAKER) (test 4.3 meq/L 3.5-5.1 fqhg=119) CHLORIDE (BEAKER) (test 101 meq/L 98-107 nmhd=705) CO2 (BEAKER) (test 23 meq/L 22-29 ivyj=024) BLOOD UREA NITROGEN 8 mg/dL 7-21 (BEAKER) (test dpqk=574) CREATININE (BEAKER) (test 0.61 mg/dL 0.57-1.25 khxs=995) GLUCOSE RANDOM (BEAKER) 102 mg/dL 70-105 (test xjct=704) CALCIUM (BEAKER) (test 8.1 mg/dL 8.4-10.2 ljup=454) EGFR (BEAKER) (test 157 mL/min/1.73 sq m ESTIMATED GFR IS NOT fuez=1040) ACCURATE CREATININE CLEARANCE IN PREDICTING GLOMERULAR FILTRATION RATE. ESTIMATED GFR IS NOT APPLICABLE FOR DIALYSIS PATIENTS. CBC (HEMOGRAM ONLY)2019-05-06 06:31:00 Test Item Value Reference Range Comments WHITE BLOOD CELL COUNT (BEAKER) (test xeod=348) 9.1 K/ L 3.5-10.5 RED BLOOD CELL COUNT (BEAKER) (test obce=799) 3.54 M/ L 4.63-6.08 HEMOGLOBIN (BEAKER) (test gbqe=700) 10.2 GM/DL 13.7-17.5 HEMATOCRIT (BEAKER) (test mjya=744) 31.2 % 40.1-51.0 MEAN CORPUSCULAR VOLUME (BEAKER) (test kiug=642) 88.1 fL 79.0-92.2 MEAN CORPUSCULAR HEMOGLOBIN (BEAKER) (test 28.8 pg 25.7-32.2 ajjh=660) MEAN CORPUSCULAR HEMOGLOBIN CONC (BEAKER) (test 32.7 GM/DL 32.3-36.5 qfwr=678) RED CELL DISTRIBUTION WIDTH (BEAKER) (test 16.9 % 11.6-14.4 wpdf=340) PLATELET COUNT (BEAKER) (test fqnu=442) 587 K/CU MM 150-450 MEAN PLATELET VOLUME (BEAKER) (test oxzi=155) 8.8 fL 9.4-12.4 NUCLEATED RED BLOOD CELLS (BEAKER) (test 0 /100 WBC 0-0 plvf=963) URIC [id number] 05:51:00 Test Item Value Reference Range Comments URIC ACID (BEAKER) (test uewp=855) 1.3 mg/dL 2.6-7.2 [id number] 05:50:00 Test Item Value Reference Range Comments MAGNESIUM (BEAKER) (test alai=778) 1.8 mg/dL 1.6-2.6 [id number] 05:50:00 Test Item Value Reference Range Comments PHOSPHORUS (BEAKER) (test emml=045) 2.7 mg/dL 2.3-4.7 BASIC METABOLIC [id number] 05:50:00 Test Item Value Reference Range Comments SODIUM (BEAKER) (test 132 meq/L 136-145 ghrt=892) POTASSIUM (BEAKER) (test 4.7 meq/L 3.5-5.1 cclj=794) CHLORIDE (BEAKER) (test 102 meq/L 98-107 geaw=007) CO2 (BEAKER) (test 23 meq/L 22-29 mwyo=625) BLOOD UREA NITROGEN 8 mg/dL 7-21 (BEAKER) (test xkrp=942) CREATININE (BEAKER) (test 0.62 mg/dL 0.57-1.25 jxgw=494) GLUCOSE RANDOM (BEAKER) 115 mg/dL 70-105 (test abbf=861) CALCIUM (BEAKER) (test 8.2 mg/dL 8.4-10.2 knke=838) EGFR (BEAKER) (test 155 mL/min/1.73 sq m ESTIMATED GFR IS NOT bvyj=6756) ACCURATE CREATININE CLEARANCE IN PREDICTING GLOMERULAR FILTRATION RATE. ESTIMATED GFR IS NOT APPLICABLE FOR DIALYSIS PATIENTS. HEPATIC FUNCTION [id number] 05:50:00 Test Item Value Reference Range Comments TOTAL PROTEIN (BEAKER) (test ifpv=551) 6.1 gm/dL 6.0-8.3 ALBUMIN (BEAKER) (test ghli=2824) 3.1 g/dL 3.5-5.0 BILIRUBIN TOTAL (BEAKER) (test sayh=296) 0.5 mg/dL 0.2-1.2 BILIRUBIN DIRECT (BEAKER) (test fhjq=992) 0.2 mg/dL 0.1-0.5 ALKALINE PHOSPHATASE (BEAKER) (test cnzi=196) 59 U/L 40-150 AST (SGOT) (BEAKER) (test pjpn=037) 23 U/L 5-34 ALT (SGPT) (BEAKER) (test oobu=947) 42 U/L 6-55 URIC [id number] 22:30:00 Test Item Value Reference Range Comments URIC ACID (BEAKER) (test 1.2 mg/dL 2.6-7.2 Specimen slightly hemolyzed vuyh=465) BASIC METABOLIC [id number] 22:30:00 Test Item Value Reference Range Comments SODIUM (BEAKER) (test 131 meq/L 136-145 bxlp=839) POTASSIUM (BEAKER) (test 4.4 meq/L 3.5-5.1 Specimen slightly ernk=508) hemolyzed CHLORIDE (BEAKER) (test 101 meq/L 98-107 rols=050) CO2 (BEAKER) (test 21 meq/L 22-29 pxqr=203) BLOOD UREA NITROGEN 9 mg/dL 7-21 (BEAKER) (test keqf=347) CREATININE (BEAKER) (test 0.64 mg/dL 0.57-1.25 Specimen slightly wuxh=144) hemolyzed GLUCOSE RANDOM (BEAKER) 140 mg/dL 70-105 (test mbxl=475) CALCIUM (BEAKER) (test 7.9 mg/dL 8.4-10.2 arvh=428) EGFR (BEAKER) (test 149 mL/min/1.73 sq m ESTIMATED GFR IS NOT riut=4365) ACCURATE CREATININE CLEARANCE IN PREDICTING GLOMERULAR FILTRATION RATE. ESTIMATED GFR IS NOT APPLICABLE FOR DIALYSIS PATIENTS. [id number] 22:29:00 Test Item Value Reference Range Comments PHOSPHORUS (BEAKER) (test 2.2 mg/dL 2.3-4.7 Specimen slightly hemolyzed jzvr=185) URIC [id number] 13:53:00 Test Item Value Reference Range Comments URIC ACID (BEAKER) (test fcqg=407) 1.3 mg/dL 2.6-7.2 [id number] 13:43:00 Test Item Value Reference Range Comments PHOSPHORUS (BEAKER) (test qsgm=058) 2.1 mg/dL 2.3-4.7 BASIC METABOLIC [id number] 13:43:00 Test Item Value Reference Range Comments SODIUM (BEAKER) (test 136 meq/L 136-145 zybx=054) POTASSIUM (BEAKER) (test 4.5 meq/L 3.5-5.1 xfsh=605) CHLORIDE (BEAKER) (test 103 meq/L 98-107 fnhu=327) CO2 (BEAKER) (test 23 meq/L 22-29 ytwh=625) BLOOD UREA NITROGEN 9 mg/dL 7-21 (BEAKER) (test iaqo=581) CREATININE (BEAKER) (test 0.66 mg/dL 0.57-1.25 lmwe=129) GLUCOSE RANDOM (BEAKER) 132 mg/dL 70-105 (test gnvd=176) CALCIUM (BEAKER) (test 8.8 mg/dL 8.4-10.2 tmyq=160) EGFR (BEAKER) (test 144 mL/min/1.73 sq m ESTIMATED GFR IS NOT ezyd=1483) ACCURATE CREATININE CLEARANCE IN PREDICTING GLOMERULAR FILTRATION RATE. ESTIMATED GFR IS NOT APPLICABLE FOR DIALYSIS PATIENTS. SURGICALLY OBTAINED CULTURE + GRAM [id number] 13:00:00 Test Item Value Reference Range Comments CULTURE (BEAKER) (test 1+ Streptococcus mitis zpbm=2343) GRAM STAIN RESULT (BEAKER) 2+ WBCs (test aiuv=8374) GRAM STAIN RESULT (BEAKER) No organisms seen (test lazs=987032) <1+ Normal respiratory corinne presentBLOOD [id number] 08:00:00 Test Item Value Reference Range Comments CULTURE (BEAKER) (test rzln=4769) No growth in 5 days BLOOD [id number] 08:00:00 Test Item Value Reference Range Comments CULTURE (BEAKER) (test lacz=8146) No growth in 5 days URIC [id number] 05:58:00 Test Item Value Reference Range Comments URIC ACID (BEAKER) (test gujw=670) 1.4 mg/dL 2.6-7.2 [id number] 05:44:00 Test Item Value Reference Range Comments MAGNESIUM (BEAKER) (test ogmv=302) 1.8 mg/dL 1.6-2.6 [id number] 05:44:00 Test Item Value Reference Range Comments PHOSPHORUS (BEAKER) (test oelp=775) 3.0 mg/dL 2.3-4.7 BASIC METABOLIC [id number] 05:44:00 Test Item Value Reference Range Comments SODIUM (BEAKER) (test 134 meq/L 136-145 lnzh=756) POTASSIUM (BEAKER) (test 4.5 meq/L 3.5-5.1 dczz=209) CHLORIDE (BEAKER) (test 103 meq/L 98-107 dxuo=896) CO2 (BEAKER) (test 23 meq/L 22-29 imlg=366) BLOOD UREA NITROGEN 6 mg/dL 7-21 (BEAKER) (test vpli=497) CREATININE (BEAKER) (test 0.59 mg/dL 0.57-1.25 leiu=817) GLUCOSE RANDOM (BEAKER) 125 mg/dL 70-105 (test eqdj=643) CALCIUM (BEAKER) (test 8.2 mg/dL 8.4-10.2 pnbd=462) EGFR (BEAKER) (test 164 mL/min/1.73 sq m ESTIMATED GFR IS NOT qymi=6640) ACCURATE CREATININE CLEARANCE IN PREDICTING GLOMERULAR FILTRATION RATE. ESTIMATED GFR IS NOT APPLICABLE FOR DIALYSIS PATIENTS. HEPATIC FUNCTION [id number] 05:44:00 Test Item Value Reference Range Comments TOTAL PROTEIN (BEAKER) (test atsw=798) 6.0 gm/dL 6.0-8.3 ALBUMIN (BEAKER) (test izvb=5450) 2.9 g/dL 3.5-5.0 BILIRUBIN TOTAL (BEAKER) (test vnfb=913) 0.5 mg/dL 0.2-1.2 BILIRUBIN DIRECT (BEAKER) (test qduy=171) 0.3 mg/dL 0.1-0.5 ALKALINE PHOSPHATASE (BEAKER) (test yatg=551) 63 U/L 40-150 AST (SGOT) (BEAKER) (test uoae=885) 22 U/L 5-34 ALT (SGPT) (BEAKER) (test zivl=503) 43 U/L 6-55 CBC (HEMOGRAM ONLY)2019-05-05 05:16:00 Test Item Value Reference Range Comments WHITE BLOOD CELL COUNT (BEAKER) (test fcco=511) 10.4 K/ L 3.5-10.5 RED BLOOD CELL COUNT (BEAKER) (test mozt=706) 3.56 M/ L 4.63-6.08 HEMOGLOBIN (BEAKER) (test cdej=008) 10.3 GM/DL 13.7-17.5 HEMATOCRIT (BEAKER) (test msyd=150) 30.8 % 40.1-51.0 MEAN CORPUSCULAR VOLUME (BEAKER) (test oler=330) 86.5 fL 79.0-92.2 MEAN CORPUSCULAR HEMOGLOBIN (BEAKER) (test 28.9 pg 25.7-32.2 flte=106) MEAN CORPUSCULAR HEMOGLOBIN CONC (BEAKER) (test 33.4 GM/DL 32.3-36.5 wphm=454) RED CELL DISTRIBUTION WIDTH (BEAKER) (test 16.5 % 11.6-14.4 kygy=568) PLATELET COUNT (BEAKER) (test pnbe=540) 546 K/CU MM 150-450 MEAN PLATELET VOLUME (BEAKER) (test gqlz=498) 8.9 fL 9.4-12.4 NUCLEATED RED BLOOD CELLS (BEAKER) (test 0 /100 WBC 0-0 kagw=051) URIC [id number] 18:20:00 Test Item Value Reference Range Comments URIC ACID (BEAKER) (test 1.2 mg/dL 2.6-7.2 Specimen slightly hemolyzed mmxk=638) [id number] 18:18:00 Test Item Value Reference Range Comments PHOSPHORUS (BEAKER) (test 2.4 mg/dL 2.3-4.7 Specimen slightly hemolyzed scgl=323) BASIC METABOLIC [id number] 18:18:00 Test Item Value Reference Range Comments SODIUM (BEAKER) (test 130 meq/L 136-145 tlkh=582) POTASSIUM (BEAKER) (test 3.4 meq/L 3.5-5.1 Specimen slightly hqia=255) hemolyzed CHLORIDE (BEAKER) (test 99 meq/L 98-107 nccj=216) CO2 (BEAKER) (test 23 meq/L 22-29 hvoy=110) BLOOD UREA NITROGEN 5 mg/dL 7-21 (BEAKER) (test fzos=547) CREATININE (BEAKER) (test 0.62 mg/dL 0.57-1.25 Specimen slightly hmss=632) hemolyzed GLUCOSE RANDOM (BEAKER) 139 mg/dL 70-105 (test eebi=969) CALCIUM (BEAKER) (test 8.1 mg/dL 8.4-10.2 jgcu=696) EGFR (BEAKER) (test 155 mL/min/1.73 sq m ESTIMATED GFR IS NOT kahh=4720) ACCURATE CREATININE CLEARANCE IN PREDICTING GLOMERULAR FILTRATION RATE. ESTIMATED GFR IS NOT APPLICABLE FOR DIALYSIS PATIENTS. (MANUAL DIFFERENTIAL)2019-05-04 13:32:00 Test Item Value Reference Range Comments NEUTROPHILS - REL (DIFF) (BEAKER) (test ozzv=2252) 80 % LYMPHOCYTES - REL (DIFF) (BEAKER) (test glfj=8530) 8 % MONOCYTES - REL (DIFF) (BEAKER) (test vnjv=1809) 7 % EOSINOPHILS - REL (DIFF) (BEAKER) (test oume=2340) 3 % MYELOCYTES-REL (DIFF) (BEAKER) (test mlbs=1033) 1 % 0-0 BANDS - REL (DIFF) (BEAKER) (test udyb=8435) 1 % 0-10 NEUTROPHILS - ABS (DIFF) (BEAKER) (test eaip=4811) 8.80 K/ L 1.80-8.00 LYMPHOCYTES - ABS (DIFF) (BEAKER) (test lmhc=2183) 0.88 K/ L 1.48-4.50 MONOCYTES - ABS (DIFF) (BEAKER) (test atzm=1121) 0.77 K/ L 0.00-1.30 EOSINOPHILS - ABS (DIFF) (BEAKER) (test yecj=6011) 0.33 K/ L 0.00-0.50 BANDS-ABS (DIFF) (BEAKER) (test jody=5032) 0.1 K/ L 0.0-0.8 MYELOCYTES-ABS (DIFF) (BEAKER) (test uhhh=4757) 0.11 K/ L 0.00-0.00 TOTAL COUNTED (BEAKER) (test obfy=6779) 100 BANDS + SEGMENTED NEUTROPHILS (BEAKER) (test 8.91 edjm=3862) WBC MORPHOLOGY (BEAKER) (test etci=493) Normal PLT MORPHOLOGY (BEAKER) (test fcst=966) Normal POLYCHROMATOPHILLIC RBCS(BEAKER) (test hwof=810) 1+ few [id number] 06:58:00 Test Item Value Reference Range Comments MAGNESIUM (BEAKER) (test bcwv=042) 1.9 mg/dL 1.6-2.6 BASIC METABOLIC [id number] 06:58:00 Test Item Value Reference Range Comments SODIUM (BEAKER) (test 137 meq/L 136-145 nmbc=519) POTASSIUM (BEAKER) (test 4.1 meq/L 3.5-5.1 nbxl=726) CHLORIDE (BEAKER) (test 102 meq/L 98-107 lbkz=560) CO2 (BEAKER) (test 28 meq/L 22-29 gnkt=605) BLOOD UREA NITROGEN 5 mg/dL 7-21 (BEAKER) (test tptu=416) CREATININE (BEAKER) (test 0.62 mg/dL 0.57-1.25 ivnj=107) GLUCOSE RANDOM (BEAKER) 82 mg/dL 70-105 (test kczu=427) CALCIUM (BEAKER) (test 8.6 mg/dL 8.4-10.2 cgbs=086) EGFR (BEAKER) (test 155 mL/min/1.73 sq m ESTIMATED GFR IS NOT nckl=1741) ACCURATE CREATININE CLEARANCE IN PREDICTING GLOMERULAR FILTRATION RATE. ESTIMATED GFR IS NOT APPLICABLE FOR DIALYSIS PATIENTS. HEPATIC FUNCTION [id number] 06:58:00 Test Item Value Reference Range Comments TOTAL PROTEIN (BEAKER) (test luil=131) 6.1 gm/dL 6.0-8.3 ALBUMIN (BEAKER) (test gefc=8599) 2.9 g/dL 3.5-5.0 BILIRUBIN TOTAL (BEAKER) (test pwyn=502) 0.4 mg/dL 0.2-1.2 BILIRUBIN DIRECT (BEAKER) (test sfsg=072) 0.3 mg/dL 0.1-0.5 ALKALINE PHOSPHATASE (BEAKER) (test wfkf=259) 67 U/L 40-150 AST (SGOT) (BEAKER) (test kfzn=080) 32 U/L 5-34 ALT (SGPT) (BEAKER) (test jecz=917) 53 U/L 6-55 CBC (HEMOGRAM ONLY)2019-05-04 06:47:00 Test Item Value Reference Range Comments WHITE BLOOD CELL COUNT (BEAKER) (test twnr=925) 11.0 K/ L 3.5-10.5 RED BLOOD CELL COUNT (BEAKER) (test wevo=251) 3.74 M/ L 4.63-6.08 HEMOGLOBIN (BEAKER) (test woeo=730) 10.9 GM/DL 13.7-17.5 HEMATOCRIT (BEAKER) (test dazi=315) 33.4 % 40.1-51.0 MEAN CORPUSCULAR VOLUME (BEAKER) (test oygs=386) 89.3 fL 79.0-92.2 MEAN CORPUSCULAR HEMOGLOBIN (BEAKER) (test 29.1 pg 25.7-32.2 nmwy=149) MEAN CORPUSCULAR HEMOGLOBIN CONC (BEAKER) (test 32.6 GM/DL 32.3-36.5 dyri=114) RED CELL DISTRIBUTION WIDTH (BEAKER) (test 16.8 % 11.6-14.4 iwbe=865) PLATELET COUNT (BEAKER) (test tdml=435) 566 K/CU MM 150-450 MEAN PLATELET VOLUME (BEAKER) (test ubko=605) 8.9 fL 9.4-12.4 NUCLEATED RED BLOOD CELLS (BEAKER) (test 1 /100 WBC 0-0 ptsf=847) MR, BRAIN, [id number] 00:59:00FINAL REPORT MRI Brain with and without [...] No abnormal intracranial enhancement. Signed: Oleg Izaguirre [facility] Verified Date/Time: 05/04/2019 00:59:51 BONE AND/OR JOINT IMAGING, WHOLE [id number] 17:54:00FINAL REPORT PROCEDURE: BONE SCAN, WHOLE BODY CPT CODE: 91540 INDICATION: Right lung mass PROTOCOL: 20.1 mCi [...] and pelvisCT from 05/02/2019. Signed: Jarad Galvez MDReport Verified Date/Time: 05/03/2019 17:54:51 Reading Location: [place] [id number] Reading Room FINE NEEDLE ASPIRATE BY [id number] 14:55:00Medical Cytology Report Case: [id number] Authorizing Provider: Jarrod Carroll MD Collected: 05/01/2019 1523 Ordering Location: [facility] Received: 1617 SERVICES Pathologist: Onel Kidd MD Specimen: Lymph Node, Subcarinal, Station 7 LYMPH NODE, SUBCARINAL, STATION 7 EBUS FNA BY CLINICIAN (CYTOSPINS AND CELL BLOCK OF ASPIRATE): - SMALL CELL CARCINOMA Signing Pathologist Direct Phone Line: [phone] signed by Onel Kidd MD on 05/03/2019 at 2:55 PMPlease see case [id number] for immunophenotypic evaluation. 48947, 69338Cqwiq hilar mass, lymphadenopathy, history of bladder cancerLYMPH NODE, SUBCARINAL, STATION 7 EBUS FNA35 mls in cytorich red; 2 cytospins, cell blockCollected: [id number]: [id number] interpretation of this case included the use of immunohistochemistry or special stains.Control Slides Examined: In-house known positive controls were evaluated along with the test tissue. These control slides run alongside of the patients sample show appropriate staining. Internal positive and negative controls when available are evaluated Immunohistochemistry technical testing was performed at [facility], Pathology Laboratory where it was developed [...] qualified to perform high complexity clinical laboratory testing.[facility], Department of Pathology, [address] [place] [address], [facility], Department of Pathology, [address] [place] [address], [facility], [facility] of [facility], [address] [place] [address], YEHI NEEDLE ASPIRATE BY [id number] 14:45: 00Medical Cytology Report Case: [id number] Authorizing Provider: Jarrod Carroll MD Collected : 05/01/2019 1457 Ordering Location: [facility] Received: 05/01/2019 1501 SERVICES Pathologist: Onel Kidd MD Specimen: Lymph Node, Lower Paratracheal, Left, Station 4L LYMPH NODE, LOWERPARATRACHEAL, LEFT, STATION 4L EBUS FNA BY CLINICIAN (DIRECT SMEARS AND CELL BLOCK OF ASPIRATE): - SMALL CELL CARCINOMA (SEE COMMENT) Signing Pathologist Direct Phone Line : [phone] signed by Onel Kidd MD on 05/03/2019 at 2:45 PMPlease see case [id number] for immunophenotypic evaluation. 10035, 38717, 11520Skyze hilar mass, lymphadenopathy, history of bladder cancerLYMPH NODE, LOWER PARATRACHEAL, LEFT, STATION 4L EBUS FNA35 mls in cytorich red; 2 direct smear slides, cell blockCollected: [id number]: [id number] TUMOR SUSPICIOUS FOR SMALL CELL CARCINOMA (3:16PM, NS)The interpretation of this case included the use of immunohistochemistry or special stains.Control Slides Examined: In-house known positive controls were evaluated along with the test tissue. These control slides run alongside of the patients sample show appropriate staining. Internal positive and negative controls when available are evaluated Immunohistochemistry technical testing was performed at [facility], Pathology Laboratory where it was developed [...] qualified to perform high complexity clinical laboratory testing.[facility], Department of Pathology, [address] [place] [address], [facility], [facility] of Pathology, [address] [place] [address], [facility], [facility] of Pathology, [address] [place] [address], XTHN NEEDLE ASPIRATE BY [id number] 14:44:00Medical Cytology Report Case: [id number] Authorizing Provider: Jarrod Carroll MD Collected: 05/01/2019 1457 Ordering Location: [facility] Received: 05/01/2019 1501 SERVICES Pathologist: Onel Kidd MD Specimen: Lymph Node, Lower Paratracheal, Right, Station 4R LYMPH NODE, LOWERPARATRACHEAL, RIGHT, STATION 4R EBUS FNA BY CLINICIAN (DIRECT SMEARS AND CELL BLOCK OF ASPIRATE):- SMALL CELL CARCINOMA (SEE COMMENT) Signing Pathologist Direct Phone Line: [phone] signed by Onel Kidd MD on 05/03/2019 [...] small cell carcinoma. Please see cases [id number], [id number], 1543, 1544, and 1545 for further evaluation.33913,42368, 93250, 92607, 90800 X 6, 68060Pfsxt hilar mass, lymphadenopathy, history of bladder cancerLYMPH NODE, LOWER PARATRACHEAL, RIGHT , STATION 4R EBUS FNA40 mls in cytorich red; 6 direct smear slides,cell blockCollected: [id number]: [id number] TUMOR SUSPICIOUS FOR SMALL CELL CARCINOMA (3:16PM, [...] evaluated Immunohistochemistry technical testing was performed at [facility], Pathology Laboratory where it was developed [...] as qualified to perform high complexity clinicallaboratory testing.[facility], Department of Pathology, [address] [place] [address], [facility]somcCommunity [facility], Department of Pathology, [address] [place] [address], ByjbgwCommunity [facility], Department of Pathology, [address] [place] [address], MPFAGI CULTURE + GRAM [id number] 12:08:00 Test Item Value Reference Range Comments CULTURE (BEAKER) (test 4+ Normal respiratory corinne jhrs=5826) present GRAM STAIN RESULT (BEAKER) 1+ WBCs (test lyib=9999) GRAM STAIN RESULT (BEAKER) 0-5 epithelial cells (test xarx=11786) GRAM STAIN RESULT (BEAKER) 3+ gram negative rods (test caci=02532) GRAM STAIN RESULT (BEAKER) 1+ gram positive cocci in pairs (test llfx=390952) FINE NEEDLE ASPIRATE BY [id number] 10:07:00Medical Cytology Report Case: [id number] Authorizing Provider: Jarrod Carroll MD Collected: 05/01/2019 1509 Ordering Location: [facility] Received: 1619 SERVICES Pathologist: Onel Kidd MD Specimen: Lymph Node, Interlobar, Left, Station 11L LYMPH NODE, INTERLOBAR, LEFT, STATION 11L EBUS FNA BY CLINICIAN (CYTOSPINS AND CELL BLOCK OF ASPIRATE): - SATISFACTORY FOR EVALUATION - NEGATIVE FOR METASTATIC MALIGNANT CELLS - EVIDENCE OF LYMPH NODE SAMPLING (MACROPHAGES WITH ANTHRACOTIC PIGMENTS AND SCANT LYMPHOID TISSUE PRESENT) Signing Pathologist Direct Phone Line: [phone] signed by Onel Kidd MD on 05/03/2019 at 10:07 AMPlease see cases [id number], [id number], 1541, 1543, and [id number], 29787Cpuww hilar mass, lymphadenopathy, history of bladder cancerLYMPH NODE, INTERLOBAR, LEFT, STATION 11L EBUS FNA35 mls in cytorich red; 2 cytospins, cell blockCollected: [id number]: [id number] interpretation of this case included the use of immunohistochemistry or special stains.Control Slides Examined: In-house known positive controls were evaluated along with the test tissue. These control slides run alongside of the patients sample show appropriate staining. Internal positive and negative controls when available are evaluated Immunohistochemistry technical testing was performed at [facility], Pathology Laboratory where it was developed [...] qualified to perform high complexity clinical laboratory testing.[facility], Department of Pathology, [address] [place] [address], [facility], Department of Pathology, [address] [place] [address], Tel F[facility], [facility] of Path[facility], [address] [place] [address], [id number] 10:03:00Medical Cytology Report Case: [id number] Authorizing Provider: Jarrod Carroll MD Collected: 05/01/2019 1458 Ordering Location: [facility] Received: 05/01/2019 1620 SERVICES Pathologist: Onel Kidd MD Specimen: Lung, Right Lower Lobe, bronch washing RIGHT LOWER LOBE LUNG BRONCH WASHING (CYTOSPINS): - NEGATIVE FOR MALIGNANCY LIMITED BY OBSCURING ACUTE INFLAMMATION REACTIVE BRONCHIAL EPITHELIAL CELLS PRESENT Signing Pathologist Direct Phone Line: Please see cases [id number], [id number], 1541, 1544, and [id number] hilar mass, lymphadenopathy, history of bladder cancerRIGHT LOWER LOBE LUNG BRONCH WASHING5 mls cloudy thick white fluid; 4 cytospinsCollected: [id number]: [id number], [facility] of [facility]ology, [address] [place] [address], QjnhsdCommunity [facility], Department of Pathology, [address] [place] [address] , WggosrCommunity [facility], Department of Pathology, [address] [place] [address], [id number] 06: 54:00 Test Item Value Reference Range Comments MAGNESIUM (BEAKER) (test mpcy=627) 1.9 mg/dL 1.6-2.6 BASIC METABOLIC [id number] 06:54:00 Test Item Value Reference Range Comments SODIUM (BEAKER) (test 135 meq/L 136-145 kbdk=537) POTASSIUM (BEAKER) (test 3.5 meq/L 3.5-5.1 cfvx=553) CHLORIDE (BEAKER) (test 101 meq/L 98-107 cnsb=431) CO2 (BEAKER) (test 26 meq/L 22-29 tdei=685) BLOOD UREA NITROGEN 5 mg/dL 7-21 (BEAKER) (test ucpu=432) CREATININE (BEAKER) (test 0.62 mg/dL 0.57-1.25 pbzu=808) GLUCOSE RANDOM (BEAKER) 87 mg/dL 70-105 (test gkqd=861) CALCIUM (BEAKER) (test 8.5 mg/dL 8.4-10.2 nkmo=192) EGFR (BEAKER) (test 155 mL/min/1.73 sq m ESTIMATED GFR IS NOT eqle=5459) ACCURATE CREATININE CLEARANCE IN PREDICTING GLOMERULAR FILTRATION RATE. ESTIMATED GFR IS NOT APPLICABLE FOR DIALYSIS PATIENTS. CBC (HEMOGRAM ONLY)2019-05-03 06:38:00 Test Item Value Reference Range Comments WHITE BLOOD CELL COUNT (BEAKER) (test kywg=171) 12.1 K/ L 3.5-10.5 RED BLOOD CELL COUNT (BEAKER) (test magx=562) 3.49 M/ L 4.63-6.08 HEMOGLOBIN (BEAKER) (test gimh=452) 10.1 GM/DL 13.7-17.5 HEMATOCRIT (BEAKER) (test dxke=795) 30.5 % 40.1-51.0 MEAN CORPUSCULAR VOLUME (BEAKER) (test fgoq=077) 87.4 fL 79.0-92.2 MEAN CORPUSCULAR HEMOGLOBIN (BEAKER) (test 28.9 pg 25.7-32.2 hgdc=474) MEAN CORPUSCULAR HEMOGLOBIN CONC (BEAKER) (test 33.1 GM/DL 32.3-36.5 nnqv=371) RED CELL DISTRIBUTION WIDTH (BEAKER) (test 16.5 % 11.6-14.4 rmhx=041) PLATELET COUNT (BEAKER) (test zzkt=098) 510 K/CU MM 150-450 MEAN PLATELET VOLUME (BEAKER) (test logr=759) 8.8 fL 9.4-12.4 NUCLEATED RED BLOOD CELLS (BEAKER) (test 0 /100 WBC 0-0 voom=959) CT, [id number] 22:44:00FINAL REPORT CT of the Chest, abdomen [...] MDReport Verified Date/Time: 05/02/2019 22:44:33 Reading Location: [address] Consult Reading Room Electronicallysigned by: HAKEEM GENAO M.D. on 05/02/2019 10:44 PMCT, CHEST, WITH [id number] 22:44:00FINAL REPORT CT of the Chest, abdomen [...] MDReport Verified Date/Time: 05/02/2019 22:44:33 Reading Location: [address] Consult Reading Room Electronicallysigned by: HAKEEM GENAO M.D. on 05/02/2019 10: 44 PMFLOW CYTOMETRY [id number] 18:32:00 Test Item Value Reference Range Comments FLOW CYTOMETRY RESULT POINTER (BEAKER) See Separate Report (test wxeb=6700) FLOW CYTOMETRY AP CASE # (BEAKER) (test [id number] oofn=4243) SPIN/CONCENTRATION [id number] 10:42:00 Test Item Value Reference Range Comments CONCENTRATION CHARGED (BEAKER) (test vkmj=9695) Done FLOW [id number] 10:08:00Flow Cytometry Report Case: [id number] Authorizing Provider: Jarrod Carroll MD Collected: 05/01/2019 1535 Ordering Location: [facility] Received: 2018 1739 SERVICES Pathologist: Stacey Horowitz MD Specimen: Other LYMPH NODE, EBUS FINE NEEDLE ASPIRATION, FLOW CYTOMETRY:-LIMITED BY REDUCED VIABILITY-NO MONOTYPIC B CELL POPULATION-NO ABERRANT T CELL POPULATION-SEE COMMENT These results require correlation with the morphologic and other features for full interpretation. 37496Mktk mass with metsLYMPH NODE, EBUS FINE NEEDLE ASPIRATIONCD8, surface- Roots, CD56,surface-Lambda, CD5, CD19, CD10, CD3, CD20, CD4, CD45 cKappa, cLambda, CD38, CD138.Specimen Viability: 64.3% Number of Events Acquired: 96162 The following populations are identified: Lymphocytes: Bright [...] developed and their performance characteristics determined by [facility]. They have not been cleared or approved by the U.S. Food andDrug Administration. The FDA has determined that such clearance or approval is not necessary. It should not be regarded as investigational or for research. This laboratory is certified under the Clinical Laboratory Improvement Amendments of 1988 ("CLIA") as qualified to perform high-complexity clinical testing.BASIC METABOLIC [id number] 06:59:00 Test Item Value Reference Range Comments SODIUM (BEAKER) (test 138 meq/L 136-145 scce=252) POTASSIUM (BEAKER) (test 3.2 meq/L 3.5-5.1 wwgx=084) CHLORIDE (BEAKER) (test 107 meq/L 98-107 kiqz=518) CO2 (BEAKER) (test 22 meq/L 22-29 lkpa=126) BLOOD UREA NITROGEN 10 mg/dL 7-21 (BEAKER) (test twis=651) CREATININE (BEAKER) (test 0.61 mg/dL 0.57-1.25 skvr=748) GLUCOSE RANDOM (BEAKER) 119 mg/dL 70-105 (test swvc=693) CALCIUM (BEAKER) (test 7.7 mg/dL 8.4-10.2 zjgg=161) EGFR (BEAKER) (test 157 mL/min/1.73 sq m ESTIMATED GFR IS NOT xofn=7739) ACCURATE CREATININE CLEARANCE IN PREDICTING GLOMERULAR FILTRATION RATE. ESTIMATED GFR IS NOT APPLICABLE FOR DIALYSIS PATIENTS. [id number] 06:26:00 Test Item Value Reference Range Comments PHOSPHORUS (BEAKER) (test cewe=268) 2.4 mg/dL 2.3-4.7 [id number] 06:26:00 Test Item Value Reference Range Comments MAGNESIUM (BEAKER) (test fxwa=359) 1.9 mg/dL 1.6-2.6 CBC (HEMOGRAM ONLY)2019-05-02 06:00:00 Test Item Value Reference Range Comments WHITE BLOOD CELL COUNT (BEAKER) (test mvru=602) 10.9 K/ L 3.5-10.5 RED BLOOD CELL COUNT (BEAKER) (test mmms=986) 3.17 M/ L 4.63-6.08 HEMOGLOBIN (BEAKER) (test nmir=953) 9.2 GM/DL 13.7-17.5 HEMATOCRIT (BEAKER) (test ntrp=278) 27.7 % 40.1-51.0 MEAN CORPUSCULAR VOLUME (BEAKER) (test bwtm=511) 87.4 fL 79.0-92.2 MEAN CORPUSCULAR HEMOGLOBIN (BEAKER) (test 29.0 pg 25.7-32.2 lxgq=234) MEAN CORPUSCULAR HEMOGLOBIN CONC (BEAKER) (test 33.2 GM/DL 32.3-36.5 sliw=535) RED CELL DISTRIBUTION WIDTH (BEAKER) (test 16.3 % 11.6-14.4 yots=438) PLATELET COUNT (BEAKER) (test owwb=019) 429 K/CU MM 150-450 MEAN PLATELET VOLUME (BEAKER) (test fujv=648) 9.0 fL 9.4-12.4 NUCLEATED RED BLOOD CELLS (BEAKER) (test 0 /100 WBC 0-0 gzxl=571) EBUS FNA [id number] 18:00:00 Test Item Value Reference Range Comments CYTOLOGY RESULT POINTER (BEAKER) (test See Separate Report vppk=3856) EBUS FNA [id number] 18:00:00 Test Item Value Reference Range Comments CYTOLOGY RESULT POINTER (BEAKER) (test See Separate Report uivn=8416) CYTOLOGY [id number] 18:00:00 Test Item Value Reference Range Comments CYTOLOGY RESULT POINTER (BEAKER) (test See Separate Report rbic=2588) EBUS FNA [id number] 17:01:00 Test Item Value Reference Range Comments CYTOLOGY RESULT POINTER (BEAKER) (test See Separate Report tkbz=5364) EBUS FNA [id number] 17:01:00 Test Item Value Reference Range Comments CYTOLOGY RESULT POINTER (BEAKER) (test See Separate Report upym=5984) [id number] 08:43:00 Test Item Value Reference Range Comments PARTIAL THROMBOPLASTIN TIME (BEAKER) (test 35.2 seconds 22.5-36.0 wwjs=088) VITAMIN B12 AND [id number] 06:30:00 Test Item Value Reference Range Comments VITAMIN B12 (BEAKER) (test jvju=604) > pg/mL 213-816 FOLATE (BEAKER) (test vypi=473) 2.4 ng/mL >=7.0 [id number] 06:24:00 Test Item Value Reference Range Comments FERRITIN (BEAKER) (test ncps=865) 2915 ng/mL 5-275 [id number] 05:48:00 Test Item Value Reference Range Comments PHOSPHORUS (BEAKER) (test lscj=164) 3.0 mg/dL 2.3-4.7 [id number] 05:48:00 Test Item Value Reference Range Comments MAGNESIUM (BEAKER) (test mwsk=793) 2.1 mg/dL 1.6-2.6 BASIC METABOLIC [id number] 05:48:00 Test Item Value Reference Range Comments SODIUM (BEAKER) (test 135 meq/L 136-145 kmjx=689) POTASSIUM (BEAKER) (test 3.6 meq/L 3.5-5.1 egks=044) CHLORIDE (BEAKER) (test 99 meq/L 98-107 kpwr=722) CO2 (BEAKER) (test 25 meq/L 22-29 bony=224) BLOOD UREA NITROGEN 12 mg/dL 7-21 (BEAKER) (test zrdo=475) CREATININE (BEAKER) (test 0.69 mg/dL 0.57-1.25 bbhp=287) GLUCOSE RANDOM (BEAKER) 112 mg/dL 70-105 (test mhwr=892) CALCIUM (BEAKER) (test 8.8 mg/dL 8.4-10.2 gfxt=510) EGFR (BEAKER) (test 137 mL/min/1.73 sq m ESTIMATED GFR IS NOT lljf=5012) ACCURATE CREATININE CLEARANCE IN PREDICTING GLOMERULAR FILTRATION RATE. ESTIMATED GFR IS NOT APPLICABLE FOR DIALYSIS PATIENTS. LACTATE DEHYDROGENASE (LDH)2019-05-01 05:48:00 Test Item Value Reference Range Comments LACTATE DEHYDROGENASE (BEAKER) (test ldun=130) 242 U/L 125-220 IRON, TIBC, % SAT. (WITHOUT FERRITIN)2019-05-01 05:30:00 Test Item Value Reference Range Comments IRON (BEAKER) (test dufr=262) 29.0 ug/dL 40.0-160.0 TOTAL IRON BINDING CAPACITY (BEAKER) (test 158 ug/dL 250-450 hucn=517) IRON % SATURATION (2) (BEAKER) (test dmnd=9755) 18 % 20-55 PROTHROMBIN [id number] 05:24:00 Test Item Value Reference Range Comments PROTIME (BEAKER) (test qtzo=841) 15.1 seconds 11.9-14.2 INR (BEAKER) (test jops=916) 1.3 <=5.9 Effective 04/10/2019: PT Reference Range ChangeNew: 11.9-14.2 Previous: 11.7- 14.7RECOMMENDED COUMADIN/WARFARIN INR THERAPY RANGESSTANDARD DOSE: 2.0-3.0 Includes: PROPHYLAXIS for venous thrombosis, systemic embolization; TREATMENT for venous thrombosis and/or pulmonary embolus.HIGH RISK: Target INR is2.5-3.5 for patients wiht mechanical heart valves.CBC (HEMOGRAM ONLY)2019-05-01 05:16:00 Test Item Value Reference Range Comments WHITE BLOOD CELL COUNT (BEAKER) (test mbqf=457) 11.6 K/ L 3.5-10.5 RED BLOOD CELL COUNT (BEAKER) (test pgne=642) 3.72 M/ L 4.63-6.08 HEMOGLOBIN (BEAKER) (test muic=032) 10.7 GM/DL 13.7-17.5 HEMATOCRIT (BEAKER) (test cnxu=685) 32.5 % 40.1-51.0 MEAN CORPUSCULAR VOLUME (BEAKER) (test qlpl=691) 87.4 fL 79.0-92.2 MEAN CORPUSCULAR HEMOGLOBIN (BEAKER) (test 28.8 pg 25.7-32.2 noyb=058) MEAN CORPUSCULAR HEMOGLOBIN CONC (BEAKER) (test 32.9 GM/DL 32.3-36.5 eqnt=923) RED CELL DISTRIBUTION WIDTH (BEAKER) (test 15.9 % 11.6-14.4 jlie=711) PLATELET COUNT (BEAKER) (test lder=344) 438 K/CU MM 150-450 MEAN PLATELET VOLUME (BEAKER) (test ueor=876) 9.0 fL 9.4-12.4 NUCLEATED RED BLOOD CELLS (BEAKER) (test 0 /100 WBC 0-0 megh=851) HEMOGLOBIN [id number] 13:16:00 Test Item Value Reference Range Comments HEMOGLOBIN A1C (BEAKER) (test bxzr=897) 5.9 % 4.3-6.1 CBC W/PLT COUNT & AUTO [id number] 08:54:00 Test Item Value Reference Range Comments WHITE BLOOD CELL COUNT (BEAKER) (test snsp=174) 6.0 K/ L 3.5-10.5 RED BLOOD CELL COUNT (BEAKER) (test ukax=482) 3.54 M/ L 4.63-6.08 HEMOGLOBIN (BEAKER) (test sycp=238) 10.2 GM/DL 13.7-17.5 HEMATOCRIT (BEAKER) (test xftb=467) 30.6 % 40.1-51.0 MEAN CORPUSCULAR VOLUME (BEAKER) (test uozn=420) 86.4 fL 79.0-92.2 MEAN CORPUSCULAR HEMOGLOBIN (BEAKER) (test 28.8 pg 25.7-32.2 ideq=373) MEAN CORPUSCULAR HEMOGLOBIN CONC (BEAKER) (test 33.3 GM/DL 32.3-36.5 rdiy=307) RED CELL DISTRIBUTION WIDTH (BEAKER) (test 15.7 % 11.6-14.4 dprk=405) PLATELET COUNT (BEAKER) (test pgoa=637) 370 K/CU MM 150-450 MEAN PLATELET VOLUME (BEAKER) (test vwsa=272) 9.0 fL 9.4-12.4 NUCLEATED RED BLOOD CELLS (BEAKER) (test 0 /100 WBC 0-0 orbk=691) (CELLAVISION MANUAL DIFF)2019-04-30 08:54:00 Test Item Value Reference Range Comments NEUTROPHILS - REL (CELLAVISION)(BEAKER) (test 89 % zoev=7901) LYMPHOCYTES - REL (CELLAVISION)(BEAKER) (test 6 % ouee=9656) MONOCYTES - REL (CELLAVISION)(BEAKER) (test 4 % qcsc=6558) BANDS - REL (CELLAVISION)(BEAKER) (test okym=3045) 1 % 0-10 NEUTROPHILS - ABS (CELLAVISION)(BEAKER) (test 5.34 K/ul 1.78-5.38 ucnf=8842) LYMPHOCYTES - ABS (CELLAVISION)(BEAKER) (test 0.36 K/ul 1.32-3.57 jihi=9456) MONOCYTES - ABS (CELLAVISION)(BEAKER) (test 0.24 K/uL 0.30-0.82 tlbg=6945) BANDS - ABS (CELLAVISION)(BEAKER) (test ycxi=2570) 0.06 K/uL 0.00-0.80 TOTAL COUNTED (BEAKER) (test meqe=8898) 100 WBC MORPHOLOGY (BEAKER) (test tihq=145) Normal CLUMPED PLATELETS (BEAKER) (test canc=063) Present GIANT PLATELETS (BEAKER) (test rlos=148) Present POLYCHROMATOPHILLIC RBCS(BEAKER) (test lgjp=103) 1+ few ANISOCYTOSIS (BEAKER) (test mmne=169) 1+ few MACROCYTES (BEAKER) (test ektg=888) 1+ few SCHISTOCYTES (BEAKER) (test upcf=556) 1+ few FENG CELLS (BEAKER) (test igpr=630) 1+ few PLATELET CONCENTRATION (CELLAVISION)(BEAKER) (test Adequate xalj=7114) Received comment: User comments: Slide comments:BASIC METABOLIC [id number] 04:43:00 Test Item Value Reference Range Comments SODIUM (BEAKER) (test 134 meq/L 136-145 jvzu=249) POTASSIUM (BEAKER) (test 3.6 meq/L 3.5-5.1 urfp=723) CHLORIDE (BEAKER) (test 100 meq/L 98-107 octj=584) CO2 (BEAKER) (test 24 meq/L 22-29 yhuw=702) BLOOD UREA NITROGEN 7 mg/dL 7-21 (BEAKER) (test byce=241) CREATININE (BEAKER) (test 0.67 mg/dL 0.57-1.25 zrru=134) GLUCOSE RANDOM (BEAKER) 147 mg/dL 70-105 (test ujen=504) CALCIUM (BEAKER) (test 8.7 mg/dL 8.4-10.2 taqb=118) EGFR (BEAKER) (test 141 mL/min/1.73 sq m ESTIMATED GFR IS NOT xhhd=2403) ACCURATE CREATININE CLEARANCE IN PREDICTING GLOMERULAR FILTRATION RATE. ESTIMATED GFR IS NOT APPLICABLE FOR DIALYSIS PATIENTS. PROTHROMBIN TIME/[id number] 04:28:00 Test Item Value Reference Range Comments PROTIME (BEAKER) (test agjb=311) 17.7 seconds 11.9-14.2 INR (BEAKER) (test oipw=981) 1.5 <=5.9 Effective 04/10/2019: PT Reference Range ChangeNew: 11.9-14.2 Previous: 11.7- 14.7RECOMMENDED COUMADIN/WARFARIN INR THERAPY RANGESSTANDARD DOSE: 2.0-3.0 Includes: PROPHYLAXIS for venous thrombosis, systemic embolization; TREATMENT for venous thrombosis and/or pulmonary embolus.HIGH RISK: Target INR is2.5-3.5 for patients wiht mechanical heart valves.
[2019-07-31] MEDS ORDERED: NA CHLORIDE 0.9% 1,000 ML ONE ×2 (10:09→12:23)
[2019-07-31 10:11] LABS: Absolute Lymphocytes (CBC) 0.9 K/uL (0.7-4.9); Basophils % 0.7 % (0-1.3); Hematocrit 32.1 % (39.6-49.0); Lymphocytes % 8.1 % (15.3-44.8); MPV 7.1 fL (7.6-11.3); RBC Red Blood Cell Count 3.54 M/uL (4.33-5.43)
[2019-07-31 10:16] LABS: Protime INR 1.11
[2019-07-31 10:29] LABS: ALT/SGPT 19 U/L (12-78); AST/SGOT 18 U/L (15-37); Albumin 3.7 g/dL (3.4-5.0); Alkaline Phosphatase 75 U/L (45-117); BUN Blood Urea Nitrogen 15 mg/dL (7-18); Bicarbonate 23 mmol/L (21-32); Bilirubin Direct 0.2 mg/dL (0-0.2); Bilirubin Total 0.4 mg/dL (0.2-1.0); Glucose Level 129 mg/dL (74-106); Magnesium 2.2 mg/dL (1.8-2.4); NT PRO-BNP 252 pg/mL (<125); Potassium 3.7 mmol/L (3.5-5.1); Protein, Total 8.2 g/dL (6.4-8.2); Sodium Level 139 mmol/L (136-145); Troponin (Emerg Dept Use Only) < 0.02 ng/mL (0.0-0.045)
--- NOTE | 2019-07-31 11:19 | RAD REPORT ---
EXAM DESCRIPTION: RAD - Chest Single View - 07/31/2019 10:49 am CLINICAL HISTORY: Palpitations, arrhythmia, intrathoracic malignancy COMPARISON: CT chest July 07, portable chest July 07 TECHNIQUE: AP portable chest image was obtained 1012 hours . FINDINGS: No new lung parenchymal process. Patient has a known central thoracic malignancy. Fullness of the right hilum and right peritracheal region is present. This is probably due to a slight rotati on difference. Port-A-Cath is in place. No pulmonary edema or failure finding suspected. Heart and va sculature are normal. No measurable pleural effusion and no pneumothorax. No acute bony abnormality s een. No acute aortic findings suspected. IMPRESSION: No acute cardiopulmonary process. Patient has a known intrathoracic malignancy. On the current examination fullness of the right hilum and right paratracheal region is likely due to a difference in rotation. CT imaging could be used to monitor the intrathoracic malignancy per treatment protocol.
--- NOTE | 2019-07-31 11:30 | EKG ---
Test Date: 2019-07-31 Test Time: 09:43:27 Financial Institution Manager: LILLIANA MEASUREMENT RESULTS: Intervals: Rate: 125 TN: 114 QRSD: 68 QT: 292 QTc: 421 [place]: P: 47 TN: 114 QRS: 70 T: 52 INTERPRETIVE STATEMENTS: Sinus tachycardia with occasional premature ventricular complexes Otherwise normal ECG Compared to ECG 07/07/2019 17:23:51 Ventricular premature complex(es) now present Short TN interval no longer present Right bundle-branch block no longer present Electronically Signed On 07-31-19 11:29:39 CDT by Kirt Rosario
--- NOTE | 2019-07-31 12:22 | ER ---
Nurse's Notes [facility] Name: Uziel Islas Age: 74 yrs Sex: Male : 1945 Arrival Date: 07/31/2019 Time: 09:31 Bed 19 Private MD: Diagnosis: Tachycardia, unspecified;Dehydration Presentation: 07/31 09:38 Presenting complaint: Went to chemo appt, sent by Dr. Hester for increased heart rate. Pt hb denies pain/SOB/fever. Transition of care: patient was not received from another setting of care. Onset of symptoms was July 31, 2019. Risk Assessment: Do you want to hurt yourself or someone else? Patient reports no desire to harm self or others. Initial Sepsis Screen: Does the patient meet any 2 criteria? No. Patient's initial sepsis screen is negative. Does the patient have a suspected source of infection? No. Patient's initial sepsis screen is negative. Care prior to arrival: None. 09:38 Method Of Arrival: Ambulatory hb 09:38 Acuity: SRINIVAS 3 hb Triage Assessment: 09:38 General: Appears in no apparent distress. Behavior is calm, cooperative. Pain: Denies hb pain. EENT: No signs and/or symptoms were reported regarding the EENT system. Neuro: Level of Consciousness is awake, alert, obeys commands, Oriented to person, place, time, situation. Cardiovascular: Heart tones S1 S2 present Capillary refill < 3 seconds. Respiratory: Airway is patent Respiratory effort is even, unlabored, Respiratory pattern is regular, symmetrical, Breath sounds are clear bilaterally. GI: No signs and/or symptoms were reported involving the gastrointestinal system. : No signs and/or symptoms were reported regarding the genitourinary system. Derm: Skin is intact, is healthy with good turgor. Musculoskeletal: No signs and/or symptoms reported regarding the musculoskeletal system. Historical: - Allergies: 09:40 No Known Allergies; hb - PMHx: 09:40 Lung CA; Glaucoma; hb - Immunization history:: Adult Immunizations up to date. - Social history:: Smoking status: Patient/guardian denies using tobacco. - Ebola Screening: : No symptoms or risks identified at this time. Screenin:50 Abuse screen: Denies threats or abuse. Denies injuries from another. Nutritional hb screening: No deficits noted. Tuberculosis screening: No symptoms or risk factors identified. Fall Risk None identified. Assessment: 09:39 General: see triage assessment. hb 10:30 Reassessment: Patient appears in no apparent distress at this time. Patient and/or hb family updated on plan of care and expected duration. Pain level reassessed. Patient is alert, oriented x 3, equal unlabored respirations, skin warm/dry/pink. Patient denies pain at this time. 11:30 Reassessment: Patient appears in no apparent distress at this time. Patient and/or hb family updated on plan of care and expected duration. Pain level reassessed. Patient is alert, oriented x 3, equal unlabored respirations, skin warm/dry/pink. Patient denies pain at this time. 12:24 Reassessment: Patient appears in no apparent distress at this time. Patient and/or ca1 family updated on plan of care and expected duration. Pain level reassessed. Patient is alert, oriented x 3, equal unlabored respirations, skin warm/dry/pink. IVF infusing. 2nd Bag. Will discharge once completed. 13:22 Reassessment: Patient appears in no apparent distress at this time. Patient and/or ca1 family updated on plan of care and expected duration. Pain level reassessed. Patient is alert, oriented x 3, equal unlabored respirations, skin warm/dry/pink. Vital Signs: 09:40 BP 137 / 76; Pulse 124; Resp 18; Temp 97.9; Pulse Ox 100% on R/A; Weight 65.77 kg; hb Height 5 ft. 7 in. (170.18 cm); Pain 0/10; 10:27 BP 121 / 67; Pulse 116; Resp 21; Temp 97.5(TE); Pulse Ox 100% on R/A; mh5 11:30 BP 149 / 66; Pulse 112; Resp 15; Pulse Ox 100% on R/A; Pain 0/10; hb 12:06 BP 152 / 72; Pulse 108; Resp 20 S; Pulse Ox 99% on R/A; ca1 12:24 BP 142 / 70; Pulse 102; Resp 19 S; Pulse Ox 100% on R/A; ca1 13:22 BP 116 / 81; Pulse 102; Resp 19 S; Pulse Ox 100% on R/A; ca1 09:40 Body Mass Index 22.71 (65.77 kg, 170.18 cm) ED Course: 09:31 Patient arrived in ED. mr 09:33 Charlie Denny, MEN'S GOLF COACH is PHCP. pm1 09:33 Mert Nguyen MD is Attending Physician. pm1 09:38 Patient has correct armband on for positive identification. Placed in gown. Bed in low mh5 position. Call light in reach. Adult w/ patient. Warm blanket given. ekg monitor tech on. Pulse ox on. NIBP on. 09:39 Triage completed. hb 09:40 Arm band placed on. hb 09:49 EKG done, by compounding pharmacy technician. reviewed by Mert Nguyen MD. at1 09:50 Trinity Gomes, RN is Primary Nurse. hb 10:04 Initial lab(s) drawn, by ks, sent to lab. Inserted saline lock: 20 gauge in right mh5 antecubital area, using aseptic technique. Blood collected. 10:05 Basic Metabolic Panel Sent. 5 10:05 CBC with Diff Sent. 5 10:05 LFT's Sent. 5 10:05 Magnesium Sent. 5 10:05 NT PRO-BNP Sent. 5 10:05 PT-INR Sent. 5 10:05 Troponin (emerg Dept Use Only) Sent. 5 10:52 XRAY Chest (1 view) In Process Unspecified. EDMS 13:43 No provider procedures requiring assistance completed. IV discontinued, intact, ca1 bleeding controlled, No redness/swelling at site. Pressure dressing applied. Administered Medications: 10:16 Drug: NS 0.9% 1000 ml Route: IV; Rate: 1000 ml; Site: right antecubital; hb 12:10 Follow up: Response: No adverse reaction; IV Status: Completed infusion; IV Intake: ca1 1000ml 12:24 Drug: NS 0.9% 1000 ml Route: IV; Rate: 1000 ml; Site: right antecubital; ca1 13:21 Follow up: Response: No adverse reaction; IV Status: Completed infusion; IV Intake: ca1 1000ml Intake: 12:10 IV: 1000ml; Total: 1000ml. ca1 13:21 IV: 1000ml; Total: 2000ml. ca1 Outcome: 12:21 Discharge ordered by MD. pm1 13:43 Discharged to home via wheelchair, with family. ca1 13:43 Condition: stable 13:43 Discharge instructions given to patient, family, Instructed on discharge instructions, follow up and referral plans. Demonstrated understanding of instructions, follow-up care. 13:44 Patient left the ED. ca1 Signatures: Dispatcher [employer] JAY MichaelsMelyssa davis Jeremy, Larisa, knot picker cloth EKG Tat1 Charlie Denny, MEN'S GOLF COACH MEN'S GOLF COACH pm1 Trinity Gomes, MATTY RN Adriana Longo 5 Mary Bender RN RN ca1
--- NOTE | 2019-07-31 12:22 | EDPHYS ---
Physician Documentation [facility] Name: Uziel Islas Age: 74 yrs Sex: Male : 1945 Arrival Date: 07/31/2019 Time: 09:31 Bed 19 Private MD: ED Physician Mert Nguyen HPI: 07/31 09:46 This 74 yrs old Black Male presents to ER via Ambulatory with complaints of Elevated pm1 heart rate. 09:46 The patient presents with a history of elevated heart rate. Context: The symptoms occur pm1 without known cause. Onset: The symptoms/episode began/occurred at an unknown time. Modifying factors: The symptoms are aggravated by nothing. The symptoms are alleviated by nothing. Associated signs and symptoms: The patient has no apparent associated signs or symptoms, Pertinent negatives: chest pain, cough, fever, nausea, SOB, syncope, near-syncope, vomiting. Severity of symptoms: in the emergency department the symptoms have improved initially heart rate in 150s at Dr. Hester's office. The patient has been recently seen by a physician: Dr. Hester Just prior to arrival. Patient presented to Dr. Hester's office this morning for his second treatment of chemotherapy. Patient without any complaints, does not feel palpitations or elevated heart rate. No shortness of breath, chest pain, fever, cough, pain. Historical: - Allergies: 09:40 No Known Allergies; hb - PMHx: 09:40 Lung CA; Glaucoma; hb - Immunization history:: Adult Immunizations up to date. - Social history:: Smoking status: Patient/guardian denies using tobacco. - Ebola Screening: : No symptoms or risks identified at this time. ROS: 09:46 Constitutional: Negative for fever, chills, and weight loss, Eyes: Negative for injury, pm1 pain, redness, and discharge, ENT: Negative for injury, pain, and discharge, Neck: Negative for injury, pain, and swelling. 09:46 Respiratory: Negative for shortness of breath, cough, wheezing, and pleuritic chest pain, Abdomen/GI: Negative for abdominal pain, nausea, vomiting, diarrhea, and constipation, Back: Negative for injury and pain, : Negative for injury, bleeding, discharge, and swelling, MS/Extremity: Negative for injury and deformity, Skin: Negative for injury, rash, and discoloration, Neuro: Negative for headache, weakness, numbness, tingling, and seizure. 09:46 Cardiovascular: Positive for elevated heart rate, Negative for chest pain, edema, orthopnea, palpitations. Exam: 09:46 Constitutional: This is a well developed, well nourished patient who is awake, alert, pm1 and in no acute distress. Head/Face: Normocephalic, atraumatic. Eyes: Pupils equal round and reactive to light, extra-ocular motions intact. Lids and lashes normal. Conjunctiva and sclera are non-icteric and not injected. Cornea within normal limits. Periorbital areas with no swelling, redness, or edema. ENT: Nares patent. No nasal discharge, no septal abnormalities noted. Tympanic membranes are normal and external auditory canals are clear. Oropharynx with no redness, swelling, or masses, exudates, or evidence of obstruction, uvula midline. Mucous membranes moist. Neck: Trachea midline, no thyromegaly or masses palpated, and no cervical lymphadenopathy. Supple, full range of motion without nuchal rigidity, or vertebral point tenderness. No Meningismus. Chest/axilla: Normal chest wall appearance and motion. Nontender with no deformity. No lesions are appreciated. Respiratory: Lungs have equal breath sounds bilaterally, clear to auscultation and percussion. No rales, rhonchi or wheezes noted. No increased work of breathing, no retractions or nasal flaring. Abdomen/GI: Soft, non-tender, with normal bowel sounds. No distension or tympany. No guarding or rebound. No evidence of tenderness throughout. Back: No spinal tenderness. No costovertebral tenderness. Full range of motion. Skin: Warm, dry with normal turgor. Normal color with no rashes, no lesions, and no evidence of cellulitis. MS/ Extremity: Pulses equal, no cyanosis. Neurovascular intact. Full, normal range of motion. 09:46 Cardiovascular: Rate: tachycardic, Rhythm: regular, Pulses: no pulse deficits are appreciated, Heart sounds: normal, Edema: is not appreciated. 09:46 Neuro: Orientation: is normal, Motor: moves all fours, Gait: is steady, at a normal pace, without difficulty. Vital Signs: 09:40 BP 137 / 76; Pulse 124; Resp 18; Temp 97.9; Pulse Ox 100% on R/A; Weight 65.77 kg; hb Height 5 ft. 7 in. (170.18 cm); Pain 0/10; 10:27 BP 121 / 67; Pulse 116; Resp 21; Temp 97.5(TE); Pulse Ox 100% on R/A; mh5 11:30 BP 149 / 66; Pulse 112; Resp 15; Pulse Ox 100% on R/A; Pain 0/10; hb 12:06 BP 152 / 72; Pulse 108; Resp 20 S; Pulse Ox 99% on R/A; ca1 12:24 BP 142 / 70; Pulse 102; Resp 19 S; Pulse Ox 100% on R/A; ca1 13:22 BP 116 / 81; Pulse 102; Resp 19 S; Pulse Ox 100% on R/A; ca1 09:40 Body Mass Index 22.71 (65.77 kg, 170.18 cm) hb MDM: 09:39 Patient medically screened. pm1 12:08 Data reviewed: vital signs. Data interpreted: Pulse oximetry: on room air is 99 %. pm1 Interpretation: normal. Counseling: I had a detailed discussion with the patient and/or guardian regarding: the historical points, exam findings, and any diagnostic results supporting the discharge/admit diagnosis, lab results, radiology results, the need for outpatient follow up, to return to the emergency department if symptoms worsen or persist or if there are any questions or concerns that arise at home. 07/31 09:43 Order name: Basic Metabolic Panel; Complete Time: 10:32 pm1 07/31 09:43 Order name: CBC with Diff; Complete Time: 10:26 pm07/31 09:43 Order name: LFT's; Complete Time: 10:32 pm07/31 09:43 Order name: Magnesium; Complete Time: 10:32 pm07/31 09:43 Order name: NT PRO-BNP; Complete Time: 10:32 pm07/31 09:43 Order name: PT-INR; Complete Time: 10:26 pm07/31 09:43 Order name: Troponin (emerg Dept Use Only); Complete Time: 10:32 pm1 07/31 09:43 Order name: XRAY Chest (1 view); Complete Time: 11:25 pm1 07/31 09:43 Order name: EKG; Complete Time: 09:44 pm1 07/31 09:43 Order name: Cardiac monitoring; Complete Time: 09:46 pm1 07/31 09:43 Order name: EKG - Nurse/Tech; Complete Time: :50 pm07/31 09:43 Order name: IV Saline Lock; Complete Time: 10:05 pm07/31 09:43 Order name: Labs collected and sent; Complete Time: 10:05 pm07/31 09:43 Order name: O2 Per Protocol; Complete Time: : pm07/31 09:43 Order name: O2 Sat Monitoring; Complete Time: : pm EC:43 Rate is 125 beats/min. Rhythm is regular, Sinus tachycardia with Occasional PVCs. No Q pm1 waves. T waves are Normal. No ST changes noted. Clinical impression: Sinus tachycardia. Administered Medications: 10:16 Drug: NS 0.9% 1000 ml Route: IV; Rate: 1000 ml; Site: right antecubital; hb 12:10 Follow up: Response: No adverse reaction; IV Status: Completed infusion; IV Intake: ca1 1000ml 12:24 Drug: NS 0.9% 1000 ml Route: IV; Rate: 1000 ml; Site: right antecubital; ca1 13:21 Follow up: Response: No adverse reaction; IV Status: Completed infusion; IV Intake: ca1 1000ml Disposition: 08/01 07:01 Co-signature as Attending Physician, Mert Nguyen MD I agree with the assessment and kdr plan of care. Disposition: 07/31/19 12:21 Discharged to Home. Impression: Tachycardia, unspecified, Dehydration. - Condition is Stable. - Discharge Instructions: Dehydration, Adult, Rehydration, Adult. - Medication Reconciliation Form, Thank You Letter, Antibiotic Education, Prescription Opioid Use form. - Follow up: Emergency Department; When: As needed; Reason: Worsening of condition. Follow up: Private Physician; When: 2 - 3 days; Reason: Recheck today's complaints, Continuance of care, Re-evaluation by your physician. - Problem is new. - Symptoms have improved. Signatures: Dispatcher [employer] EDMS Mert Nguyen MD MD kdr Charlie Denny, INSIDE SALES SPECIALIST INSIDE SALES SPECIALIST pm1 Trinity Gomes, RN RN AcobMary RN RN ca1 Corrections: (The following items were deleted from the chart) 07/31 13:44 12:21 07/31/2019 12:21 Discharged to Home. Impression: Tachycardia, unspecified; ca1 Dehydration. Condition is Stable. Forms are Medication Reconciliation Form, Thank You Letter, Antibiotic Education, Prescription Opioid Use. Follow up: Emergency Department; When: As needed; Reason: Worsening of condition. Follow up: Private Physician; When: 2 - 3 days; Reason: Recheck today's complaints, Continuance of care, Re-evaluation by your physician. Problem is new. Symptoms have improved. pm1
[2019-07-31 13:58] VITALS: TEMP 97.5
[2019-07-31 14:02] VITALS: O2SAT 100
[2019-07-31 14:04] VITALS: BP 116/81
== END 2019-07-31 13:44 | disposition home or self-care (01) ==
LOC: ER 09:28
DX: E86.0 Dehydration (principal); C34.90 Malignant neoplasm of unspecified part of unspecified bronchus or lung
CPT/HCPCS: 96361; 93005; 85025; 80048; 36415; 83735; 85610; 80076; 84484; 83880; 71045; 96360; 99284; J7030 ×2

== ENCOUNTER 2020-01-15 23:41 | Observation (INO) | payer OTHER ==
--- OUTSIDE RECORDS SUMMARY | 2020-01-15 23:47 | XMS REPORT ---
:1945 Author Organization [employer] Care Team Providers Name Role Phone Crystal Rodriguez Provider Role Unavailable Allergies, Adverse Reactions, Alerts Substance Reaction Event Type N.K.D.A. Info Not Available Non Drug Allergy Problems Problem Type Condition Code Onset Dates Condition Status Assessment Bladder cancer C67.9 Active Problem Bladder cancer C67.9 Active Medications Medication Code Code Instructions Start End Status Dosage System Date Date Latanoprost [facility] [id number] 0.005 % Active 1 drop into Ophthalmic Once affected a day eye in the evening Metoprolol [facility] [id number] 25 MG Orally Active 1 capsule Succinate Once a day Results No Known Results Summary Purpose [employer] Submission
--- OUTSIDE RECORDS SUMMARY | 2020-01-15 23:47 | XMS REPORT ---
:1945 [facility] [address] [facility]. [address] [place] [address] Care Team Providers Name Role Phone SHARON [...] Facility Department ID 2019-06-06 2019-06-06 Outpatient MHSE MHSE [id number] 13:27:00 13:27:00 Results Test Description Test Time Test Comments Text Results Atomic Results Result Comments - REM/CL CATH CESS THROMB 2019-12-27 10:06:00 [facility] 1945 Age/S: 74 / M [id number] Unit #: [id number] Loc: [place] [address] Phys: Raoul Moran MD Acct: [id number] Dis Date: Status: [place] [facility] [place]ONE #: [phone] Exam Date: 12/27/2019 0945 FAX #: Reason: PORT REMOVAL EXAMS: CPT: [id number] REM/CL CATH CESS THROMB 31533 Fluoro Time: 00:04 DAP (Gy m2): 0.02 Air Kerma (mGy): 0 PROCEDURE: REMOVAL OF A TUNNELED PORT CATHETER . LOCATION: S 17. HISTORY: Lung cancer status post completed chemotherapy. SEDATION: The patient did not require conscious sedation for the procedure. RADIATION DOSE: Reference air kerma 0.1 mGy. TECHNIQUE: Prior to beginning the procedure, [place] Protocol was used to confirm the patient's identity and planned procedure. Fluoroscopy time has been recorded in the electronic medical record. Sterile barriers including cap, mask, hand hygiene, sterile gloves, sterile gown, large sterile drape, and cutaneous antisepsis were used. The skin adjacent to the right chest wall port catheter entry site was sterilely prepped, draped, and infiltrated with lidocaine. After making a short transverse incision, the port reservoir was freed using a combination of sharp and blunt dissection. The catheter was then removed. The deep tissues were approximated using 4-0 Monocryl and incision closed using Dermabond. ESTIMATED BLOOD LOSS: Less than 30 mL. COMPLICATIONS: None. DISCHARGED TO: Outpatient recovery then home. CONDITION: Stable. FINDINGS: The catheter exit site showed no evidence of infection. IMPRESSION: Successful removal of the right chest wall port catheter. at 1006 Reported and signed by: Raoul Moran M.D. CC: Raoul Moran MD; Gerald Burt MD PAGE 1 Signed Report Name: TIRSO CA [facility] : 1945 Age/S: 74 / M [address] Unit #: [id number] Loc: [place] [address] Phys: Raoul Moran MD Acct: [id number] Dis Date: Status: [place] [facility] [place] #: [phone] Exam Date: 12/27/2019 0933 FAX #: Reason: PORT REMOVAL EXAMS: CPT: [id number] REM/CL CATH CESS THROMB 58179 Fluoro Time: 00:04 DAP (Gy m2): 0.02 Air Kerma (mGy): 0 <Continued> Technologist: RT Bruna(R) Trnscb Date/Time: 12/27/2019 (1006) [email or web address] Orig Print D/T: S: 12/27/2019 (1004) PAGE 2 Signed Report URINALYSIS WITH MICROSCOPIC IF INDICATED 2019-07-09 13:13:00 Test Item Value Reference Range Comments COLOR (BEAKER) (test nkyn=988) Light Yellow CLARITY (BEAKER) (test uthv=343) Clear SPECIFIC GRAVITY UA (BEAKER) (test ieyj=532) 1.013 1.001-1.035 PH UA (BEAKER) (test xjzc=420) 7.5 5.0-8.0 PROTEIN UA (BEAKER) (test bxvd=043) Negative Negative GLUCOSE UA (BEAKER) (test elot=794) Negative Negative KETONES UA (BEAKER) (test omnd=566) Negative Negative BILIRUBIN UA (BEAKER) (test ogrq=841) Negative Negative BLOOD UA (BEAKER) (test wfzr=956) Negative Negative NITRITE UA (BEAKER) (test blux=282) Negative Negative LEUKOCYTE ESTERASE UA (BEAKER) (test ejrr=692) Negative Negative UROBILINOGEN UA (BEAKER) (test kydh=612) 0.2 mg/dL 0.2-1.0 SOURCE(BEAKER) (test dmad=7981) BASIC METABOLIC [id number] 10:08:00 Test Item Value Reference Range Comments SODIUM (BEAKER) (test 136 meq/L 136-145 izma=810) POTASSIUM (BEAKER) (test 3.9 meq/L 3.5-5.1 oxrw=248) CHLORIDE (BEAKER) (test 106 meq/L 98-107 alea=241) CO2 (BEAKER) (test 24 meq/L 22-29 ipjd=011) BLOOD UREA NITROGEN 8 mg/dL 7-21 (BEAKER) (test ufou=624) CREATININE (BEAKER) (test 0.69 mg/dL 0.57-1.25 qjik=876) GLUCOSE RANDOM (BEAKER) 106 mg/dL 70-105 (test dpot=209) CALCIUM (BEAKER) (test 8.6 mg/dL 8.4-10.2 hgpt=616) EGFR (BEAKER) (test 136 mL/min/1.73 sq m ESTIMATED GFR IS NOT mokc=0158) ACCURATE CREATININE CLEARANCE IN PREDICTING GLOMERULAR FILTRATION RATE. ESTIMATED GFR IS NOT APPLICABLE FOR DIALYSIS PATIENTS. CBC W/PLT COUNT & AUTO [id number] 07:05:00 Test Item Value Reference Range Comments WHITE BLOOD CELL COUNT (BEAKER) (test viso=561) 2.2 K/ L 3.5-10.5 RED BLOOD CELL COUNT (BEAKER) (test axbd=336) 3.32 M/ L 4.63-6.08 HEMOGLOBIN (BEAKER) (test bjzq=501) 9.7 GM/DL 13.7-17.5 HEMATOCRIT (BEAKER) (test wwxe=835) 30.4 % 40.1-51.0 MEAN CORPUSCULAR VOLUME (BEAKER) (test tmcs=781) 91.6 fL 79.0-92.2 MEAN CORPUSCULAR HEMOGLOBIN (BEAKER) (test 29.2 pg 25.7-32.2 avll=360) MEAN CORPUSCULAR HEMOGLOBIN CONC (BEAKER) (test 31.9 GM/DL 32.3-36.5 angx=602) RED CELL DISTRIBUTION WIDTH (BEAKER) (test 17.0 % 11.6-14.4 oqnu=282) PLATELET COUNT (BEAKER) (test vlue=675) 205 K/CU MM 150-450 MEAN PLATELET VOLUME (BEAKER) (test ohdt=567) 8.6 fL 9.4-12.4 NUCLEATED RED BLOOD CELLS (BEAKER) (test 0 /100 WBC 0-0 zuam=355) (CELLAVISION MANUAL DIFF)2019-07-09 07:05:00 Test Item Value Reference Range Comments NEUTROPHILS - REL (CELLAVISION)(BEAKER) (test 10 % benx=1792) LYMPHOCYTES - REL (CELLAVISION)(BEAKER) (test 73 % rrov=9969) MONOCYTES - REL (CELLAVISION)(BEAKER) (test 13 % csvo=4639) EOSINOPHILS - REL (CELLAVISION)(BEAKER) (test 1 % ylog=2745) BASOPHILS - REL (CELLAVISION)(BEAKER) (test 3 % tzqj=6178) NEUTROPHILS - ABS (CELLAVISION)(BEAKER) (test 0.22 K/ul 1.78-5.38 dgdg=1834) LYMPHOCYTES - ABS (CELLAVISION)(BEAKER) (test 1.61 K/ul 1.32-3.57 mywa=7886) MONOCYTES - ABS (CELLAVISION)(BEAKER) (test 0.29 K/uL 0.30-0.82 wwxg=2450) EOSINOPHILS - ABS (CELLAVISION)(BEAKER) (test 0.02 K/uL 0.04-0.54 gjcj=5580) BASOPHILS - ABS (CELLAVISION)(BEAKER) (test 0.07 K/uL 0.01-0.08 bofv=8362) TOTAL COUNTED (BEAKER) (test crtl=4628) 100 MANUAL NRBC PER 100 CELLS (BEAKER) (test 1 /100 WBC 0-0 qyhn=0245) SMUDGE CELLS (BEAKER) (test kwfn=8859) Present GIANT PLATELETS (BEAKER) (test ohdo=879) Present SCHISTOCYTES (BEAKER) (test opaj=868) 1+ few ARTIFACT (CELLAVISION)(BEAKER) (test godd=9973) Present PLATELET CONCENTRATION (CELLAVISION)(BEAKER) Adequate (test nwgu=3344) Received comment: User comments: Slide comments:COMPREHENSIVE METABOLIC [id number] 02:59:00 Test Item Value Reference Range Comments TOTAL PROTEIN (BEAKER) 6.3 gm/dL 6.0-8.3 (test ejnx=933) ALBUMIN (BEAKER) (test 3.4 g/dL 3.5-5.0 vxfd=0093) ALKALINE PHOSPHATASE 61 U/L 40-150 (BEAKER) (test mnhj=338) BILIRUBIN TOTAL (BEAKER) 0.2 mg/dL 0.2-1.2 (test vdpn=919) SODIUM (BEAKER) (test 137 meq/L 136-145 yutx=197) POTASSIUM (BEAKER) (test 4.0 meq/L 3.5-5.1 whjd=583) CHLORIDE (BEAKER) (test 106 meq/L 98-107 rskn=705) CO2 (BEAKER) (test 24 meq/L 22-29 olnv=100) BLOOD UREA NITROGEN 10 mg/dL 7-21 (BEAKER) (test qozj=369) CREATININE (BEAKER) (test 0.70 mg/dL 0.57-1.25 flxg=434) GLUCOSE RANDOM (BEAKER) 108 mg/dL 70-105 (test thvo=179) CALCIUM (BEAKER) (test 8.9 mg/dL 8.4-10.2 saor=766) AST (SGOT) (BEAKER) (test 19 U/L 5-34 vhhd=436) ALT (SGPT) (BEAKER) (test 22 U/L 6-55 dsyq=096) EGFR (BEAKER) (test 134 mL/min/1.73 sq ESTIMATED GFR IS NOT oeac=8085) m ACCURATE CREATININE CLEARANCE IN PREDICTING GLOMERULAR FILTRATION RATE. ESTIMATED GFR IS NOT APPLICABLE FOR DIALYSIS PATIENTS. BASIC METABOLIC [id number] 09:25:00 Test Item Value Reference Range Comments SODIUM (BEAKER) (test 129 meq/L 136-145 iqxf=605) POTASSIUM (BEAKER) (test 4.1 meq/L 3.5-5.1 ytfq=445) CHLORIDE (BEAKER) (test 96 meq/L 98-107 fwln=119) CO2 (BEAKER) (test 26 meq/L 22-29 jyge=052) BLOOD UREA NITROGEN 12 mg/dL 7-21 (BEAKER) (test ihmk=832) CREATININE (BEAKER) (test 0.73 mg/dL 0.57-1.25 tukn=943) GLUCOSE RANDOM (BEAKER) 118 mg/dL 70-105 (test qtfm=522) CALCIUM (BEAKER) (test 8.8 mg/dL 8.4-10.2 qhmd=843) EGFR (BEAKER) (test 128 mL/min/1.73 sq m ESTIMATED GFR IS NOT ymer=4737) ACCURATE CREATININE CLEARANCE IN PREDICTING GLOMERULAR FILTRATION RATE. ESTIMATED GFR IS NOT APPLICABLE FOR DIALYSIS PATIENTS. [id number] 00:43:00 Test Item Value Reference Range Comments SODIUM (BEAKER) (test ifpy=223) 128 meq/L 136-145 [id number] 18:29:00 Test Item Value Reference Range Comments SODIUM (BEAKER) (test gwoy=337) 128 meq/L 136-145 COMPREHENSIVE METABOLIC [id number] 12:40:00 Test Item Value Reference Range Comments TOTAL PROTEIN (BEAKER) 6.8 gm/dL 6.0-8.3 (test jpus=848) ALBUMIN (BEAKER) (test 3.9 g/dL 3.5-5.0 hakg=4995) ALKALINE PHOSPHATASE 56 U/L 40-150 (BEAKER) (test ybmz=716) BILIRUBIN TOTAL (BEAKER) 0.5 mg/dL 0.2-1.2 (test gggp=989) SODIUM (BEAKER) (test 126 meq/L 136-145 ivjk=075) POTASSIUM (BEAKER) (test 3.7 meq/L 3.5-5.1 dmgd=147) CHLORIDE (BEAKER) (test 92 meq/L 98-107 icdk=860) CO2 (BEAKER) (test 26 meq/L 22-29 wfqe=443) BLOOD UREA NITROGEN 10 mg/dL 7-21 (BEAKER) (test imdn=732) CREATININE (BEAKER) (test 0.79 mg/dL 0.57-1.25 utlc=660) GLUCOSE RANDOM (BEAKER) 167 mg/dL 70-105 (test apxu=499) CALCIUM (BEAKER) (test 8.7 mg/dL 8.4-10.2 vxko=814) AST (SGOT) (BEAKER) (test 16 U/L 5-34 gkoz=151) ALT (SGPT) (BEAKER) (test 22 U/L 6-55 nsve=598) EGFR (BEAKER) (test 117 mL/min/1.73 sq ESTIMATED GFR IS NOT otpk=9048) m ACCURATE CREATININE CLEARANCE IN PREDICTING GLOMERULAR FILTRATION RATE. ESTIMATED GFR IS NOT APPLICABLE FOR DIALYSIS PATIENTS. CBC W/PLT COUNT & AUTO [id number] 12:21:00 Test Item Value Reference Range Comments WHITE BLOOD CELL COUNT (BEAKER) (test blur=295) 9.6 K/ L 3.5-10.5 RED BLOOD CELL COUNT (BEAKER) (test nfyh=525) 3.75 M/ L 4.63-6.08 HEMOGLOBIN (BEAKER) (test lwve=559) 11.0 GM/DL 13.7-17.5 HEMATOCRIT (BEAKER) (test idag=709) 32.3 % 40.1-51.0 MEAN CORPUSCULAR VOLUME (BEAKER) (test pxqc=833) 86.1 fL 79.0-92.2 MEAN CORPUSCULAR HEMOGLOBIN (BEAKER) (test 29.3 pg 25.7-32.2 rvvl=869) MEAN CORPUSCULAR HEMOGLOBIN CONC (BEAKER) (test 34.1 GM/DL 32.3-36.5 hdfz=752) RED CELL DISTRIBUTION WIDTH (BEAKER) (test 17.4 % 11.6-14.4 jncp=768) PLATELET COUNT (BEAKER) (test esox=379) 281 K/CU MM 150-450 MEAN PLATELET VOLUME (BEAKER) (test ztin=563) 8.8 fL 9.4-12.4 NUCLEATED RED BLOOD CELLS (BEAKER) (test 0 /100 WBC 0-0 ufhf=247) NEUTROPHILS RELATIVE PERCENT (BEAKER) (test 86 % bcng=269) LYMPHOCYTES RELATIVE PERCENT (BEAKER) (test 8 % mmqk=086) MONOCYTES RELATIVE PERCENT (BEAKER) (test 5 % qwtz=780) EOSINOPHILS RELATIVE PERCENT (BEAKER) (test 0 % weqv=104) BASOPHILS RELATIVE PERCENT (BEAKER) (test 0 % jsbv=746) NEUTROPHILS ABSOLUTE COUNT (BEAKER) (test 8.25 K/ L 1.78-5.38 ckpf=080) LYMPHOCYTES ABSOLUTE COUNT (BEAKER) (test 0.76 K/ L 1.32-3.57 nobq=676) MONOCYTES ABSOLUTE COUNT (BEAKER) (test 0.46 K/ L 0.30-0.82 norl=956) EOSINOPHILS ABSOLUTE COUNT (BEAKER) (test 0.00 K/ L 0.04-0.54 lfms=730) BASOPHILS ABSOLUTE COUNT (BEAKER) (test 0.00 K/ L 0.01-0.08 rgxn=176) IMMATURE GRANULOCYTES-RELATIVE PERCENT (BEAKER) 1 % 0-1 (test uvwi=5434) [id number] 07:29:00 Test Item Value Reference Range Comments SODIUM (BEAKER) (test nocv=236) 128 meq/L 136-145 [id number] 01:59:00 Test Item Value Reference Range Comments SODIUM (BEAKER) (test zavd=639) 123 meq/L 136-145 [id number] 18:55:00 Test Item Value Reference Range Comments SODIUM (BEAKER) (test mibt=426) 125 meq/L 136-145 [id number] 12:56:00 Test Item Value Reference Range Comments SODIUM (BEAKER) (test ehcr=902) 124 meq/L 136-145 URIC [id number] 07:14:00 Test Item Value Reference Range Comments URIC ACID (BEAKER) (test gvxu=096) 2.0 mg/dL 2.6-7.2 COMPREHENSIVE METABOLIC [id number] 07:14:00 Test Item Value Reference Range Comments TOTAL PROTEIN (BEAKER) 6.8 gm/dL 6.0-8.3 (test bnej=994) ALBUMIN (BEAKER) (test 3.8 g/dL 3.5-5.0 hwgt=2828) ALKALINE PHOSPHATASE 57 U/L 40-150 (BEAKER) (test esbi=381) BILIRUBIN TOTAL (BEAKER) 0.4 mg/dL 0.2-1.2 (test cone=679) SODIUM (BEAKER) (test 121 meq/L 136-145 bfbd=099) POTASSIUM (BEAKER) (test 4.3 meq/L 3.5-5.1 mxxu=931) CHLORIDE (BEAKER) (test 93 meq/L 98-107 fpcy=178) CO2 (BEAKER) (test 20 meq/L 22-29 efhr=625) BLOOD UREA NITROGEN 6 mg/dL 7-21 (BEAKER) (test rszs=643) CREATININE (BEAKER) (test 0.73 mg/dL 0.57-1.25 msla=432) GLUCOSE RANDOM (BEAKER) 138 mg/dL 70-105 (test smvu=470) CALCIUM (BEAKER) (test 8.7 mg/dL 8.4-10.2 uqxg=988) AST (SGOT) (BEAKER) (test 22 U/L 5-34 njgo=026) ALT (SGPT) (BEAKER) (test 20 U/L 6-55 wtpv=852) EGFR (BEAKER) (test 128 mL/min/1.73 sq ESTIMATED GFR IS NOT qzpi=8719) m ACCURATE CREATININE CLEARANCE IN PREDICTING GLOMERULAR FILTRATION RATE. ESTIMATED GFR IS NOT APPLICABLE FOR DIALYSIS PATIENTS. [id number] 01:25:00 Test Item Value Reference Range Comments SODIUM (BEAKER) (test ohji=765) 121 meq/L 136-145 [id number] 21:13:00 Test Item Value Reference Range Comments MAGNESIUM (BEAKER) (test iova=884) 1.8 mg/dL 1.6-2.6 [id number] 21:13:00 Test Item Value Reference Range Comments SODIUM (BEAKER) (test vsto=747) 122 meq/L 136-145 [id number] 18:27:00 Test Item Value Reference Range Comments SODIUM (BEAKER) (test furk=503) 121 meq/L 136-145 [id number] 13:03:00 Test Item Value Reference Range Comments SODIUM (BEAKER) (test vigp=591) 120 meq/L 136-145 CT, CHEST, WITH [id number] 11:09:00FINAL REPORT CT Chest, abdomen, and pelvis [...] MDReport Verified Date/Time: 06/22/2019 11:09:18 Reading Location: [facility] C013X Ortho Consult Reading Room CT, [id number] 11:09:00FINAL REPORT CT Chest, abdomen, and pelvis [...] MDReport Verified Date/Time: 06/22/2019 11:09:18 Reading Location: [facility] C013X Ortho Consult Reading Room BASIC METABOLIC [id number] 08:37 :00 Test Item Value Reference Range Comments SODIUM (BEAKER) (test 118 meq/L 136-145 zfda=400) POTASSIUM (BEAKER) (test 4.2 meq/L 3.5-5.1 smxe=967) CHLORIDE (BEAKER) (test 90 meq/L 98-107 eynl=027) CO2 (BEAKER) (test 22 meq/L 22-29 irjx=746) BLOOD UREA NITROGEN 6 mg/dL 7-21 (BEAKER) (test lkpb=504) CREATININE (BEAKER) (test 0.62 mg/dL 0.57-1.25 kjyv=627) GLUCOSE RANDOM (BEAKER) 94 mg/dL 70-105 (test cidn=874) CALCIUM (BEAKER) (test 8.6 mg/dL 8.4-10.2 avbp=941) EGFR (BEAKER) (test 155 mL/min/1.73 sq m ESTIMATED GFR IS NOT qenq=0402) ACCURATE CREATININE CLEARANCE IN PREDICTING GLOMERULAR FILTRATION RATE. ESTIMATED GFR IS NOT APPLICABLE FOR DIALYSIS PATIENTS. CBC W/PLT COUNT & AUTO [id number] 05:50:00 Test Item Value Reference Range Comments WHITE BLOOD CELL COUNT (BEAKER) (test qpls=819) 7.1 K/ L 3.5-10.5 RED BLOOD CELL COUNT (BEAKER) (test hcpm=076) 3.77 M/ L 4.63-6.08 HEMOGLOBIN (BEAKER) (test bdul=512) 11.0 GM/DL 13.7-17.5 HEMATOCRIT (BEAKER) (test iqsw=581) 31.3 % 40.1-51.0 MEAN CORPUSCULAR VOLUME (BEAKER) (test zxde=849) 83.0 fL 79.0-92.2 MEAN CORPUSCULAR HEMOGLOBIN (BEAKER) (test 29.2 pg 25.7-32.2 bmjf=088) MEAN CORPUSCULAR HEMOGLOBIN CONC (BEAKER) (test 35.1 GM/DL 32.3-36.5 oidb=107) RED CELL DISTRIBUTION WIDTH (BEAKER) (test 17.1 % 11.6-14.4 lmxt=705) PLATELET COUNT (BEAKER) (test cboo=889) 254 K/CU MM 150-450 MEAN PLATELET VOLUME (BEAKER) (test ivhg=078) 8.4 fL 9.4-12.4 NUCLEATED RED BLOOD CELLS (BEAKER) (test 0 /100 WBC 0-0 kcjw=762) NEUTROPHILS RELATIVE PERCENT (BEAKER) (test 51 % hpah=488) LYMPHOCYTES RELATIVE PERCENT (BEAKER) (test 30 % hbyn=719) MONOCYTES RELATIVE PERCENT (BEAKER) (test 12 % rsug=739) EOSINOPHILS RELATIVE PERCENT (BEAKER) (test 5 % buex=013) BASOPHILS RELATIVE PERCENT (BEAKER) (test 1 % ugat=742) NEUTROPHILS ABSOLUTE COUNT (BEAKER) (test 3.66 K/ L 1.78-5.38 oivc=536) LYMPHOCYTES ABSOLUTE COUNT (BEAKER) (test 2.11 K/ L 1.32-3.57 sgvh=581) MONOCYTES ABSOLUTE COUNT (BEAKER) (test 0.87 K/ L 0.30-0.82 dvzb=321) EOSINOPHILS ABSOLUTE COUNT (BEAKER) (test 0.36 K/ L 0.04-0.54 opvd=909) BASOPHILS ABSOLUTE COUNT (BEAKER) (test 0.06 K/ L 0.01-0.08 eums=819) IMMATURE GRANULOCYTES-RELATIVE PERCENT (BEAKER) 1 % 0-1 (test xbem=0791) MR, BRAIN, [id number] 03:45:00FINAL REPORT MRI brain with and without contrast Comparison: Brain MRI 05/03/2019. Reason for exam: reevaluate brain mets Technique: Multiplanar MR imaging of the brain was provided vot-vzk-tshl IV gadolinium administration using T1, T2, FLAIR, [...] [place] MDReport Verified Date/Time: 06/22/2019 03:45 :55 [id number] 10:48:00 Test Item Value Reference Range Comments SODIUM (BEAKER) (test ebpw=714) 121 meq/L 136-145 URIC ACID, RANDOM [id number] 07:30:00 Test Item Value Reference Range Comments URIC ACID, URINE (BEAKER) (test apft=1036) 11.9 mg/dL Reference Range: No [id number] 05:02:00 Test Item Value Reference Range Comments CORTISOL, TOTAL (BEAKER) (test sqkq=9081) 9.3 ug/dL 3.7-19.4 [id number] 05:01:00 Test Item Value Reference Range Comments THYROID STIMULATING HORMONE (BEAKER) (test 1.67 uIU/mL 0.35-4.94 csmu=360) BASIC METABOLIC [id number] 04:51:00 Test Item Value Reference Range Comments SODIUM (BEAKER) (test 119 meq/L 136-145 arzh=464) POTASSIUM (BEAKER) (test 4.5 meq/L 3.5-5.1 Specimen slightly kegz=208) hemolyzed CHLORIDE (BEAKER) (test 92 meq/L 98-107 ccso=143) CO2 (BEAKER) (test 22 meq/L 22-29 jokw=186) BLOOD UREA NITROGEN 7 mg/dL 7-21 (BEAKER) (test vjti=366) CREATININE (BEAKER) (test 0.64 mg/dL 0.57-1.25 Specimen slightly dfll=940) hemolyzed GLUCOSE RANDOM (BEAKER) 96 mg/dL 70-105 (test ctjw=572) CALCIUM (BEAKER) (test 8.3 mg/dL 8.4-10.2 oqym=299) EGFR (BEAKER) (test 149 mL/min/1.73 sq m ESTIMATED GFR IS NOT ovci=9487) ACCURATE CREATININE CLEARANCE IN PREDICTING GLOMERULAR FILTRATION RATE. ESTIMATED GFR IS NOT APPLICABLE FOR DIALYSIS PATIENTS. TROPONIN [id number] 04:47:00 Test Item Value Reference Range Comments TROPONIN I (BEAKER) (test zszk=536) < ng/mL 0.00-0.03 Troponin I (TnI) levels [...] and persistent tachyarrhythmia.CBC W/PLT COUNT & AUTO [id number] 04:14:00 Test Item Value Reference Range Comments WHITE BLOOD CELL COUNT (BEAKER) (test weef=813) 7.8 K/ L 3.5-10.5 RED BLOOD CELL COUNT (BEAKER) (test qaju=810) 3.64 M/ L 4.63-6.08 HEMOGLOBIN (BEAKER) (test ixbm=831) 10.6 GM/DL 13.7-17.5 HEMATOCRIT (BEAKER) (test ipcp=890) 30.7 % 40.1-51.0 MEAN CORPUSCULAR VOLUME (BEAKER) (test ecuc=730) 84.3 fL 79.0-92.2 MEAN CORPUSCULAR HEMOGLOBIN (BEAKER) (test 29.1 pg 25.7-32.2 uoeu=868) MEAN CORPUSCULAR HEMOGLOBIN CONC (BEAKER) (test 34.5 GM/DL 32.3-36.5 tyij=442) RED CELL DISTRIBUTION WIDTH (BEAKER) (test 17.0 % 11.6-14.4 ljzf=113) PLATELET COUNT (BEAKER) (test rulb=999) 254 K/CU MM 150-450 MEAN PLATELET VOLUME (BEAKER) (test hndk=411) 8.3 fL 9.4-12.4 NUCLEATED RED BLOOD CELLS (BEAKER) (test 0 /100 WBC 0-0 yswi=758) NEUTROPHILS RELATIVE PERCENT (BEAKER) (test 49 % dmcg=461) LYMPHOCYTES RELATIVE PERCENT (BEAKER) (test 30 % czqi=736) MONOCYTES RELATIVE PERCENT (BEAKER) (test 13 % gxgv=302) EOSINOPHILS RELATIVE PERCENT (BEAKER) (test 6 % flgb=987) BASOPHILS RELATIVE PERCENT (BEAKER) (test 1 % xdwc=519) NEUTROPHILS ABSOLUTE COUNT (BEAKER) (test 3.85 K/ L 1.78-5.38 onvi=284) LYMPHOCYTES ABSOLUTE COUNT (BEAKER) (test 2.34 K/ L 1.32-3.57 lqzv=116) MONOCYTES ABSOLUTE COUNT (BEAKER) (test 0.99 K/ L 0.30-0.82 cjfe=153) EOSINOPHILS ABSOLUTE COUNT (BEAKER) (test 0.47 K/ L 0.04-0.54 sctn=990) BASOPHILS ABSOLUTE COUNT (BEAKER) (test 0.08 K/ L 0.01-0.08 eldz=966) IMMATURE GRANULOCYTES-RELATIVE PERCENT (BEAKER) 1 % 0-1 (test imsq=6204) [id number] 22:30:00 Test Item Value Reference Range Comments SODIUM (BEAKER) (test tifd=365) 118 meq/L 136-145 URIC [id number] 22:30:00 Test Item Value Reference Range Comments URIC ACID (BEAKER) (test zxkj=568) 1.7 mg/dL 2.6-7.2 CREATININE, RANDOM [id number] 19:14:00 Test Item Value Reference Range Comments CREATININE URINE (BEAKER) (test ysjk=147) 67.1 mg/dL Reference Range: No NormalsPOTASSIUM, RANDOM [id number] 19:14:00 Test Item Value Reference Range Comments POTASSIUM URINE (BEAKER) (test ijsx=685) 44.8 meq/L Reference Range: No NormalsSODIUM, RANDOM [id number] 19:14:00 Test Item Value Reference Range Comments SODIUM URINE (BEAKER) (test tqez=334) 188 meq/L Reference Range: No NormalsOSMOLALITY, [id number] 15:23:00 Test Item Value Reference Range Comments OSMOLALITY URINE (BEAKER) (test guge=446) 631 mOsm/kg 40-1,400 OSMOLALITY, [id number] 15:23:00 Test Item Value Reference Range Comments OSMOLALITY, SERUM (BEAKER) (test ywmu=712) 255 mOsm/kg 275-295 BASIC METABOLIC [id number] 15:17:00 Test Item Value Reference Range Comments SODIUM (BEAKER) (test 123 meq/L 136-145 yqyh=164) POTASSIUM (BEAKER) (test 4.4 meq/L 3.5-5.1 zxsx=310) CHLORIDE (BEAKER) (test 94 meq/L 98-107 cxib=923) CO2 (BEAKER) (test 23 meq/L 22-29 hxan=411) BLOOD UREA NITROGEN 9 mg/dL 7-21 (BEAKER) (test ttlt=635) CREATININE (BEAKER) (test 0.72 mg/dL 0.57-1.25 cyok=795) GLUCOSE RANDOM (BEAKER) 106 mg/dL 70-105 (test fsqr=293) CALCIUM (BEAKER) (test 8.3 mg/dL 8.4-10.2 mukg=760) EGFR (BEAKER) (test 130 mL/min/1.73 sq m ESTIMATED GFR IS NOT woab=9333) ACCURATE CREATININE CLEARANCE IN PREDICTING GLOMERULAR FILTRATION RATE. ESTIMATED GFR IS NOT APPLICABLE FOR DIALYSIS PATIENTS. TROPONIN [id number] 15:07:00 Test Item Value Reference Range Comments TROPONIN I (BEAKER) (test clfz=432) < ng/mL 0.00-0.03 Troponin I (TnI) levels [...] acute neurological disease, and persistent tachyarrhythmia.BASIC METABOLIC [id number] 07:18:00 Test Item Value Reference Range Comments SODIUM (BEAKER) (test 123 meq/L 136-145 fwco=988) POTASSIUM (BEAKER) (test 5.0 meq/L 3.5-5.1 sqqb=832) CHLORIDE (BEAKER) (test 94 meq/L 98-107 oyua=878) CO2 (BEAKER) (test 24 meq/L 22-29 rfpt=062) BLOOD UREA NITROGEN 9 mg/dL 7-21 (BEAKER) (test naaw=163) CREATININE (BEAKER) (test 0.70 mg/dL 0.57-1.25 svon=001) GLUCOSE RANDOM (BEAKER) 94 mg/dL 70-105 (test dulm=750) CALCIUM (BEAKER) (test 8.4 mg/dL 8.4-10.2 auol=026) EGFR (BEAKER) (test 134 mL/min/1.73 sq m ESTIMATED GFR IS NOT yypn=9183) ACCURATE CREATININE CLEARANCE IN PREDICTING GLOMERULAR FILTRATION RATE. ESTIMATED GFR IS NOT APPLICABLE FOR DIALYSIS PATIENTS. CBC W/PLT COUNT & AUTO [id number] 06:29:00 Test Item Value Reference Range Comments WHITE BLOOD CELL COUNT (BEAKER) (test dhho=601) 6.3 K/ L 3.5-10.5 RED BLOOD CELL COUNT (BEAKER) (test kgwk=588) 3.69 M/ L 4.63-6.08 HEMOGLOBIN (BEAKER) (test revh=001) 10.8 GM/DL 13.7-17.5 HEMATOCRIT (BEAKER) (test iosz=136) 31.6 % 40.1-51.0 MEAN CORPUSCULAR VOLUME (BEAKER) (test sqlr=684) 85.6 fL 79.0-92.2 MEAN CORPUSCULAR HEMOGLOBIN (BEAKER) (test 29.3 pg 25.7-32.2 ugzg=099) MEAN CORPUSCULAR HEMOGLOBIN CONC (BEAKER) (test 34.2 GM/DL 32.3-36.5 gypb=957) RED CELL DISTRIBUTION WIDTH (BEAKER) (test 17.7 % 11.6-14.4 fhnr=103) PLATELET COUNT (BEAKER) (test eull=541) 276 K/CU MM 150-450 MEAN PLATELET VOLUME (BEAKER) (test lgfw=035) 8.6 fL 9.4-12.4 NUCLEATED RED BLOOD CELLS (BEAKER) (test 0 /100 WBC 0-0 oadl=016) NEUTROPHILS RELATIVE PERCENT (BEAKER) (test 48 % bbqe=219) LYMPHOCYTES RELATIVE PERCENT (BEAKER) (test 29 % opwl=240) MONOCYTES RELATIVE PERCENT (BEAKER) (test 16 % egoj=324) EOSINOPHILS RELATIVE PERCENT (BEAKER) (test 5 % ntvl=677) BASOPHILS RELATIVE PERCENT (BEAKER) (test 1 % rvyu=060) NEUTROPHILS ABSOLUTE COUNT (BEAKER) (test 3.04 K/ L 1.78-5.38 aykb=999) LYMPHOCYTES ABSOLUTE COUNT (BEAKER) (test 1.84 K/ L 1.32-3.57 qgvy=408) MONOCYTES ABSOLUTE COUNT (BEAKER) (test 1.00 K/ L 0.30-0.82 gtam=085) EOSINOPHILS ABSOLUTE COUNT (BEAKER) (test 0.32 K/ L 0.04-0.54 tcww=409) BASOPHILS ABSOLUTE COUNT (BEAKER) (test 0.06 K/ L 0.01-0.08 zrwc=317) IMMATURE GRANULOCYTES-RELATIVE PERCENT (BEAKER) 1 % 0-1 (test bvwo=0832) TROPONIN [id number] 06:16:00 Test Item Value Reference Range Comments TROPONIN I (BEAKER) (test ryya=921) < ng/mL 0.00-0.03 Troponin I (TnI) levels [...] acidosis, acute neurological disease, and persistent tachyarrhythmia.POCT-GLUCOSE [id number] 00:24:00 Test Item Value Reference Range Comments POC-GLUCOSE METER (BEAKER) 103 mg/dL 70-110 TESTED AT [facility] [address] (test vjdi=7134) [place] [address] [id number] 21:16:00 Test Item Value Reference Range Comments LIPASE (BEAKER) (test zzhq=168) 38 U/L 8-78 BASIC METABOLIC [id number] 21:16:00 Test Item Value Reference Range Comments SODIUM (BEAKER) (test 121 meq/L 136-145 vqxz=406) POTASSIUM (BEAKER) (test 4.5 meq/L 3.5-5.1 eleo=375) CHLORIDE (BEAKER) (test 90 meq/L 98-107 jhuv=554) CO2 (BEAKER) (test 24 meq/L 22-29 hdjo=232) BLOOD UREA NITROGEN 11 mg/dL 7-21 (BEAKER) (test cfll=921) CREATININE (BEAKER) (test 0.72 mg/dL 0.57-1.25 uyhw=531) GLUCOSE RANDOM (BEAKER) 99 mg/dL 70-105 (test dmtd=575) CALCIUM (BEAKER) (test 9.1 mg/dL 8.4-10.2 jopu=247) EGFR (BEAKER) (test 130 mL/min/1.73 sq m ESTIMATED GFR IS NOT ltiv=1838) ACCURATE CREATININE CLEARANCE IN PREDICTING GLOMERULAR FILTRATION RATE. ESTIMATED GFR IS NOT APPLICABLE FOR DIALYSIS PATIENTS. HEPATIC FUNCTION [id number] 21:16:00 Test Item Value Reference Range Comments TOTAL PROTEIN (BEAKER) (test cyde=993) 7.2 gm/dL 6.0-8.3 ALBUMIN (BEAKER) (test lnfw=1033) 4.0 g/dL 3.5-5.0 BILIRUBIN TOTAL (BEAKER) (test npja=448) 0.5 mg/dL 0.2-1.2 BILIRUBIN DIRECT (BEAKER) (test wapz=634) 0.2 mg/dL 0.1-0.5 ALKALINE PHOSPHATASE (BEAKER) (test ygwx=067) 75 U/L 40-150 AST (SGOT) (BEAKER) (test erhw=814) 21 U/L 5-34 ALT (SGPT) (BEAKER) (test fxdd=197) 19 U/L 6-55 [id number] 21:13:00 Test Item Value Reference Range Comments PROTIME (BEAKER) (test gwjh=956) 13.1 seconds 11.9-14.2 INR (BEAKER) (test xcss=587) 1.0 <=5.9 PARTIAL THROMBOPLASTIN TIME (BEAKER) (test 35.6 seconds 22.5-36.0 pmnm=627) Effective 04/10/2019: PT Reference Range ChangeNew: 11.9-14.2 Previous: 11.7- 14.7RECOMMENDED COUMADIN/WARFARIN INR THERAPY RANGESSTANDARD DOSE: 2.0-3.0 Includes: PROPHYLAXIS for venous thrombosis, systemic embolization; TREATMENT for venous thrombosis and/or pulmonary embolus.HIGH RISK: Target INR is2.5-3.5 for patients wiht mechanical heart valves.URINALYSIS [id number] 21:07 :00 Test Item Value Reference Range Comments RBC UA (BEAKER) (test iuyw=730) 0 /HPF WBC UA (BEAKER) (test zwzz=473) < /HPF MUCUS (BEAKER) (test rbva=2017) Occasional URINALYSIS WITH MICROSCOPIC IF [id number] 21:07:00 Test Item Value Reference Range Comments COLOR (BEAKER) (test cyqu=804) Yellow CLARITY (BEAKER) (test qqkx=546) Clear SPECIFIC GRAVITY UA (BEAKER) (test etpu=215) 1.018 1.001-1.035 PH UA (BEAKER) (test yjgu=767) 7.0 5.0-8.0 PROTEIN UA (BEAKER) (test yuyk=797) 10 mg/dL Negative GLUCOSE UA (BEAKER) (test tlpb=719) Negative Negative KETONES UA (BEAKER) (test czox=519) Negative Negative BILIRUBIN UA (BEAKER) (test mfnl=127) Negative Negative BLOOD UA (BEAKER) (test wpqt=593) Negative Negative NITRITE UA (BEAKER) (test yfyv=779) Negative Negative LEUKOCYTE ESTERASE UA (BEAKER) (test hhvy=291) Negative Negative UROBILINOGEN UA (BEAKER) (test ixrc=554) 3.0 mg/dL 0.2-1.0 SOURCE(BEAKER) (test fczh=2444) CBC W/PLT COUNT & AUTO [id number] 20:54:00 Test Item Value Reference Range Comments WHITE BLOOD CELL COUNT (BEAKER) (test fqsv=004) 7.8 K/ L 3.5-10.5 RED BLOOD CELL COUNT (BEAKER) (test bfki=809) 3.99 M/ L 4.63-6.08 HEMOGLOBIN (BEAKER) (test nhrv=992) 11.7 GM/DL 13.7-17.5 HEMATOCRIT (BEAKER) (test cjtt=666) 34.2 % 40.1-51.0 MEAN CORPUSCULAR VOLUME (BEAKER) (test rmyr=054) 85.7 fL 79.0-92.2 MEAN CORPUSCULAR HEMOGLOBIN (BEAKER) (test 29.3 pg 25.7-32.2 giad=931) MEAN CORPUSCULAR HEMOGLOBIN CONC (BEAKER) (test 34.2 GM/DL 32.3-36.5 xlzs=770) RED CELL DISTRIBUTION WIDTH (BEAKER) (test 17.6 % 11.6-14.4 gcbj=681) PLATELET COUNT (BEAKER) (test frpc=828) 270 K/CU MM 150-450 MEAN PLATELET VOLUME (BEAKER) (test qbli=416) 8.7 fL 9.4-12.4 NUCLEATED RED BLOOD CELLS (BEAKER) (test 0 /100 WBC 0-0 ajyx=928) NEUTROPHILS RELATIVE PERCENT (BEAKER) (test 51 % gymx=490) LYMPHOCYTES RELATIVE PERCENT (BEAKER) (test 28 % nnuy=990) MONOCYTES RELATIVE PERCENT (BEAKER) (test 14 % nwry=449) EOSINOPHILS RELATIVE PERCENT (BEAKER) (test 5 % lmuq=483) BASOPHILS RELATIVE PERCENT (BEAKER) (test 1 % sgjy=286) NEUTROPHILS ABSOLUTE COUNT (BEAKER) (test 3.99 K/ L 1.78-5.38 osag=568) LYMPHOCYTES ABSOLUTE COUNT (BEAKER) (test 2.20 K/ L 1.32-3.57 habg=754) MONOCYTES ABSOLUTE COUNT (BEAKER) (test 1.08 K/ L 0.30-0.82 prtq=213) EOSINOPHILS ABSOLUTE COUNT (BEAKER) (test 0.36 K/ L 0.04-0.54 qyii=635) BASOPHILS ABSOLUTE COUNT (BEAKER) (test 0.08 K/ L 0.01-0.08 nzbv=668) IMMATURE GRANULOCYTES-RELATIVE PERCENT (BEAKER) 1 % 0-1 (test droz=4079) CT, BRAIN, WITHOUT [id number] 20:01:00FINAL REPORT CT, BRAIN, WITHOUT CONTRAST CLINICAL [...] MDReport Verified Date/Time: 2018 20:01:57 Reading Location: [address] Neuro Reading Room AFB CULTURE + [id number] 09:12:00 Test Item Value Reference Range Comments CULTURE (BEAKER) (test No acid-fast bacilli isolated elmh=3292) in 42 days AFB SMEAR (BEAKER) (test No acid fast bacilli seen jgjx=189) - SP FLUORO GUID CTRL ACC [id number] 11:31:00 Name: TIRSO [place] [facility] : 1945 Age/S: 73 / M [address] Unit #: [id number] Loc: [place] [address] Phys: Cathy Sellers MD Acct: [id number] Dis Date: Status : [place] [facility] [place] #: [phone] Exam Date: 06/06/2019 1100 FAX #: Reason: PORT PLACEMENT EXAMS: CPT: [id number] SP FLUORO GUID CTRL ACC DEV [id number] Fluoro Time: 0:45 DAP (Gy m2): 0.27 [...] was obtained. Prior to beginning the procedure, [place] Protocol was used to confirm the patient's [...] 1 Signed Report (CONTINUED) Name: TIRSO [place] [facility] : 1945 Age/S: 73 / M [address] [facility] Unit #: [id number] Loc: [place] [address] Phys: Tatiana Sellers Acct: [id number] Dis Date: Status: [facility] [place]ONE #: [phone] Exam Date: 06/06/2019 1100 FAX #: Reason: PORT PLACEMENT EXAMS: CPT: [id number] SP FLUORO GUID CTRL ACC DEV 18966 Fluoro Time: 0:45 DAP (Gy m2): 0.27 [...] MD PAGE 2 Signed Report Name:TIRSO [place] : 1945 Age/S: 73 / M [address] [address] Unit #: [id number] Loc: [place] [address] Phys: Cathy Sellers MD Acct: [id number] Dis Date: Status: [facility] [place]ONE #: [phone] Exam Date: 06/06/2019 1100 FAX #: Reason: PORT PLACEMENT EXAMS: CPT: [id number] SP FLUORO GUID CTRL ACC DEV [id number] Fluoro Time: 0:45 DAP(Gy m2): 0.27 Air Kerma (mGy): 1 <Continued> Technologist: RT Bruna(R) Trnalb Date/Time: 06/06/2019 (1131) [email or web address] Orig Print D/T: S: 06/06/2019 (1134) PAGE 3 Signed Report- SP FLUORO GUID CTRL ACC [id number] 11:31:00 Name: TIRSO [place] : 1945 Age/S: 73 / M [address] [address] Unit #: [id number] Loc: [place] [address] Phys: Cathy Sellers MD Acct: [id number] Dis Date: Status: [facility] [place]ONE #: [phone] Exam Date: 06/06/2019 1100 FAX #: Reason: PORT PLACEMENT EXAMS: CPT: [id number] SP FLUORO GUID CTRL ACC DEV 92217 Fluoro Time: 0:45 DAP (Gy m2): 0.27 [...] was obtained. Prior to beginning the procedure, [place] Protocol was used to confirm the patient's [...] [place] : 1945 Age/S: 73 / M [address] [facility] [address] Unit #: [id number] Loc: [place] [address] Phys: Tatiana Sellers Acct: [id number] Dis Date: Status: [facility] [place] # : [phone] Exam Date: 06/06/2019 1100 FAX #: Reason: PORT PLACEMENT EXAMS: CPT: [id number] SP FLUORO GUID CTRL ACC DEV 26098 Fluoro Time: 0:45 DAP (Gy m2): 0.27 [...] [place] : 1945 Age/S: 73 / M [address] [address] Unit #: [id number] Loc: [place] [address] Phys: Cathy Sellers MD Acct: [id number] Dis Date: Status: [facility] PHONE #: [phone] Exam Date: 06/06/2019 1100 FAX #: Reason: PORT PLACEMENT EXAMS: CPT: [id number] SP FLUORO GUID CTRL ACC DEV 75341 Fluoro Time: 0:45 DAP(Gy m2): 0.27 Air Kerma (mGy): 1 <Continued&gt ; Technologist: Manav Flores RT(R) Trnscb Date/Time : 06/06/2019 (1641) tMICKY Orig Print D/T: S: 2018 (9082) PAGE 3 Signed Report- SP FLUORO GUID CTRL ACC [id number] 11:31:00 Name: [place]IRSO [place] : 1945 Age/S: 73 / M [address] [address] Unit #: [id number] Loc: [place] [address] Phys: Cathy Sellers MD Acct: [id number] Dis Date: Status[place] [facility] [place] #: [phone] Exam Date: 06/06/2019 1100 FAX #: Reason: PORT PLACEMENT EXAMS: CPT: [id number] SP FLUORO GUID CTRL ACC DEV [id number] Fluoro Time: 0:45 DAP (Gy m2): 0.27 [...] was obtained. Prior to beginning the procedure, [place] Protocol was used to confirm the patient's [...] 1 Signed Report (CONTINUED) Name: TIRSO [place] [facility] : 1945 Age/S: 73 / M [address] [facility] [address] Unit #: [id number] Loc: [place] [address] Phys: Tatiana Sellers Acct: [id number] Dis Date: Status: [facility] [place]ONE #: [phone] Exam Date: 06/06/2019 1100 FAX #: Reason: PORT PLACEMENT EXAMS: CPT: [id number] SP FLUORO GUID CTRL ACC DEV [id number] Fluoro Time: 0:45 DAP (Gy m2): 0.27 [...] MD PAGE 2 Signed Report Name:TIRSO [place] : 1945 Age/S: 73 / M [address] [address] Unit #: [id number] Loc: [place] [address] Phys: Cathy Sellers MD Acct: [id number] Dis Date: Status: [facility] [place]ONE #: [phone] Exam Date: 06/06/2019 1100 FAX #: Reason: PORT PLACEMENT EXAMS: CPT: [id number] SP FLUORO GUID CTRL ACC DEV [id number] Fluoro Time: 0:45 DAP(Gy m2): 0.27 Air Kerma (mGy): 1 <Continued> Technologist: RT Bruna(R) Trnscb Date/Time: 06/06/2019 (0021) Susan Orig Print D/T: S: 06/06/2019 (3102) PAGE 3 [facility] [id number] 10:15:00 Test Item Value Reference Range Comments [...] REVIEW CONSISTANT code=MDIFF) WITH AUTO DIFFERENTIAL. PROTHROMBIN [id number] 09:27:00 Test Item Value Reference Range Comments PT PATIENT (test code=PTP) 11.9 SECONDS 9.3-12.9 INTERNATIONAL NORMAL RATIO (test code=INR) 1.03 INR Unit 0.8-1.2 THROMBOPLASTIN TIME [id number] 09:27:00 Test Item Value Reference Range Comments THROMBOPLASTIN TIME PARTIAL (test code=PTT) 33.2 SECONDS 26-35 CBC W/AUTO [id number] 09:20:00 Test Item Value Reference Range Comments [...] (test code=MDIFF) DIFF/SCN CRITERIA FUNGUS CULTURE + [id number] 16:11:00 Test Item Value Reference Range Comments CULTURE (BEAKER) (test No fungus isolated in 28 days gqdc=0421) FUNGUS SMEAR (BEAKER) (test No fungi seen bkoa=3123) URIC [id number] 07:08:00 Test Item Value Reference Range Comments URIC ACID (BEAKER) (test fujj=747) 1.4 mg/dL 2.6-7.2 [id number] 06:48:00 Test Item Value Reference Range Comments MAGNESIUM (BEAKER) (test kgtt=917) 1.8 mg/dL 1.6-2.6 [id number] 06:48:00 Test Item Value Reference Range Comments PHOSPHORUS (BEAKER) (test gyiv=551) 3.4 mg/dL 2.3-4.7 BASIC METABOLIC [id number] 06:48:00 Test Item Value Reference Range Comments SODIUM (BEAKER) (test 135 meq/L 136-145 bbhu=126) POTASSIUM (BEAKER) (test 4.7 meq/L 3.5-5.1 bbht=235) CHLORIDE (BEAKER) (test 105 meq/L 98-107 uwbw=698) CO2 (BEAKER) (test 24 meq/L 22-29 emzc=248) BLOOD UREA NITROGEN 9 mg/dL 7-21 (BEAKER) (test rbif=663) CREATININE (BEAKER) (test 0.61 mg/dL 0.57-1.25 spup=394) GLUCOSE RANDOM (BEAKER) 100 mg/dL 70-105 (test drbr=466) CALCIUM (BEAKER) (test 8.3 mg/dL 8.4-10.2 onkp=589) EGFR (BEAKER) (test 157 mL/min/1.73 sq m ESTIMATED GFR IS NOT kmla=7217) ACCURATE CREATININE CLEARANCE IN PREDICTING GLOMERULAR FILTRATION RATE. ESTIMATED GFR IS NOT APPLICABLE FOR DIALYSIS PATIENTS. HEPATIC FUNCTION [id number] 06:48:00 Test Item Value Reference Range Comments TOTAL PROTEIN (BEAKER) (test ahlt=680) 5.6 gm/dL 6.0-8.3 ALBUMIN (BEAKER) (test omsa=8909) 3.0 g/dL 3.5-5.0 BILIRUBIN TOTAL (BEAKER) (test cifr=865) 0.5 mg/dL 0.2-1.2 BILIRUBIN DIRECT (BEAKER) (test zupv=563) 0.3 mg/dL 0.1-0.5 ALKALINE PHOSPHATASE (BEAKER) (test nspy=093) 54 U/L 40-150 AST (SGOT) (BEAKER) (test fvai=118) 31 U/L 5-34 ALT (SGPT) (BEAKER) (test atzo=269) 50 U/L 6-55 CBC (HEMOGRAM ONLY)2019-05-07 06:05:00 Test Item Value Reference Range Comments WHITE BLOOD CELL COUNT (BEAKER) (test mwau=965) 5.0 K/ L 3.5-10.5 RED BLOOD CELL COUNT (BEAKER) (test znrz=201) 3.42 M/ L 4.63-6.08 HEMOGLOBIN (BEAKER) (test sgfz=108) 9.8 GM/DL 13.7-17.5 HEMATOCRIT (BEAKER) (test eslc=711) 29.8 % 40.1-51.0 MEAN CORPUSCULAR VOLUME (BEAKER) (test jpth=739) 87.1 fL 79.0-92.2 MEAN CORPUSCULAR HEMOGLOBIN (BEAKER) (test 28.7 pg 25.7-32.2 omvs=002) MEAN CORPUSCULAR HEMOGLOBIN CONC (BEAKER) (test 32.9 GM/DL 32.3-36.5 bpuj=313) RED CELL DISTRIBUTION WIDTH (BEAKER) (test 16.6 % 11.6-14.4 sxsu=384) PLATELET COUNT (BEAKER) (test rlxr=849) 559 K/CU MM 150-450 MEAN PLATELET VOLUME (BEAKER) (test etmp=700) 8.9 fL 9.4-12.4 NUCLEATED RED BLOOD CELLS (BEAKER) (test 0 /100 WBC 0-0 ykax=891) URIC [id number] 03:27:00 Test Item Value Reference Range Comments URIC ACID (BEAKER) (test 1.2 mg/dL 2.6-7.2 Specimen slightly hemolyzed ilbe=862) [id number] 03:19:00 Test Item Value Reference Range Comments PHOSPHORUS (BEAKER) (test 3.0 mg/dL 2.3-4.7 Specimen slightly hemolyzed doqh=423) BASIC METABOLIC [id number] 03:19:00 Test Item Value Reference Range Comments SODIUM (BEAKER) (test 133 meq/L 136-145 pzkr=557) POTASSIUM (BEAKER) (test 5.0 meq/L 3.5-5.1 Specimen slightly uizr=489) hemolyzed CHLORIDE (BEAKER) (test 104 meq/L 98-107 dxqw=972) CO2 (BEAKER) (test 21 meq/L 22-29 eqxg=604) BLOOD UREA NITROGEN 10 mg/dL 7-21 (BEAKER) (test pwhz=848) CREATININE (BEAKER) (test 0.65 mg/dL 0.57-1.25 Specimen slightly wlyt=264) hemolyzed GLUCOSE RANDOM (BEAKER) 126 mg/dL 70-105 (test cuhd=930) CALCIUM (BEAKER) (test 8.0 mg/dL 8.4-10.2 kgfm=755) EGFR (BEAKER) (test 146 mL/min/1.73 sq m ESTIMATED GFR IS NOT dwqh=3971) ACCURATE CREATININE CLEARANCE IN PREDICTING GLOMERULAR FILTRATION RATE. ESTIMATED GFR IS NOT APPLICABLE FOR DIALYSIS PATIENTS. RAD, CHEST, 1 VIEW, NON [id number] 15:04:00Reason for exam:->sobShould this be performed at the bedside?->YesFINAL REPORT CLINICAL HISTORY: sob TECHNIQUE: 1 view of the chest. COMPARISON: None IMPRESSION: There is a large right pleural effusion with underlying lung consolidation. The left lung is free of infiltrates or effusions. The cardiomediastinal silhouette is magnified by technique. Signed: Nehemias Mcclain MDReport Verified Date/Time: 05/06/2019 15:04:11 Reading Location: [address] Consult Reading Room Electronically signed by: NEHEMIAS MCCLAIN M.D. on 03:04 PMURIC [id number] 13:52:00 Test Item Value Reference Range Comments URIC ACID (BEAKER) (test xigo=107) 1.2 mg/dL 2.6-7.2 [id number] 13:30:00 Test Item Value Reference Range Comments PHOSPHORUS (BEAKER) (test ltik=283) 2.4 mg/dL 2.3-4.7 BASIC METABOLIC [id number] 13:30:00 Test Item Value Reference Range Comments SODIUM (BEAKER) (test 131 meq/L 136-145 tdde=532) POTASSIUM (BEAKER) (test 4.3 meq/L 3.5-5.1 pbpj=921) CHLORIDE (BEAKER) (test 101 meq/L 98-107 uawi=690) CO2 (BEAKER) (test 23 meq/L 22-29 xwyf=477) BLOOD UREA NITROGEN 8 mg/dL 7-21 (BEAKER) (test ikrj=096) CREATININE (BEAKER) (test 0.61 mg/dL 0.57-1.25 jnjs=107) GLUCOSE RANDOM (BEAKER) 102 mg/dL 70-105 (test hbal=565) CALCIUM (BEAKER) (test 8.1 mg/dL 8.4-10.2 zidm=077) EGFR (BEAKER) (test 157 mL/min/1.73 sq m ESTIMATED GFR IS NOT cxkn=2923) ACCURATE CREATININE CLEARANCE IN PREDICTING GLOMERULAR FILTRATION RATE. ESTIMATED GFR IS NOT APPLICABLE FOR DIALYSIS PATIENTS. CBC (HEMOGRAM ONLY)2019-05-06 06:31:00 Test Item Value Reference Range Comments WHITE BLOOD CELL COUNT (BEAKER) (test wnjh=230) 9.1 K/ L 3.5-10.5 RED BLOOD CELL COUNT (BEAKER) (test atdk=504) 3.54 M/ L 4.63-6.08 HEMOGLOBIN (BEAKER) (test nvdu=264) 10.2 GM/DL 13.7-17.5 HEMATOCRIT (BEAKER) (test xtuf=282) 31.2 % 40.1-51.0 MEAN CORPUSCULAR VOLUME (BEAKER) (test wyrk=697) 88.1 fL 79.0-92.2 MEAN CORPUSCULAR HEMOGLOBIN (BEAKER) (test 28.8 pg 25.7-32.2 eikg=936) MEAN CORPUSCULAR HEMOGLOBIN CONC (BEAKER) (test 32.7 GM/DL 32.3-36.5 imgk=752) RED CELL DISTRIBUTION WIDTH (BEAKER) (test 16.9 % 11.6-14.4 klgb=089) PLATELET COUNT (BEAKER) (test tred=516) 587 K/CU MM 150-450 MEAN PLATELET VOLUME (BEAKER) (test wexq=953) 8.8 fL 9.4-12.4 NUCLEATED RED BLOOD CELLS (BEAKER) (test 0 /100 WBC 0-0 iras=569) URIC [id number] 05:51:00 Test Item Value Reference Range Comments URIC ACID (BEAKER) (test epmc=569) 1.3 mg/dL 2.6-7.2 [id number] 05:50:00 Test Item Value Reference Range Comments MAGNESIUM (BEAKER) (test kgtj=278) 1.8 mg/dL 1.6-2.6 [id number] 05:50:00 Test Item Value Reference Range Comments PHOSPHORUS (BEAKER) (test azeq=572) 2.7 mg/dL 2.3-4.7 BASIC METABOLIC [id number] 05:50:00 Test Item Value Reference Range Comments SODIUM (BEAKER) (test 132 meq/L 136-145 vkwc=497) POTASSIUM (BEAKER) (test 4.7 meq/L 3.5-5.1 todt=274) CHLORIDE (BEAKER) (test 102 meq/L 98-107 lhof=035) CO2 (BEAKER) (test 23 meq/L 22-29 dfxp=355) BLOOD UREA NITROGEN 8 mg/dL 7-21 (BEAKER) (test qbbu=884) CREATININE (BEAKER) (test 0.62 mg/dL 0.57-1.25 mbei=277) GLUCOSE RANDOM (BEAKER) 115 mg/dL 70-105 (test wdyg=969) CALCIUM (BEAKER) (test 8.2 mg/dL 8.4-10.2 sgjf=078) EGFR (BEAKER) (test 155 mL/min/1.73 sq m ESTIMATED GFR IS NOT zexe=8767) ACCURATE CREATININE CLEARANCE IN PREDICTING GLOMERULAR FILTRATION RATE. ESTIMATED GFR IS NOT APPLICABLE FOR DIALYSIS PATIENTS. HEPATIC FUNCTION [id number] 05:50:00 Test Item Value Reference Range Comments TOTAL PROTEIN (BEAKER) (test hmsw=624) 6.1 gm/dL 6.0-8.3 ALBUMIN (BEAKER) (test gomh=3729) 3.1 g/dL 3.5-5.0 BILIRUBIN TOTAL (BEAKER) (test mawu=649) 0.5 mg/dL 0.2-1.2 BILIRUBIN DIRECT (BEAKER) (test eavh=084) 0.2 mg/dL 0.1-0.5 ALKALINE PHOSPHATASE (BEAKER) (test wkta=582) 59 U/L 40-150 AST (SGOT) (BEAKER) (test jvaz=915) 23 U/L 5-34 ALT (SGPT) (BEAKER) (test qkwl=344) 42 U/L 6-55 URIC [id number] 22:30:00 Test Item Value Reference Range Comments URIC ACID (BEAKER) (test 1.2 mg/dL 2.6-7.2 Specimen slightly hemolyzed lxqr=874) BASIC METABOLIC [id number] 22:30:00 Test Item Value Reference Range Comments SODIUM (BEAKER) (test 131 meq/L 136-145 lnpt=631) POTASSIUM (BEAKER) (test 4.4 meq/L 3.5-5.1 Specimen slightly fiwr=884) hemolyzed CHLORIDE (BEAKER) (test 101 meq/L 98-107 vorb=208) CO2 (BEAKER) (test 21 meq/L 22-29 qcde=013) BLOOD UREA NITROGEN 9 mg/dL 7-21 (BEAKER) (test ygby=662) CREATININE (BEAKER) (test 0.64 mg/dL 0.57-1.25 Specimen slightly sclv=105) hemolyzed GLUCOSE RANDOM (BEAKER) 140 mg/dL 70-105 (test ggmf=508) CALCIUM (BEAKER) (test 7.9 mg/dL 8.4-10.2 gtea=227) EGFR (BEAKER) (test 149 mL/min/1.73 sq m ESTIMATED GFR IS NOT pnfx=3095) ACCURATE CREATININE CLEARANCE IN PREDICTING GLOMERULAR FILTRATION RATE. ESTIMATED GFR IS NOT APPLICABLE FOR DIALYSIS PATIENTS. [id number] 22:29:00 Test Item Value Reference Range Comments PHOSPHORUS (BEAKER) (test 2.2 mg/dL 2.3-4.7 Specimen slightly hemolyzed igcb=355) URIC [id number] 13:53:00 Test Item Value Reference Range Comments URIC ACID (BEAKER) (test hmfj=246) 1.3 mg/dL 2.6-7.2 [id number] 13:43:00 Test Item Value Reference Range Comments PHOSPHORUS (BEAKER) (test mgqb=069) 2.1 mg/dL 2.3-4.7 BASIC METABOLIC [id number] 13:43:00 Test Item Value Reference Range Comments SODIUM (BEAKER) (test 136 meq/L 136-145 xbhe=450) POTASSIUM (BEAKER) (test 4.5 meq/L 3.5-5.1 dkvn=538) CHLORIDE (BEAKER) (test 103 meq/L 98-107 lvpa=369) CO2 (BEAKER) (test 23 meq/L 22-29 motg=430) BLOOD UREA NITROGEN 9 mg/dL 7-21 (BEAKER) (test xvdd=860) CREATININE (BEAKER) (test 0.66 mg/dL 0.57-1.25 buyr=605) GLUCOSE RANDOM (BEAKER) 132 mg/dL 70-105 (test sinl=097) CALCIUM (BEAKER) (test 8.8 mg/dL 8.4-10.2 adhh=638) EGFR (BEAKER) (test 144 mL/min/1.73 sq m ESTIMATED GFR IS NOT fkre=9663) ACCURATE CREATININE CLEARANCE IN PREDICTING GLOMERULAR FILTRATION RATE. ESTIMATED GFR IS NOT APPLICABLE FOR DIALYSIS PATIENTS. SURGICALLY OBTAINED CULTURE + GRAM [id number] 13:00:00 Test Item Value Reference Range Comments CULTURE (BEAKER) (test 1+ Streptococcus mitis yugs=5354) GRAM STAIN RESULT (BEAKER) 2+ WBCs (test ewfk=6120) GRAM STAIN RESULT (BEAKER) No organisms seen (test kiga=218138) <1+ Normal respiratory corinne presentBLOOD [id number] 08:00:00 Test Item Value Reference Range Comments CULTURE (BEAKER) (test cojq=0596) No growth in 5 days BLOOD [id number] 08:00:00 Test Item Value Reference Range Comments CULTURE (BEAKER) (test bllm=5338) No growth in 5 days URIC [id number] 05:58:00 Test Item Value Reference Range Comments URIC ACID (BEAKER) (test fybd=191) 1.4 mg/dL 2.6-7.2 [id number] 05:44:00 Test Item Value Reference Range Comments MAGNESIUM (BEAKER) (test eogq=325) 1.8 mg/dL 1.6-2.6 [id number] 05:44:00 Test Item Value Reference Range Comments PHOSPHORUS (BEAKER) (test hxhq=810) 3.0 mg/dL 2.3-4.7 BASIC METABOLIC [id number] 05:44:00 Test Item Value Reference Range Comments SODIUM (BEAKER) (test 134 meq/L 136-145 nauk=431) POTASSIUM (BEAKER) (test 4.5 meq/L 3.5-5.1 moqi=917) CHLORIDE (BEAKER) (test 103 meq/L 98-107 cpfb=415) CO2 (BEAKER) (test 23 meq/L 22-29 nqbb=182) BLOOD UREA NITROGEN 6 mg/dL 7-21 (BEAKER) (test xfug=672) CREATININE (BEAKER) (test 0.59 mg/dL 0.57-1.25 btjj=787) GLUCOSE RANDOM (BEAKER) 125 mg/dL 70-105 (test yetv=819) CALCIUM (BEAKER) (test 8.2 mg/dL 8.4-10.2 bwqs=822) EGFR (BEAKER) (test 164 mL/min/1.73 sq m ESTIMATED GFR IS NOT xkvs=1576) ACCURATE CREATININE CLEARANCE IN PREDICTING GLOMERULAR FILTRATION RATE. ESTIMATED GFR IS NOT APPLICABLE FOR DIALYSIS PATIENTS. HEPATIC FUNCTION [id number] 05:44:00 Test Item Value Reference Range Comments TOTAL PROTEIN (BEAKER) (test soft=384) 6.0 gm/dL 6.0-8.3 ALBUMIN (BEAKER) (test nvsy=2347) 2.9 g/dL 3.5-5.0 BILIRUBIN TOTAL (BEAKER) (test cibu=346) 0.5 mg/dL 0.2-1.2 BILIRUBIN DIRECT (BEAKER) (test qcrq=957) 0.3 mg/dL 0.1-0.5 ALKALINE PHOSPHATASE (BEAKER) (test qrij=605) 63 U/L 40-150 AST (SGOT) (BEAKER) (test mrcx=852) 22 U/L 5-34 ALT (SGPT) (BEAKER) (test wrwb=864) 43 U/L 6-55 CBC (HEMOGRAM ONLY)2019-05-05 05:16:00 Test Item Value Reference Range Comments WHITE BLOOD CELL COUNT (BEAKER) (test ltpy=443) 10.4 K/ L 3.5-10.5 RED BLOOD CELL COUNT (BEAKER) (test dysb=902) 3.56 M/ L 4.63-6.08 HEMOGLOBIN (BEAKER) (test ntrb=017) 10.3 GM/DL 13.7-17.5 HEMATOCRIT (BEAKER) (test owou=364) 30.8 % 40.1-51.0 MEAN CORPUSCULAR VOLUME (BEAKER) (test llro=547) 86.5 fL 79.0-92.2 MEAN CORPUSCULAR HEMOGLOBIN (BEAKER) (test 28.9 pg 25.7-32.2 deol=461) MEAN CORPUSCULAR HEMOGLOBIN CONC (BEAKER) (test 33.4 GM/DL 32.3-36.5 fmth=019) RED CELL DISTRIBUTION WIDTH (BEAKER) (test 16.5 % 11.6-14.4 yrwb=514) PLATELET COUNT (BEAKER) (test kgvx=259) 546 K/CU MM 150-450 MEAN PLATELET VOLUME (BEAKER) (test admx=191) 8.9 fL 9.4-12.4 NUCLEATED RED BLOOD CELLS (BEAKER) (test 0 /100 WBC 0-0 txct=556) URIC [id number] 18:20:00 Test Item Value Reference Range Comments URIC ACID (BEAKER) (test 1.2 mg/dL 2.6-7.2 Specimen slightly hemolyzed qobc=504) [id number] 18:18:00 Test Item Value Reference Range Comments PHOSPHORUS (BEAKER) (test 2.4 mg/dL 2.3-4.7 Specimen slightly hemolyzed medd=866) BASIC METABOLIC [id number] 18:18:00 Test Item Value Reference Range Comments SODIUM (BEAKER) (test 130 meq/L 136-145 dcvd=868) POTASSIUM (BEAKER) (test 3.4 meq/L 3.5-5.1 Specimen slightly hfnf=193) hemolyzed CHLORIDE (BEAKER) (test 99 meq/L 98-107 pvbg=626) CO2 (BEAKER) (test 23 meq/L 22-29 bsle=720) BLOOD UREA NITROGEN 5 mg/dL 7-21 (BEAKER) (test yfxj=567) CREATININE (BEAKER) (test 0.62 mg/dL 0.57-1.25 Specimen slightly oaee=331) hemolyzed GLUCOSE RANDOM (BEAKER) 139 mg/dL 70-105 (test twvg=279) CALCIUM (BEAKER) (test 8.1 mg/dL 8.4-10.2 qfmi=776) EGFR (BEAKER) (test 155 mL/min/1.73 sq m ESTIMATED GFR IS NOT zzie=6737) ACCURATE CREATININE CLEARANCE IN PREDICTING GLOMERULAR FILTRATION RATE. ESTIMATED GFR IS NOT APPLICABLE FOR DIALYSIS PATIENTS. (MANUAL DIFFERENTIAL)2019-05-04 13:32:00 Test Item Value Reference Range Comments NEUTROPHILS - REL (DIFF) (BEAKER) (test vipt=5444) 80 % LYMPHOCYTES - REL (DIFF) (BEAKER) (test hcqa=0967) 8 % MONOCYTES - REL (DIFF) (BEAKER) (test rhvn=9556) 7 % EOSINOPHILS - REL (DIFF) (BEAKER) (test rzkb=8825) 3 % MYELOCYTES-REL (DIFF) (BEAKER) (test nork=4918) 1 % 0-0 BANDS - REL (DIFF) (BEAKER) (test chzc=4961) 1 % 0-10 NEUTROPHILS - ABS (DIFF) (BEAKER) (test nyrz=7593) 8.80 K/ L 1.80-8.00 LYMPHOCYTES - ABS (DIFF) (BEAKER) (test eumm=8934) 0.88 K/ L 1.48-4.50 MONOCYTES - ABS (DIFF) (BEAKER) (test nwbx=1248) 0.77 K/ L 0.00-1.30 EOSINOPHILS - ABS (DIFF) (BEAKER) (test kclx=6073) 0.33 K/ L 0.00-0.50 BANDS-ABS (DIFF) (BEAKER) (test uodi=6449) 0.1 K/ L 0.0-0.8 MYELOCYTES-ABS (DIFF) (BEAKER) (test ugbr=4758) 0.11 K/ L 0.00-0.00 TOTAL COUNTED (BEAKER) (test ktzo=5243) 100 BANDS + SEGMENTED NEUTROPHILS (BEAKER) (test 8.91 xyiy=3585) WBC MORPHOLOGY (BEAKER) (test wdfd=918) Normal PLT MORPHOLOGY (BEAKER) (test xytu=497) Normal POLYCHROMATOPHILLIC RBCS(BEAKER) (test msps=535) 1+ few [id number] 06:58:00 Test Item Value Reference Range Comments MAGNESIUM (BEAKER) (test vnyk=866) 1.9 mg/dL 1.6-2.6 BASIC METABOLIC [id number] 06:58:00 Test Item Value Reference Range Comments SODIUM (BEAKER) (test 137 meq/L 136-145 jadx=302) POTASSIUM (BEAKER) (test 4.1 meq/L 3.5-5.1 cdem=566) CHLORIDE (BEAKER) (test 102 meq/L 98-107 bbaa=138) CO2 (BEAKER) (test 28 meq/L 22-29 abfi=539) BLOOD UREA NITROGEN 5 mg/dL 7-21 (BEAKER) (test szfr=222) CREATININE (BEAKER) (test 0.62 mg/dL 0.57-1.25 efla=879) GLUCOSE RANDOM (BEAKER) 82 mg/dL 70-105 (test zzmt=912) CALCIUM (BEAKER) (test 8.6 mg/dL 8.4-10.2 zudc=763) EGFR (BEAKER) (test 155 mL/min/1.73 sq m ESTIMATED GFR IS NOT pahz=9749) ACCURATE CREATININE CLEARANCE IN PREDICTING GLOMERULAR FILTRATION RATE. ESTIMATED GFR IS NOT APPLICABLE FOR DIALYSIS PATIENTS. HEPATIC FUNCTION [id number] 06:58:00 Test Item Value Reference Range Comments TOTAL PROTEIN (BEAKER) (test zbzm=940) 6.1 gm/dL 6.0-8.3 ALBUMIN (BEAKER) (test zvoi=9380) 2.9 g/dL 3.5-5.0 BILIRUBIN TOTAL (BEAKER) (test vccq=911) 0.4 mg/dL 0.2-1.2 BILIRUBIN DIRECT (BEAKER) (test nqhs=705) 0.3 mg/dL 0.1-0.5 ALKALINE PHOSPHATASE (BEAKER) (test oohc=634) 67 U/L 40-150 AST (SGOT) (BEAKER) (test ckty=034) 32 U/L 5-34 ALT (SGPT) (BEAKER) (test hufl=551) 53 U/L 6-55 CBC (HEMOGRAM ONLY)2019-05-04 06:47:00 Test Item Value Reference Range Comments WHITE BLOOD CELL COUNT (BEAKER) (test qbwl=285) 11.0 K/ L 3.5-10.5 RED BLOOD CELL COUNT (BEAKER) (test nzmo=850) 3.74 M/ L 4.63-6.08 HEMOGLOBIN (BEAKER) (test uzkp=982) 10.9 GM/DL 13.7-17.5 HEMATOCRIT (BEAKER) (test esae=002) 33.4 % 40.1-51.0 MEAN CORPUSCULAR VOLUME (BEAKER) (test zysk=302) 89.3 fL 79.0-92.2 MEAN CORPUSCULAR HEMOGLOBIN (BEAKER) (test 29.1 pg 25.7-32.2 vriq=893) MEAN CORPUSCULAR HEMOGLOBIN CONC (BEAKER) (test 32.6 GM/DL 32.3-36.5 tfag=527) RED CELL DISTRIBUTION WIDTH (BEAKER) (test 16.8 % 11.6-14.4 dwvn=920) PLATELET COUNT (BEAKER) (test tzeu=959) 566 K/CU MM 150-450 MEAN PLATELET VOLUME (BEAKER) (test xsug=022) 8.9 fL 9.4-12.4 NUCLEATED RED BLOOD CELLS (BEAKER) (test 1 /100 WBC 0-0 zcxq=752) MR, BRAIN, [id number] 00:59:00FINAL REPORT MRI Brain with and without [...] No abnormal intracranial enhancement. Signed: Oleg Izaguirre [facility] Verified Date/Time: 05/04/2019 00:59:51 BONE AND/OR JOINT IMAGING, WHOLE [id number] 17:54:00FINAL REPORT PROCEDURE: BONE SCAN, WHOLE BODY CPT CODE: 63300 INDICATION: Right lung mass PROTOCOL: 20.1 mCi [...] and pelvisCT from 05/02/2019. Signed: [facility] Verified Date/Time: 05/03/2019 17:54:51 Reading Location: [address] Reading Room FINE NEEDLE ASPIRATE BY [id number] 14:55:00Medical Cytology Report Case: [id number] Authorizing Provider: Jarrod Carroll MD Collected: 05/01/2019 1523 Ordering Location: [facility] Received: 1617 SERVICES Pathologist: Onel Kidd MD Specimen: Lymph Node, Subcarinal, Station 7 LYMPH NODE, SUBCARINAL, STATION 7 EBUS FNA BY CLINICIAN (CYTOSPINS AND CELL BLOCK OF ASPIRATE): - SMALL CELL CARCINOMA Signing Pathologist Direct Phone Line: [phone] signed by Onel Kidd MD on 05/03/2019 at 2:55 PMPlease see case [id number] for immunophenotypic evaluation. 22287, 09024Ycwew hilar mass, lymphadenopathy, history of bladder cancerLYMPH NODE, SUBCARINAL, STATION 7 EBUS FNA35 mls in cytorich red; 2 cytospins, cell blockCollected: [id number]: [id number] interpretation of this case included the use of immunohistochemistry or special stains.Control Slides Examined: In-house known positive controls were evaluated along with the test tissue. These control slides run alongside of the patients sample show appropriate staining. Internal positive and negative controls when available are evaluated Immunohistochemistry technical testing was performed at [facility], Pathology Laboratory where it was developed [...] qualified to perform high complexity clinical laboratory testing.[facility], Department of Pathology, [address] [place] [address], [facility]mb[facility], [facility], [address] [place] [address], CphleuWest [facility], Department of Pathology, [address] [place] [address], FXNH NEEDLE ASPIRATE BY [id number] 14:45: 00Medical Cytology Report Case: [id number] Authorizing Provider: Jarrod Carroll MD Collected : 05/01/2019 6367 Ordering Location: [facility] Received: 05/01/2019 1501 SERVICES Pathologist: Onel Kidd MD Specimen: Lymph Node, Lower Paratracheal, Left, Station 4L LYMPH NODE, LOWERPARATRACHEAL, LEFT, STATION 4L EBUS FNA BY CLINICIAN (DIRECT SMEARS AND CELL BLOCK OF ASPIRATE): - SMALL CELL CARCINOMA (SEE COMMENT) Signing Pathologist Direct Phone Line : [phone] signed by Onel Kidd MD on 05/03/2019 at 2:45 PMPlease see case [id number] for immunophenotypic evaluation. 32215, 58005, 17612Chmmk hilar mass, lymphadenopathy, history of bladder cancerLYMPH NODE, LOWER PARATRACHEAL, LEFT, STATION 4L EBUS FNA35 mls in cytorich red; 2 direct smear slides, cell blockCollected: [id number]: [id number] TUMOR SUSPICIOUS FOR SMALL CELL CARCINOMA (3:16PM, NS)The interpretation of this case included the use of immunohistochemistry or special stains.Control Slides Examined: In-house known positive controls were evaluated along with the test tissue. These control slides run alongside of the patients sample show appropriate staining. Internal positive and negative controls when available are evaluated Immunohistochemistry technical testing was performed at [facility], Pathology Laboratory where it was developed [...] qualified to perform high complexity clinical laboratory testing.[facility], Department of Pathology, [address] [place] [address], FfiiqxWest [facility], [facility] of [facility]ology, [address] [place] [address], Tel OWest [facility], [facility] of [facility], [address] [place] [address], RXPY NEEDLE ASPIRATE BY [id number] 14:44:00Medical Cytology Report Case: [id number] Authorizing Provider: Jarrod Carroll MD Collected: 05/01/2019 1457 Ordering Location: [facility] Received: 05/01/2019 1501 SERVICES Pathologist: Onel Kidd MD Specimen: Lymph Node, Lower Paratracheal, Right, Station 4R LYMPH NODE, LOWERPARATRACHEAL, RIGHT, STATION 4R EBUS FNA BY CLINICIAN (DIRECT SMEARS AND CELL BLOCK OF ASPIRATE):- SMALL CELL CARCINOMA (SEE COMMENT) Signing Pathologist Direct Phone Line: [phone] signed by Onel Kidd MD on 05/03/2019 [...] small cell carcinoma. Please see cases [id number], [id number], 1543, 1544, and 1545 for further evaluation.81674,25638, 78487, 98668, 43544 X 6, 95858Pwbie hilar mass, lymphadenopathy, history of bladder cancerLYMPH NODE, LOWER PARATRACHEAL, RIGHT , STATION 4R EBUS FNA40 mls in cytorich red; 6 direct smear slides,cell blockCollected: [id number]: [id number] TUMOR SUSPICIOUS FOR SMALL CELL CARCINOMA (3:16PM, [...] evaluated Immunohistochemistry technical testing was performed at [facility], Pathology Laboratory where it was developed [...] as qualified to perform high complexity clinicallaboratory testing.[facility], Department of Pathology, [address] [place] [address], LwqmjqWest [facility], Department of Pathology, [address] [place] [address], QkxdjnWest [facility], Department of Pathology, [address] [place] [address], IUQQVE CULTURE + GRAM [id number] 12:08:00 Test Item Value Reference Range Comments CULTURE (BEAKER) (test 4+ Normal respiratory corinne dwut=3350) present GRAM STAIN RESULT (BEAKER) 1+ WBCs (test txkj=3166) GRAM STAIN RESULT (BEAKER) 0-5 epithelial cells (test muce=54796) GRAM STAIN RESULT (BEAKER) 3+ gram negative rods (test nssv=18489) GRAM STAIN RESULT (BEAKER) 1+ gram positive cocci in pairs (test csow=326319) FINE NEEDLE ASPIRATE BY [id number] 10:07:00Medical Cytology Report Case: [id number] Authorizing Provider: Jarrod Carroll MD Collected: 05/01/2019 1509 Ordering Location: [facility] Received: 1619 SERVICES Pathologist: Onel Kidd MD Specimen: Lymph Node, Interlobar, Left, Station 11L LYMPH NODE, INTERLOBAR, LEFT, STATION 11L EBUS FNA BY CLINICIAN (CYTOSPINS AND CELL BLOCK OF ASPIRATE): - SATISFACTORY FOR EVALUATION - NEGATIVE FOR METASTATIC MALIGNANT CELLS - EVIDENCE OF LYMPH NODE SAMPLING (MACROPHAGES WITH ANTHRACOTIC PIGMENTS AND SCANT LYMPHOID TISSUE PRESENT) Signing Pathologist Direct Phone Line: [phone] signed by Onel Kidd MD on 05/03/2019 at 10:07 AMPlease see cases [id number], [id number], 1541, 1543, and [id number], 08865Rwlcx hilar mass, lymphadenopathy, history of bladder cancerLYMPH NODE, INTERLOBAR, LEFT, STATION 11L EBUS FNA35 mls in cytorich red; 2 cytospins, cell blockCollected: [id number]: 484391Mae interpretation of this case included the use of immunohistochemistry or special stains.Control Slides Examined: In-house known positive controls were evaluated along with the test tissue. These control slides run alongside of the patients sample show appropriate staining. Internal positive and negative controls when available are evaluated Immunohistochemistry technical testing was performed at [facility], Pathology Laboratory where it was developed [...] qualified to perform high complexity clinical laboratory testing.[facility], Department of Pathology, [address] [place] [address], SkhfatWest [facility], [facility] of [facility], [address] [place] [address], Tel VWest [facility], [facility] of [facility], [address] [place] [address], [id number] 10:03:00Medical Cytology Report Case: [id number] Authorizing Provider: Jarrod Carroll MD Collected: 05/01/2019 8608 Ordering Location: [facility] Received: 05/01/2019 1620 SERVICES Pathologist: Onel Kidd MD Specimen: Lung, Right Lower Lobe, bronch washing RIGHT LOWER LOBE LUNG BRONCH WASHING (CYTOSPINS): - NEGATIVE FOR MALIGNANCY LIMITED BY OBSCURING ACUTE INFLAMMATION REACTIVE BRONCHIAL EPITHELIAL CELLS PRESENT Signing Pathologist Direct Phone Line: Please see cases [id number], [id number], 1541, 1544, and [id number] hilar mass, lymphadenopathy, history of bladder cancerRIGHT LOWER LOBE LUNG BRONCH WASHING5 mls cloudy thick white fluid; 4 cytospinsCollected: [id number]: [id number] [facility], Department of Pathology, [address] [place] [address], GrcjblWest [facility], Department of Pathology, [address] [place] [address] , HyonxtWest [facility], Department of [facility]ology, [address] [place] [address], [id number] 06: 54:00 Test Item Value Reference Range Comments MAGNESIUM (BEAKER) (test yovd=567) 1.9 mg/dL 1.6-2.6 BASIC METABOLIC [id number] 06:54:00 Test Item Value Reference Range Comments SODIUM (BEAKER) (test 135 meq/L 136-145 anhd=292) POTASSIUM (BEAKER) (test 3.5 meq/L 3.5-5.1 vbpf=001) CHLORIDE (BEAKER) (test 101 meq/L 98-107 knjz=900) CO2 (BEAKER) (test 26 meq/L 22-29 kjgv=612) BLOOD UREA NITROGEN 5 mg/dL 7-21 (BEAKER) (test ljio=132) CREATININE (BEAKER) (test 0.62 mg/dL 0.57-1.25 owwn=072) GLUCOSE RANDOM (BEAKER) 87 mg/dL 70-105 (test astk=447) CALCIUM (BEAKER) (test 8.5 mg/dL 8.4-10.2 swoc=958) EGFR (BEAKER) (test 155 mL/min/1.73 sq m ESTIMATED GFR IS NOT rcxn=1935) ACCURATE CREATININE CLEARANCE IN PREDICTING GLOMERULAR FILTRATION RATE. ESTIMATED GFR IS NOT APPLICABLE FOR DIALYSIS PATIENTS. CBC (HEMOGRAM ONLY)2019-05-03 06:38:00 Test Item Value Reference Range Comments WHITE BLOOD CELL COUNT (BEAKER) (test mfls=052) 12.1 K/ L 3.5-10.5 RED BLOOD CELL COUNT (BEAKER) (test uyhk=522) 3.49 M/ L 4.63-6.08 HEMOGLOBIN (BEAKER) (test qwin=326) 10.1 GM/DL 13.7-17.5 HEMATOCRIT (BEAKER) (test pjnn=551) 30.5 % 40.1-51.0 MEAN CORPUSCULAR VOLUME (BEAKER) (test fhaw=239) 87.4 fL 79.0-92.2 MEAN CORPUSCULAR HEMOGLOBIN (BEAKER) (test 28.9 pg 25.7-32.2 kpim=110) MEAN CORPUSCULAR HEMOGLOBIN CONC (BEAKER) (test 33.1 GM/DL 32.3-36.5 uoxu=236) RED CELL DISTRIBUTION WIDTH (BEAKER) (test 16.5 % 11.6-14.4 voee=551) PLATELET COUNT (BEAKER) (test guas=461) 510 K/CU MM 150-450 MEAN PLATELET VOLUME (BEAKER) (test bvaz=279) 8.8 fL 9.4-12.4 NUCLEATED RED BLOOD CELLS (BEAKER) (test 0 /100 WBC 0-0 fbhb=632) CT, [id number] 22:44:00FINAL REPORT CT of the Chest, abdomen [...] MDReport Verified Date/Time: 05/02/2019 22:44:33 Reading Location: [address] Consult Reading Room Electronicallysigned by: HAKEEM GENAO M.D. on 05/02/2019 10:44 PMCT, CHEST, WITH [id number] 22:44:00FINAL REPORT CT of the Chest, abdomen [...] MDReport Verified Date/Time: 05/02/2019 22:44:33 Reading Location: [facility] C013W Consult Reading Room Electronicallysigned by: HAKEEM GENAO M.D. on 05/02/2019 10: 44 PMFLOW CYTOMETRY [id number] 18:32:00 Test Item Value Reference Range Comments FLOW CYTOMETRY RESULT POINTER (BEBRENDA) See Separate Report (test zrbo=6799) FLOW CYTOMETRY AP CASE # (BEAKER) (test [id number] gpfw=5334) SPIN/CONCENTRATION [id number] 10:42:00 Test Item Value Reference Range Comments CONCENTRATION CHARGED (BEAKER) (test yerp=9708) Done FLOW [id number] 10:08:00Flow Cytometry Report Case: [id number] Authorizing Provider: Jarrod Carroll MD Collected: 05/01/2019 1538 Ordering Location: [facility] Received: 2018 1739 SERVICES Pathologist: Stacey Horowitz MD Specimen: Other LYMPH NODE, EBUS FINE NEEDLE ASPIRATION, FLOW CYTOMETRY:-LIMITED BY REDUCED VIABILITY-NO MONOTYPIC B CELL POPULATION-NO ABERRANT T CELL POPULATION-SEE COMMENT These results require correlation with the morphologic and other features for full interpretation. 78441Jzsm mass with metsLYMPH NODE, EBUS FINE NEEDLE ASPIRATIONCD8, surface- [place], CD56,surface-Lambda, CD5, CD19, CD10, CD3, CD20, CD4, CD45 cKappa, cLambda, CD38, CD138.Specimen Viability: 64.3% Number of Events Acquired: 66133 The following populations are identified: Lymphocytes: Bright [...] developed and their performance characteristics determined by [facility]. They have not been cleared or approved by the U.S. Food andDrug Administration. The FDA has determined that such clearance or approval is not necessary. It should not be regarded as investigational or for research. This laboratory is certified under the Clinical Laboratory Improvement Amendments of 1988 ("CLIA") as qualified to perform high-complexity clinical testing.BASIC METABOLIC [id number] 06:59:00 Test Item Value Reference Range Comments SODIUM (BEAKER) (test 138 meq/L 136-145 qoyo=894) POTASSIUM (BEAKER) (test 3.2 meq/L 3.5-5.1 wenx=211) CHLORIDE (BEAKER) (test 107 meq/L 98-107 bsot=405) CO2 (BEAKER) (test 22 meq/L 22-29 tbpc=976) BLOOD UREA NITROGEN 10 mg/dL 7-21 (BEAKER) (test fbll=215) CREATININE (BEAKER) (test 0.61 mg/dL 0.57-1.25 rmpd=719) GLUCOSE RANDOM (BEAKER) 119 mg/dL 70-105 (test lpnk=811) CALCIUM (BEAKER) (test 7.7 mg/dL 8.4-10.2 axut=998) EGFR (BEAKER) (test 157 mL/min/1.73 sq m ESTIMATED GFR IS NOT fsdy=5441) ACCURATE CREATININE CLEARANCE IN PREDICTING GLOMERULAR FILTRATION RATE. ESTIMATED GFR IS NOT APPLICABLE FOR DIALYSIS PATIENTS. [id number] 06:26:00 Test Item Value Reference Range Comments PHOSPHORUS (BEAKER) (test vddo=900) 2.4 mg/dL 2.3-4.7 [id number] 06:26:00 Test Item Value Reference Range Comments MAGNESIUM (BEAKER) (test scxv=446) 1.9 mg/dL 1.6-2.6 CBC (HEMOGRAM ONLY)2019-05-02 06:00:00 Test Item Value Reference Range Comments WHITE BLOOD CELL COUNT (BEAKER) (test ksxy=987) 10.9 K/ L 3.5-10.5 RED BLOOD CELL COUNT (BEAKER) (test xvan=290) 3.17 M/ L 4.63-6.08 HEMOGLOBIN (BEAKER) (test lppz=971) 9.2 GM/DL 13.7-17.5 HEMATOCRIT (BEAKER) (test ugfj=750) 27.7 % 40.1-51.0 MEAN CORPUSCULAR VOLUME (BEAKER) (test xpxh=597) 87.4 fL 79.0-92.2 MEAN CORPUSCULAR HEMOGLOBIN (BEAKER) (test 29.0 pg 25.7-32.2 iale=485) MEAN CORPUSCULAR HEMOGLOBIN CONC (BEAKER) (test 33.2 GM/DL 32.3-36.5 xvtu=370) RED CELL DISTRIBUTION WIDTH (BEAKER) (test 16.3 % 11.6-14.4 rcqf=832) PLATELET COUNT (BEAKER) (test ofup=043) 429 K/CU MM 150-450 MEAN PLATELET VOLUME (BEAKER) (test kkna=440) 9.0 fL 9.4-12.4 NUCLEATED RED BLOOD CELLS (BEAKER) (test 0 /100 WBC 0-0 wfyf=362) EBUS FNA [id number] 18:00:00 Test Item Value Reference Range Comments CYTOLOGY RESULT POINTER (BEAKER) (test See Separate Report ufwa=5070) EBUS FNA [id number] 18:00:00 Test Item Value Reference Range Comments CYTOLOGY RESULT POINTER (BEAKER) (test See Separate Report ozil=5127) CYTOLOGY [id number] 18:00:00 Test Item Value Reference Range Comments CYTOLOGY RESULT POINTER (BEAKER) (test See Separate Report uylg=0126) EBUS FNA [id number] 17:01:00 Test Item Value Reference Range Comments CYTOLOGY RESULT POINTER (BEAKER) (test See Separate Report uejd=0302) EBUS FNA [id number] 17:01:00 Test Item Value Reference Range Comments CYTOLOGY RESULT POINTER (BEAKER) (test See Separate Report dcug=7033) [id number] 08:43:00 Test Item Value Reference Range Comments PARTIAL THROMBOPLASTIN TIME (BEAKER) (test 35.2 seconds 22.5-36.0 hqcu=659) VITAMIN B12 AND [id number] 06:30:00 Test Item Value Reference Range Comments VITAMIN B12 (BEAKER) (test niyv=913) > pg/mL 213-816 FOLATE (BEAKER) (test bgtj=675) 2.4 ng/mL >=7.0 [id number] 06:24:00 Test Item Value Reference Range Comments FERRITIN (BEAKER) (test khai=491) 2915 ng/mL 5-275 [id number] 05:48:00 Test Item Value Reference Range Comments PHOSPHORUS (BEAKER) (test ofen=186) 3.0 mg/dL 2.3-4.7 [id number] 05:48:00 Test Item Value Reference Range Comments MAGNESIUM (BEAKER) (test vlah=029) 2.1 mg/dL 1.6-2.6 BASIC METABOLIC [id number] 05:48:00 Test Item Value Reference Range Comments SODIUM (BEAKER) (test 135 meq/L 136-145 yiqm=728) POTASSIUM (BEAKER) (test 3.6 meq/L 3.5-5.1 qrna=251) CHLORIDE (BEAKER) (test 99 meq/L 98-107 wrwg=138) CO2 (BEAKER) (test 25 meq/L 22-29 xoso=050) BLOOD UREA NITROGEN 12 mg/dL 7-21 (BEAKER) (test icim=409) CREATININE (BEAKER) (test 0.69 mg/dL 0.57-1.25 zbcw=741) GLUCOSE RANDOM (BEAKER) 112 mg/dL 70-105 (test amnm=955) CALCIUM (BEAKER) (test 8.8 mg/dL 8.4-10.2 iqbt=443) EGFR (BEAKER) (test 137 mL/min/1.73 sq m ESTIMATED GFR IS NOT xicw=0478) ACCURATE CREATININE CLEARANCE IN PREDICTING GLOMERULAR FILTRATION RATE. ESTIMATED GFR IS NOT APPLICABLE FOR DIALYSIS PATIENTS. LACTATE DEHYDROGENASE (LDH)2019-05-01 05:48:00 Test Item Value Reference Range Comments LACTATE DEHYDROGENASE (BEAKER) (test zmze=536) 242 U/L 125-220 IRON, TIBC, % SAT. (WITHOUT FERRITIN)2019-05-01 05:30:00 Test Item Value Reference Range Comments IRON (BEAKER) (test vach=992) 29.0 ug/dL 40.0-160.0 TOTAL IRON BINDING CAPACITY (BEAKER) (test 158 ug/dL 250-450 lcpp=860) IRON % SATURATION (2) (BEAKER) (test uses=5227) 18 % 20-55 PROTHROMBIN [id number] 05:24:00 Test Item Value Reference Range Comments PROTIME (BEAKER) (test oniu=854) 15.1 seconds 11.9-14.2 INR (BEAKER) (test rojz=799) 1.3 <=5.9 Effective 04/10/2019: PT Reference Range ChangeNew: 11.9-14.2 Previous: 11.7- 14.7RECOMMENDED COUMADIN/WARFARIN INR THERAPY RANGESSTANDARD DOSE: 2.0-3.0 Includes: PROPHYLAXIS for venous thrombosis, systemic embolization; TREATMENT for venous thrombosis and/or pulmonary embolus.HIGH RISK: Target INR is2.5-3.5 for patients wiht mechanical heart valves.CBC (HEMOGRAM ONLY)2019-05-01 05:16:00 Test Item Value Reference Range Comments WHITE BLOOD CELL COUNT (BEAKER) (test labt=539) 11.6 K/ L 3.5-10.5 RED BLOOD CELL COUNT (BEAKER) (test jqbs=370) 3.72 M/ L 4.63-6.08 HEMOGLOBIN (BEAKER) (test txyl=727) 10.7 GM/DL 13.7-17.5 HEMATOCRIT (BEAKER) (test cnwh=723) 32.5 % 40.1-51.0 MEAN CORPUSCULAR VOLUME (BEAKER) (test lwjv=348) 87.4 fL 79.0-92.2 MEAN CORPUSCULAR HEMOGLOBIN (BEAKER) (test 28.8 pg 25.7-32.2 vevd=185) MEAN CORPUSCULAR HEMOGLOBIN CONC (BEAKER) (test 32.9 GM/DL 32.3-36.5 ylxj=140) RED CELL DISTRIBUTION WIDTH (BEAKER) (test 15.9 % 11.6-14.4 oikm=626) PLATELET COUNT (BEAKER) (test idnk=185) 438 K/CU MM 150-450 MEAN PLATELET VOLUME (BEAKER) (test eusv=979) 9.0 fL 9.4-12.4 NUCLEATED RED BLOOD CELLS (BEAKER) (test 0 /100 WBC 0-0 jlul=189) HEMOGLOBIN [id number] 13:16:00 Test Item Value Reference Range Comments HEMOGLOBIN A1C (BEAKER) (test ncnz=676) 5.9 % 4.3-6.1 CBC W/PLT COUNT & AUTO [id number] 08:54:00 Test Item Value Reference Range Comments WHITE BLOOD CELL COUNT (BEAKER) (test epey=309) 6.0 K/ L 3.5-10.5 RED BLOOD CELL COUNT (BEAKER) (test xylc=509) 3.54 M/ L 4.63-6.08 HEMOGLOBIN (BEAKER) (test lypi=196) 10.2 GM/DL 13.7-17.5 HEMATOCRIT (BEAKER) (test ujpk=916) 30.6 % 40.1-51.0 MEAN CORPUSCULAR VOLUME (BEAKER) (test jnid=796) 86.4 fL 79.0-92.2 MEAN CORPUSCULAR HEMOGLOBIN (BEAKER) (test 28.8 pg 25.7-32.2 vblo=646) MEAN CORPUSCULAR HEMOGLOBIN CONC (BEAKER) (test 33.3 GM/DL 32.3-36.5 engj=059) RED CELL DISTRIBUTION WIDTH (BEAKER) (test 15.7 % 11.6-14.4 viyn=526) PLATELET COUNT (BEAKER) (test ivaj=074) 370 K/CU MM 150-450 MEAN PLATELET VOLUME (BEAKER) (test lbtv=865) 9.0 fL 9.4-12.4 NUCLEATED RED BLOOD CELLS (BEAKER) (test 0 /100 WBC 0-0 hjaz=772) (CELLAVISION MANUAL DIFF)2019-04-30 08:54:00 Test Item Value Reference Range Comments NEUTROPHILS - REL (CELLAVISION)(BEAKER) (test 89 % rgqp=2352) LYMPHOCYTES - REL (CELLAVISION)(BEAKER) (test 6 % qifj=7854) MONOCYTES - REL (CELLAVISION)(BEAKER) (test 4 % kkwr=2952) BANDS - REL (CELLAVISION)(BEAKER) (test tdlj=6003) 1 % 0-10 NEUTROPHILS - ABS (CELLAVISION)(BEAKER) (test 5.34 K/ul 1.78-5.38 zhcs=6058) LYMPHOCYTES - ABS (CELLAVISION)(BEAKER) (test 0.36 K/ul 1.32-3.57 eiua=5873) MONOCYTES - ABS (CELLAVISION)(BEAKER) (test 0.24 K/uL 0.30-0.82 xlxw=4062) BANDS - ABS (CELLAVISION)(BEAKER) (test nvqm=1506) 0.06 K/uL 0.00-0.80 TOTAL COUNTED (BEAKER) (test nlsn=7484) 100 WBC MORPHOLOGY (BEAKER) (test kicd=979) Normal CLUMPED PLATELETS (BEAKER) (test prgg=189) Present GIANT PLATELETS (BEAKER) (test hotz=935) Present POLYCHROMATOPHILLIC RBCS(BEAKER) (test fplr=026) 1+ few ANISOCYTOSIS (BEAKER) (test njgc=763) 1+ few MACROCYTES (BEAKER) (test xlfa=170) 1+ few SCHISTOCYTES (BEAKER) (test vogv=217) 1+ few FENG CELLS (BEAKER) (test weox=793) 1+ few PLATELET CONCENTRATION (CELLAVISION)(BEAKER) (test Adequate rzef=2988) Received comment: User comments: Slide comments:BASIC METABOLIC [id number] 04:43:00 Test Item Value Reference Range Comments SODIUM (BEAKER) (test 134 meq/L 136-145 ylwc=886) POTASSIUM (BEAKER) (test 3.6 meq/L 3.5-5.1 fazw=137) CHLORIDE (BEAKER) (test 100 meq/L 98-107 isrq=474) CO2 (BEAKER) (test 24 meq/L 22-29 ycnr=765) BLOOD UREA NITROGEN 7 mg/dL 7-21 (BEAKER) (test uqht=827) CREATININE (BEAKER) (test 0.67 mg/dL 0.57-1.25 ineb=959) GLUCOSE RANDOM (BEAKER) 147 mg/dL 70-105 (test rvnz=293) CALCIUM (BEAKER) (test 8.7 mg/dL 8.4-10.2 syah=648) EGFR (BEAKER) (test 141 mL/min/1.73 sq m ESTIMATED GFR IS NOT fdcm=6543) ACCURATE CREATININE CLEARANCE IN PREDICTING GLOMERULAR FILTRATION RATE. ESTIMATED GFR IS NOT APPLICABLE FOR DIALYSIS PATIENTS. PROTHROMBIN TIME/[id number] 04:28:00 Test Item Value Reference Range Comments PROTIME (BEAKER) (test ymkc=370) 17.7 seconds 11.9-14.2 INR (BEAKER) (test adkr=337) 1.5 <=5.9 Effective 04/10/2019: PT Reference Range ChangeNew: 11.9-14.2 Previous: 11.7- 14.7RECOMMENDED COUMADIN/WARFARIN INR THERAPY RANGESSTANDARD DOSE: 2.0-3.0 Includes: PROPHYLAXIS for venous thrombosis, systemic embolization; TREATMENT for venous thrombosis and/or pulmonary embolus.HIGH RISK: Target INR is2.5-3.5 for patients wiht mechanical heart valves.
--- OUTSIDE RECORDS SUMMARY | 2020-01-15 23:48 | XMS REPORT | Summary of Care ---
:1945 Author Organization [facility] Address [address] [place] [id number] Care Team Providers Name Role Phone Gerald Burt MD Primary Care Provider Reason for Referral Radiology Services (Routine) Status Reason Specialty Diagnoses / Referred By Referred To Procedures Contact Contact New Request Diagnostic Diagnoses Cough Nabila Mckeon, Radiology Procedures XR CHEST [address] [place] [address]. [place] [id number] MRI/CAT Scan (STAT) Status Reason Specialty Diagnoses / Referred By Referred To Procedures Contact Contact New Request Diagnostic Diagnoses Rib pain Hyponatremia Merlene Sweeney, Radiology Procedures CT abdomen pelvis with contrast [address] [place] [address] [place], [place] [phone] MRI/CAT Scan (STAT) Status Reason Specialty Diagnoses / Referred By Referred To Procedures Contact Contact New Request Diagnostic Diagnoses Rib pain Hyponatremia Merlene Sweeney, Radiology Procedures CT thorax with contrast [address] [place] [address] [place], [place] [phone] Radiology Services (STAT) Status Reason Specialty Diagnoses / Referred By Referred To Procedures Contact Contact New Request Diagnostic Diagnoses Rib pain Merlene Sweeney, Radiology Procedures XR CHEST [address] [place] [address] [place] [phone] Reason for Visit Reason Comments Rib Pain Auth/Cert Status Reason Specialty Diagnoses / Referred By Referred To Procedures Contact Contact Emergency [facility] [address] [place] [address] [place] [address] Encounter Details Date Type Department Care Team Description 01/11/2020 - Hospital Encounter [facility] Medicine Surgery Merlene Sweeney MD [address] [place] [address] [address] [place] [address] [phone] Hyponatremia 01/15/2020 Unit Nabila Mckeon MD [address] [place] [address]. [place] [address] [phone] [place] [address] KAYLI Villanueva [address] Allergies No Known Allergiesdocumented as of this encounter (statuses as of 01/15/2020) Medications Medication Sig Dispensed Refills Start Date End Date Status ondansetron (ZOFRAN) Take 1 tablet 12 tablet 0 05/30/2019 Discontinued 4 mg by mouth every 0 tabletIndications: 8 (eight) hours Non-intractable as needed for vomiting with Nausea and nausea, unspecified Vomiting (N/V). vomiting type ondansetron 4 mg Take 1 tablet 20 tablet 0 06/17/2019 Discontinued disintegrating by mouth every 0 tabletIndications: 8 (eight) hours Lower abdominal pain as needed for Nausea and Vomiting (N/V). metoprolol tartrate Take 12.5 mg by 0 05/07/2019 Discontinued 25 mg tablet mouth 2 (two) 0 times daily. latanoprost 0.005 % Place 1 Drop in 0 12/20/2019 Discontinued ophthalmic drops both eyes at 0 bedtime. ipratropium-albutero Inhale 3 mL 0 05/07/2019 Discontinued l 0.5 mg-3 mg(2.5 mg every 6 (six) 0 base)/3 mL nebulizer hours as needed solution for Shortness of Breath. documented as of this encounter (statuses as of 01/15/2020) Active Problems Problem Noted Date Hyponatremia 01/11/2020 Surgery, elective 02/20/2018 Bladder tumor 02/02/2018 Overview: Added automatically from request for surgery [id number] documented as of this encounter (statuses as of 01/15/2020) Social History Tobacco Use Types Packs/Day Years Used Date Current Every Day Smoker Smokeless Tobacco: Never Used Tobacco Cessation: Ready to Quit: No; Counseling Given: Yes Sex Assigned at Date Recorded Not on file Job Start Date Occupation Industry Not on file Not on file Not on file Travel History Travel Start Travel End No recent travel history available. documented as of this encounter Last Filed Vital Signs Vital Sign Reading Time Taken Comments Blood Pressure 120/67 01/15/2020 7:34 PM [facility] [employer] Pulse 75 01/15/2020 7:34 PM [employer] [employer] Temperature 36.9 C (98.5 F) 01/15/2020 7:34 PM [employer] [employer] Respiratory Rate 18 01/15/2020 7:34 PM [employer]IR [employer] Oxygen Saturation 97% 01/15/2020 7:34 PM RE[employer]IR [employer] Inhaled Oxygen Concentration - - Weight 64.4 kg (142 lb) 01/11/2020 8:54 PM [employer] [employer] Height 162.6 cm (5' 4") 01/11/2020 8:54 PM REPAIR [employer] Body Mass Index 24.37 01/11/2020 8:54 PM REPAIR [employer] documented in this encounter Discharge Instructions Eve Iniguez - 01/13/2020 10:48 AM CSTPlease schedule a 1-2 week follow up appointment when you are discharged from the hospital. Dr Burt [address] [place] [address] [phone] IR CAMERAM[employer] documented in this encounter Progress Notes Julian Pang MD - 01/15/2020 5:20 PM CST Medicine Progress Note Date of Service: 01/14/2020 Chief Complaint: feeling better 24-HOUR EVENTS: 74 year-old male with pmh of metastatic bladder cancer (to lungs, liver), HTN who presents to the EDsecondary to intractable nausea and vomiting. Patient has been having "diffuse rib pain" for the last 4 days. Last chemotherapy: October. He notes that he may not drink enough water as he should. Patient was admitted with symptomatic hyponatremia yesterday we started him on salt tablet normal saddened with Lasix sodium did not improve significantly urine analysis showing elevation sodium in the urine yesterday V-max low salt tablet decrease the Lasix Sodium is still low SUBJECTIVE: Patient feeling better sodium is still low CURRENT MEDICATIONS - reviewed. PHYSICAL EXAM: BP 134/76 | Pulse 73 | Temp 36.7 C (98 F) (Tympanic) | Resp 18 | Ht 1.626 m (5' 4") | Wt 64.4 kg (142 lb) | SpO2 97% | BMI 24.37 kg/m Intake/Output Summary (Last 24 hours) at 01/14/2020 1448 Last data filed at 01/14/2020 0830 Gross per 24 hour Intake 1250 ml Output 1050 ml Net 200 ml General: alert ; no apparent distress HEENT: pupils equal, round, reactive to light; extraocular movements intact; oropharynx clear; moistmucous membranes, normocephalic atraumatic Neck: supple, no lymphadenopathy, no bruits, no JVD, full range of motion Lungs: clear to auscultation bilaterally Cardio: S1, S2 normal; no murmurs, rubs or gallops, regular rate and rhythm Abdomen: soft; non-tender; non-distended; normoactive bowel sounds Extremities: no clubbing, cyanosis, or edema Skin: no rashes Neuro: cranial nerves II through XII grossly intact; sensation grossly intact; muscle strength 5 outof 5 in all four extremities LABS/IMAGING - reviewed, pertinent results as below: CBC BMP PT/INR WBC (10*3/L) Date Value 01/15/2020 6.81 NA (mmol/L) Date Value 01/15/2020 123 (L) No results found for: PT RBC (10*6/L) Date Value 01/15/2020 3.74 (L) K (mmol/L) Date Value 01/15/2020 3.8 INR (no units) Date Value 01/11/2020 1.1 PLT (10*3/L) Date Value 01/15/2020 253 CALCIUM (mg/dL) Date Value 01/15/2020 8.9 HGB (g/dL) Date Value 01/15/2020 12.0 (L) CL (mmol/L) Date Value 01/15/2020 88 (L) aPTT HCT (%) Date Value 01/15/2020 33.3 (L) BUN (mg/dL) Date Value 01/15/2020 9 APTT Patient (Seconds) Date Value 01/11/2020 28 CREATININE (mg/dL) Date Value 01/15/2020 0.76 Radiology No final results containing an impression from the past 2 days were found. 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 supported with aggravation on the urine sodium/ adrenal insufficiency especially with marginal hyperkalemia low cortisol level/ superimposed with nondistended radial use: DC IV fluid failed on Lasix and salt tablet: DC Lasix DC salt tablet Start the patient on Samsca Keep holding Ktolarc Was sent for cortisol stimulation test Hypertension currently on the upper side : DC IV fluid Gastroenteritis continue symptomatic treatment follow-up with the primary Hospitalist Altered mental status follow-up with the primary iper Montgomery MD - 01/15/2020 4:48 PM CST Hospital Medicine Progress Note Name: Uziel Islas : 1945 Admit Date: 01/11/2020 PCP on file: Gerald Burt ASSESSMENT: Uziel Islas is a 74 year old male with PLAN: # hyponatremia, acute on chronic. 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 - IVF d/c'ed by nephrology consult Dr. Pang - Na 123, didn't improve much with sodium tabs and lasix. All discontinued - start tolvaptan 15 mg qd, asked SW to get insurance approval for it on discharge as its expensive - monitor sodium level # AMS, improving - ? Sundowning - ? Due to hyponatremia, although unlikely - no evidence of infection - supportive measures - haldol 5mg given with good response - started serqoeul at night, increase to 50 mg qhs #acute hospital delirium [id number] Haldol prn # nausea and vomiting, resolved - symptom control as needed - IVF # hypertensive urgency, resolved - BP better #hypertension, controlled. Continue metoprolol - hydralazine prn # metastatic bladder ca - follow with oncology Abnormal CT chest. Mass in lung and liver Recommend outpatient f/u with oncology Smoker Counseled on cessation Nicotine patch PT consult SW consult Dispo: home once hyponatremia improved and cleared by nephrology Also needs preapproval for samsca 15 mg daily before dsicharge VTE Prophylaxis: heparin Code Status: FC per patient's daughter, advance care planning discussed on admission [place] [employer] was verified during stay SUBJECTIVE/ 24-HOUR HOSPITAL EVENTS: 3/: intermittent agitation. 01/13: mental status improving, Na improving 01/14: no acute events overnight, no complaints OBJECTIVE: Vital signs range: Temp: [36.3 C (97.4 F)-36.7 C (98 F)] 36.7 C (98 F) Pulse: [73-89] 73 Resp: [18-20] 18 BP: (134-176)/(75-91) 134/76 Most recent vital signs: BP 134/76 | Pulse 73 | Temp 36.7 C (98 F) (Tympanic) | Resp 18 | Ht 1.626 m (5' 4") | Wt 64.4 kg (142 lb) | SpO2 97% | BMI 24.37 kg/m I/O: I/O last 3 completed shifts: In: - Out: 1450 [Urine:1450] PHYSICAL EXAM: General: NAD HEENT: anicteric sclera; moist mucous membranes Neck: supple, nontneder Lungs: clear to auscultation bilaterally Cardio: S1, S2 normal; RRR Abdomen: soft; non-tender; non-distended; normoactive bowel sounds Extremities: no clubbing, cyanosis, or edema Skin: warm and dry AAO LABS: I reviewed all the relevant patient's new lab test results Recent Results (from the past 24 hour(s)) Basic Metabolic Panel (NA, K, CL, CO2, GLUCOSE, BUN, CREATININE, CA) Collection Time: 01/15/20 3:53 AM Result Value Ref Range NA 123 (L) 135 - 145 mmol/L K 3.8 3.5 - 5.0 mmol/L CL 88 (L) 98 - 108 mmol/L CO2 TOTAL 23 23 - 31 mmol/L AGAP 12 2 - 16 BUN 9 7 - 23 mg/dL GLUCOSE 126 (H) 70 - 110 mg/dL CREATININE 0.76 0.60 - 1.25 mg/dL CALCIUM 8.9 8.6 - 10.6 mg/dL eGFR Calculation (Non-) 100.5 mL/min/1.73m2 eGFR Calculation () 121.9 mL/min/1.73m2 CBC WITH DIFFERENTIAL Collection Time: 01/15/20 3:53 AM Result Value Ref Range WBC 6.81 4.20 - 10.70 10*3/L RBC 3.74 (L) 4.26 - 5.52 10*6/L HGB 12.0 (L) 12.2 - 16.4 g/dL HCT 33.3 (L) 38.4 - 49.3 % MCV 89.0 81.7 - 95.6 fL MCH 32.1 26.1 - 32.7 pg MCHC 36.0 (H) 31.2 - 35.0 g/dL RDW-SD 36.7 (L) 38.5 - 51.6 fL RDW-CV 11.3 (L) 12.1 - 15.4 % PLT 253 150 - 328 10*3/L MPV 8.9 (L) 9.8 - 13.0 fL NRBC/100 WBC 0.0 0.0 - 10.0 /100 WBCs NRBC x10^3 <0.01 10*3/L GRAN MAT (NEUT) % 56.3 % IMM GRAN % 0.30 % LYMPH % 27.2 % MONO % 15.1 % EOS % 0.7 % BASO % 0.4 % GRAN MAT x10^3(ANC) 3.83 1.99 - 6.95 10*3/uL IMM GRAN x10^3 <0.03 0.00 - 0.06 10*3/uL LYMPH x10^3 1.85 1.09 - 3.23 10*3/uL MONO x10^3 1.03 (H) 0.36 - 1.02 10*3/uL EOS x10^3 0.05 (L) 0.06 - 0.53 10*3/uL BASO x10^3 0.03 0.01 - 0.09 10*3/uL PROCALCITONIN Collection Time: 01/15/20 3:53 AM Result Value Ref Range Procalcitonin 0.22 (H) <0.07 ng/mL IMAGING: I reviewed all the relevant patient's new radiology test results Hospital Encounter on 01/11/20 CT thorax with contrast Narrative EXAM: CT THORAX WITH CONTRAST HISTORY: 24-year-old with bladder cancer. COMPARISON: 06/17/2019 TECHNIQUE AND FINDINGS: Axial images from the level of the thoracic inlet through the upper abdomen were acquired and reconstructed at 1.25 mm intervals after the uncomplicated administration of 120 cc of intravenous Omnipaque contrast. Axial maximum intensity projections, and coronal and sagittal reconstructions were obtained. The CT dose was 396 mGy/cm. FINDINGS: LINES AND TUBES: None LOWER NECK/THYROID: The visualized portions of thyroid gland are normal. LUNGS: Complex right hilar mass up to 6.7 cm, solid extending to mediastinum and surrounding bronchus 2 right lower lobe. There is atelectasis at right lower lobe. PLEURA: No pleural effusion or pneumothorax. CENTRAL AIRWAY: No bronchiectasis, mucus plugging, or bronchial wall thickening. MEDIASTINUM: Right hilar mass extends to right hilar nodes, right lower paratracheal, pretracheal, left paratracheal and subcarinal nodes. Normal cardiac morphology. No pericardial effusion. Moderate coronary calcifications noted. AORTA AND GREAT VESSELS: The visualized portions of the aorta are normal in caliber. BONES AND SOFT TISSUES: No suspicious lytic or blastic skeletal lesions. VISUALIZED UPPER ABDOMEN: The liver has a segment VIII complex 6 cm hypodense lesion, was 3.[address] . There are smaller ill-defined lesions at segment . Impression 1. Right lung hilar mass surrounds the lower lobe bronchus, causes atelectasis of the right lower lobe posterobasal segment. Findings are concordant with lung cancer. 2. The mass also infiltrates hilar, bilateral lower paratracheal, pretracheal and subcarinal nodes. Findings suggest an invasive lung cancer. 3. Liver right lobe mass is larger with small right lobe satellite nodules. Findings suggest metastatic disease. CT abdomen pelvis with contrast Narrative EXAM: CT ABDOMEN AND PELVIS WITH CONTRAST HISTORY: Nausea, vomiting. COMPARISON: 06/17/2019. TECHNIQUE AND FINDINGS: Contiguous axial imaging from the level of the lung bases through the pubic symphysis was performed after the uncomplicated administration of intravenous Omnipaque contrast. Coronal and sagittal reconstructions were obtained. FINDINGS: LOWER THORAX: Please see the separately dictated CT chest obtained on the same day. LIVER: Large right hepatic/caudate lobe hypoattenuating lesion measures 6.2 x 6.1 cm, previously 3.2 x 3.5 cm. Multiple adjacent subtle hypoattenuating masses measure 1.1 cm (3:18) and 2.2 cm (3:14) GALLBLADDER AND BILIARY TREE: No biliary ductal dilation. No gallbladder wall thickening. SPLEEN: No splenomegaly. PANCREAS: No ductal dilation or masses. ADRENAL GLANDS: No adrenal nodules. KIDNEYS: No hydronephrosis, stones, or masses. PERITONEUM AND RETROPERITONEUM: No free air or fluid. LYMPH NODES: Enlarged lymph node at the lesser curvature of the stomach measures 2.2 x 1.6 cm. GI TRACT: No dilation or wall thickening. Normal appendix. PELVIS/BLADDER: Unremarkable. VESSELS: Unremarkable. BONES AND SOFT TISSUES: No suspicious lytic or sclerotic bony lesions. Impression Enlarging hepatic mass with subtle smaller satellite masses likely represents metastatic disease considering the right hilar mass. No acute abnormality in the abdomen or pelvis. Preliminary Report Dictated by Resident: Natalio Ludwig I, Markus Valentine MD., have reviewed this study and agree with the above report. XR CHEST 1 VW Narrative EXAM: XR CHEST 1 VW HISTORY: cough COMPARISON: None. FINDINGS: The right lung remains partly atelectatic and a lobulated opacity to the right of the heart may be a partly collapsed right lower lobe. The right hilus is prominent and perhaps contains a lesion limiting aeration of the right lung. The left lung is well expanded and clear. The heart and great vessels are normal but are shifted to the right. A lobulated opacity to the right of the heart may be the partly collapsed right lower lobe. XR CHEST 1 VW Narrative EXAM: XR CHEST 1 VW COMPARISON: None available HISTORY: bilateral rib pain FINDINGS: Lines/Tubes: None. Lungs: There is volume loss on the right and 10 ill-defined infrahilar opacity or atelectasis. The left lung is hyperexpanded and clear. No pleural effusion or pneumothorax is identified. Heart/Mediastinum: The mediastinum is shifted to right. The cardiomediastinal silhouette is normal for technique. Bones: No acute osseous abnormality is seen. Impression 1. Right lung ill-defined infrahilar opacity and/or atelectasis. 2. Suggest follow-up with elective contrast chest CT. MEDICATIONS: I reviewed the current inpatient medications ordered Current Facility-Administered Medications Medication Dose Route Frequency Last Rate Last Dose haloperidol lactate (HALDOL) injection 2.5 mg 2.5 mg Slow IV Push Q6HPRN 2.5 mg at 01/15/20 1421 QUEtiapine (SEROQUEL) tablet 25 mg 25 mg Oral QHS tolvaptan (SAMSCA) tablet 15 mg 15 mg Oral DAILY 15 mg at 01/15/20 1441 metoprolol tartrate (LOPRESSOR) tablet 25 mg 25 mg Oral BID 25 mg at 03/02 0832 nicotine (NICODERM) 14 mg/24 hr patch 1 Patch 1 Patch Topical Q24H 1 Patch at 01/14/20 1708 acetaminophen (TYLENOL) tablet 650 mg 650 mg Oral Q6HPRN 650 mg at 0654 heparin (porcine) injection 5,000 Units 5,000 Units Subcutaneous Q8H 5, 000 Units at 01/15/20 1441 hydralAZINE (APRESOLINE) injection 10 mg 10 mg Intravenous PRN - SEE INSTRUCTIONS HYDROcodone-acetaminophen (NORCO) 10-325 mg tablet 1 tablet 1 tablet Oral Q6HPRN 1 tablet at 01/15/20 1250 latanoprost (XALATAN) 0.005 % ophthalmic drops 1 Drop 1 Drop Both Eyes QHS 1 Drop at 01/14/202051 ondansetron (ZOFRAN (PF)) injection 4 mg 4 mg Slow IV Push Q6HPRN 4 mg at 01/14/202051 Meet Torres RN - 01/15/2020 2:34 PM CSTSamsquyen pre-auth requested from [facility]. Prescription called into [facility] P:[phone]. Awaiting auth. Meet Manzano RN, BSN [facility] [employer] O [phone] F [phone] iper Montgomery MD - 01/14/2020 7:20 PM CST [facility] Medicine Progress Note Name: Uziel Islas : 1945 Admit Date: 01/11/2020 PCP on file: Gerald Burt ASSESSMENT: Uziel Islas is a 74 year old male with PLAN: # hyponatremia, acute on chronic. 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 - IVF d/c'ed by nephrology consult Dr. Pang - sodium tab, increased - lasix per nephrology - monitor sodium level # AMS, improving - ? Sundowning - ? Due to hyponatremia, although unlikely - no evidence of infection - supportive measures - haldol 5mg given with good response - talked with patient's daughter # nausea and vomiting, resolved - symptom control as needed - IVF # hypertensive urgency - BP better - metoprolol - hydralazine prn # metastatic bladder ca - follow with oncology Abnormal CT chest. Mass in lung and liver Recommend outpatient f/u with oncology Smoker Counseled on cessation Nicotine patch PT consult SW consult Dispo: home once hyponatremia improved and cleared by nephrology VTE Prophylaxis: heparin Code Status: FC per patient's daughter, advance care planning discussed on admission [place] [employer] was verified during stay SUBJECTIVE/ 24-HOUR HOSPITAL EVENTS: 3/: intermittent agitation. 3/3: mental status improving, Na improving OBJECTIVE: Vital signs range: Temp: [36.4 C (97.6 F)-36.6 C (97.9 F)] 36.4 C (97.6 F) Pulse: [76-100] 93 Resp: [18-19] 18 BP: (139-163)/(66-96) 149/96 Most recent vital signs: BP (!) 149/96 | Pulse 93 | Temp 36.4 C (97.6 F) (Tympanic) | Resp 18 | Ht 1.626 m (5' 4") |Wt 64.4 kg (142 lb) | SpO2 96% | BMI 24.37 kg/m I/O: I/O last 3 completed shifts: In: 2249 [I.V.:2249] Out: 2149 [Urine:2149] PHYSICAL EXAM: General: currently sleeping, no apparent distress HEENT: pupils equal, round, reactive to light; extraocular movements intact; oropharynx clear; moistmucous membranes Neck: supple, no lymphadenopathy, no bruits, no JVD Lungs: clear to auscultation bilaterally Cardio: S1, S2 normal; no murmurs, rubs or gallops Abdomen: soft; non-tender; non-distended; normoactive bowel sounds Extremities: no clubbing, cyanosis, or edema Skin: no rashes LABS: I reviewed all the relevant patient's new lab test results Recent Results (from the past 24 hour(s)) URIC ACID Collection Time: 01/14/20 4:11 AM Result Value Ref Range URIC ACID 4.2 3.6 - 8.0 mg/dL Basic Metabolic Panel (NA, K, CL, CO2, GLUCOSE, BUN, CREATININE, CA) Collection Time: 01/14/20 4:11 AM Result Value Ref Range NA 123 (L) 135 - 145 mmol/L K 3.9 3.5 - 5.0 mmol/L CL 90 (L) 98 - 108 mmol/L CO2 TOTAL 22 (L) 23 - 31 mmol/L AGAP 11 2 - 16 BUN 7 7 - 23 mg/dL GLUCOSE 87 70 - 110 mg/dL CREATININE 0.66 0.60 - 1.25 mg/dL CALCIUM 8.5 (L) 8.6 - 10.6 mg/dL eGFR Calculation (Non-) 118.3 mL/min/1.73m2 eGFR Calculation () 143.4 mL/min/1.73m2 CBC WITH DIFFERENTIAL Collection Time: 01/14/20 4:11 AM Result Value Ref Range WBC 4.57 4.20 - 10.70 10*3/L RBC 3.58 (L) 4.26 - 5.52 10*6/L HGB 11.5 (L) 12.2 - 16.4 g/dL HCT 31.9 (L) 38.4 - 49.3 % MCV 89.1 81.7 - 95.6 fL MCH 32.1 26.1 - 32.7 pg MCHC 36.1 (H) 31.2 - 35.0 g/dL RDW-SD 35.9 (L) 38.5 - 51.6 fL RDW-CV 11.1 (L) 12.1 - 15.4 % PLT 228 150 - 328 10*3/L MPV 8.7 (L) 9.8 - 13.0 fL NRBC/100 WBC 0.0 0.0 - 10.0 /100 WBCs NRBC x10^3 <0.01 10*3/L GRAN MAT (NEUT) % 62.3 % IMM GRAN % 0.40 % LYMPH % 19.9 % MONO % 15.8 % EOS % 0.9 % BASO % 0.7 % GRAN MAT x10^3(ANC) 2.85 1.99 - 6.95 10*3/uL IMM GRAN x10^3 <0.03 0.00 - 0.06 10*3/uL LYMPH x10^3 0.91 (L) 1.09 - 3.23 10*3/uL MONO x10^3 0.72 0.36 - 1.02 10*3/uL EOS x10^3 0.04 (L) 0.06 - 0.53 10*3/uL BASO x10^3 0.03 0.01 - 0.09 10*3/uL URINALYSIS Collection Time: 01/14/20 6:32 AM Result Value Ref Range APPEARANCE Clear Clear COLOR Straw (A) Yellow PH 6.0 4.8 - 8.0 SP GRAVITY 1.009 1.003 - 1.030 GLU U QUAL Normal Normal BLOOD 1+ (A) Negative KETONES 20 mg/dL (A) Negative PROTEIN Negative Negative UROBILIN Normal Normal BILIRUBIN Negative Negative NITRITE Negative Negative LEUK DOTTY Negative Negative RBC/HPF 2 0 - 3 HPF WBC/HPF 1 0 - 5 HPF BACTERIA Negative Negative MUCOUS Slight (A) Negative LPF SODIUM, URINE RANDOM Collection Time: 01/14/20 6:32 AM Result Value Ref Range NA URINE 178 mmol/L POTASSIUM, URINE RANDOM Collection Time: 01/14/20 6:32 AM Result Value Ref Range K URINE 13.1 mmol/L OSMOLALITY URINE Collection Time: 01/14/20 6:32 AM Result Value Ref Range OSMO U 440 50-1,100 mOsm/kg IMAGING: I reviewed all the relevant patient's new radiology test results Hospital Encounter on 01/11/20 CT thorax with contrast Narrative EXAM: CT THORAX WITH CONTRAST HISTORY: 24-year-old with bladder cancer. COMPARISON: 06/17/2019 TECHNIQUE AND FINDINGS: Axial images from the level of the thoracic inlet through the upper abdomen were acquired and reconstructed at 1.25 mm intervals after the uncomplicated administration of 120 cc of intravenous Omnipaque contrast. Axial maximum intensity projections, and coronal and sagittal reconstructions were obtained. The CT dose was 396 mGy/cm. FINDINGS: LINES AND TUBES: None LOWER NECK/THYROID: The visualized portions of thyroid gland are normal. LUNGS: Complex right hilar mass up to 6.7 cm, solid extending to mediastinum and surrounding bronchus 2 right lower lobe. There is atelectasis at right lower lobe. PLEURA: No pleural effusion or pneumothorax. CENTRAL AIRWAY: No bronchiectasis, mucus plugging, or bronchial wall thickening. MEDIASTINUM: Right hilar mass extends to right hilar nodes, right lower paratracheal, pretracheal, left paratracheal and subcarinal nodes. Normal cardiac morphology. No pericardial effusion. Moderate coronary calcifications noted. AORTA AND GREAT VESSELS: The visualized portions of the aorta are normal in caliber. BONES AND SOFT TISSUES: No suspicious lytic or blastic skeletal lesions. VISUALIZED UPPER ABDOMEN: The liver has a segment VIII complex 6 cm hypodense lesion, was 3.[address] . There are smaller ill-defined lesions at segment . Impression 1. Right lung hilar mass surrounds the lower lobe bronchus, causes atelectasis of the right lower lobe posterobasal segment. Findings are concordant with lung cancer. 2. The mass also infiltrates hilar, bilateral lower paratracheal, pretracheal and subcarinal nodes. Findings suggest an invasive lung cancer. 3. Liver right lobe mass is larger with small right lobe satellite nodules. Findings suggest metastatic disease. CT abdomen pelvis with contrast Narrative EXAM: CT ABDOMEN AND PELVIS WITH CONTRAST HISTORY: Nausea, vomiting. COMPARISON: 06/17/2019. TECHNIQUE AND FINDINGS: Contiguous axial imaging from the level of the lung bases through the pubic symphysis was performed after the uncomplicated administration of intravenous Omnipaque contrast. Coronal and sagittal reconstructions were obtained. FINDINGS: LOWER THORAX: Please see the separately dictated CT chest obtained on the same day. LIVER: Large right hepatic/caudate lobe hypoattenuating lesion measures 6.2 x 6.1 cm, previously 3.2 x 3.5 cm. Multiple adjacent subtle hypoattenuating masses measure 1.1 cm (3:18) and 2.2 cm (3:14) GALLBLADDER AND BILIARY TREE: No biliary ductal dilation. No gallbladder wall thickening. SPLEEN: No splenomegaly. PANCREAS: No ductal dilation or masses. ADRENAL GLANDS: No adrenal nodules. KIDNEYS: No hydronephrosis, stones, or masses. PERITONEUM AND RETROPERITONEUM: No free air or fluid. LYMPH NODES: Enlarged lymph node at the lesser curvature of the stomach measures 2.2 x 1.6 cm. GI TRACT: No dilation or wall thickening. Normal appendix. PELVIS/BLADDER: Unremarkable. VESSELS: Unremarkable. BONES AND SOFT TISSUES: No suspicious lytic or sclerotic bony lesions. Impression Enlarging hepatic mass with subtle smaller satellite masses likely represents metastatic disease considering the right hilar mass. No acute abnormality in the abdomen or pelvis. Preliminary Report Dictated by Resident: Natalio Ludwig I, Markus Valentine MD., have reviewed this study and agree with the above report. XR CHEST 1 VW Narrative EXAM: XR CHEST 1 VW HISTORY: cough COMPARISON: None. FINDINGS: The right lung remains partly atelectatic and a lobulated opacity to the right of the heart may be a partly collapsed right lower lobe. The right hilus is prominent and perhaps contains a lesion limiting aeration of the right lung. The left lung is well expanded and clear. The heart and great vessels are normal but are shifted to the right. A lobulated opacity to the right of the heart may be the partly collapsed right lower lobe. XR CHEST 1 VW Narrative EXAM: XR CHEST 1 VW COMPARISON: None available HISTORY: bilateral rib pain FINDINGS: Lines/Tubes: None. Lungs: There is volume loss on the right and 10 ill-defined infrahilar opacity or atelectasis. The left lung is hyperexpanded and clear. No pleural effusion or pneumothorax is identified. Heart/Mediastinum: The mediastinum is shifted to right. The cardiomediastinal silhouette is normal for technique. Bones: No acute osseous abnormality is seen. Impression 1. Right lung ill-defined infrahilar opacity and/or atelectasis. 2. Suggest follow-up with elective contrast chest CT. MEDICATIONS: I reviewed the current inpatient medications ordered Current Facility-Administered Medications Medication Dose Route Frequency Last Rate Last Dose [START ON 01/15/2020] furosemide (LASIX) injection 40 mg 40 mg Slow IV Push DAILY sodium chloride tablet 2 g 2 g Oral TID MEALS 2 g at 01/14/20 1708 metoprolol tartrate (LOPRESSOR) tablet 25 mg 25 mg Oral BID 25 mg at 01/30 0759 nicotine (NICODERM) 14 mg/24 hr patch 1 Patch 1 Patch Topical Q24H 1 Patch at 01/14/20 1708 acetaminophen (TYLENOL) tablet 650 mg 650 mg Oral Q6HPRN 650 mg at 0654 heparin (porcine) injection 5,000 Units 5,000 Units Subcutaneous Q8H 5, 000 Units at 01/14/20 1436 hydralAZINE (APRESOLINE) injection 10 mg 10 mg Intravenous PRN - SEE INSTRUCTIONS HYDROcodone-acetaminophen (NORCO) 10-325 mg tablet 1 tablet 1 tablet Oral Q6HPRN 1 tablet at 01/12/20 2126 latanoprost (XALATAN) 0.005 % ophthalmic drops 1 Drop 1 Drop Both Eyes QHS 1 Drop at 207 ondansetron (ZOFRAN (PF)) injection 4 mg 4 mg Slow IV Push Q6HPRN 4 mg at 01/14/20 0257 ulian Pang MD - 01/14/2020 2:48 PM CST Medicine Progress Note Date of Service: 01/14/2020 Chief Complaint: feeling better 24-HOUR EVENTS: 74 year-old male with pmh of metastatic bladder cancer (to lungs, liver), HTN who presents to the EDsecondary to intractable nausea and vomiting. Patient has been having "diffuse rib pain" for the last 4 days. Last chemotherapy: October. He notes that he may not drink enough water as he should. Patient was admitted with symptomatic hyponatremia yesterday we started him on salt tablet normal saddened with Lasix sodium did not improve significantly urine analysis showing elevation sodium in the urine SUBJECTIVE: Tschen feeling better CURRENT MEDICATIONS - reviewed. PHYSICAL EXAM: BP (!) 163/80 | Pulse 80 | Temp 36.6 C (97.9 F) (Tympanic) | Resp 18 | Ht 1.626 m (5' 4") |Wt 64.4 kg (142 lb) | SpO2 97% | BMI 24.37 kg/m Intake/Output Summary (Last 24 hours) at 01/14/2020 1448 Last data filed at 01/14/2020 0830 Gross per 24 hour Intake 1250 ml Output 1050 ml Net 200 ml General: alert ; no apparent distress HEENT: pupils equal, round, reactive to light; extraocular movements intact; oropharynx clear; moistmucous membranes, normocephalic atraumatic Neck: supple, no lymphadenopathy, no bruits, no JVD, full range of motion Lungs: clear to auscultation bilaterally Cardio: S1, S2 normal; no murmurs, rubs or gallops, regular rate and rhythm Abdomen: soft; non-tender; non-distended; normoactive bowel sounds Extremities: no clubbing, cyanosis, or edema Skin: no rashes Neuro: cranial nerves II through XII grossly intact; sensation grossly intact; muscle strength 5 outof 5 in all four extremities LABS/IMAGING - reviewed, pertinent results as below: CBC BMP PT/INR WBC (10*3/L) Date Value 01/14/2020 4.57 NA (mmol/L) Date Value 01/14/2020 123 (L) No results found for: PT RBC (10*6/L) Date Value 01/14/2020 3.58 (L) K (mmol/L) Date Value 01/14/2020 3.9 INR (no units) Date Value 01/11/2020 1.1 PLT (10*3/L) Date Value 01/14/2020 228 CALCIUM (mg/dL) Date Value 01/14/2020 8.5 (L) HGB (g/dL) Date Value 01/14/2020 11.5 (L) CL (mmol/L) Date Value 01/14/2020 90 (L) aPTT HCT (%) Date Value 01/14/2020 31.9 (L) BUN (mg/dL) Date Value 01/14/2020 7 APTT Patient (Seconds) Date Value 01/11/2020 28 CREATININE (mg/dL) Date Value 01/14/2020 0.66 Radiology No final results containing an impression from the past 2 days were found. 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 supported with aggravation on the urine sodium/ adrenal insufficiency especially with marginal hyperkalemia low cortisol level/ superimposed with nondistended radial use: DC IV fluid Increase Lasix increased salt tablet 2 g 3 times a day Will monitor the patient closely if sodium did not improve patient will need to be placed on Samsca Keep holding Ktolarc Was sent for cortisol stimulation test Hypertension currently on the upper side : DC IV fluid Gastroenteritis continue symptomatic treatment follow-up with the primary hospitalist Genoveva Smith LBSW - 01/14/2020 2:19 PM CSTSubjective Patient ID: Uziel Islas is a 74 year old male. PT recommended patient discharge home with home health for continued PT and SN services. However upon speaking with patient, he request SW speak with his daughter to make arrangements. Upon discussing recommendations, services and insurance coverage with patient's daughter, she declined arrangements and stated she would consider hh services after discharge and make the arrangements with patient's PCP. SW reiterated that due to patient's weakness and need for assistance with ambulation and ADL's it is advisable to arrange for home health. Daughter continued to decline. KEESHA Lane Global Product Manager - Care Management [facility] [phone] [email or web address] Review of Systems Objective Physical Exam Assessment/Plan Genoveva Smith LBSW - 01/14/2020 2:06 PM CSTSubjective Patient ID: Uziel Islas is a 74 year old male. Care Management Social Functional Assessment Patient Name: Uziel Islas Age: [age] year old Sex: male Previous admit date: N/A Current diagnosis and co-morbidities: HYPONATREMIA Readmission Questions: Was patient discharged from any acute care hospital within the last 30 days: No Social Functional Assessment: Primary language spoken/preferred: American Mental Status: Alert & Oriented to Person,Place & Time Information given by: Self Patient's support system: Child Name and number of support system: Noel Islas dtr [phone] Primary Bacteriology Professor: Self MPOA: No Living Arrangement: Home Address of living arrangement : [address] [place], [place] [address] [facility] [address] Persons living in home: Self;Child Names & numbers of persons living in home: Noel Aguirre, dtr [phone] Barriers to returning home: None Baseline functional status- ambulation: Requires minimal to moderate assistance Functional status-baseline personal care: Requires minimal to moderate assistance Baseline functional status- driving: Dependent Baseline functional status- grocery shopping: Dependent Functional status-baseline housekeeping: Dependent Functional status-baseline meal prep: Requires minimal to moderate assistance Current functional status same as prior: Yes Do you have a PCP?: Yes Name of PCP: Dr. Burt Home Health Care Agency: No Provider Services: No DME Company: No Equipment: None Hemodialysis: No Community resources utilized: None Funding Resources: Medicare Replacement Medicare Replacement name and information: [facility] Prescription coverage plan: Medicare Part D Pharmacy where meds are filled: Other Other pharmacy: [facility] Anticipated services prior to disharge: Continue Medical Eval Expected mode of discharge transportation: Same as support system Additional Recommendations for DC: Medical clearance; PT recommended home health for patient, however pt's dtr refused arrangments Additional info required for discharge planning: Pending medical evaluation Recommended discharge plan: Home SFA Complete: Social Functional Assessment complete: Yes Alcohol Use Screening (AUDIT-C) How often do you have a drink containing alcohol?: Never SCORE: 0 Role of Care Management explained. Any issues or concerns with obtaining/affording your medications at home: no. Are you or your support system able to shrimp picker medications at discharge: yes. Review of Systems Objective Physical Exam Assessment/Plan Home with dtr, patient's daughter declined home health KEESHA Lane Global Product Manager - Care Management [facility] [phone] [email or web address] Joe Epps MD - 01/13/2020 4:09 PM CST [facility] Medicine Progress Note Name: Uziel Islas : 1945 Admit Date: 01/11/2020 PCP on file: Gerald Burt ASSESSMENT: Uziel Islas is a 74 year old male with PLAN: # hyponatremia, acute on chronic. 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 Sundowning - ? Due to hyponatremia, although unlikely - no evidence of infection - supportive measures - haldol 5mg given with good response - talked with patient's daughter # nausea and vomiting, resolved - symptom control as needed - IVF # hypertensive urgency - BP better - metoprolol - hydralazine prn # metastatic bladder ca - follow with oncology Dispo: home once hyponatremia improved VTE Prophylaxis: heparin Code Status: FC per patient's daughter [place] [employer] was verified during stay Electronically signed by: Joe Swift MD SUBJECTIVE/ 24-HOUR HOSPITAL EVENTS: 3/: intermittent agitation. OBJECTIVE: Vital signs range: Temp: [36.2 C (97.2 F)-37.1 C (98.7 F)] 36.2 C (97.2 F) Pulse: [72-98] 73 Resp: [20] 20 BP: (105-155)/(58-89) 133/83 Most recent vital signs: BP 133/83 | Pulse 73 | Temp 36.2 C (97.2 F) (Temporal Artery) | Resp 20 | Ht 1.626 m (5' 4") | Wt 64.4 kg (142 lb) | SpO2 96% | BMI 24.37 kg/m I/O: I/O last 3 completed shifts: In: 4200 [I.V.:4200] Out: 600 [Urine:600] PHYSICAL EXAM: General: currently sleeping, no apparent distress HEENT: pupils equal, round, reactive to light; extraocular movements intact; oropharynx clear; moistmucous membranes Neck: supple, no lymphadenopathy, no bruits, no JVD Lungs: clear to auscultation bilaterally Cardio: S1, S2 normal; no murmurs, rubs or gallops Abdomen: soft; non-tender; non-distended; normoactive bowel sounds Extremities: no clubbing, cyanosis, or edema Skin: no rashes LABS: I reviewed all the relevant patient's new lab test results Recent Results (from the past 24 hour(s)) Basic Metabolic Panel (NA, K, CL, CO2, GLUCOSE, BUN, CREATININE, CA) Collection Time: 01/13/20 2:56 AM Result Value Ref Range NA 122 (L) 135 - 145 mmol/L K 4.1 3.5 - 5.0 mmol/L CL 89 (L) 98 - 108 mmol/L CO2 TOTAL 23 23 - 31 mmol/L AGAP 10 2 - 16 BUN 8 7 - 23 mg/dL GLUCOSE 108 70 - 110 mg/dL CREATININE 0.66 0.60 - 1.25 mg/dL CALCIUM 8.6 8.6 - 10.6 mg/dL eGFR Calculation (Non-) 118.3 mL/min/1.73m2 eGFR Calculation () 143.4 mL/min/1.73m2 CBC WITH DIFFERENTIAL Collection Time: 01/13/20 2:56 AM Result Value Ref Range WBC 4.63 4.20 - 10.70 10*3/L RBC 3.68 (L) 4.26 - 5.52 10*6/L HGB 11.9 (L) 12.2 - 16.4 g/dL HCT 33.8 (L) 38.4 - 49.3 % MCV 91.8 81.7 - 95.6 fL MCH 32.3 26.1 - 32.7 pg MCHC 35.2 (H) 31.2 - 35.0 g/dL RDW-SD 38.5 38.5 - 51.6 fL RDW-CV 11.3 (L) 12.1 - 15.4 % PLT 262 150 - 328 10*3/L MPV 9.1 (L) 9.8 - 13.0 fL NRBC/100 WBC 0.0 0.0 - 10.0 /100 WBCs NRBC x10^3 <0.01 10*3/L GRAN MAT (NEUT) % 60.1 % IMM GRAN % 0.60 % LYMPH % 23.8 % MONO % 14.9 % EOS % 0.2 % BASO % 0.4 % GRAN MAT x10^3(ANC) 2.78 1.99 - 6.95 10*3/uL IMM GRAN x10^3 0.03 0.00 - 0.06 10*3/uL LYMPH x10^3 1.10 1.09 - 3.23 10*3/uL MONO x10^3 0.69 0.36 - 1.02 10*3/uL EOS x10^3 <0.03 (L) 0.06 - 0.53 10*3/uL BASO x10^3 <0.03 0.01 - 0.09 10*3/uL CORTISOL AM Collection Time: 01/13/20 10:26 AM Result Value Ref Range ALBA AM 14.6 4.5 - 23.0 ug/dL THYROID STIMULATING HORMONE Collection Time: 01/13/20 10:26 AM Result Value Ref Range TSH 2.41 0.45 - 4.70 mIU/L OSMOLALITY URINE Collection Time: 01/13/20 10:44 AM Result Value Ref Range OSMO U 386 50-1,100 mOsm/kg URINALYSIS Collection Time: 01/13/20 10:44 AM Result Value Ref Range APPEARANCE Clear Clear COLOR Straw (A) Yellow PH 6.0 4.8 - 8.0 SP GRAVITY 1.009 1.003 - 1.030 GLU U QUAL Normal Normal BLOOD Negative Negative KETONES 5 mg/dL (A) Negative PROTEIN Negative Negative UROBILIN Normal Normal BILIRUBIN Negative Negative NITRITE Negative Negative LEUK DOTTY Negative Negative RBC/HPF 1 0 - 3 HPF WBC/HPF <1 0 - 5 HPF BACTERIA Few (A) Negative SODIUM, URINE RANDOM Collection Time: 01/13/20 10:44 AM Result Value Ref Range NA URINE 138 mmol/L POTASSIUM, URINE RANDOM Collection Time: 01/13/20 10:44 AM Result Value Ref Range K URINE 14.9 mmol/L IMAGING: I reviewed all the relevant patient's new radiology test results Hospital Encounter on 01/11/20 CT thorax with contrast Narrative EXAM: CT THORAX WITH CONTRAST HISTORY: 24-year-old with bladder cancer. COMPARISON: 06/17/2019 TECHNIQUE AND FINDINGS: Axial images from the level of the thoracic inlet through the upper abdomen were acquired and reconstructed at 1.25 mm intervals after the uncomplicated administration of 120 cc of intravenous Omnipaque contrast. Axial maximum intensity projections, and coronal and sagittal reconstructions were obtained. The CT dose was 396 mGy/cm. FINDINGS: LINES AND TUBES: None LOWER NECK/THYROID: The visualized portions of thyroid gland are normal. LUNGS: Complex right hilar mass up to 6.7 cm, solid extending to mediastinum and surrounding bronchus 2 right lower lobe. There is atelectasis at right lower lobe. PLEURA: No pleural effusion or pneumothorax. CENTRAL AIRWAY: No bronchiectasis, mucus plugging, or bronchial wall thickening. MEDIASTINUM: Right hilar mass extends to right hilar nodes, right lower paratracheal, pretracheal, left paratracheal and subcarinal nodes. Normal cardiac morphology. No pericardial effusion. Moderate coronary calcifications noted. AORTA AND GREAT VESSELS: The visualized portions of the aorta are normal in caliber. BONES AND SOFT TISSUES: No suspicious lytic or blastic skeletal lesions. VISUALIZED UPPER ABDOMEN: The liver has a segment VIII complex 6 cm hypodense lesion, was 3.[address] . There are smaller ill-defined lesions at segment . Impression 1. Right lung hilar mass surrounds the lower lobe bronchus, causes atelectasis of the right lower lobe posterobasal segment. Findings are concordant with lung cancer. 2. The mass also infiltrates hilar, bilateral lower paratracheal, pretracheal and subcarinal nodes. Findings suggest an invasive lung cancer. 3. Liver right lobe mass is larger with small right lobe satellite nodules. Findings suggest metastatic disease. CT abdomen pelvis with contrast Narrative EXAM: CT ABDOMEN AND PELVIS WITH CONTRAST HISTORY: Nausea, vomiting. COMPARISON: 06/17/2019. TECHNIQUE AND FINDINGS: Contiguous axial imaging from the level of the lung bases through the pubic symphysis was performed after the uncomplicated administration of intravenous Omnipaque contrast. Coronal and sagittal reconstructions were obtained. FINDINGS: LOWER THORAX: Please see the separately dictated CT chest obtained on the same day. LIVER: Large right hepatic/caudate lobe hypoattenuating lesion measures 6.2 x 6.1 cm, previously 3.2 x 3.5 cm. Multiple adjacent subtle hypoattenuating masses measure 1.1 cm (3:18) and 2.2 cm (3:14) GALLBLADDER AND BILIARY TREE: No biliary ductal dilation. No gallbladder wall thickening. SPLEEN: No splenomegaly. PANCREAS: No ductal dilation or masses. ADRENAL GLANDS: No adrenal nodules. KIDNEYS: No hydronephrosis, stones, or masses. PERITONEUM AND RETROPERITONEUM: No free air or fluid. LYMPH NODES: Enlarged lymph node at the lesser curvature of the stomach measures 2.2 x 1.6 cm. GI TRACT: No dilation or wall thickening. Normal appendix. PELVIS/BLADDER: Unremarkable. VESSELS: Unremarkable. BONES AND SOFT TISSUES: No suspicious lytic or sclerotic bony lesions. Impression Enlarging hepatic mass with subtle smaller satellite masses likely represents metastatic disease considering the right hilar mass. No acute abnormality in the abdomen or pelvis. Preliminary Report Dictated by Resident: Natalio Ludwig I, Markus Valentine MD., have reviewed this study and agree with the above report. XR CHEST 1 VW Narrative EXAM: XR CHEST 1 VW HISTORY: cough COMPARISON: None. FINDINGS: The right lung remains partly atelectatic and a lobulated opacity to the right of the heart may be a partly collapsed right lower lobe. The right hilus is prominent and perhaps contains a lesion limiting aeration of the right lung. The left lung is well expanded and clear. The heart and great vessels are normal but are shifted to the right. A lobulated opacity to the right of the heart may be the partly collapsed right lower lobe. XR CHEST 1 VW Narrative EXAM: XR CHEST 1 VW COMPARISON: None available HISTORY: bilateral rib pain FINDINGS: Lines/Tubes: None. Lungs: There is volume loss on the right and 10 ill-defined infrahilar opacity or atelectasis. The left lung is hyperexpanded and clear. No pleural effusion or pneumothorax is identified. Heart/Mediastinum: The mediastinum is shifted to right. The cardiomediastinal silhouette is normal for technique. Bones: No acute osseous abnormality is seen. Impression 1. Right lung ill-defined infrahilar opacity and/or atelectasis. 2. Suggest follow-up with elective contrast chest CT. MEDICATIONS: I reviewed the current inpatient medications ordered Current Facility-Administered Medications Medication Dose Route Frequency Last Rate Last Dose [START ON 01/14/2020] furosemide (LASIX) injection 20 mg 20 mg Slow IV Push DAILY haloperidol lactate (HALDOL) injection 5 mg 5 mg Intramuscular ONCE NaCl 0.9% (NS) IV infusion 1,000 mL 1,000 mL IV Infusion CONTINUOUS 125 mL/ hr at 01/13/20 1241 1,000 mL at 01/13/20 1241 nicotine (NICODERM) 14 mg/24 hr patch 1 Patch 1 Patch Topical Q24H sodium chloride tablet 1 g 1 g Oral TID MEALS 1 g at 01/13/20 1219 acetaminophen (TYLENOL) tablet 650 mg 650 mg Oral Q6HPRN 650 mg at 0654 heparin (porcine) injection 5,000 Units 5,000 Units Subcutaneous Q8H 5, 000 Units at 01/13/20 0525 hydralAZINE (APRESOLINE) injection 10 mg 10 mg Intravenous PRN - SEE INSTRUCTIONS HYDROcodone-acetaminophen (NORCO) 10-325 mg tablet 1 tablet 1 tablet Oral Q6HPRN 1 tablet at 01/12/206 latanoprost (XALATAN) 0.005 % ophthalmic drops 1 Drop 1 Drop Both Eyes QHS 1 Drop at 01/11/201957 ondansetron (ZOFRAN (PF)) injection 4 mg 4 mg Slow IV Push Q6HPRN 4 mg at 01/13/20 0221 traMADol (ULTRAM) tablet 50 mg 50 mg Oral Q8HPRN ulian Pang MD - 01/13/2020 10:01 AM CSTFull consult has been dictated : Hyponatremia with history of chronic hyponatremia multifactorial: Depletional supported with elevated specific gravity and the clinical presentation of nausea and vomiting/ 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/ adrenal insufficiency especially with marginal hyperkalemia/ superimposed with nondistended radial use: We'll bolus the patient with normal saline Start the patient on salt tablet and Lasix DC [facility] We'll send for the workup including cortisol urine electrolytes uric acid urine osmolality and cortisol level Continue IV hydration Hypertension currently low blood pressure hold all blood pressure medication Continue hydration Gastroenteritis continue symptomatic treatment follow-up with the primary hospitalist leta Varner RN - 01/12/2020 6:17 PM CSTThis case is appropriate for inpatient admission. The change to inpatient admission is based on the level care this patient is receiving, medical necessity, risks associated and the expected duration of stay. The inpatient admission order has been entered per Dr. Swift. Precert status changed to Patient Class Change and inpatient registration notified via WQ to update/notify insurance. Aleta SALINAS, RN Utilization Review documented in this encounter Plan of Treatment Name Type Priority Associated Diagnoses Order Schedule URINALYSIS LAB Routine EVERY 24 HOURS (START TIME ADJUSTABLE) for 3 Days starting 01/14/2020 until 01/16/2020, 1 completed SODIUM, URINE RANDOM LAB Routine EVERY 24 HOURS (START TIME ADJUSTABLE) for 3 Days starting 01/14/2020 until 01/16/2020, 1 completed POTASSIUM, URINE RANDOM LAB Routine EVERY 24 HOURS (START TIME ADJUSTABLE) for 3 Days starting 01/14/2020 until 01/16/2020, 1 completed OSMOLALITY URINE LAB Routine EVERY 24 HOURS (START TIME ADJUSTABLE) for 3 Days starting 01/14/2020 until 01/16/2020, 1 completed BASIC METABOLIC PANEL LAB Routine EVERY 24 HOURS (START (NA, K, CL, CO2, GLUCOSE, TIME ADJUSTABLE) for 3 BUN, CREATININE, CA) Occurrences starting 01/16/2020 until 01/18/2020 Health Maintenance Due Date Last Done Comments HEPATITIS C (HCV) SCREEN 1945 DTaP,Tdap,and Td Vaccines (1 - Tdap) 1957 COLONOSCOPY 1996 Zoster Recombinant Vaccine (SHINGRIX) (1 of 2) 1996 Medicare Wellness Visit 2011 PNEUMOCOCCAL VACCINES 65+ (1 of 2 - PCV13) 2011 INFLUENZA VACCINE (#1) 2019 LUNG CANCER SCREEN: Recommended for age 55-80 with 30 01/10/2021 01/11/2020 + pack year history documented as of this encounter Implants Implanted Type Area Direct Sales Professional Device Shelf Model / Identifier Expiration Serial / Lot Date Stent Ureteral 4.8fr Shanthi 24cml Ascerta #[id number] - S0 Right: Lapaz 12/25/2019 [id number] / Implanted: Qty: 1 on 02/20/2018 by Daniel Frank MD at [facility] [place] 0 / [id number] documented as of this encounter Procedures Procedure Name Priority Date/Time Associated Comments Diagnosis CBC WITH DIFFERENTIAL Routine 01/15/2020 3:53 Results for this AM REPAIR CAMERAMAN procedure are in the results section. PROCALCITONIN Routine 01/15/2020 3:53 Results for this AM REPAIR CAMERAMAN procedure are in the results section. CBC WITH DIFFERENTIAL Routine 01/15/2020 3:53 Results for this AM REPAIR CAMERAMAN procedure are in the results section. BASIC METABOLIC PANEL Routine 01/15/2020 3:53 Results for this (NA, K, CL, CO2, AM REPAIR CAMERAMAN procedure are in GLUCOSE, BUN, the results CREATININE, CA) section. SODIUM, URINE RANDOM Routine 01/14/2020 6:32 Results for this AM REPAIR CAMERAMAN procedure are in the results section. POTASSIUM, URINE Routine 01/14/2020 6:32 Results for this RANDOM AM REPAIR CAMERAMAN procedure are in the results section. URINALYSIS Routine 01/14/2020 6:32 Results for this AM REPAIR CAMERAMAN procedure are in the results section. OSMOLALITY URINE Routine 01/14/2020 6:32 Results for this AM REPAIR CAMERAMAN procedure are in the results section. CBC WITH DIFFERENTIAL Routine 01/14/2020 4:11 Results for this AM REPAIR CAMERAMAN procedure are in the results section. CBC WITH DIFFERENTIAL Routine 01/14/2020 4:11 Results for this AM REPAIR CAMERAMAN procedure are in the results section. BASIC METABOLIC PANEL Routine 01/14/2020 4:11 Results for this (NA, K, CL, CO2, AM REPAIR CAMERAMAN procedure are in GLUCOSE, BUN, the results CREATININE, CA) section. URIC ACID Routine 01/14/2020 4:11 Results for this AM REPAIR CAMERAMAN procedure are in the results section. SODIUM, URINE RANDOM Routine 01/13/2020 10:44 Results for this AM REPAIR CAMERAMAN procedure are in the results section. POTASSIUM, URINE Routine 01/13/2020 10:44 Results for this RANDOM AM REPAIR CAMERAMAN procedure are in the results section. URINALYSIS Routine 01/13/2020 10:44 Results for this AM REPAIR CAMERAMAN procedure are in the results section. OSMOLALITY URINE Routine 01/13/2020 10:44 Results for this AM REPAIR CAMERAMAN procedure are in the results section. THYROID STIMULATING Routine 01/13/2020 10:26 Results for this HORMONE AM REPAIR CAMERAMAN procedure are in the results section. CORTISOL AM Routine 01/13/2020 10:26 Results for this AM REPAIR CAMERAMAN procedure are in the results section. XR CHEST 1 VW Routine 01/13/2020 8:18 Cough Results for this AM REPAIR CAMERAMAN procedure are in the results section. CBC WITH DIFFERENTIAL Routine 01/13/2020 2:56 Results for this AM REPAIR CAMERAMAN procedure are in the results section. CBC WITH DIFFERENTIAL Routine 01/13/2020 2:56 Results for this AM REPAIR CAMERAMAN procedure are in the results section. BASIC METABOLIC PANEL Routine 01/13/2020 2:56 Results for this (NA, K, CL, CO2, AM REPAIR CAMERAMAN procedure are in GLUCOSE, BUN, the results CREATININE, CA) section. BASIC METABOLIC PANEL STAT 01/12/2020 12:29 Results for this (NA, K, CL, CO2, PM REPAIR CAMERAMAN procedure are in GLUCOSE, BUN, the results CREATININE, CA) section. URINALYSIS STAT 01/11/2020 10:43 Rib pain Results for this PM REPAIR CAMERAMAN procedure are in the results section. CT THORAX W CONTRAST STAT 01/11/2020 10:24 Rib pain Results for this PM REPAIR CAMERAMAN Hyponatremia procedure are in the results section. CT ABDOMEN PELVIS W STAT 01/11/2020 10:24 Rib pain Results for this CONTRAST PM REPAIR CAMERAMAN Hyponatremia procedure are in the results section. XR CHEST 1 VW STAT 01/11/2020 9:19 Rib pain Results for this PM REPAIR CAMERAMAN procedure are in the results section. CBC WITH DIFFERENTIAL STAT 01/11/2020 9:16 Rib pain Results for this PM REPAIR CAMERAMAN procedure are in the results section. ACTIVATED PARTIAL STAT 01/11/2020 9:16 Rib pain Results for this THRMPLAS AMANDA PM REPAIR CAMERAMAN procedure are in the results section. PROTHROMBIN TIME / INR STAT 01/11/2020 9:16 Rib pain Results for this PM REPAIR CAMERAMAN procedure are in the results section. CBC WITH DIFFERENTIAL Routine 01/11/2020 9:16 Rib pain Results for this PM REPAIR CAMERAMAN procedure are in the results section. BASIC METABOLIC PANEL STAT 01/11/2020 9:16 Rib pain Results for this (NA, K, CL, CO2, PM REPAIR CAMERAMAN procedure are in GLUCOSE, BUN, the results CREATININE, CA) section. TROPONIN I STAT 01/11/2020 9:16 Rib pain Results for this PM REPAIR CAMERAMAN procedure are in the results section. LIPASE STAT 01/11/2020 9:16 Rib pain Results for this PM REPAIR CAMERAMAN procedure are in the results section. EKG-12 LEAD STAT 01/11/2020 9:12 PM REPAIR CAMERAMAN EKG-12 LEAD Routine 01/11/2020 9:10 PM REPAIR CAMERAMAN CONSENT/REFUSAL FOR Routine 01/11/2020 8:44 DIAGNOSIS AND PM REPAIR CAMERAMAN TREATMENT documented in this encounter Results CBC WITH DIFFERENTIAL (01/15/2020 3:53 AM REPAIR CAMERAMAN) WBC 6.81 4.20 - 10.70 [facility] 10*3/L [facility] RBC 3.74 (L) 4.26 - 5.52 [facility] 10*6/L [facility] HGB 12.0 (L) 12.2 - 16.4 [facility] g/dL [facility] HCT 33.3 (L) 38.4 - 49.3 % [facility] MCV 89.0 81.7 - 95.6 fL [facility] MCH 32.1 26.1 - 32.7 pg [facility] MCHC 36.0 (H) 31.2 - 35.0 [facility] g/dL [facility] RDW-SD 36.7 (L) 38.5 - 51.6 fL [facility] RDW-CV 11.3 (L) 12.1 - 15.4 % [facility] PLT 253 150 - 328 [facility] 10*3/L [facility] MPV 8.9 (L) 9.8 - 13.0 fL [facility] NRBC/100 WBC 0.0 0.0 - 10.0 /100 [facility] WBCs [facility] NRBC x10^3 <0.01 10*3/L [facility] GRAN MAT (NEUT) % 56.3 % [facility] IMM GRAN % 0.30 % [facility] LYMPH % 27.2 % [facility] MONO % 15.1 % [facility] EOS % 0.7 % [facility] BASO % 0.4 % [facility] GRAN MAT x10^3(ANC) 3.83 1.99 - 6.95 [facility] 10*3/uL [facility] IMM GRAN x10^3 <0.03 0.00 - 0.06 [facility] 10*3/uL [facility] LYMPH x10^3 1.85 1.09 - 3.23 [facility] 10*3/uL [facility] MONO x10^3 1.03 (H) 0.36 - 1.02 [facility] 10*3/uL [facility] EOS x10^3 0.05 (L) 0.06 - 0.53 [facility] 10*3/uL [facility] BASO x10^3 0.03 0.01 - 0.09 [facility] 10*3/uL [facility] Specimen Blood - ARM, LEFT Performing Organization Address City/State/Zipcode Phone Number [facility] CLIA: [id number], [address] [place] [address] [phone] PROCALCITONIN (01/15/2020 3:53 AM REPAIR CAMERAMAN) Procalcitonin 0.22 (H) <0.07 ng/mL [facility] Specimen Blood - ARM, LEFT Narrative Performed At INTERPRETATION OF PROCALCITONIN RESULTS IN ADULTS >=18 YEARS [facility] OF AGE Initiation and discontinuation of antibiotics on patients with suspected or confirmed Lower Respiratory Tract Infection in Adults >=18 years of age. + + + + + |Procalcitonin |Interpretation |Antibiotic |Considerations |ng/mL | |recommendation | + + + + + | <0.1 | Bacterial | Strongly | | | infection very | discouraged | Overruling: | | unlikely | | Clinically unstable + + + + High risk for adverse | <0.25 | Bacterial | Discouraged | outcome | | infection | | SEE IMPORTANT NOTE | | unlikely | | + + + + + | >=0.25 | Bacterial | Encouraged | | | infection | | | | likely | | Consider treatment failure + + + + if levels does not decrease | >0.5 | Bacterial | Strongly | appropriately | | infection very | encouraged | | | likely | | + + + + + Discontinuation of antibiotics in high-acuity patients with suspected or confirmed sepsis in Adults >=18 years of age. + + + + + |Procalcitonin |Interpretation |Antibiotic |Considerations |ng/mL | |recommendation | + + + + + | <0.25 | Bacterial | Strongly | | | infection very | discouraged | Overruling: | | unlikely | | Clinically unstable + + + + High risk for adverse | <0.5 or drop | Bacterial | Discouraged | outcome | >80% from | infection | | SEE IMPORTANT NOTE | highest PCT | unlikely | | | level | | | + + + + + | >=0.5 | Bacterial | Encouraged | | | infection | | | | likely | | Consider treatment failure + + + + if levels does not decrease | >1.0 | Bacterial | Strongly | appropriately | | infection very | encouraged | | | likely | | + + + + + Percentage of drop of Procalcitonin calculation for Discontinuation of antibiotics in high-acuity patients with suspected or confirmed sepsis in Adults >=18 years of age. Procalcitonin highest{}-Procalcitonin current{} Delta Procalcitonin= _ x100% Procalcitonin current {} IMPORTANT NOTE: Procalcitonin may be elevated without bacterial infection by physiologic stress related to trauma, brand, chronic dialysis, metastatic cancer, surgery in the past seven days, malaria, some fungal infections, and some forms of vasculitis. The interpretation algorithm may not apply to patients with immunosuppression (equivalent of >10 mg of prednisone daily), HIV with CD4 cell count < 350 cells/mm3, active malignancy on systemic chemotherapy, solid organ transplant or hematopoietic stem cell transplantation, or hospital acquired pneumonia. Additionally, some clinical trials of procalcitonin have excluded patients with shock requiring vasopressor use, acute respiratory failure requiring mechanical ventilation, or those with known lung abscess/empyema. For further information please refer to: [email or web address] Performing Organization Address City/State/Zipcode Phone Number [facility] CLIA: [id number], [address] [place] [address] [phone] [facility] Basic Metabolic Panel (NA, K, CL, CO2, GLUCOSE, BUN, CREATININE, CA) (2019 3:53 AM REPAIR CAMERAMAN) NA 123 (L) 135 - 145 [facility] mmol/L [facility] K 3.8 3.5 - 5.0 [facility] mmol/L [facility] CL 88 (L) 98 - 108 mmol/L [facility] CO2 TOTAL 23 23 - 31 mmol/L [facility] AGAP 12 2 - 16 [facility] BUN 9 7 - 23 mg/dL [facility] GLUCOSE 126 (H) 70 - 110 mg/dL [facility] CREATININE 0.76 0.60 - 1.25 [facility] mg/dL [facility] CALCIUM 8.9 8.6 - 10.6 [facility] mg/dL [facility] eGFR Calculation 100.5 mL/min/1.73m2 [facility] ([facility] LABORATORY [place]) eGFR Calculation 121.9 mL/min/1.73m2 [facility] () [facility] Specimen Blood - ARM, LEFT Narrative Performed At Association of Glomerular Filtration Rate (GFR) [facility] and Staging of Kidney Disease* + + +- + | GFR (mL/min/1.73 m2) | With Kidney Damage | Without Kidney Damage + + +- + | >90 | Stage one | Normal + + +- + | 60-89 | Stage two | Decreased GFR + + +- + | 30-59 | Stage three | Stage three + + +- + | 15-29 | Stage four | Stage four + + +- + | <15 (or dialysis) | Stage five | Stage five + + +- + *Each stage assumes the associated GFR level has been in effect for at least three months. Stages 1 to 5, with or without kidney [...] abnormalities in imaging tests). Performing Organization Address [facility]/Zipcode Phone Number [facility] CLIA: [id number], [address] [place] [phone] OSMOLALITY URINE (01/14/2020 6:32 AM REPAIR CAMERAMAN) OSMO U 440 50-1,100 mOsm/kg [facility] Specimen Urine - URINE, CLEAN CATCH Performing Organization Address [facility] Phone Number [facility] CLIA: [id number], [address] [place] [phone] [facility] POTASSIUM, URINE RANDOM (01/14/2020 6:32 AM REPAIR CAMERAMAN) K URINE 13.1 mmol/L [facility] Specimen Urine - URINE, CLEAN CATCH Performing Organization Address [facility] Phone Number [facility] CLIA: [id number], [address] [phone] SODIUM, URINE RANDOM (01/14/2020 6:32 AM REPAIR CAMERAMAN) NA URINE 178 mmol/L [facility] Specimen Urine - URINE, CLEAN CATCH Performing Organization Address [facility] Phone Number [facility] CLIA: [id number], [address] [phone] [address] URINALYSIS (01/14/2020 6:32 AM REPAIR CAMERAMAN) APPEARANCE Clear Clear [facility] COLOR Straw (A) Yellow [facility] PH 6.0 4.8 - 8.0 [facility] SP GRAVITY 1.009 1.003 - 1.030 [facility] GLU U QUAL Normal Normal [facility] BLOOD 1+ (A) Negative [facility] KETONES 20 mg/dL (A) Negative [facility] PROTEIN Negative Negative [facility] UROBILIN Normal Normal [facility] BILIRUBIN Negative Negative [facility] NITRITE Negative Negative [facility] LEUK DOTTY Negative Negative [facility] RBC/HPF 2 0 - 3 HPF [facility] WBC/HPF 1 0 - 5 HPF [facility] BACTERIA Negative Negative [facility] MUCOUS Slight (A) Negative LPF [facility] Specimen Urine - URINE, CLEAN CATCH Performing Organization Address City/State/Zipcode Phone Number [facility] CLIA: [id number], [address] [place] [address] CBC WITH DIFFERENTIAL (01/14/2020 4:11 AM REPAIR CAMERAMAN) WBC 4.57 4.20 - 10.70 [facility] 10*3/L [facility] RBC 3.58 (L) 4.26 - 5.52 [facility] 10*6/L [facility] HGB 11.5 (L) 12.2 - 16.4 [facility] g/dL [facility] HCT 31.9 (L) 38.4 - 49.3 % [facility] MCV 89.1 81.7 - 95.6 fL [facility] MCH 32.1 26.1 - 32.7 pg [facility] MCHC 36.1 (H) 31.2 - 35.0 [facility] g/dL [facility] RDW-SD 35.9 (L) 38.5 - 51.6 fL [facility] RDW-CV 11.1 (L) 12.1 - 15.4 % [facility] PLT 228 150 - 328 [facility] 10*3/L [facility] MPV 8.7 (L) 9.8 - 13.0 fL [facility] NRBC/100 WBC 0.0 0.0 - 10.0 /100 [facility] WBCs [facility] NRBC x10^3 <0.01 10*3/L [facility] GRAN MAT (NEUT) % 62.3 % [facility] IMM GRAN % 0.40 % [facility] LYMPH % 19.9 % [facility] MONO % 15.8 % [facility] EOS % 0.9 % [facility] BASO % 0.7 % [facility] GRAN MAT x10^3(ANC) 2.85 1.99 - 6.95 [facility] 10*3/uL [facility] IMM GRAN x10^3 <0.03 0.00 - 0.06 [facility] 10*3/uL [facility] LYMPH x10^3 0.91 (L) 1.09 - 3.23 [facility] 10*3/uL [facility] MONO x10^3 0.72 0.36 - 1.02 [facility] 10*3/uL [facility] EOS x10^3 0.04 (L) 0.06 - 0.53 [facility] 10*3/uL [facility] BASO x10^3 0.03 0.01 - 0.09 [facility] 10*3/uL [facility] Specimen Blood - ARM, LEFT Performing Organization Address [facility] Phone Number [facility] CLIA: [id number], [address] [place] [address] URIC ACID (01/14/2020 4:11 AM REPAIR CAMERAMAN) URIC ACID 4.2 3.6 - 8.0 mg/dL [facility] Specimen Blood - ARM, LEFT Performing Organization Address [facility] Phone Number [facility] CLIA: [id number], [address] [place] [address] [phone] Basic Metabolic Panel (NA, K, CL, CO2, GLUCOSE, BUN, CREATININE, CA) (2019 4:11 AM REPAIR CAMERAMAN) NA 123 (L) 135 - 145 [facility] mmol/L [facility] K 3.9 3.5 - 5.0 [facility] mmol/L [facility] CL 90 (L) 98 - 108 mmol/L [facility] CO2 TOTAL 22 (L) 23 - 31 mmol/L [facility] AGAP 11 2 - 16 [facility] BUN 7 7 - 23 mg/dL [facility] GLUCOSE 87 70 - 110 mg/dL [facility] CREATININE 0.66 0.60 - 1.25 [facility] mg/dL [facility] CALCIUM 8.5 (L) 8.6 - 10.6 [facility] mg/dL [facility] eGFR Calculation 118.3 mL/min/1.73m2 [facility] ([facility] LABORATORY [place]) eGFR Calculation 143.4 mL/min/1.73m2 [facility] () [facility] Specimen Blood - ARM, LEFT Narrative Performed At Association of Glomerular Filtration Rate (GFR) [facility] and Staging of Kidney Disease* + + +- + | GFR (mL/min/1.73 m2) | With Kidney Damage | Without Kidney Damage + + +- + | >90 | Stage one | Normal + + +- + | 60-89 | Stage two | Decreased GFR + + +- + | 30-59 | Stage three | Stage three + + +- + | 15-29 | Stage four | Stage four + + +- + | <15 (or dialysis) | Stage five | Stage five + + +- + *Each stage assumes the associated GFR level has been in effect for at least three months. Stages 1 to 5, with or without kidney [...] abnormalities in imaging tests). Performing Organization Address [facility]/Zipcode Phone Number [facility] CLIA: [id number], [address] [place], [place] [phone] [facility] [address] POTASSIUM, URINE RANDOM (01/13/2020 10:44 AM REPAIR CAMERAMAN) [facility] K URINE 14.9 mmol/L [facility] Specimen Urine - URINE, CLEAN CATCH Performing Organization Address City/[facility]/Zipcode Phone Number [facility] CLIA: [id number], [address] [place] [address] SODIUM, URINE RANDOM (01/13/2020 10:44 AM REPAIR CAMERAMAN) NA URINE 138 mmol/L [facility] Specimen Urine - URINE, CLEAN CATCH Performing Organization Address [facility] Phone Number [facility] CLIA: [id number], [address] [place], [place] [address] [phone] URINALYSIS (01/13/2020 10:44 AM REPAIR CAMERAMAN) APPEARANCE Clear Clear [facility] COLOR Straw (A) Yellow [facility] PH 6.0 4.8 - 8.0 [facility] SP GRAVITY 1.009 1.003 - 1.030 [facility] GLU U QUAL Normal Normal [facility] BLOOD Negative Negative [facility] KETONES 5 mg/dL (A) Negative [facility] PROTEIN Negative Negative [facility] UROBILIN Normal Normal [facility] BILIRUBIN Negative Negative [facility] NITRITE Negative Negative [facility] LEUK DOTTY Negative Negative [facility] RBC/HPF 1 0 - 3 HPF [facility] WBC/HPF <1 0 - 5 HPF [facility] BACTERIA Few (A) Negative [facility] Specimen Urine - URINE, CLEAN CATCH Performing Organization Address [facility] Phone Number [facility] CLIA: [id number], [address] [place], [place] [phone] LABOR[address] OSMOLALITY URINE (01/13/2020 10:44 AM REPAIR CAMERAMAN) OSMO U 386 50-1,100 mOsm/kg [facility] Specimen Urine - URINE, CLEAN CATCH Performing Organization Address City/[facility]/Zipcode Phone Number [facility] CLIA: [id number], [address] [place] [phone] [facility] THYROID STIMULATING HORMONE (01/13/2020 10:26 AM REPAIR CAMERAMAN) TSH 2.41Comment: Biotin 0.45 - 4.70 [facility] has been reported [facility] to cause a negative bias, interpret results relative to patient's use of biotin. Specimen Blood - ARM, RIGHT Performing Organization Address City/State/Zipcode Phone Number [facility] CLIA: [id number], [address] [place] [address] [phone] CORTISOL AM (01/13/2020 10:26 AM REPAIR CAMERAMAN) ALBA AM 14.6 4.5 - 23.0 ug/dL [facility] Specimen Blood - ARM, RIGHT Narrative Performed At [facility] has been reported to cause a positive bias, interpret [facility] results relative to patient's use of biotin. Performing Organization Address City/State/Zipcode Phone Number [facility] CLIA: [id number], [address] [place] [address] [phone] [facility] XR CHEST 1 VW (01/13/2020 8:18 AM REPAIR CAMERAMAN) Specimen Narrative Performed At EXAM: XR CHEST 1 VW PACS/VR/DOSE HISTORY: cough COMPARISON: None. FINDINGS: The right lung remains partly atelectatic and a lobulated opacity to the right of the heart may be a partly collapsed right lower lobe. The right hilus is prominent and perhaps contains a lesion limiting aeration of the right lung. The left lung is well expanded and clear. The heart and great vessels are normal but are shifted to the right. A lobulated opacity to the right of the heart may be the partly collapsed right lower lobe. Procedure Note [facility], Radiant Results Inft User - 01/13/2020 8:45 AM REPAIR CAMERAMAN EXAM: XR CHEST 1 VW HISTORY: cough COMPARISON: None. FINDINGS: The right lung remains partly atelectatic and a lobulated opacity to the right of the heart may be a partly collapsed right lower lobe. The right hilus is prominent and perhaps contains a lesion limiting aeration of the right lung. The left lung is well expanded and clear. The heart and great vessels are normal but are shifted to the right. A lobulated opacity to the right of the heart may be the partly collapsed right lower lobe. Performing Organization Address City/State/Zipcode Phone Number PACS/VR/DOSE CBC WITH DIFFERENTIAL (01/13/2020 2:56 AM REPAIR CAMERAMAN) WBC 4.63 4.20 - 10.70 [facility] 10*3/L [facility] RBC 3.68 (L) 4.26 - 5.52 [facility] 10*6/L [facility] HGB 11.9 (L) 12.2 - 16.4 [facility] g/dL [facility] HCT 33.8 (L) 38.4 - 49.3 % [facility] MCV 91.8 81.7 - 95.6 fL [facility] MCH 32.3 26.1 - 32.7 pg [facility] MCHC 35.2 (H) 31.2 - 35.0 [facility] g/dL [facility] RDW-SD 38.5 38.5 - 51.6 fL [facility] RDW-CV 11.3 (L) 12.1 - 15.4 % [facility] PLT 262 150 - 328 [facility] 10*3/L [facility] MPV 9.1 (L) 9.8 - 13.0 fL [facility] NRBC/100 WBC 0.0 0.0 - 10.0 /100 [facility] WBCs [facility] NRBC x10^3 <0.01 10*3/L [facility] GRAN MAT (NEUT) % 60.1 % [facility] IMM GRAN % 0.60 % [facility] LYMPH % 23.8 % [facility] MONO % 14.9 % [facility] EOS % 0.2 % [facility] BASO % 0.4 % [facility] GRAN MAT x10^3(ANC) 2.78 1.99 - 6.95 [facility] 10*3/uL [facility] IMM GRAN x10^3 0.03 0.00 - 0.06 [facility] 10*3/uL [facility] LYMPH x10^3 1.10 1.09 - 3.23 [facility] 10*3/uL [facility] MONO x10^3 0.69 0.36 - 1.02 [facility] 10*3/uL [facility] EOS x10^3 <0.03 (L) 0.06 - 0.53 [facility] 10*3/uL [facility] BASO x10^3 <0.03 0.01 - 0.09 [facility] 10*3/uL [facility] Specimen Blood - ARM, RIGHT Performing Organization Address City/State/Zipcode Phone Number [facility] CLIA: [id number], [address] Basic Metabolic Panel (NA, K, CL, CO2, GLUCOSE, BUN, CREATININE, CA) (2019 2:56 AM REPAIR CAMERAMAN) NA 122 (L) 135 - 145 [facility] mmol/L [facility] K 4.1 3.5 - 5.0 [facility] mmol/L [facility] CL 89 (L) 98 - 108 mmol/L [facility] CO2 TOTAL 23 23 - 31 mmol/L [facility] AGAP 10 2 - 16 [facility] BUN 8 7 - 23 mg/dL [facility] GLUCOSE 108 70 - 110 mg/dL [facility] CREATININE 0.66 0.60 - 1.25 [facility] mg/dL [facility] CALCIUM 8.6 8.6 - 10.6 [facility] mg/dL [facility] eGFR Calculation 118.3 mL/min/1.73m2 [facility] ([facility]ORATORY [place]) eGFR Calculation 143.4 mL/min/1.73m2 [facility] () [facility] Specimen Blood - ARM, RIGHT Narrative Performed At Association of Glomerular Filtration Rate (GFR) [facility] and Staging of Kidney Disease* + + +- + | GFR (mL/min/1.73 m2) | With Kidney Damage | Without Kidney Damage + + +- + | >90 | Stage one | Normal + + +- + | 60-89 | Stage two | Decreased GFR + + +- + | 30-59 | Stage three | Stage three + + +- + | 15-29 | Stage four | Stage four + + +- + | <15 (or dialysis) | Stage five | Stage five + + +- + *Each stage assumes the associated GFR level has been in effect for at least three months. Stages 1 to 5, with or without kidney [...] tests). Performing Organization Address City/State/Zipcode Phone Number [facility] CLIA: [id number], [address] [place] [address] [phone] BASIC METABOLIC PANEL (NA, K, CL, CO2, GLUCOSE, BUN, CREATININE, CA) (2019 12:29 PM REPAIR CAMERAMAN) NA 124 (L) 135 - 145 [facility] mmol/L [facility] K 3.7 3.5 - 5.0 [facility] mmol/L [facility] CL 92 (L) 98 - 108 mmol/L [facility] CO2 TOTAL 24 23 - 31 mmol/L [facility] AGAP 8 2 - 16 [facility] BUN 11 7 - 23 mg/dL [facility] GLUCOSE 114 (H) 70 - 110 mg/dL [facility] CREATININE 0.65 0.60 - 1.25 [facility] mg/dL [facility] CALCIUM 7.8 (L) 8.6 - 10.6 [facility] mg/dL [facility] eGFR Calculation 120.4 mL/min/1.73m2 [facility] ([facility] [place]) eGFR Calculation 145.9 mL/min/1.73m2 [facility] () [facility] Specimen Blood - ARM, RIGHT Narrative Performed At Association of Glomerular Filtration Rate (GFR) [facility] and Staging of Kidney Disease* + + +- + | GFR (mL/min/1.73 m2) | With Kidney Damage | Without Kidney Damage + + +- + | >90 | Stage one | Normal + + +- + | 60-89 | Stage two | Decreased GFR + + +- + | 30-59 | Stage three | Stage three + + +- + | 15-29 | Stage four | Stage four + + +- + | <15 (or dialysis) | Stage five | Stage five + + +- + *Each stage assumes the associated GFR level has been in effect for at least three months. Stages 1 to 5, with or without kidney [...] abnormalities in imaging tests). Performing Organization Address [facility] Phone Number [facility] CLIA: [id number], [address] [place] [address] Urinalysis (01/11/2020 10:43 PM REPAIR CAMERAMAN) APPEARANCE Clear Clear [facility] COLOR Straw (A) Yellow [facility] PH 7.0 4.8 - 8.0 [facility] SP GRAVITY 1.058 (H) 1.003 - 1.030 [facility] GLU U QUAL Normal Normal [facility] BLOOD Negative Negative [facility] KETONES 20 mg/dL (A) Negative [facility] PROTEIN Negative Negative [facility] UROBILIN Normal Normal [facility] BILIRUBIN Negative Negative [facility] NITRITE Negative Negative [facility] LEUK DOTTY Negative Negative [facility] RBC/HPF 1 0 - 3 HPF [facility] WBC/HPF 0 0 - 5 HPF [facility] BACTERIA Negative Negative [facility] Specimen Urine - URINE, CLEAN CATCH Performing Organization Address [facility] Phone Number [facility] CLIA: [id number], [address] [place] [address] abdomen pelvis with contrast (01/11/2020 10:24 PM REPAIR CAMERAMAN) Specimen Impressions Performed At PACS/VR/DOSE Enlarging hepatic mass with subtle smaller satellite masses likely represents metastatic disease considering the right hilar mass. No acute abnormality in the abdomen or pelvis. Preliminary Report Dictated by Resident: Natalio Ludwig I, Markus Valentine MD., have reviewed this study and agree with the above report. Narrative Performed At EXAM: CT ABDOMEN AND PELVIS WITH CONTRAST PACS/VR/DOSE HISTORY: Nausea, vomiting. COMPARISON: 06/17/2019. TECHNIQUE AND FINDINGS: Contiguous axial imaging from the level of the lung bases through the pubic symphysis was performed after the uncomplicated administration of intravenous Omnipaque contrast. Coronal and sagittal reconstructions were obtained. FINDINGS: LOWER THORAX: Please see the separately dictated CT chest obtained on the same day. LIVER: Large right hepatic/caudate lobe hypoattenuating lesion measures 6.2 x 6.1 cm, previously 3.2 x 3.5 cm. Multiple adjacent subtle hypoattenuating masses measure 1.1 cm (3:18) and 2.2 cm (3:14) GALLBLADDER AND BILIARY TREE: No biliary ductal dilation. No gallbladder wall thickening. SPLEEN: No splenomegaly. PANCREAS: No ductal dilation or masses. ADRENAL GLANDS: No adrenal nodules. KIDNEYS: No hydronephrosis, stones, or masses. PERITONEUM AND RETROPERITONEUM: No free air or fluid. LYMPH NODES: Enlarged lymph node at the lesser curvature of the stomach measures 2.2 x 1.6 cm. GI TRACT: No dilation or wall thickening. Normal appendix. PELVIS/BLADDER: Unremarkable. VESSELS: Unremarkable. BONES AND SOFT TISSUES: No suspicious lytic or sclerotic bony lesions. Procedure Note [facility], Radiant Results Inft User - 01/11/2020 10:54 PM REPAIR CAMERAMAN EXAM: CT ABDOMEN AND PELVIS WITH CONTRAST HISTORY: Nausea, vomiting. COMPARISON: 06/17/2019. TECHNIQUE AND FINDINGS: Contiguous axial imaging from the level of the lung bases through the pubic symphysis was performed after the uncomplicated administration of intravenous Omnipaque contrast. Coronal and sagittal reconstructions were obtained. FINDINGS: LOWER THORAX: Please see the separately dictated CT chest obtained on the same day. LIVER: Large right hepatic/caudate lobe hypoattenuating lesion measures 6.2 x 6.1 cm, previously 3.2 x 3.5 cm. Multiple adjacent subtle hypoattenuating masses measure 1.1 cm (3:18) and 2.2 cm (3:14) GALLBLADDER AND BILIARY TREE: No biliary ductal dilation. No gallbladder wall thickening. SPLEEN: No splenomegaly. PANCREAS: No ductal dilation or masses. ADRENAL GLANDS: No adrenal nodules. KIDNEYS: No hydronephrosis, stones, or masses. PERITONEUM AND RETROPERITONEUM: No free air or fluid. LYMPH NODES: Enlarged lymph node at the lesser curvature of the stomach measures 2.2 x 1.6 cm. GI TRACT: No dilation or wall thickening. Normal appendix. PELVIS/BLADDER: Unremarkable. VESSELS: Unremarkable. BONES AND SOFT TISSUES: No suspicious lytic or sclerotic bony lesions. IMPRESSION Enlarging hepatic mass with subtle smaller satellite masses likely represents metastatic disease considering the right hilar mass. No acute abnormality in the abdomen or pelvis. Preliminary Report Dictated by Resident: Natalio Ludwig I, Markus Valentine MD., have reviewed this study and agree with the above report. Performing Organization Address City/State/Zipcode Phone Number PACS/VR/DOSE CT thorax with contrast (01/11/2020 10:24 PM REPAIR CAMERAMAN) Specimen Impressions Performed At PACS/VR/DOSE 1. Right lung hilar mass surrounds the lower lobe bronchus, causes atelectasis of the right lower lobe posterobasal segment. Findings are concordant with lung cancer. 2. The mass also infiltrates hilar, bilateral lower paratracheal, pretracheal and subcarinal nodes. Findings suggest an invasive lung cancer. 3. Liver right lobe mass is larger with small right lobe satellite nodules. Findings suggest metastatic disease. Narrative Performed At EXAM: CT THORAX WITH CONTRAST PACS/VR/DOSE HISTORY: 24-year-old with bladder cancer. COMPARISON: 06/17/2019 TECHNIQUE AND FINDINGS: Axial images from the level of the thoracic inlet through the upper abdomen were acquired and reconstructed at 1.25 mm intervals after the uncomplicated administration of 120 cc of intravenous Omnipaque contrast. Axial maximum intensity projections, and coronal and sagittal reconstructions were obtained. The CT dose was 396 mGy/cm. FINDINGS: LINES AND TUBES: None LOWER NECK/THYROID: The visualized portions of thyroid gland are normal. LUNGS: Complex right hilar mass up to 6.7 cm, solid extending to mediastinum and surrounding bronchus 2 right lower lobe. There is atelectasis at right lower lobe. PLEURA: No pleural effusion or pneumothorax. CENTRAL AIRWAY: No bronchiectasis, mucus plugging, or bronchial wall thickening. MEDIASTINUM: Right hilar mass extends to right hilar nodes, right lower paratracheal, pretracheal, left paratracheal and subcarinal nodes. Normal cardiac morphology. No pericardial effusion. Moderate coronary calcifications noted. AORTA AND GREAT VESSELS: The visualized portions of the aorta are normal in caliber. BONES AND SOFT TISSUES: No suspicious lytic or blastic skeletal lesions. VISUALIZED UPPER ABDOMEN: The liver has a segment VIII complex 6 cm hypodense lesion, was 3.[address] . There are smaller ill-defined lesions at segment . Procedure Note [facility], Radiant Results Inft User - 01/11/2020 10:43 PM REPAIR CAMERAMAN EXAM: CT THORAX WITH CONTRAST HISTORY: 24-year-old with bladder cancer. COMPARISON: 06/17/2019 TECHNIQUE AND FINDINGS: Axial images from the level of the thoracic inlet through the upper abdomen were acquired and reconstructed at 1.25 mm intervals after the uncomplicated administration of 120 cc of intravenous Omnipaque contrast. Axial maximum intensity projections, and coronal and sagittal reconstructions were obtained. The CT dose was 396 mGy/cm. FINDINGS: LINES AND TUBES: None LOWER NECK/THYROID: The visualized portions of thyroid gland are normal. LUNGS: Complex right hilar mass up to 6.7 cm, solid extending to mediastinum and surrounding bronchus 2 right lower lobe. There is atelectasis at right lower lobe. PLEURA: No pleural effusion or pneumothorax. CENTRAL AIRWAY: No bronchiectasis, mucus plugging, or bronchial wall thickening. MEDIASTINUM: Right hilar mass extends to right hilar nodes, right lower paratracheal, pretracheal, left paratracheal and subcarinal nodes. Normal cardiac morphology. No pericardial effusion. Moderate coronary calcifications noted. AORTA AND GREAT VESSELS: The visualized portions of the aorta are normal in caliber. BONES AND SOFT TISSUES: No suspicious lytic or blastic skeletal lesions. VISUALIZED UPPER ABDOMEN: The liver has a segment VIII complex 6 cm hypodense lesion, was 3.[address] . There are smaller ill-defined lesions at segment . IMPRESSION 1. Right lung hilar mass surrounds the lower lobe bronchus, causes atelectasis of the right lower lobe posterobasal segment. Findings are concordant with lung cancer. 2. The mass also infiltrates hilar, bilateral lower paratracheal, pretracheal and subcarinal nodes. Findings suggest an invasive lung cancer. 3. Liver right lobe mass is larger with small right lobe satellite nodules. Findings suggest metastatic disease. Performing Organization Address City/State/Zipcode Phone Number PACS/VR/DOSE XR CHEST 1 VW (01/11/2020 9:19 PM REPAIR CAMERAMAN) Specimen Impressions Performed At PACS/VR/DOSE 1. Right lung ill-defined infrahilar opacity and/or atelectasis. 2. Suggest follow-up with elective contrast chest CT. Narrative Performed At EXAM: XR CHEST 1 VW PACS/VR/DOSE COMPARISON: None available HISTORY: bilateral rib pain FINDINGS: Lines/Tubes: None. Lungs: There is volume loss on the right and 10 ill-defined infrahilar opacity or atelectasis. The left lung is hyperexpanded and clear. No pleural effusion or pneumothorax is identified. Heart/Mediastinum: The mediastinum is shifted to right. The cardiomediastinal silhouette is normal for technique. Bones: No acute osseous abnormality is seen. Procedure Note [facility], Radiant Results Inft User - 01/11/2020 9:34 PM REPAIR CAMERAMAN EXAM: XR CHEST 1 VW COMPARISON: None available HISTORY: bilateral rib pain FINDINGS: Lines/Tubes: None. Lungs: There is volume loss on the right and 10 ill-defined infrahilar opacity or atelectasis. The left lung is hyperexpanded and clear. No pleural effusion or pneumothorax is identified. Heart/Mediastinum: The mediastinum is shifted to right. The cardiomediastinal silhouette is normal for technique. Bones: No acute osseous abnormality is seen. IMPRESSION 1. Right lung ill-defined infrahilar opacity and/or atelectasis. 2. Suggest follow-up with elective contrast chest CT. Performing Organization Address City/State/Zipcode Phone Number PACS/VR/DOSE CBC WITH DIFFERENTIAL (01/11/2020 9:16 PM REPAIR CAMERAMAN) WBC 6.65 4.20 - 10.70 [facility] 10*3/L [facility] RBC 4.04 (L) 4.26 - 5.52 [facility] 10*6/L [facility] HGB 13.0 12.2 - 16.4 [facility] g/dL [facility] HCT 35.9 (L) 38.4 - 49.3 % [facility] MCV 88.9 81.7 - 95.6 fL [facility] MCH 32.2 26.1 - 32.7 pg [facility] MCHC 36.2 (H) 31.2 - 35.0 [facility] g/dL [facility] RDW-SD 36.3 (L) 38.5 - 51.6 fL [facility] RDW-CV 11.2 (L) 12.1 - 15.4 % [facility] PLT 256 150 - 328 [facility] 10*3/L [facility] MPV 8.5 (L) 9.8 - 13.0 fL [facility] NRBC/100 WBC 0.0 0.0 - 10.0 /100 [facility] WBCs [facility] NRBC x10^3 <0.01 10*3/L [facility] GRAN MAT (NEUT) % 61.3 % [facility] IMM GRAN % 0.60 % [facility] LYMPH % 25.0 % [facility] MONO % 12.5 % [facility] EOS % 0.3 % [facility] BASO % 0.3 % [facility] GRAN MAT x10^3(ANC) 4.08 1.99 - 6.95 [facility] 10*3/uL [facility] IMM GRAN x10^3 0.04 0.00 - 0.06 [facility] 10*3/uL [facility] LYMPH x10^3 1.66 1.09 - 3.23 [facility] 10*3/uL [facility] MONO x10^3 0.83 0.36 - 1.02 [facility] 10*3/uL [facility] EOS x10^3 <0.03 (L) 0.06 - 0.53 [facility] 10*3/uL [facility] BASO x10^3 <0.03 0.01 - 0.09 [facility] 10*3/uL [facility] Specimen Blood - VENOUS Performing Organization Address City/[facility]/Zipcode Phone Number [facility] CLIA: [id number], [address] [place] [address] Prothrombin Time (PT) / INR (01/11/2020 9:16 PM REPAIR CAMERAMAN) PROTIME PATIENT 13.4 12.0 - 14.7 [facility] Seconds [facility] INR 1.1Comment: Normal [facility] INR <1.1; Warfarin [facility] Therapeutic range LABORATORY 2.0 to 3.0 or 2.5 to 3.5, depending upon the indications. Specimen Blood - VENOUS Performing Organization Address City/[facility]/Zipcode Phone Number [facility] CLIA: [id number], [address] [place], [place] [address] LABORAT[address] aPTT (01/11/2020 9:16 PM REPAIR CAMERAMAN) Pathologist [facility] APTT Patient 28 23 - 38 Seconds [facility] Specimen Blood - VENOUS Narrative Performed At [facility] population mean normal value [facility] for aPTT is 30 seconds. Performing Organization Address [facility] Phone Number [facility] CLIA: [id number], [address] [place], [place] [id number] LABORAT[address] Troponin I (01/11/2020 9:16 PM REPAIR CAMERAMAN) [facility] TROPONIN I 0.001 <=0.034 ng/mL [facility] Specimen Blood - VENOUS Narrative Performed At Equal or Less than 0.034 ng/ml---Normal [facility] Note: Cardiac troponin begins to rise 3-4 hours after the onset of ischemia. Repeat in 4-6 hours if the sample was drawn within 3-4 hours of the onset of the symptom and found normal. Between 0.035 and 0.120 ng/mL--- Borderline. Questionable myocardial injury or necrosis Note: Serial measurement may be necessary to confirm or exclude the diagnosis of myocardial injury or necrosis; Clinical correlation (symptoms, EKGs, imaging studies, and others) required; Repeat in 4-6 hours if clinically indicated. Equal or Higher than 0.121 ng/mL---Abnormal. Myocardial Injury or Necrosis Likely Biotin has been reported to cause a negative bias, interpret results relative to patient's use of biotin. Performing Organization Address [facility] Phone Number [facility] CLIA: [id number], [address] [place], [place] [id number] LAB[address] Lipase Serum (01/11/2020 9:16 PM REPAIR CAMERAMAN) Pathologist [facility] LIPASE 93 0 - 220 U/L [facility] Specimen Blood - VENOUS Performing Organization Address [facility]/Zipcode Phone Number [facility] CLIA: [id number], [address] [place], [place] [id number] LABORAT[address] Basic Metabolic Panel (NA, K, CL, CO2, GLUCOSE, BUN, CREATININE, CA) (2019 9:16 PM REPAIR CAMERAMAN) Pathologist [facility] NA 121 (L) 135 - 145 [facility] mmol/L [facility] K 4.0 3.5 - 5.0 [facility] mmol/L [facility] CL 83 (L) 98 - 108 mmol/L [facility] CO2 TOTAL 24 23 - 31 mmol/L [facility] AGAP 14 2 - 16 [facility] BUN 11 7 - 23 mg/dL [facility] GLUCOSE 146 (H) 70 - 110 mg/dL [facility] CREATININE 0.70 0.60 - 1.25 [facility] mg/dL [facility] CALCIUM 9.2 8.6 - 10.6 [facility] mg/dL [facility] eGFR Calculation 110.5 mL/min/1.73m2 [facility] ([facility] LABORATORY [place]) eGFR Calculation 134.0 mL/min/1.73m2 [facility] () [facility] Specimen Blood - VENOUS Narrative Performed At [facility] of Glomerular Filtration Rate (GFR) [facility] and Staging of Kidney Disease* + + +- + | GFR (mL/min/1.73 m2) | With Kidney Damage | Without Kidney Damage + + +- + | >90 | Stage one | Normal + + +- + | 60-89 | Stage two | Decreased GFR + + +- + | 30-59 | Stage three | Stage three + + +- + | 15-29 | Stage four | Stage four + + +- + | <15 (or dialysis) | Stage five | Stage five + + +- + *Each stage assumes the associated GFR level has been in effect for at least three months. Stages 1 to 5, with or without kidney [...] tests). Performing Organization Address City/State/Zipcode Phone Number [facility] CLIA: [id number], [address] [place], [place] [phone] documented in this encounter Visit Diagnoses Diagnosis Hyponatremia - Primary Hyposmolality and/or hyponatremia Rib pain Chest pain, unspecified Vomiting, intractability of vomiting not specified, presence of nausea not specified, unspecified vomiting type Cough documented in this encounter Administered Medications Medication Order MAR Action Action Date Dose Rate Site acetaminophen (TYLENOL) tablet Given 01/12/2020 6:54 AM REPAIR CAMERAMAN 650 mg 650 mg 650 mg, Oral, Q6HPRN, Starting 01/12/20 at 0041, Until Discontinued, Routine, Pain (scale 1-3) haloperidol lactate (HALDOL) injection 2.5 Given 01/15/2020 2:21 PM REPAIR CAMERAMAN 2.5 mg mg 2.5 mg, Slow IV Push, Q6HPRN, Starting Mon01/15/20 at 1415, Until Discontinued, Routine, Psychosis heparin (porcine) injection Given 01/15/2020 8:17 PM REPAIR CAMERAMAN 5,000 Units Abdomen-SC 5,000 Units 5,000 Units, Subcutaneous, Q8H, First dose on 01/12/20 at 0600, Until Discontinued, Routine Given 01/15/2020 2:41 PM REPAIR CAMERAMAN 5,000 Units Abdomen-SC Given 01/15/2020 5:00 AM REPAIR CAMERAMAN 5,000 Units Abdomen-SC hydralAZINE (APRESOLINE) injection 10 mg 10 mg, Intravenous, PRN - SEE INSTRUCTIONS, Starting [place] 01/12/20 at 1310, Until Discontinued, Routine, Hypertensive emergency, Hypertension, Q4h for SBP>160 or DBP>100 HYDROcodone-acetaminophen (NORCO) 10-325 Given 01/15/2020 12:50 PM REPAIR CAMERAMAN 1 tablet mg tablet 1 tablet 1 tablet, Oral, Q6HPRN, Starting 01/12/20 at 0041, Until Discontinued, Routine, Pain (scale 7-10) Given 01/15/2020 5:00 AM REPAIR CAMERAMAN 1 tablet Given 01/14/2020 11:01 PM REPAIR CAMERAMAN 1 tablet latanoprost (XALATAN) 0.005 % ophthalmic Given 01/15/2020 8:17 PM REPAIR CAMERAMAN 1 Drop drops 1 Drop 1 Drop, Both Eyes, QHS, First dose on 01/12/20 at 2100, Until Discontinued, Routine Given 01/14/2020 8:51 PM REPAIR CAMERAMAN 1 Drop Given 01/13/2020 10:07 PM REPAIR CAMERAMAN 1 Drop metoprolol tartrate (LOPRESSOR) tablet 25 mg Given 01/15/2020 8:17 PM REPAIR CAMERAMAN 25 mg 25 mg, Oral, BID, First dose on Mon01/13/20 at 2000, Until Discontinued, Routine Given 01/15/2020 8:32 AM REPAIR CAMERAMAN 25 mg Given 01/14/2020 8:52 PM REPAIR CAMERAMAN 25 mg nicotine (NICODERM) 14 mg/24 hr patch 1 Given 01/15/2020 8:20 PM REPAIR CAMERAMAN 1 Patch Patch 1 Patch, Topical, Administer over 24 Hours, Q24H, First dose on Mon01/13/20 at 1715, Until Discontinued, Routine Applied 01/14/2020 5:08 PM REPAIR CAMERAMAN 1 Patch Given 01/13/2020 4:11 PM REPAIR CAMERAMAN 1 Patch ondansetron (ZOFRAN (PF)) injection 4 mg Given 01/14/2020 8:52 PM REPAIR CAMERAMAN 4 mg 4 mg, Slow IV Push, Q6HPRN, Starting 01/12/20 at 0041, Until Discontinued, Routine, Nausea and Vomiting (N/V) Given 01/14/2020 2:57 AM REPAIR CAMERAMAN 4 mg Given 01/13/2020 2:21 AM REPAIR CAMERAMAN 4 mg QUEtiapine (SEROQUEL) tablet 50 mg Given 01/15/2020 8:16 PM REPAIR CAMERAMAN 50 mg 50 mg, Oral, QHS, First dose on Mon01/15/20 at 2100, Until Discontinued, Routine tolvaptan (SAMSCA) tablet 15 mg Given 01/15/2020 2:41 PM REPAIR CAMERAMAN 15 mg 15 mg, Oral, DAILY, 7 doses, First dose on Mon01/15/20 at 1300, Last dose on Mon01/21/20 at 0900, Routine, membership solicitor approving Restricted medication: JULIAN PANG Medication Order MAR Action Action Date Dose Rate Site furosemide (LASIX) injection 20 mg Given 01/14/2020 7:59 AM REPAIR CAMERAMAN 20 mg 20 mg, Slow IV Push, DAILY, First dose on Mon01/14/20 at 0900, Until Discontinued, Routine furosemide (LASIX) injection 40 mg Given 01/15/2020 8:32 AM REPAIR CAMERAMAN 40 mg 40 mg, Slow IV Push, DAILY, First dose on Mon01/15/20 at 0900, Until Discontinued, Routine haloperidol lactate (HALDOL) Given 01/13/2020 4:11 PM REPAIR CAMERAMAN 5 mg Left Deltoid-IM injection 5 mg 5 mg, Intramuscular, ONCE, 1 dose, Mon01/13/20 at 1715, Routine haloperidol lactate (HALDOL) injection 5 mg Given 01/14/2020 2:53 AM REPAIR CAMERAMAN 5 mg 5 mg, Slow IV Push, ONCE, 1 dose, 01/14/20 at 0400, Routine iohexol (OMNIPAQUE 350 BULK-100 mL) Given 01/11/2020 10:20 PM REPAIR CAMERAMAN 120 mL injection 120 mL 120 mL, Intravenous, ONCE, 1 dose, 01/11/20 at 2230, Routine ketorolac (TORADOL) injection 15 mg Given 01/12/2020 12:03 AM REPAIR CAMERAMAN 15 mg 15 mg, Slow IV Push, ONCE, 1 dose, [place] 01/12/20 at 0100, KATIA, membership solicitor approving Restricted medication: MERLENE SWEENEY LORazepam (ATIVAN) injection 0.5 mg Given 01/13/2020 3:28 AM REPAIR CAMERAMAN 0.5 mg 0.5 mg, Slow IV Push, ONCE, 1 dose, Mon01/13/20 at 0415, Routine metoprolol tartrate (LOPRESSOR) tablet 12.5 Given 01/13/2020 8:26 AM REPAIR CAMERAMAN 12.5 mg mg 12.5 mg, Oral, BID, First dose on Mon01/12/20 at 0800, Until Discontinued, Routine Given 01/12/2020 7:58 PM REPAIR CAMERAMAN 12.5 mg Given 01/12/2020 8:58 AM REPAIR CAMERAMAN 12.5 mg NaCl 0.9% (NS) IV infusion 1,000 New Bag 01/13/2020 5:25 AM REPAIR CAMERAMAN 1,000 mL 100 mL/hr mL at 100 mL/hr, IV Infusion, CONTINUOUS, Starting Mon01/12/20 at 0145, Until 01/13/20 at 1000, Routine New Bag 01/12/2020 7:57 PM REPAIR CAMERAMAN 1,000 mL 100 mL/hr New Bag 01/12/2020 1:21 AM REPAIR CAMERAMAN 1,000 mL 100 mL/hr NaCl 0.9% (NS) IV infusion 1,000 New Bag 01/14/2020 4:13 AM REPAIR CAMERAMAN 1,000 mL 125 mL/hr mL at 125 mL/hr, IV Infusion, CONTINUOUS, Starting 01/13/20 at 1015, Until Mon01/14/20 at 1416, Routine New Bag 01/13/2020 8:35 PM REPAIR CAMERAMAN 1,000 mL 125 mL/hr New Bag 01/13/2020 12:41 PM REPAIR CAMERAMAN 1,000 mL 125 mL/hr NaCl 0.9% (NS) IV infusion New Bag 01/13/2020 10:17 AM REPAIR CAMERAMAN 999 mL/hr IV Infusion, at 999 mL/hr, ONCE, 1 dose, Mon01/13/20 at 1100, Routine ondansetron (ZOFRAN (PF)) injection 4 mg Given 01/11/2020 9:13 PM REPAIR CAMERAMAN 4 mg 4 mg, Slow IV Push, ONCE, 1 dose, 01/11/20 at 2215, KATIA sodium chloride tablet 1 g Given 01/14/2020 1:05 PM REPAIR CAMERAMAN 1 g 1 g, Oral, TID MEALS, First dose on Mon01/13/20 at 1200, Until Discontinued, Routine Given 01/14/2020 7:59 AM REPAIR CAMERAMAN 1 g Given 01/13/2020 8:21 PM REPAIR CAMERAMAN 1 g sodium chloride tablet 2 g Given 01/15/2020 12:50 PM REPAIR CAMERAMAN 2 g 2 g, Oral, TID MEALS, First dose on Mon01/14/20 at 1700, Until Discontinued, Routine Given 01/15/2020 8:32 AM REPAIR CAMERAMAN 2 g Given 01/14/2020 5:08 PM REPAIR CAMERAMAN 2 g documented in this encounter Insurance Payer Benefit Plan / Subscriber ID Effective Phone Address Type Group Dates [employer] MEDICARE [id number] 2018-Prese Medicare Adv HEALTHCARE COMPLETE nt PPO MEDICARE CHOICE ADVANTAGE documented as of this encounter Advance Directives Name Relationship Healthcare Agent Communication Relationship Noel Mccormick Child Primary healthcare agent
[2020-01-16 00:35] LABS: Protime INR 1.06
[2020-01-16 00:36] LABS: Absolute Lymphocytes (CBC) 1.5 K/uL (0.7-4.9); Basophils % 0.5 % (0-1.3); Hematocrit 36.9 % (39.6-49.0); Lymphocytes % 22.3 % (15.3-44.8); RBC Red Blood Cell Count 3.97 M/uL (4.33-5.43)
[2020-01-16 00:44] LABS: ALT/SGPT 29 U/L (12-78); AST/SGOT 33 U/L (15-37); Albumin 3.1 g/dL (3.4-5.0); Alkaline Phosphatase 74 U/L (45-117); BUN Blood Urea Nitrogen 10 mg/dL (7-18); Bicarbonate 26 mmol/L (21-32); Bilirubin Direct 0.1 mg/dL (0-0.2); Bilirubin Total 0.5 mg/dL (0.2-1.0); Glucose Level 117 mg/dL (74-106); NT PRO-BNP 76 pg/mL (<125); Sodium Level 129 mmol/L (136-145); Troponin (Emerg Dept Use Only) < 0.02 ng/mL (0.0-0.045)
[2020-01-16 01:15] LABS: Blood Morphology Comment NOT SEEN (NOT SEEN); Platelet Estimate ADEQ
--- NOTE | 2020-01-16 01:49 | ER ---
Nurse's Notes [facility] Name: Uziel Islas Age: 74 yrs Sex: Male : 1945 Arrival Date: 01/15/2020 Time: 23:44 Bed 8 Private MD: Diagnosis: Hypo-osmolality and hyponatremia;Syndrome of inappropriate secretion of antidiuretic hormone Presentation: 01/14 23:52 Chief complaint: Patient's son or daughter states: he has blood work done this morning mg2 at [facility] and his Na was 123 mmol. he has history of Bladder and lung Ca. last Chemo was Oct 2019. Coronavirus screen: The patient has NOT traveled to a country currently being monitored by the CDC within the last 14 days. Proceed with normal triage procedures. The patient has NOT had contact with any known and/or suspected case of coronavirus. Proceed with normal triage procedures. Ebola Screen: No symptoms or risks identified at this time. Initial Sepsis Screen: Does the patient meet any 2 criteria? No. Patient's initial sepsis screen is negative. Does the patient have a suspected source of infection? No. Patient's initial sepsis screen is negative. Risk Assessment: Do you want to hurt yourself or someone else? Patient reports no desire to harm self or others. 23:52 Method Of Arrival: Wheelchair mg2 23:52 Acuity: SRINIVAS 3 mg2 01/15 00:27 Onset of symptoms was January 2020. mg2 Historical: - Allergies: 01:31 No Known Allergies; mg2 - Home Meds: 01/14 23:55 metoprolol tartrate Oral [Active]; Albuterol Nebulizer [Active]; ipatropium [Active]; mg2 - PMHx: 23:55 Glaucoma; Lung CA; bladder ca; Hypertension; mg2 - PSHx: 23:55 None; mg2 - Immunization history:: Flu vaccine is not up to date. - Social history:: Smoking status: Patient denies any tobacco usage or history of. Patient/guardian denies using alcohol, street drugs, IV drugs. Screenin/05 00:21 Abuse screen: Denies threats or abuse. Denies injuries from another. Nutritional mg2 screening: No deficits noted. Tuberculosis screening: No symptoms or risk factors identified. 00:27 Fall Risk IV access (20 points). mg2 Assessment: 00:26 General: Appears in no apparent distress. comfortable, Behavior is calm, cooperative. mg2 Pain: Denies pain. Neuro: Level of Consciousness is awake, alert, obeys commands, Oriented to person, place, time, situation. Cardiovascular: Capillary refill < 3 seconds Patient's skin is warm and dry. Respiratory: Airway is patent Respiratory effort is even, unlabored, Respiratory pattern is regular, symmetrical. Respiratory: Reports cough that is. GI: No signs and/or symptoms were reported involving the gastrointestinal system. : No signs and/or symptoms were reported regarding the genitourinary system. EENT: No signs and/or symptoms were reported regarding the EENT system. Derm: Skin is intact, is healthy with good turgor, Skin is pink, warm \T\ dry. normal. Musculoskeletal: Circulation, motion, and sensation intact. Capillary refill < 3 seconds. 01:31 Reassessment: Patient appears in no apparent distress at this time. Patient and/or mg2 family updated on plan of care and expected duration. Pain level reassessed. Patient is alert, oriented x 3, equal unlabored respirations, skin warm/dry/pink. Vital Signs: 01/14 23:52 BP 166 / 80; Pulse 78; Resp 18; Temp 97.8; Pulse Ox 95% on R/A; Weight 63.5 kg; Height mg2 5 ft. 7 in. (170.18 cm); 01/15 01:30 BP 117 / 86; Pulse 90; Resp 17; Pulse Ox 95% on R/A; mg2 02:49 BP 123 / 68; Pulse 94; Resp 18; Pulse Ox 95% on R/A; mg2 01/14 23:52 Body Mass Index 21.93 (63.50 kg, 170.18 cm) mg2 ED Course: 01/14 23:44 Patient arrived in ED. cl3 23:44 Isaac Biswas, MATTY is Primary Nurse. rv 23:45 Marck Darnell MD is Attending Physician. tw4 23:54 Triage completed. mg2 23:54 Arm band placed on. mg2 01/15 00:21 No provider procedures requiring assistance completed. Inserted saline lock: 20 gauge mg2 in right antecubital area, using aseptic technique. Blood collected. 00:27 Patient has correct armband on for positive identification. mg2 00:53 CXR XRAY In Process Unspecified. EDMS 01:30 surveillance monitor on. Pulse ox on. NIBP on. Door closed. Warm blanket given. mg2 01:47 Roddy Adhikari MD is Hospitalizing Provider. tw4 03:27 Cleaned of incontinence. mg2 03:30 Patient admitted, IV remains in place. mg2 Administered Medications: No medications were administered Outcome: 01:48 Decision to Hospitalize by Provider. tw4 03:30 Admitted to Tele accompanied by nurse, via stretcher, room 410, with chart, Report mg2 called to MATTY Baig 03:30 Condition: stable 03:30 Instructed on the need for admit, Demonstrated understanding of instructions. 03:54 Patient left the ED. mg2 Signatures: Dispatcher [employer] EDMarck Hansen MD MD tw4 Cipriano Ash RN RN mg2 Isaac Biswas, RN RN Rosie Alcantara cl3
--- NOTE | 2020-01-16 01:50 | EDPHYS ---
Physician Documentation [facility] Name: Uziel Islas Age: 74 yrs Sex: Male : 1945 Arrival Date: 01/15/2020 Time: 23:44 Bed 8 Private MD: ED Physician Marck Darnell HPI: 01/15 06:16 This 74 yrs old Black Male presents to ER via Wheelchair with complaints of Low Sodium. tw4 06:16 PTS FAMILY LEFT [facility] AMA AND BROUGHT PT HERE. PT WA BEING TREATED THERE tw4 FOR HYPONATREMIA . Onset: The symptoms/episode began/occurred today. Severity of symptoms: At their worst the symptoms were moderate in the emergency department the symptoms are unchanged. The patient has not experienced similar symptoms in the past. Historical: - Allergies: : No Known Allergies; mg2 - Home Meds: 01/14 23:55 metoprolol tartrate Oral [Active]; Albuterol Nebulizer [Active]; ipatropium [Active]; mg2 - PMHx: 23:55 Glaucoma; Lung CA; bladder ca; Hypertension; mg2 - PSHx: 23:55 None; mg2 - Immunization history:: Flu vaccine is not up to date. - Social history:: Smoking status: Patient denies any tobacco usage or history of. Patient/guardian denies using alcohol, street drugs, IV drugs. ROS: 01/15 06:16 Constitutional: Negative for fever, chills, and weight loss, Eyes: Negative for injury, tw4 pain, redness, and discharge, Cardiovascular: Negative for chest pain, palpitations, and edema, Respiratory: Negative for shortness of breath, cough, wheezing, and pleuritic chest pain, Abdomen/GI: Negative for abdominal pain, nausea, vomiting, diarrhea, and constipation, Back: Negative for injury and pain, MS/Extremity: Negative for injury and deformity, Skin: Negative for injury, rash, and discoloration, Neuro: Negative for headache, weakness, numbness, tingling, and seizure. Exam: 06:16 Constitutional: This is a well developed, well nourished patient who is awake, alert, tw4 and in no acute distress. Head/Face: Normocephalic, atraumatic. Chest/axilla: Normal chest wall appearance and motion. Nontender with no deformity. No lesions are appreciated. Cardiovascular: Regular rate and rhythm with a normal S1 and S2. No gallops, murmurs, or rubs. Normal PMI, no JVD. No pulse deficits. Respiratory: Lungs have equal breath sounds bilaterally, clear to auscultation and percussion. No rales, rhonchi or wheezes noted. No increased work of breathing, no retractions or nasal flaring. Abdomen/GI: Soft, non-tender, with normal bowel sounds. No distension or tympany. No guarding or rebound. No evidence of tenderness throughout. Back: No spinal tenderness. No costovertebral tenderness. Full range of motion. MS/ Extremity: Pulses equal, no cyanosis. Neurovascular intact. Full, normal range of motion. Neuro: Awake and alert, GCS 15, oriented to person, place, time, and situation. Cranial nerves II-XII grossly intact. Motor strength 5/5 in all extremities. Sensory grossly intact. Cerebellar exam normal. Normal gait. Vital Signs: 01/14 23:52 BP 166 / 80; Pulse 78; Resp 18; Temp 97.8; Pulse Ox 95% on R/A; Weight 63.5 kg; Height mg2 5 ft. 7 in. (170.18 cm); 01/15 01:30 BP 117 / 86; Pulse 90; Resp 17; Pulse Ox 95% on R/A; mg2 02:49 BP 123 / 68; Pulse 94; Resp 18; Pulse Ox 95% on R/A; mg2 01/14 23:52 Body Mass Index 21.93 (63.50 kg, 170.18 cm) mg2 MDM: 00:04 Patient medically screened. tw4 06:16 Data reviewed: vital signs, nurses notes. Data reviewed: lab test result(s), cardiac tw4 enzymes, CBC, electrolytes. Data interpreted: Pulse oximetry: Interpretation: normal. Counseling: I had a detailed discussion with the patient and/or guardian regarding: the historical points, exam findings, and any diagnostic results supporting the discharge/admit diagnosis. Physician consultation: Roddy Adhikari MD regarding admission, to the telemetry unit. patient's condition. 01/14 23:46 Order name: Basic Metabolic Panel tw4 01/15 01:07 Interpretation: Normal except: NA 129; CL 94; GLUC 117; GFR 88. tw4 01/14 23:46 Order name: CBC with Diff tw4 01/14 23:46 Order name: LFT's tw4 01/15 01:07 Interpretation: Normal except: ALB 3.1; GLOB 3.9; A/G 0.8. tw4 01/14 23:46 Order name: Magnesium tw4 01/15 01:07 Interpretation: Within normal limits: MG 2.0. tw4 01/14 23:46 Order name: NT PRO-BNP tw4 01/15 01:09 Interpretation: NT PRO-BNP 76. tw4 01/14 23:46 Order name: PT-INR; Complete Time: 01:05 tw4 01/15 01:09 Interpretation: Within normal limits: PT 12.5. tw4 01/14 23:46 Order name: Troponin (emerg Dept Use Only) tw4 01/15 01:09 Interpretation: Within normal limits: TROPED < 0.02. tw4 01/15 00:04 Order name: Glucose, Ancillary Testing; Complete Time: 01:05 EDMS 01/15 00:14 Order name: Glucose, Ancillary Testing EDMS 01/15 00:18 Order name: CXR XRAY tw4 01/15 00:53 Order name: Manual Differential EDMS 01/15 02:15 Order name: Comprehensive Metabolic Panel EDMS 01/15 02:15 Order name: Comprehensive Metabolic Panel EDMS 01/15 02:16 Order name: Osmolality, Serum EDMS 01/14 23:46 Order name: EKG; Complete Time: 23:47 tw4 01/14 23:46 Order name: Cardiac monitoring; Complete Time: 00:20 tw4 01/14 23:46 Order name: EKG - Nurse/Tech; Complete Time: 00:20 tw4 01/14 23:46 Order name: IV Saline Lock; Complete Time: 00:21 tw4 01/14 23:46 Order name: Labs collected and sent; Complete Time: 00:20 tw4 01/14 23:46 Order name: O2 Per Protocol; Complete Time: 00:20 tw4 01/14 23:46 Order name: O2 Sat Monitoring; Complete Time: 00:20 tw4 01/15 02:16 Order name: CONS Pharmacy Consult EDMS 01/15 02:16 Order name: CONS Physician Consult EDMS 01/15 02:16 Order name: CONS Physician Consult EDMS 01/15 02:16 Order name: Regular EDAR EC:29 Rate is 96 beats/min. Rhythm is regular with Right bundle branch block. QRS [place] is tw4 Normal. NC interval is normal. QRS interval is normal. QT interval is normal. No Q waves. T waves are Normal. No ST changes noted. Clinical impression: NSR w/ Non-specific ST/T Changes. Interpreted by me. Reviewed by me. Administered Medications: No medications were administered Disposition: 01/16/20 01:48 Hospitalization ordered by oRddy Adhikari for Inpatient Admission. Preliminary diagnosis are Hypo-osmolality and hyponatremia, Syndrome of inappropriate secretion of antidiuretic hormone. - Bed requested for Telemetry/MedSurg (Inpatient). - Status is Inpatient Admission. mg2 - Condition is Stable. - Problem is an ongoing problem. - Symptoms are unchanged. Signatures: Dispatcher [employer] EDAR Kristel Akers RN RN tl1 Marck Darnell MD MD tw4 Cipriano Ash RN RN mg2 Corrections: (The following items were deleted from the chart) 02:23 01:48 Hospitalization Ordered by Roddy Adhikari MD for Inpatient Admission. Preliminary tl1 diagnosis is Hypo-osmolality and hyponatremia; Syndrome of inappropriate secretion of antidiuretic hormone. Bed requested for Telemetry/MedSurg (Inpatient). Status is Inpatient Admission. Condition is Stable. Problem is an ongoing problem. Symptoms are unchanged. tw4 03:54 02:23 01/16/2020 01:48 Hospitalization Ordered by Roddy Adhikari MD for Inpatient mg2 Admission. Preliminary diagnosis is Hypo-osmolality and hyponatremia; Syndrome of inappropriate secretion of antidiuretic hormone. Bed requested for Telemetry/MedSurg (Inpatient). Status is Inpatient Admission. Condition is Stable. Problem is an ongoing problem. Symptoms are unchanged. tl1
[2020-01-16] MEDS ORDERED: MORPHINE 2 MG/ML SYR IV PRN (02:07)
[2020-01-16] MEDS ORDERED: ONDANSETRON 4 MG/2 ML VIAL IV PRN (02:07)
[2020-01-16] MEDS ORDERED: HYDRALAZINE HCL 20 MG/ML VIAL IV PRN (02:10)
[2020-01-16] MEDS ORDERED: NA CHLORIDE 0.9% 1,000 ML IV SCH (03:00)
[2020-01-16 04:22] VITALS: BMI 21.9
--- NOTE | 2020-01-16 04:32 | HP ---
Date of Admission: 01/16/2020 Presenting Complaint: Hyponatremia. History Of Present Illness: Mr. Uziel Islas is a 74-year-old male with his tory of lung cancer, on chemotherapy, follows with Dr. Mauro, hypertension, BPH, hyponatremi a, who was admitted to [facility] at [place] 5 days ago after being noted to be incoherent and confused. Wh ile at the hospital, he was noted with the sodium of 122. He was initially started on normal saline with no improvement in sodium level or symptoms. He was seen by Nephrology there and later started o n tolvaptan yesterday. Since then, his sodium has been improving to 127 this evening. Family decide d to bring patient to the emergency room due to patient's oncologist being here. Patient's last dose of chemo was 3 months ago. Family states patient is eating well and basically a bit sluggish. Shahida ent feels drowsy, but denies any complaint. He denies any pain, headache, or dizziness. He states h e feels fine. Next, repeat sodium in the ED was up to 129 now. Patient denies any recent diarrhea o r vomiting. Past Medical History: Recurrent hyponatremia, BPH, history of lung cancer, history of bladder cancer . Allergies: NO KNOWN DRUG ALLERGY. Home Medications: Metoprolol, albuterol/ipratropium. Past Surgical History: None. Family History: Noncontributory. Review of Systems: Poor given patient's confusion. Physical Examination: Vital Signs: Current blood pressure of 126/81, pulse of 78, respiratory rate of 18, temperature 97.8 , O2 95 on room air. Initial blood pressure on presentation was 166/80. General: Elderly male, slightly overweight, drowsy, easily arousable. HEENT: Head is atraumatic, normocephalic. Pupils equal, reactive to light. Slightly dry oral mucos a. Neck: No JVD. No carotid bruit. Respiratory: Good air entry with right basal crepitations. Cardiovascular: S1, S2. Rate and rhythm regular. GI: Abdomen is full, soft, nontender. No suprapubic fullness. Extremities: No pedal edema. No calf tenderness. Neuro: Patient is drowsy. He is alert and oriented to person only/x1, but not to time or place. He thinks he is at his house. Laboratory Data: Hemoglobin 12.6, platelets 276. INR 1. Sodium 129, BUN 10, magnesium 2. AST, alk wayne phosphatase normal. ProBNP 76. Impression: 1.Symptomatic hyponatremia, improving with tolvaptan. 2.Lung cancer. Plan: We will admit patient to observation, improving sodium noted. Agree with likely SIADH, pharma cy discussed with try to obtain tolvaptan. We will restart patient on tolvaptan 15 mg daily for now. If serum sodium above 132, tolvaptan can be discontinued. High risk of recurrence of hyponatremia given ongoing lung cancer. We will start gentle IV fluid with normal saline for now, although previo usly tried for hydration. We will do subcutaneous Lovenox for DVT prophylaxis. We will consult Onco logy, Dr. Mauro to evaluate the patient and consider plan for any repeat chemo. Advance dir ectives discussed with patient's son at bedside. Patient wishes to be full code for now. We will co nsult Nephrology to help with further management of the serum sodium. Total time spent in review of record, discussion with patient and family and ER physician as well as calls from NE at [place] greater than 60 minutes. EO/MODL Voice ID: [id number]
[2020-01-16 05:59] LABS: Urine Appearance CLEAR; Urine Bilirubin NEGATIVE (NEG); Urine Blood NEGATIVE (NEG); Urine Color YELLOW; Urine Glucose NEGATIVE (NEG); Urine Protein NEGATIVE (NEG); Urine Specific Gravity <=1.005 (1.005-1.030); Urine Urobilinogen 0.2 mg/dL (0.2-1.0); Urine pH 6.5 (5.0-7.0)
[2020-01-16 06:07] LABS: Urine Microscopic Reflex NO UMIC
[2020-01-16] MEDS ORDERED: INFLUENZA VACCINE (for 3y+) 0.5 ML DOSE IMVAC ONE (08:00)
--- NOTE | 2020-01-16 08:20 | RAD REPORT ---
EXAM DESCRIPTION: [place] Single View01/16/2020 12:44 am CLINICAL HISTORY: Cough COMPARISON: October 2019 FINDINGS: Small to moderate right pleural effusion with mild right basilar atelectasis. Mild right lung opacities. Left lung appears clear Mild mediastinal and hilar lymphadenopathy
[2020-01-16] MEDS ORDERED: [UNRECOGNIZED DRUG - OTHER] PO SCH (09:00)
[2020-01-16] MEDS: ENOXAPARIN 40 MG/0.4 ML SQ SCH (09:42)
[2020-01-16] MEDS: FAMOTIDINE 20 MG TAB PO SCH ×2 (09:42→20:41)
--- NOTE | 2020-01-16 11:38 | EKG ---
Test Date: 2020-01-16 Test Time: 00:15:56 Research Assistant: MG MEASUREMENT RESULTS: Intervals: Rate: 96 UT: 110 QRSD: 124 QT: 372 QTc: 469 [place]: P: 54 UT: 110 QRS: 50 T: 47 INTERPRETIVE STATEMENTS: Sinus rhythm with short UT Possible Left atrial enlargement Indeterminate axis Right bundle branch block Abnormal ECG Compared to ECG 07/31/2019 09:43:27 Short UT interval now present Indeterminate axis now present Right bundle-branch block now present Sinus tachycardia no longer present Ventricular premature complex(es) no longer present Electronically Signed On 01-16-20 11:36:23 FIRE EQUIPMENT INSPECTOR by Kirt Rosario
--- NOTE | 2020-01-16 11:48 | P.PN ---
Subjective Date of Service: 01/16/20 Primary Care Provider: Oncology-Dr. Hester; Nephrology-Dr. Pang Subjective: Doing well Physical Examination - Vital Signs Temperature: 97 F Blood Pressure: 117/75 Pulse: 92 Respirations: 16 Pulse Ox (%): 95 - Physical Exam General: Alert HEENT: Atraumatic Neck: Supple Respiratory: Clear to auscultation bilaterally, Normal air movement Cardiovascular: Normal pulses, Regular rate/rhythm Gastrointestinal: Normal bowel sounds Neurological: Normal speech, Normal strength at 5/5 x4 extr, Normal tone - Studies Laboratory Data (last 24 hrs) 01/16/20 00:01: PT 12.5, INR 1.06 01/16/20 00:01: WBC 6.7, Hgb 12.6 L, Hct 36.9 L, Plt Count 276 01/16/20 00:01: Sodium 129 L, Potassium 4.0, BUN 10, Creatinine 1.01, Glucose 117 H, Magnesium 2.0, Total Bilirubin 0.5, AST 33, ALT 29, Alkaline Phosphatase 74 Medications List Reviewed: Yes Assessment & Plan Discharge Plan: Home Plan to discharge in: 24 Hours Physician Review Additional Text: Impression: 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 Patient with stage IV small-cell lung cancer. This is not curable. Patient had chemotherapy 6 months ago. Patient had metastasis in multiple areas in the past. She mentioned sodium was stable in remission. Patient likely with worsening metastasis. Will obtain CT scan of the chest abdomen and pelvis to further assess. Life expectancy likely less than [address] scan. Patient likely requires hospice. Will further discuss with patient and family. Will discuss with nephrology about his hyponatremia. Sodium improved. Possible discharge today. 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 Will discuss further after CT scan. Patient likely requires hospice. Will address advanced directives and plan of care. Case discussed at length with oncology. Time Spent Managing Pts Care (In Minutes): 55
--- NOTE | 2020-01-16 13:11 | RAD REPORT ---
EXAM DESCRIPTION: CT - Chest Abdomen Pelvis W Cont - 01/16/2020 12:54 pm CLINICAL HISTORY: Chest and abdominal pain status post fall COMPARISON: October 2019 TECHNIQUE: Computed axial tomography of the chest, abdomen and pelvis was obtained. 100 cc Isovue-30 0 was administered intravenously. Oral contrast was not requested. This limits evaluation of bowel. All CT scans are performed using dose optimization technique as appropriate and may include automated exposure control or mA/KV adjustment according to patient size. FINDINGS: An 8 x 6 centimeter mass is present within the right hilum extending into the the mediasti num and right lower lobe. The mass occludes the right mainstem bronchus and encases the distal right main pulmonary artery. It compresses of the left atrium and superior vena cava. 3.9 x 2.7 centimeter superior mediastinal lymph node. Pretracheal lymph nodes 3.5 x 2.2 centimeter. A dditional 2.5 centimeter pretracheal lymph node. Left paratracheal lymph node. Right lower lobe atelectasis is seen. Small right pleural effusion is present. 6.3 x 5.7 centimeter mass within the medial aspect of the right lobe of the liver has significantly i ncreased in size. It compresses the inferior vena cava The spleen, pancreas, adrenals and kidneys unremarkable. 2.1 x 1.5 centimeter gastrohepatic lymph nod e Normal appendix. There is no evidence of diverticulitis IMPRESSION: 8 x 6 centimeter right hilar mass extends into the mediastinum and right lower lobe occl uding the right mainstem bronchus resulting in right lower lobe atelectasis. 6.3 centimeter hepatic metastasis
--- NOTE | 2020-01-16 14:23 | CON ---
Date of Consultation: 01/16/2020 Reason For Consultation: Hyponatremia. History Of Present Illness: This is a pleasant, unfortunate 74-year-old gentleman, well-known to me from the previous hospitalization at [facility]. The patient with significant past medical history of hypo natremia, benign prostatic hypertrophy, lung cancer with mets, bladder cancer with mets, follows up w franklin Hester. Patient recently admitted to the [facility] up to yesterday because of hyponatremia. There, we started him on salt tablet 2 g t.i.d. for the last 3 days. We did not have any improvement, sodiu m continued to be around 122, then we started the patient on tolvaptan. Sodium started being correct ed up to 129. The patient's family apparently decided to move the patient to our hospital closer to Dr. Hester, his oncologist. Patient denied any nonsteroidals. No other change in medication. Patient not on any diuresis after . Patient denied any fever, any chills, still feeling weak. Paul jason upon arrival to the hospital sodium was up to 127. Past Medical History: Include: 1.Hyponatremia. 2.Benign prostatic hypertrophy. 3.SIADH. 4.Bladder CA with mets. 5.Lung CA with mets. Allergies: NO KNOWN DRUGS ALLERGY. Home Medications: Include tolvaptan, metoprolol, breathing treatment. Surgical History: Negative. Family History: Positive for hypertension. Review of Systems: Head and Neck: No red eye. No ear pain. GI: No nausea, no vomiting, poor intake. : No polyuria. No dysuria. No hematuria. Career Advisor: Not applicable. Respiratory: No shortness of breath. Cardiovascular: No chest pain. Endocrine: No polydipsia. Skin: No rash. Neuro: Has altered mental status, weakness. Musculoskeletal: Fatigue. Physical Examination: Vital Signs: When I saw the patient, blood pressure 117/75, pulse of 92. Afebrile. Chest: Crackles on the left base. Heart: S1, S2. Systolic murmur. Abdomen: Soft nontender. Extremities: No edema. Laboratory Data: WBC 6.7, H and H 12.6/36.9, platelets 279. Sodium 129, potassium 4, bicarb 26, BUN 10, creatinine 1, calcium 8.6, magnesium of 2. TSH 4.2, cortisol 28, serum osmolality 279. Urinaly sis; specific gravity of 1.005. Urine osmolality 92, urine sodium of 26, urine potassium of 2. Current Medications: In the hospital include Lovenox, hydralazine, IV fluids. Tolvaptan 15 daily. Assessment And Plan: 1.SIADH, hyponatremia, paraneoplastic secondary to lung CA, failed on salt tablet. Patient is going to need to continue on tolvaptan. LFT within normal limits. I again continued tolvaptan 15 mg sophie y and we will monitor the patient closely. I will discuss with the hospice social worker regarding getting a uthorized by insurance. 2.We will monitor chemistry for the patient. 3.Hypertension, controlled optimal. We will follow up the patient. HUMBERTO Voice ID: [id number] Report ID: [id number]
[2020-01-16] MEDS: METOPROLOL TAR 25 MG TAB PO SCH (22:15)
[2020-01-17 06:17] LABS: Absolute Lymphocytes (CBC) 1.5 K/uL (0.7-4.9); Basophils % 0.7 % (0-1.3); Hematocrit 39.9 % (39.6-49.0); MPV 7.3 fL (7.6-11.3); RBC Red Blood Cell Count 4.25 M/uL (4.33-5.43)
[2020-01-17 06:30] LABS: Albumin 2.9 g/dL (3.4-5.0); Bilirubin Total 0.7 mg/dL (0.2-1.0); Phosphorus 3.7 mg/dL (2.5-4.9); Potassium 4.4 mmol/L (3.5-5.1); Protein, Total 7.1 g/dL (6.4-8.2)
[2020-01-17] MEDS: METOPROLOL TAR 25 MG TAB PO SCH (08:09)
[2020-01-17] MEDS: FAMOTIDINE 20 MG TAB PO SCH (08:09)
[2020-01-17] MEDS: ENOXAPARIN 40 MG/0.4 ML SQ SCH (08:10)
[2020-01-17 08:18] VITALS: O2SAT 95
[2020-01-17] MEDS ORDERED: SAMSCA 15 MG PO SCH (09:00)
--- NOTE | 2020-01-17 11:18 | P.PN ---
Subjective Date of Service: 01/24/20 Primary Care Provider: Oncology-Dr. Hester; Nephrology-Dr. Pang Subjective A 74 Y/o man with Hx of metastatic lung Ca and hyponatremia nephrology consulted for hyponatremia today Na improved to 134 family want hospice care will hold on treatment Past Medical History: Include: 1. Hyponatremia. 2. Benign prostatic hypertrophy. 3. SIADH. 4. Bladder CA with mets. 5. Lung CA with mets. Allergies: NO KNOWN DRUGS ALLERGY. Home Medications: Include tolvaptan, metoprolol, breathing treatment. Surgical History: Negative. PHYSICAL EXAM general: AAOX3, NAD , THIN Neck; Supple, No elevated JVD hear: RRR, normal S1,2 no murmur or rub Chest: CTAB, no rlaes or wheezes Abdomen: Soft , Nt Extremities No edema or ulcer Assessment And Plan: Euvolemic hyponatremia due to SIADH family agreed for hospice care can hold tolvaptan Meatstatic lung Ca poor prognosis Comfort care Physical Examination - Vital Signs Temperature: 97.4 F Blood Pressure: 136/66 Pulse: 96 Respirations: 20 Pulse Ox (%): 95 - Studies Medications List Reviewed: Yes
--- NOTE | 2020-01-17 13:29 | P.DS ---
Admission Date: 01/16/20 Discharge Date: 01/17/20 Primary Care Provider: Oncology-Dr. Hester; Nephrology-Dr. Pang Disposition: HOSPICE-HOME Discharge Condition: GOOD Reason for Admission: Fatigue Consultations: Nephrology-Dr. Pang Oncology-Dr. Hester Procedures: CT Scan: FINDINGS: An 8 x 6 centimeter mass is present within the right hilum extending into the the mediastinum and right lower lobe. The mass occludes the right mainstem bronchus and encases the distal right main pulmonary artery. It compresses of the left atrium and superior vena cava. 3.9 x 2.7 centimeter superior mediastinal lymph node. Pretracheal lymph nodes 3.5 x 2.2 centimeter. Additional 2.5 centimeter pretracheal lymph node. Left paratracheal lymph node. Right lower lobe atelectasis is seen. Small right pleural effusion is present. 6.3 x 5.7 centimeter mass within the medial aspect of the right lobe of the liver has significantly increased in size. It compresses the inferior vena cava The spleen, pancreas, adrenals and kidneys unremarkable. 2.1 x 1.5 centimeter gastrohepatic lymph node Normal appendix. There is no evidence of diverticulitis IMPRESSION: 8 x 6 centimeter right hilar mass extends into the mediastinum and right lower lobe occluding the right mainstem bronchus resulting in right lower lobe atelectasis. 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 6.3 cm hepatic metastasis noted Hypertension COPD Brief History of Present Illness: 74-year-old male previously hospitalized at [facility]. Patient with history of small-cell lung cancer with metastasis stage IV. Patient was hospitalized there for hyponatremia. The patient left the hospital and came to our hospital to be further evaluated. Patient admitted for hyponatremia. 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 Patient with recent hospitalization. Nephrology and Oncology were consulted. Patient with underlying stage IV small-cell lung cancer with metastasis. Patient has had chemotherapy in the past. Upon further investigation repeat CT shows worsening changes. 8 cm x 6 cm right hilar mass extends into the mediastinum and right lower lobe occluding the right mainstem bronchus resulting in right lower lobe atelectasis. 6.3 cm hepatic metastasis also noted. This was discussed in detail with nephrology and oncology. Oncology reported that his condition has progressed. Life expectancy is around 6 months. I have discussed plan of care with the patient. Oncology further addressed plan of care including advanced directives and hospice. Patient and family have decided on hospice. Therefore patient would be discharged to home with hospice in place. Sodium level stable at this time. Hospice will likely continue with comfort measures. Patient with history of hypertension. At discharge he will continue with his medication Toprol 12.5 mg twice daily. Patient also with history of COPD. Patient will continue with his inhalers as previous. Vital Signs/Physical Exam: Temp Pulse Resp BP Pulse Ox 97.4 F 96 H 20 136/66 95 01/17/20 11:18 01/17/20 11:18 01/17/20 11:18 01/17/20 11:18 01/17/20 11:18 General: Alert, In no apparent distress, Oriented x3, Cooperative HEENT: Atraumatic Neck: Supple Respiratory: Clear to auscultation bilaterally, Normal air movement Cardiovascular: Normal pulses, Regular rate/rhythm Gastrointestinal: Normal bowel sounds, No tenderness, No masses, No rebound, No guarding Neurological: Normal speech, Normal strength at 5/5 x4 extr, Normal tone, Normal affect Laboratory Data at Discharge: WBC 7.9 K/uL (4.3-10.9) D 01/17/20 05:15 Hgb 13.5 g/dL (13.6-17.9) L 01/17/20 05:15 Hct 39.9 % (39.6-49.0) 01/17/20 05:15 Plt Count 297 K/uL (152-406) 01/17/20 05:15 PT 12.5 SECONDS (9.5-12.5) 01/16/20 00:01 INR 1.06 01/16/20 00:01 Sodium 134 mmol/L (136-145) L 01/17/20 05:15 Potassium 4.4 mmol/L (3.5-5.1) 01/17/20 05:15 BUN 11 mg/dL (7-18) 01/17/20 05:15 Creatinine 1.02 mg/dL (0.55-1.3) 01/17/20 05:15 Glucose 102 mg/dL (74-106) 01/17/20 05:15 Phosphorus 3.7 mg/dL (2.5-4.9) 01/17/20 05:15 Magnesium 2.0 mg/dL (1.8-2.4) 01/16/20 00:01 Total Bilirubin 0.7 mg/dL (0.2-1.0) 01/17/20 05:15 AST 38 U/L (15-37) H 01/17/20 05:15 ALT 29 U/L (12-78) 01/17/20 05:15 Alkaline Phosphatase 71 U/L (45-117) 01/17/20 05:15 Home Medications: Budesonide [Pulmicort*] 1 amp IN BID 01/16/20 Ipratropium/Albuterol Sulfate [Iprat-Albut 0.5-3(2.5) mg/3 ml] 1 amp IN Q6H 04/01 Metoprolol Succinate [Toprol Xl*] 0.5 tab PO BID 01/16/20 Patient Discharge Instructions: 1. Patient will be discharged home with hospice in place. 2. Patient presented with hyponatremia secondary to SIADH/ paraneoplastic syndrome. Patient with recent hospitalization. Nephrology and Oncology were consulted. Patient with underlying stage IV small-cell lung cancer with metastasis. Patient has had chemotherapy in the past. Upon further investigation repeat CT shows worsening changes. 8 cm x 6 cm right hilar mass extends into the mediastinum and right lower lobe occluding the right mainstem bronchus resulting in right lower lobe atelectasis. 6.3 cm hepatic metastasis also noted. This was discussed in detail with nephrology and oncology. Oncology reported that his condition has progressed. Life expectancy is around 6 months. I have discussed plan of care with the patient. Oncology further addressed plan of care including advanced directives and hospice. Patient and family have decided on hospice. Therefore patient would be discharged to home with hospice in place. Sodium level stable at this time. Hospice will likely continue with comfort measures. 3. Patient with history of hypertension. At discharge he will continue with his medication Toprol 12.5 mg twice daily. 4. Patient also with history of COPD. Patient will continue with his inhalers as previous. Diet: AHA Activity: Fall precautions Time spent managing pt's care (in minutes): 55
[2020-01-24 09:19] VITALS: BP 136/66; TEMP 97.4
== END 2020-01-17 16:50 | disposition hospice, home (50) ==
LOC: ER 23:41 → ERHOLD 01-16 02:09 → INTOOBSV 01-16 02:09 → 4TH 01-16 03:33
PROVIDERS: ADMIT Internal Medicine; ATTEND Family Medicine
DX: E22.2 Syndrome of inappropriate secretion of antidiuretic hormone (principal); C34.90 Malignant neoplasm of unspecified part of unspecified bronchus or lung; C79.9 Secondary malignant neoplasm of unspecified site; N40.0 Benign prostatic hyperplasia without lower urinary tract symptoms; J44.9 Chronic obstructive pulmonary disease, unspecified; I10 Essential (primary) hypertension; E78.2 Mixed hyperlipidemia; Z85.51 Personal history of malignant neoplasm of bladder; Z82.49 Family history of ischemic heart disease and other diseases of the circulatory system
CPT/HCPCS: 93005; 85025 ×2; 36415 ×2; 84132; 84300; 82947; 80069; 84443; 81003; 84439; 80053; 82533; 83930; 83935; 71260; 74177; 71045; 99285; Q9967; J1650 ×2; J7030; G0378 ×3